=== PATIENT | male | born 1955 | race Caucasian/White ===

== ENCOUNTER 2017-11-29 10:20 | Inpatient (IN) | payer MEDICARE ==
[2017-11-29] MEDS ORDERED: SUBLIMAZE 100 MCG/2 ML IV ONE (10:40)
[2017-11-29] MEDS ORDERED: BABY ASPIRIN 81 MG CHEW PO ONE (10:40)
[2017-11-29] MEDS ORDERED: Zofran 4 MG/2 ML VIAL IV ONE (10:40)
[2017-11-29] MEDS ORDERED: Sodium Chloride 0.9% 1000 ML 1,000 ML IV SCH ×2 (10:45→13:30)
[2017-11-29] MEDS ORDERED: BABY ASPIRIN 81 MG CHEW ONE (10:46)
[2017-11-29] MEDS ORDERED: Zofran 4 MG/2 ML VIAL ONE (10:46)
[2017-11-29] MEDS ORDERED: SUBLIMAZE 100 MCG/2 ML ONE (10:46)
--- NOTE | 2017-11-29 10:55 | ERPHSYRPT ---
- History of Present Illness Time Seen by Provider: 11/29/17 10:36 Historian: patient Exam Limitations: clinical condition Patient Subjective Stated Complaint: Pt states "I have been having this pain for the past 3 days I have been having pain in my right ribs and upper abdomen. It really hurts when I breath and move." Triage Nursing Assessment: Pt alert and oriented X 3, skin pwd PT ambulates with an upright steady gait, able to speak in clear full sentences. When pt moves, he grunts in pain and grasps his right side." Physician History: PATIENT WITH A HISTORY OF ATRIAL FIBRILLATION, CHF, HYPERTENSION, TYPE 2 DIABETES, PACEMAKER DEFIBRILLATOR INSERTION, COMPLAINS OF SEVERE RIGHT POSTERIOR CHEST PAIN X 3 DAYS EXACERBATED UPON INSPIRATION, COUGHING, OR MOTION OF TORSO. HAS DYSPNEA AND A SLIGHT PRODUCTIVE COUGH FOR 3 DAYS. DENIES DIAPHORESIS, PALPITATIONS OR FEVER. Timing/Duration: day(s) Activities at Onset: none Quality: sharpness, stabbing Location: back Chest Pain Radiation: no radiation Severity of Pain-Max: severe Severity of Pain-Current: severe Modifying Factors: Improves With: coughing, movement, change in position, other (INSPIRATION) Aspirin Treatment Today: 81 mg x 4 Allergies/Adverse Reactions: dabigatran etexilate mesylate [From Pradaxa] Allergy (Severe, Verified 09/03/13 04:47) Difficulty Swallowing metoclopramide HCl [From Reglan] Allergy (Severe, Verified 09/03/13 04:47) Itching apixaban [From Eliquis] Adverse Reaction (Severe, Verified 11/29/17 10:32) cant walk morphine Adverse Reaction (Severe, Verified 09/03/13 04:47) HALLUCINATIONS Home Medications: Aspirin [Aspirin EC] 81 mg PO DAILY 09/03/13 [History] Atorvastatin Calcium [Lipitor] 40 mg PO HS 09/03/13 [History] Flaxseed [Flaxseed Oil] 1,200 mg PO BID 09/03/13 [History] Furosemide 80 mg [Lasix 80 mg] 40 mg PO BID 09/03/13 [History] Hum Insulin NPH/Reg Insulin Hm [Humulin 70-30 Pen] 60 unit SQ QAM 09/03/13 [ History] Hum Insulin NPH/Reg Insulin Hm [Humulin 70-30 Vial] 59 unit SQ DAILY 09/03/13 [ History] Hum Insulin NPH/Reg Insulin Hm [Humulin 70-30 Vial] 59 unit SQ HS 09/03/13 [ History] Lisinopril 10 mg [Zestril 10 MG] 10 mg PO HS 09/03/13 [History] Niacin 500 mg [Niaspan 500 mg] 500 mg PO DAILY 09/03/13 [History] Nitroglycerin 0.4 mg Tablet [Nitrostat 0.4 MG Tablet] 0.4 mg SL UD PRN [History] [place]-3 Fatty Acids/Fish Oil [Fish Oil 1,000 mg Capsule] 2 cap PO BID 09/03 [History] Potassium Chloride 10 Meq Tab* [Klor Con 10 MEQ] 10 meq PO BID 09/03/13 [ History] Sotalol HCl 80 mg [Betapace 80 MG] 80 mg PO BID 09/03/13 [History] Spironolactone 25 mg [Aldactone 25 MG] 12.5 mg PO DAILY 09/03/13 [History] Warfarin Sodium 5 mg [Coumadin 5 MG] 5 mg PO DAILY 09/03/13 [History] Hx Tetanus, Diphtheria Vaccination/Date Given: No Hx Influenza Vaccination/Date Given: Yes Hx Pneumococcal Vaccination/Date Given: Yes Immunizations Up to Date: Yes - Past Medical History Pertinent Past Medical History: Yes Neurological History: Migraines, Peripheral Neuropathy ENT History: Cataracts Cardiac History: Arrhythmia, Congestive Heart Failure, Coronary Artery Disease, High Cholesterol, Hypertension, Myocardial Infarction ([place]) Respiratory History: CHF, COPD, Emphysema, Pneumonia, Sleep Apnea Endocrine Medical History: Diabetes Type II, Other Musculoskeletal History: No Pertinent History GI Medical History: Diverticulitis History: No Pertinent History Psycho-Social History: No Pertinent History Other Medical History: SLEEP APNEA, RLS, FATIGUE, SINUSITIS, ISCHEMIC CARDIOMYOPATHY, A-FIB - Past Surgical History Past Surgical History: Yes Neuro Surgical History: No Pertinent History Cardiac: CABG, Cardiac Catheterization, Internal Defibrillator, Pacemaker Respiratory: No Pertinent History Gastrointestinal: Other Genitourinary: No Pertinent History Musculoskeletal: No Pertinent History Male Surgical History: No Pertinent History Other Surgical History: POLYPS REMOVED FROM COLON - Social History Smoking Status: Former smoker Exposure to second hand smoke: Yes Drug Use: none Patient Lives Alone: Yes - Nursing Vital Signs Nursing Vital Signs: Initial Vital Signs Temperature 97.5 F 11/29/17 10:24 Pulse Rate 70 11/29/17 10:24 Respiratory Rate 16 11/29/17 10:24 Blood Pressure 127/73 11/29/17 10:24 O2 Sat by Pulse Oximetry 97 11/29/17 10:24 Pain Scale Pain Intensity 0 - Physical Exam SpO2: 97 Oxygen Delivery: Room Air - Course EKG Interpreted by Me: RATE, Sinus Rhythm (WITH ATRIAL VENTRICULAR PACEMAKER) - Radiology Exams Chest X-ray Interpretation: Discussed w/ radiologist (MILD BIBASILAR INFILTRATES / ATELECTASIS WITHOUT CONSOLIDATION OR EFFUSION, PREVIOUS STERNOTOMY, LEFT SIDED AICD) Ordered Tests: Active Orders 24 hr Category Date Time Status Up With Assistance ROUTINE Activity 11/29/17 13:24 Ordered Accucheck ACHS Care 11/29/17 13:24 Ordered Code Status Order ROUTINE Care 11/29/17 13:24 Ordered EKG-ER Only STAT Care 11/29/17 10:40 Active IV Care Q6H Care 11/29/17 13:24 Ordered Oxygen-ED Only NASAL CANNULA 2 lpm Care 11/29/17 10:[address] in Observation ROUTINE Care 11/29/17 13:24 Ordered Abrahan Hose, Apply ROUTINE Care 11/29/17 13:24 Ordered Telemetry ROUTINE Care 11/29/17 13:24 Ordered Vital Signs Q4H Care 11/29/17 13:24 Ordered Weight,Daily 0600 Care 11/29/17 13:24 Ordered 2000 Calorie ADA Diet 11/29/17 Dinner Ordered CHEST 1 VIEW (PORTABLE) Stat Exams 11/29/17 10:41 Completed BLOOD CULTURE Stat Lab 11/29/17 12:20 Ordered CBC W DIFF Stat Lab 11/29/17 11:03 Completed CMP Stat Lab 11/29/17 11:03 Completed D-DIMER QUANTITATION Stat Lab 11/29/17 11:03 Completed PROTIME WITH INR Stat Lab 11/29/17 11:03 Completed TROPONIN Q3H Lab 11/29/17 11:03 Completed TROPONIN Q3H Lab 11/29/17 13:45 Ordered TROPONIN Q3H Lab 11/29/17 16:45 Ordered TROPONIN Q3H Lab 11/29/17 19:45 Ordered TROPONIN Q3H Lab 11/29/17 22:45 Ordered Oxygen NASAL CANNULA 2 lpm RT 11/29/17 13:24 Ordered Pulse Oximetry CONTINUOUS RT 11/29/17 13:26 Ordered Respiratory Nebulizer STAT RT 11/29/17 11:50 Active Respiratory Therapy Consult ROUTINE RT 11/29/17 13:24 Ordered Transfer Order Routine Transfer 11/29/17 Ordered Medication Summary Generic Name Dose Route Start Last Admin Trade Name Freq PRN Reason Stop Dose Admin Sodium Chloride 1,000 mls @ 100 mls/hr 11/29/17 10:45 11/29/17 10:48 Sodium Chloride 0.9% 1000 Ml IV 12/29/17 10:44 100 mls/hr .Q10H KIKI Administration Discontinued Medications Generic Name Dose Route Start Last Admin Trade Name Freq PRN Reason Stop Dose Admin Albuterol/Ipratropium 3 ml 11/29/17 11:49 11/29/17 12:00 Duoneb 0.5-3 Mg/3 Ml Neb IH 11/29/17 11:50 3 ml STAT ONE Administration Albuterol/Ipratropium Confirm 11/29/17 11:54 Duoneb 0.5-3 Mg/3 Ml Neb Administered 11/29/17 11:55 Dose 3 ml IH .STK-MED ONE Aspirin 324 mg 11/29/17 10:40 11/29/17 10:47 Baby Aspirin 81 Mg Chew PO 11/29/17 10:41 324 mg STAT ONE Administration Aspirin Confirm 11/29/17 10:46 Baby Aspirin 81 Mg Chew Administered 11/29/17 10:47 Dose 324 mg .ROUTE .STK-MED ONE Fentanyl Citrate 100 mcg 11/29/17 10:40 11/29/17 10:48 Sublimaze 100 Mcg/2 Ml IV 11/29/17 10:41 100 mcg STAT ONE Administration Fentanyl Citrate Confirm 11/29/17 10:46 Sublimaze 100 Mcg/2 Ml Administered 11/29/17 10:47 Dose 100 mcg .ROUTE .STK-MED ONE Azithromycin 500 mg in 250 mls @ 250 mls/hr 11/29/17 11:48 11/29/17 12:43 Zithromax 500 Mg/ 250 Ml Nacl Premix IV 11/29/17 12:47 250 mls/hr STAT STA Administration Ceftriaxone Sodium/Dextrose 2 g in 50 mls @ 100 mls/hr 11/29/17 11:49 12:08 Rocephin 2 Gm-D5w 50ml Bag IV 11/29/17 12:18 100 mls/hr STAT STA Administration Azithromycin Confirm 11/29/17 12:06 Zithromax 500 Mg/ 250 Ml Nacl Premix Administered 11/29/17 12:07 Dose 500 mg in 250 mls @ ud IV .STK-MED ONE Ceftriaxone Sodium/Dextrose Confirm 11/29/17 12:06 Rocephin 2 Gm-D5w 50ml Bag Administered 11/29/17 12:07 Dose 2 g in 50 mls @ ud IV .STK-MED ONE Azithromycin Confirm 11/29/17 12:42 Zithromax 500 Mg/ 250 Ml Nacl Premix Administered 11/29/17 12:43 Dose 500 mg in 250 mls @ ud IV .STK-MED ONE Ondansetron HCl 4 mg 11/29/17 10:40 11/29/17 10:48 Zofran 4 Mg/2 Ml Vial IV 11/29/17 10:41 4 mg STAT ONE Administration Ondansetron HCl Confirm 11/29/17 10:46 Zofran 4 Mg/2 Ml Vial Administered 11/29/17 10:47 Dose 4 mg .ROUTE .STK-MED ONE Lab/Rad Data: Laboratory Result Diagrams 11/29/17 11:03 11/29/17 11:03 Laboratory Results 11/29/17 11/29/17 11/29/17 Range/Units 11:03 11:03 11:03 WBC (4.0-10.5) K/mm3 RBC (4.1-5.6) M/mm3 Hgb (12.5-18.0) gm/dl Hct (42-50) % MCV (78-100) fl MCH (26-32) pg MCHC (32-36) g/dl RDW (11.5-14.0) % Plt Count (150-450) K/mm3 MPV (6-9.5) fl Gran % (36.0-66.0) % Eos # (Auto) (0-0.5) Absolute Lymphs (auto) (1.0-4.6) Absolute Monos (auto) (0.0-1.3) Lymphocytes % (24.0-44.0) % Monocytes % (0.0-12.0) % Eosinophils % (0.00-5.0) % Basophils % (0.0-0.4) % Absolute Granulocytes (1.4-6.9) Basophils # (0-0.4) PT 21.4 H (8.83-12.87) SECONDS INR 1.91 (0.8-3.0) D-Dimer 331.90 (215-500) ng/mL Sodium 138 (137-145) mmol/L Potassium 4.4 (3.5-5.1) mmol/L Chloride 101 (98-107) mmol/L Carbon Dioxide 27 (22-30) mmol/L Anion Gap 14.5 (5-15) MEQ/L BUN 26 H (9-20) mg/dL Creatinine 1.07 (0.66-1.25) mg/dL Estimated GFR > 60.0 ML/MIN Glucose 229 H (74-106) mg/dL Calcium 9.6 (8.4-10.2) mg/dL Total Bilirubin 0.60 (0.2-1.3) mg/dL AST 23 (17-59) U/L ALT 22 (0-50) U/L Alkaline Phosphatase 93 (38-126) U/L Troponin I < 0.012 (0.000-0.034) ng/mL Serum Total Protein 7.3 (6.3-8.2) g/dL Albumin 3.9 (3.5-5.0) g/dL 11/29/17 Range/Units 11:03 WBC 7.4 (4.0-10.5) K/mm3 RBC 4.75 (4.1-5.6) M/mm3 Hgb 12.9 (12.5-18.0) gm/dl Hct 40.2 L (42-50) % MCV 84.6 (78-100) fl MCH 27.2 (26-32) pg MCHC 32.1 (32-36) g/dl RDW 17.1 H (11.5-14.0) % Plt Count 164 (150-450) K/mm3 MPV 10.8 H (6-9.5) fl Gran % 68.0 H (36.0-66.0) % Eos # (Auto) 0.39 (0-0.5) Absolute Lymphs (auto) 1.30 (1.0-4.6) Absolute Monos (auto) 0.66 (0.0-1.3) Lymphocytes % 17.5 L (24.0-44.0) % Monocytes % 8.9 (0.0-12.0) % Eosinophils % 5.3 H (0.00-5.0) % Basophils % 0.3 (0.0-0.4) % Absolute Granulocytes 5.04 (1.4-6.9) Basophils # 0.02 (0-0.4) PT (8.83-12.87) SECONDS INR (0.8-3.0) D-Dimer (215-500) ng/mL Sodium (137-145) mmol/L Potassium (3.5-5.1) mmol/L Chloride (98-107) mmol/L Carbon Dioxide (22-30) mmol/L Anion Gap (5-15) MEQ/L BUN (9-20) mg/dL Creatinine (0.66-1.25) mg/dL Estimated GFR ML/MIN Glucose (74-106) mg/dL Calcium (8.4-10.2) mg/dL Total Bilirubin (0.2-1.3) mg/dL AST (17-59) U/L ALT (0-50) U/L Alkaline Phosphatase (38-126) U/L Troponin I (0.000-0.034) ng/mL Serum Total Protein (6.3-8.2) g/dL Albumin (3.5-5.0) g/dL - Progress Progress: re-examined Air Movement: good Progress Note: 11/29/17 13:19 DUONEB AEROSOL TX, AFTER 2 SETS OF BLOOD CULTURES ADMINISTERED ROCEPHIN 2GM AND ZITHROMAX 500MG IVPB Blood Culture(s) Obtained: Yes Antibiotics given: Yes Discussed with Dr.: Aguilar (DISCUSSED WITH DR AGUILAR AT 1315 FOR OBSERVATION) - Departure Time of Disposition: 13:30 Departure Disposition: Observation Clinical Impression: PNEUMONIA, RIGHT POSTERIOR CHEST WALL PAIN Condition: Stable Critical Care Time: No Referrals: NILA AGUILAR [Primary Care Provider] -
--- NOTE | 2017-11-29 11:06 | XRAY ---
Indication: Chest pain and dyspnea. Comparison: January 30, 2008. Portable chest again demonstrates mild bibasilar infiltrates/atelectasis without consolidation/large effusion. Heart is not enlarged again with CABG surgery and left-sided AICD. Bony thorax intact.
[2017-11-29 11:20] LABS: BASOPHIL % 0.3 % (0.0-0.4); Basophil (Absolute #) 0.02 (0-0.4); Eosinophil % 5.3 % (0.00-5.0); Eosinophil (Absolute #) 0.39 (0-0.5); Granulocyte Absolute (ANC) 5.04 (1.4-6.9); Hematocrit 40.2 % (42-50); Hemoglobin 12.9 gm/dl (12.5-18.0); Lymphocytes % 17.5 % (24.0-44.0); Mean Cell Volume 84.6 fl (78-100); Mean Corpuscular Hemoglobin 27.2 pg (26-32); Mean Corpuscular Hgb Concent. 32.1 g/dl (32-36); Mean Platelet Volume 10.8 fl (6-9.5); Monocyte (Absolute #) 0.66 (0.0-1.3); Monocytes % 8.9 % (0.0-12.0); Platelet Count 164 K/mm3 (150-450); Red Blood Count 4.75 M/mm3 (4.1-5.6); Red Cell Distribution Width 17.1 % (11.5-14.0); White Blood Count 7.4 K/mm3 (4.0-10.5)
[2017-11-29] MEDS ORDERED: Zithromax 500 MG/ 250 ML NaCl Premix 500 MG/250 ML IVPB IV STA (11:48)
[2017-11-29] MEDS ORDERED: ROCEPHIN 2 Gm-D5w 50ML BAG** 2 G/50 ML IVPB IV STA (11:49)
[2017-11-29] MEDS ORDERED: DUONEB 0.5-3 MG/3 ml Neb IH ONE ×2 (11:49→11:54)
[2017-11-29 11:57] LABS: INR 1.91 (0.8-3.0)
[2017-11-29 11:59] LABS: D-DIMER QUANTITATION 331.9 ng/mL (215-500)
[2017-11-29 12:05] LABS: ALBUMIN 3.9 g/dL (3.5-5.0); ALKALINE PHOSPHATASE 93 U/L (38-126); ANION GAP 14.5 MEQ/L (5-15); BLOOD UREA NITROGEN 26 mg/dL (9-20); CHLORIDE 101 mmol/L (98-107); Calcium 9.6 mg/dL (8.4-10.2); Carbon Dioxide 27 mmol/L (22-30); Creatinine 1 1.07 mg/dL (0.66-1.25); Glucose 229 mg/dL (74-106); Potassium 4.4 mmol/L (3.5-5.1); SGOT/AST 23 U/L (17-59); SGPT/ALT 22 U/L (0-50); SODIUM 138 mmol/L (137-145); Total Protein 7.3 g/dL (6.3-8.2)
[2017-11-29] MEDS ORDERED: Zithromax 500 MG/ 250 ML NaCl Premix 500 MG/250 ML IVPB IV ONE ×2 (12:06→12:42)
[2017-11-29] MEDS ORDERED: ROCEPHIN 2 Gm-D5w 50ML BAG** 2 G/50 ML IVPB IV ONE (12:06)
[2017-11-29] MEDS ORDERED: Nitrostat 0.4 MG Tablet SL PRN (13:36)
[2017-11-29] MEDS: DUONEB 0.5-3 MG/3 ml Neb IH SCH ×3 (15:48→23:24)
[2017-11-29] MEDS ORDERED: Novolin 70/30 SQ SCH (17:00)
[2017-11-29] MEDS ORDERED: Lasix 40 MG PO SCH (17:00)
[2017-11-29] MEDS ORDERED: Phenergan 25 MG INJ IV PRN (17:26)
[2017-11-29] MEDS ORDERED: TYLENOL 325 MG PO PRN (17:26)
[2017-11-29] MEDS ORDERED: SUBLIMAZE 100 MCG/2 ML IV PRN (17:27)
[2017-11-29] MEDS: Coumadin 3 MG PO SCH (18:27)
[2017-11-29] MEDS: Coumadin 5 MG PO SCH (18:28)
[2017-11-29] MEDS: Klor Con 10 MEQ PO SCH (21:35)
[2017-11-29] MEDS: Aldactone 25 MG PO SCH (21:36)
[2017-11-29] MEDS: Zestril 10 MG PO SCH (21:36)
[2017-11-29] MEDS: Betapace 80 MG PO SCH (21:36)
[2017-11-29] MEDS: Lasix 40 MG PO SCH (21:39)
[2017-11-29] MEDS: NovoLOG Insulin SQ PRN (21:40)
[2017-11-29] MEDS ORDERED: Lantus Insulin SQ ONE (22:00)
[2017-11-29] MEDS ORDERED: ZOCOR 20MG PO SCH (22:00)
[2017-11-29] MEDS ORDERED: Klor Con 10 MEQ PO SCH (22:00)
[2017-11-30 00:27] LABS: TSH, 3RD Generation 0.801 mIU/L (0.47-4.68)
[2017-11-30] MEDS: DUONEB 0.5-3 MG/3 ml Neb IH SCH ×5 (03:21→19:37)
[2017-11-30 06:12] LABS: BASOPHIL % 0.1 % (0.0-0.4); Basophil (Absolute #) 0.01 (0-0.4); Eosinophil (Absolute #) 0 (0-0.5); Granulocyte Absolute (ANC) 10.23 (1.4-6.9); Granulocytes % 78.6 % (36.0-66.0); Hematocrit 36.7 % (42-50); Hemoglobin 11.7 gm/dl (12.5-18.0); Lymphocyte (Absolute #) 1.56 (1.0-4.6); Mean Cell Volume 84.4 fl (78-100); Mean Corpuscular Hgb Concent. 31.9 g/dl (32-36); Monocyte (Absolute #) 1.21 (0.0-1.3); Monocytes % 9.3 % (0.0-12.0); Platelet Count 143 K/mm3 (150-450); Red Blood Count 4.35 M/mm3 (4.1-5.6)
[2017-11-30 06:26] LABS: Mean Corpuscular Hemoglobin 26.8 pg (26-32)
[2017-11-30 06:29] LABS: INR 2.24 (0.8-3.0)
[2017-11-30 06:31] LABS: ANION GAP 12.8 MEQ/L (5-15); BLOOD UREA NITROGEN 27 mg/dL (9-20); CHLORIDE 101 mmol/L (98-107); Calcium 9.2 mg/dL (8.4-10.2); Carbon Dioxide 25 mmol/L (22-30); Creatinine 1 1.11 mg/dL (0.66-1.25); Glucose 276 mg/dL (74-106); Potassium 4.5 mmol/L (3.5-5.1); SODIUM 135 mmol/L (137-145)
[2017-11-30] MEDS: Novolin 70/30 SQ SCH ×2 (07:44→16:52)
--- NOTE | 2017-11-30 07:52 | HP ---
HISTORY OF PRESENT ILLNESS: This is a 62 year-old patient of mine who reported that he started feeling bad a few days ago. His sister is at the bedside. She reports he was having quite a bit of right-sided pain in his chest and she thought it might be his gallbladder and wanted him to come to the hospital yesterday but he refused. He states he was in so much pain this morning that he was crying so he called the ambulance and was brought into the emergency department by ambulance. He reports his pain is much better now. He is not sure what they gave him in the emergency department. It looks like they gave him Fentanyl as well as starting antibiotics and Zofran. He reports that they gave him a breathing treatment on the way to the hospital and that seemed to help quite a bit. He reports a history of chronic obstructive pulmonary disease. He does not wear oxygen at home. He reports the pain would sometimes be sharp in nature and would come and go. He was taking ibuprofen at home without much relief. He denies any cough but states they told him now to try to cough stuff up, to take deep breaths which he is trying to do. He reports he has not urinated since this morning but does not feel like he needs to urinate. He reports he has not had a water pill today which he normally takes. REVIEW OF SYSTEMS: He denies any runny nose or fever. No cold-like symptoms. No abdominal pain. He has some urinary retention. He has not seen any blood in his urine. No rashes. No nausea or vomiting. No diarrhea. PAST MEDICAL HISTORY: Chronic obstructive pulmonary disease for which he sees Dr. Moseley for. Coronary artery disease which he sees Dr. De Leon for. 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 In the past he has been unable to tell me exactly why he is on that. He has a pacemaker. He reports his last heart cath was in 2008. Diabetes mellitus type 2 on insulin. Hyperlipidemia. Obesity. He has a history of ischemic cardiomyopathy. Restless leg syndrome. 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 Obstructive sleep apnea. He wears CPAP 6 cm at home. PAST SURGICAL HISTORY: Open heart surgery in 2000. Pacemaker placement. Colonoscopy [address] Duvall. Upper endoscopy with ballooning with Dr. Connolly in the past. MEDICATIONS: Aldactone 0.5 mg tablet daily, aspirin 81 mg daily, Atorvastatin 80 mg p.o. q.h.s., Klor-Con 10 mEq b.i.d., Lasix 40 mg t.i.d., lisinopril 10 mg daily, metformin extended release 2 tablets twice a day, metolazone 2.5 mg tablet twice a week, nitroglycerin 0.4 mg sublingual as needed, Novolin 70/30 62 units in the a.m., 56 units at noon and 62 units with his evening meal. Sotalol 80 mg p.o. b.i.d., warfarin a total of 8 mg daily. ALLERGIES: ELIQUIS, MORPHINE, PRADAXA, REGLAN. SOCIAL HISTORY: He used to smoke. He lives alone. FAMILY HISTORY: His father had diabetes and heart disease. PHYSICAL EXAMINATION: VITAL SIGNS: Temperature current 97.5F, temperature max 97.9F, heart rate 64 to 70, respiratory rate 16 to 17, blood pressure 110 to 127 over 56 to 72, weight 172.3 kg. Oxygen saturation 93 to 99% on room air to 3 liters nasal cannula. GENERAL: The patient is a lying in bed a pleasant talkative man in no acute distress. He is on oxygen by nasal cannula at 3 liters. CVS: He has a regular rate and rhythm. No murmurs, gallops or rubs are appreciated. CHEST: Clear to auscultation bilaterally, equal breath sounds. No crackles or wheezes are appreciated. No retractions. ABDOMEN: Obese, soft, nontender, nondistended with normal bowel sounds. EXTREMITIES: He has +3 pitting edema to his knees bilaterally. SKIN: Dry. LABORATORY DATA AND TESTS: CBC within normal limits. International normalized ratio 1.9. Glucose 229. Serial troponins have been negative. A D-dimer was negative. Chest x-ray portable was read as mild bibasilar infiltrates/atelectasis without consolidation/large effusion. Coronary artery bypass graft with left-sided AICD. ASSESSMENT AND PLAN: 1) ACUTE BRONCHITIS WITH HISTORY OF CHRONIC OBSTRUCTIVE PULMONARY DISEASE: Will continue with breathing treatments. He has been started on ceftriaxone. I am going to discontinue azithromycin due to interaction with warfarin and Sotalol and start doxycycline tomorrow. I will ask if apprenticeship training representative, Dr. Moseley, will see him. 2) HISTORY OF CONGESTIVE HEART FAILURE: Will continue with the Coumadin. 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 3) DIABETES MELLITUS TYPE 2: I plan to decrease his NPH to just twice a day while he is here to 40 units and this is a little less than half of what he usually gets as his appetite might not be as good since he is sick and he probably will eat a better diet here than at home with a 2,000 kilocalorie ADA diet. Also will check TSH while he is here.
--- NOTE | 2017-11-30 08:30 | PCM.NOTE ---
Date and Time: 11/30/17824 Subjective Assessment: Patient reports his right shoulder blade pain came back last night and the pain medication ordered did help with the pain. He reports sometimes he has pain in his right upper quadrant and reports having his gallbladder checked out many times before but thinks it has been years since it was last checked. He is not sure if it hurts worse with eating but he did eat his breakfast well. He continues to have a nonproductive cough. RT reported to me last night that the reason he was placed on oxygen is because it was ordered by the ER physician. Patient reports his breathing is better. Dr. Moseley was called last night and plans to see the patient 12/01/17. - Review of Systems Constitutional: No Symptoms Eyes: No Symptoms Ears, Nose, & Throat: No Symptoms Respiratory: Cough Cardiac: No Symptoms Abdominal/Gastrointestinal: No Symptoms Genitourinary Symptoms: Other (Patient reports he was able to urinate 5 times yesterday from about 6 pm to 2 am.) Musculoskeletal: Other (Pain around his right shoulder blade) Skin: No Rash Neurological: No Symptoms Psychological: No Symptoms Objective Exam General Appearance: no apparent distress, alert, obese Neurologic Exam: alert, cooperative, normal mood/affect Skin Exam: normal color, warm, dry, No rash Respiratory Exam: normal breath sounds, lungs clear, No crackles/rales, No rhonchi, No wheezing Cardiovascular Exam: regular rate/rhythm, normal heart sounds, No murmur, No friction rub, No gallop Gastrointestinal/Abdomen Exam: soft, normal bowel sounds, No tenderness, No distention, No mass, No guarding Extremity Exam: other (+2 edema to knees bilat; no point tenderness around right shoulder blade; no c/c) OBJECTIVE DATA Vital Signs: Vital Signs - 24 hr Temp Pulse Resp BP Pulse Ox 11/30/17 07:49 70 16 94 L 11/30/17 07:08 97.7 F 70 22 119/64 96 11/30/17 04:00 97.6 F 65 20 118/56 95 11/30/17 03:00 66 22 93 L 11/30/17 00:00 97.5 F 71 20 95/54 91 L 11/29/17 23:00 80 18 95 11/29/17 20:00 97.5 F 82 22 106/51 92 L 11/29/17 19:00 75 14 94 L 11/29/17 16:00 16 11/29/17 15:52 97.5 F 68 16 133/56 93 L 11/29/17 15:00 64 16 94 L 11/29/17 13:38 97 11/29/17 12:55 66 17 110/67 95 11/29/17 12:01 64 16 99 11/29/17 11:23 97.9 F 67 16 127/72 95 11/29/17 10:24 97.5 F 70 16 127/73 97 Oxygen-Last 24 hours O2 Percentage 3 Liters = 32% O2 Percentage 3 Liters = 32% O2 Percentage 3 Liters = 32% O2 Percentage 3 Liters = 32% O2 Percentage 3 Liters = 32% Pain Assessment - Last Documented Pain Intensity 7 Pain Scale Used 0-10 Pain Scale Intake and Output: Intake & Output 11/28/17 11/29/17 11/30/17 12/01/17 06:59 06:59 06:59 06:59 Intake Total 1200 Balance 1200 Weight 172.9 kg Lab Results: Accuchecks Date 11/29/17 Date 11/29/17 Time 20:22 Time 16:30 Accucheck Value: 345 Accucheck Value: 209 Lab Results-Last 24 Hours 11/29/17 11/29/17 11/29/17 Range/Units 16:45 16:50 22:10 WBC (4.0-10.5) K/mm3 RBC (4.1-5.6) M/mm3 Hgb (12.5-18.0) gm/dl Hct (42-50) % MCV (78-100) fl MCH (26-32) pg MCHC (32-36) g/dl RDW (11.5-14.0) % Plt Count (150-450) K/mm3 MPV (6-9.5) fl Gran % (36.0-66.0) % Eos # (Auto) (0-0.5) Absolute Lymphs (auto) (1.0-4.6) Absolute Monos (auto) (0.0-1.3) Lymphocytes % (24.0-44.0) % Monocytes % (0.0-12.0) % Eosinophils % (0.00-5.0) % Basophils % (0.0-0.4) % Absolute Granulocytes (1.4-6.9) Basophils # (0-0.4) PT (8.83-12.87) SECONDS INR (0.8-3.0) Sodium (137-145) mmol/L Potassium (3.5-5.1) mmol/L Chloride (98-107) mmol/L Carbon Dioxide (22-30) mmol/L Anion Gap (5-15) MEQ/L BUN (9-20) mg/dL Creatinine (0.66-1.25) mg/dL Estimated GFR ML/MIN Glucose (74-106) mg/dL Calcium (8.4-10.2) mg/dL Troponin I < 0.012 < 0.012 (0.000-0.034) ng/mL NT-Pro-B Natriuret Pep 269 (0-900) pg/mL TSH 3rd Generation 0.801 (0.47-4.68) mIU/L 11/30/17 11/30/17 11/30/17 Range/Units 05:56 05:56 05:56 WBC 13.0 H (4.0-10.5) K/mm3 RBC 4.35 (4.1-5.6) M/mm3 Hgb 11.7 L (12.5-18.0) gm/dl Hct 36.7 L (42-50) % MCV 84.4 (78-100) fl MCH 26.8 (26-32) pg MCHC 31.9 L (32-36) g/dl RDW 17.0 H (11.5-14.0) % Plt Count 143 L (150-450) K/mm3 MPV 11.0 H (6-9.5) fl Gran % 78.6 H (36.0-66.0) % Eos # (Auto) 0 (0-0.5) Absolute Lymphs (auto) 1.56 (1.0-4.6) Absolute Monos (auto) 1.21 (0.0-1.3) Lymphocytes % 12.0 L (24.0-44.0) % Monocytes % 9.3 (0.0-12.0) % Eosinophils % 0.0 (0.00-5.0) % Basophils % 0.1 (0.0-0.4) % Absolute Granulocytes 10.23 H (1.4-6.9) Basophils # 0.01 (0-0.4) PT 25.1 H (8.83-12.87) SECONDS INR 2.24 (0.8-3.0) Sodium 135 L (137-145) mmol/L Potassium 4.5 (3.5-5.1) mmol/L Chloride 101 (98-107) mmol/L Carbon Dioxide 25 (22-30) mmol/L Anion Gap 12.8 (5-15) MEQ/L BUN 27 H (9-20) mg/dL Creatinine 1.11 (0.66-1.25) mg/dL Estimated GFR > 60.0 ML/MIN Glucose 276 H (74-106) mg/dL Calcium 9.2 (8.4-10.2) mg/dL Troponin I (0.000-0.034) ng/mL NT-Pro-B Natriuret Pep (0-900) pg/mL TSH 3rd Generation (0.47-4.68) mIU/L Radiology Exams: Radiology Procedures Category Date Time Status CHEST 2 VIEWS (PA AND LAT) Routine Exams 11/30/17 Ordered Ultrasound Gallbladder [GALLBLADDER] [US] Routine Exams 11/30/17 Ordered Multi-Disciplinary Progress Notes: Multi-Disciplinary Progress Notes 11/29/17 14:55 Pharmacy Note by Romulo Richards Please be aware of possible drug interaction with Coumadin and Zithromax. May increase INR. Initialized on 11/29/17 14:55 - END OF NOTE 11/29/17 14:50 Pharmacy Note by Romulo Richards Please be aware of possible drug interaction with Zithromax and Betapace. May prolong QT interval. Initialized on 11/29/17 14:50 - END OF NOTE Assessment/Plan (1) Acute bronchitis Current Visit: Yes Status: Acute Assessment & Plan: Continue doxycycline and ceftriaxone. Continue oxygen as needed but try to wean off. Continue nebulizer treatments. Code(s): J20.9 - ACUTE BRONCHITIS, UNSPECIFIED (2) Shoulder blade pain Current Visit: Yes Status: Acute Assessment & Plan: will check gallbladder US to make sure this is not referred pain from gallbladder disease. Continue fentanyl as needed. No rash is appreciated. 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 Continue anticoagulation. INR is therapeutic today. BNP was normal. Ruled out for acute [facility]. D/c tele. Code(s): Z86.79 - PERSONAL HISTORY OF OTHER DISEASES OF THE CIRCULATORY SYSTEM (4) Diabetes type 2, controlled Current Visit: Yes Status: Acute Qualifiers: Diabetes mellitus terminal carman insulin use: with skilled nursing use Diabetes mellitus complication status: without complication Qualified Code(s): E11.9 - Type 2 diabetes mellitus without complications; Z79.4 - penitentiary (current) use of insulin; Z79.4 - penitentiary (current) use of insulin; Z79.4 - termite inspector ( current) use of insulin; Z79.4 - penitentiary (current) use of insulin Assessment & Plan: I have him on a lower dose of 70/30 than he is on at home at this time due to decreased appetite yesterday. Continue to monitor. I did give him 10 units of lantus last night as he did not get his 70/30 at supper time. Code(s): E11.9 - TYPE 2 DIABETES MELLITUS WITHOUT COMPLICATIONS
--- NOTE | 2017-11-30 09:02 | XRAY ---
Indication: Bronchitis. Comparison: One day earlier. PA/lateral chest unchanged again demonstrating mild bibasilar infiltrates/atelectasis. Heart and mediastinal structures within normal limits again with CABG surgery and left-sided AICD. No new cardiopulmonary abnormalities.
[2017-11-30] MEDS: ECOTRIN 81 MG PO SCH (09:54)
[2017-11-30] MEDS: Vibramycin 100 MG PO SCH ×2 (09:54→21:04)
[2017-11-30] MEDS: ROCEPHIN 2 Gm-D5w 50ML BAG** 2 G/50 ML IVPB IV SCH (09:55)
[2017-11-30] MEDS: Klor Con 10 MEQ PO SCH ×2 (09:55→21:04)
[2017-11-30] MEDS: Lasix 40 MG PO SCH ×3 (09:55→16:52)
[2017-11-30] MEDS: Aldactone 25 MG PO SCH (09:55)
[2017-11-30] MEDS: Betapace 80 MG PO SCH ×2 (09:55→21:02)
[2017-11-30] MEDS ORDERED: Zithromax 500 MG/ 250 ML NaCl Premix 500 MG/250 ML IVPB IV SCH (10:00)
[2017-11-30] MEDS: NovoLOG Insulin SQ PRN ×3 (11:37→21:04)
--- NOTE | 2017-11-30 14:56 | XRAY ---
Indication: Right upper quadrant pain. Two-dimensional gallbladder sonogram performed. Comparison: None Gallbladder normally distended without gallstones, wall thickening, or pericholecystic fluid. Common bile duct measures 4.8 mm. No intrahepatic biliary distention. Fatty echogenic liver without focal solid/cystic mass or ascites. Visualized pancreas and right kidney sonographically unremarkable. Right kidney measures 11.1 cm in length. Impression: Fatty liver. Negative gallbladder sonogram.
[2017-11-30] MEDS: Coumadin 5 MG PO SCH (17:03)
[2017-11-30] MEDS: Coumadin 3 MG PO SCH (17:03)
[2017-11-30] MEDS: Zestril 10 MG PO SCH (21:02)
[2017-11-30] MEDS: ZOCOR 20MG PO SCH (21:03)
[2017-12-01 06:14] LABS: ANION GAP 10.6 MEQ/L (5-15); BLOOD UREA NITROGEN 24 mg/dL (9-20); CHLORIDE 101 mmol/L (98-107); Calcium 9.3 mg/dL (8.4-10.2); Carbon Dioxide 31 mmol/L (22-30); Creatinine 1 1.27 mg/dL (0.66-1.25); Glucose 140 mg/dL (74-106); Potassium 4.2 mmol/L (3.5-5.1); SODIUM 139 mmol/L (137-145)
[2017-12-01 06:17] LABS: INR 2.45 (0.8-3.0)
[2017-12-01] MEDS: DUONEB 0.5-3 MG/3 ml Neb IH SCH ×4 (06:24→19:27)
[2017-12-01 06:25] LABS: BASOPHIL % 0.3 % (0.0-0.4); Basophil (Absolute #) 0.03 (0-0.4); Eosinophil % 4.3 % (0.00-5.0); Eosinophil (Absolute #) 0.42 (0-0.5); Granulocytes % 63.7 % (36.0-66.0); Hematocrit 39.3 % (42-50); Hemoglobin 12.4 gm/dl (12.5-18.0); Lymphocytes % 21.3 % (24.0-44.0); Mean Cell Volume 85.1 fl (78-100); Mean Corpuscular Hemoglobin 26.8 pg (26-32); Mean Corpuscular Hgb Concent. 31.6 g/dl (32-36); Monocyte (Absolute #) 1.03 (0.0-1.3); Monocytes % 10.4 % (0.0-12.0); Platelet Count 157 K/mm3 (150-450); Red Blood Count 4.62 M/mm3 (4.1-5.6); Red Cell Distribution Width 17.5 % (11.5-14.0); White Blood Count 9.9 K/mm3 (4.0-10.5)
[2017-12-01] MEDS: Novolin 70/30 SQ SCH ×2 (08:03→17:49)
--- NOTE | 2017-12-01 08:32 | PCM.NOTE ---
Date and Time: 12/01/17826 Subjective Assessment: Patient reports he did not sleep well. He has a cough productive of yellow sputum when he takes deep breaths. His eyes itch today. His appetite has been good. He reports more right sided chest pain this AM. - Review of Systems Constitutional: No Symptoms Eyes: Itchy Ears, Nose, & Throat: No Symptoms Respiratory: Cough, Short Of Breath Cardiac: No Symptoms Abdominal/Gastrointestinal: No Symptoms Genitourinary Symptoms: No Symptoms Musculoskeletal: No Symptoms (+ swelling of lower legs bilat, right sided chest pain) Objective Exam General Appearance: no apparent distress, obese Neurologic Exam: alert, cooperative, normal mood/affect Skin Exam: normal color, warm, dry, other (thickened skin on lower legs) Respiratory Exam: normal breath sounds, lungs clear, other (cough productive of yellow sputum), No respiratory distress, No accessory muscle use, No prolonged expirations, No crackles/rales, No wheezing Cardiovascular Exam: regular rate/rhythm, normal heart sounds, No murmur, No friction rub, No gallop Gastrointestinal/Abdomen Exam: soft, normal bowel sounds, No tenderness, No distention, No mass Extremity Exam: other (+2 edema to mid shins bilat, no c/c) OBJECTIVE DATA Vital Signs: Vital Signs - 24 hr Temp Pulse Resp BP Pulse Ox 12/01/17 08:00 20 12/01/17 07:37 98.6 F 64 20 105/61 93 L 12/01/17 06:35 93 L 12/01/17 06:27 69 16 86 L 12/01/17 04:00 97.9 F 67 17 116/57 94 L 11/30/17 23:48 98.0 F 64 19 118/59 90 L 11/30/17 19:42 97.6 F 65 20 116/56 92 L 11/30/17 15:46 97.8 F 68 20 114/58 97 11/30/17 13:57 67 18 98 11/30/17 12:36 97.5 F 64 20 106/55 97 11/30/17 10:51 64 16 97 Oxygen-Last 24 hours O2 Percentage 3 Liters = 32% O2 Percentage 3 Liters = 32% O2 Percentage 3 Liters = 32% Oxygen Flowrate (L/min)-RT 94 Pain Assessment - Last Documented Pain Intensity 2 Pain Scale Used 0-10 Pain Scale Intake and Output: Intake & Output 11/29/17 11/30/17 12/01/17 12/02/17 06:59 06:59 06:59 06:59 Intake Total 1200 1170 Output Total 500 Balance 1200 670 Weight 172.9 kg Lab Results: Accuchecks Date 12/01/17 Date 11/30/17 Time 07:23 Accucheck Value: 137 Accucheck Value: 263 Accucheck Value: 225 Accucheck Value: 323 Lab Results-Last 24 Hours 12/01/17 12/01/17 12/01/17 Range/Units 05:15 05:15 05:15 WBC 9.9 (4.0-10.5) K/mm3 RBC 4.62 (4.1-5.6) M/mm3 Hgb 12.4 L (12.5-18.0) gm/dl Hct 39.3 L (42-50) % MCV 85.1 (78-100) fl MCH 26.8 (26-32) pg MCHC 31.6 L (32-36) g/dl RDW 17.5 H (11.5-14.0) % Plt Count 157 (150-450) K/mm3 MPV 11.0 H (6-9.5) fl Gran % 63.7 (36.0-66.0) % Eos # (Auto) 0.42 (0-0.5) Absolute Lymphs (auto) 2.10 (1.0-4.6) Absolute Monos (auto) 1.03 (0.0-1.3) Lymphocytes % 21.3 L (24.0-44.0) % Monocytes % 10.4 (0.0-12.0) % Eosinophils % 4.3 (0.00-5.0) % Basophils % 0.3 (0.0-0.4) % Absolute Granulocytes 6.30 (1.4-6.9) Basophils # 0.03 (0-0.4) PT 27.5 H (8.83-12.87) SECONDS INR 2.45 (0.8-3.0) Sodium 139 (137-145) mmol/L Potassium 4.2 (3.5-5.1) mmol/L Chloride 101 (98-107) mmol/L Carbon Dioxide 31 H (22-30) mmol/L Anion Gap 10.6 (5-15) MEQ/L BUN 24 H (9-20) mg/dL Creatinine 1.27 H (0.66-1.25) mg/dL Estimated GFR > 60.0 ML/MIN Glucose 140 H (74-106) mg/dL Calcium 9.3 (8.4-10.2) mg/dL Radiology Exams: Radiology Procedures Category Date Time Status CHEST 2 VIEWS (PA AND LAT) Routine Exams 11/30/17 08:45 Completed Ultrasound Gallbladder [GALLBLADDER] [US] Routine Exams 11/30/17 14:40 Completed Assessment/Plan (1) Acute bronchitis Current Visit: Yes Status: Acute Assessment & Plan: Dr. Moseley to see patient today. Will check culture of sputum. Continue oxygen as needed and see if he qualifies for home oxygen. Continue doxycycline and ceftriaxone. Code(s): J20.9 - ACUTE BRONCHITIS, UNSPECIFIED (2) Shoulder blade pain Current Visit: Yes Status: Acute Assessment & Plan: Gallbladder US was normal. Code(s): M89.8X1 - OTHER SPECIFIED DISORDERS OF BONE, SHOULDER (3) History of ischemic cardiomyopathy Current Visit: Yes Status: Acute Assessment & Plan: Continue home medications. 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 I increased his 70/30 to 54 units bid. This is still much less than his home dose of 62 units at breakfast, 56 units at lunch and 62 units at dinner. Code(s): E11.9 - TYPE 2 DIABETES MELLITUS WITHOUT COMPLICATIONS (5) COPD (chronic obstructive pulmonary disease) Current Visit: Yes Status: Acute Assessment & Plan: See if he qualifies for home oxygen. Continue breathing treatments.
[2017-12-01] MEDS: ROCEPHIN 2 Gm-D5w 50ML BAG** 2 G/50 ML IVPB IV SCH (10:16)
[2017-12-01] MEDS: Betapace 80 MG PO SCH ×2 (10:17→21:59)
[2017-12-01] MEDS: Klor Con 10 MEQ PO SCH ×2 (10:18→21:59)
[2017-12-01] MEDS: Aldactone 25 MG PO SCH (10:18)
[2017-12-01] MEDS: Vibramycin 100 MG PO SCH ×2 (10:18→21:59)
[2017-12-01] MEDS: ECOTRIN 81 MG PO SCH (10:18)
[2017-12-01] MEDS: Lasix 40 MG PO SCH ×3 (10:18→17:48)
[2017-12-01] MEDS: Visine OPHTHALMIC 15 ML OP PRN (10:19)
[2017-12-01] MEDS: NovoLOG Insulin SQ PRN ×2 (12:39→17:49)
--- NOTE | 2017-12-01 15:21 | CONS ---
CONSULT DATE: 12/01/2017 HISTORY: Sergo Villatoro is a 62 year-old male with history of obstructive sleep apnea, known to me, who presented to the emergency room at [facility] on 11/29/2017 with complaints of right posterior chest wall pain. The patient was thought to be having a gallbladder attack. Subsequently he underwent chest x-ray and GI work up. The patient did not have any acute pulmonary problem. However, he was started on antibiotic with which he has shown significant clinical improvement. In addition, his blood cultures drawn have reported as growing gram-positive cocci today. At the time of my evaluation the patient is sitting comfortably in chair. He has been on supplemental oxygen. He usually does not use oxygen at home. He has been diagnosed with obstructive airways disease along with coronary artery disease as well. His effort tolerance has been largely reduced due to his body habitus. PAST MEDICAL HISTORY: The patient also suffers from hyperlipidemia, hypertension, cardiomyopathy, diabetes mellitus, restless leg syndrome and sleep apnea with CPAP at home. PAST SURGICAL HISTORY: Open heart surgery in 2000. Pacemaker placement. Colonoscopy in 2016. PERSONAL AND SOCIAL HISTORY: He quit smoking in 1989. MEDICATIONS: He is on Aldactone, aspirin, atorvastatin, potassium, Lasix, lisinopril, Metformin, metolazone, nitroglycerin, Novolin 70/30, Sotalol and warfarin. ALLERGIES: ELIQUIS, MORPHINE, PRADAXA, REGLAN. PHYSICAL EXAMINATION: This is a middle aged male who appears weak and tired but not in any distress. Vital signs noted. HEENT: Normocephalic. Oral exam shows small oropharynx. NECK: Supple. CVS: First and second heart sounds are normal, regular, rhythmic. RESPIRATORY: Shows diminished breath sounds. ABDOMEN: Obese. EXTREMITIES: Trace edema is noted. LABORATORY DATA AND TESTS: White blood cell count 9.9, hemoglobin 12.4, hematocrit 39, PLT 157,000. Sodium 139, potassium 4.2, chloride 101, bicarb 31, glucose 140, BUN 24, creatinine 1.3. International normalized ratio 2.45. Blood cultures as above. Sputum culture is pending. Troponin I has been negative. BNP 269. D-dimer negative at 332. ASSESSMENT: This is a 62 year old male admitted with: 1) Severe pleuritic pain with positive blood cultures suggestive of community acquired pneumonia with sepsis. 2) Hypoxemia. 3) Underlying chronic obstructive pulmonary disease. 4) Coronary artery disease on anticoagulation with therapeutic international normalized ratio. 5) Obstructive sleep apnea on CPAP. 6) Morbid obesity. 7) History of hypertension and diabetes mellitus. RECOMMENDATIONS: The patient has shown clinical improvement. Continue present antibiotics. I discussed with Dr. Delacruz. Will await identification and culture sensitivity of the organism before switching to p.o., will need to wean off supplemental oxygen, continue CPAP. The patient's international normalized ratio is therapeutic and would offer deep venous thrombosis prophylaxis as well. Will continue to follow. Thank you for allowing me to participate in the care of Sergo Irving.
[2017-12-01] MEDS: Coumadin 3 MG PO SCH (17:49)
[2017-12-01] MEDS: Coumadin 5 MG PO SCH (17:49)
[2017-12-01] MEDS: Zestril 10 MG PO SCH (21:59)
[2017-12-01] MEDS: ZOCOR 20MG PO SCH (22:00)
[2017-12-02 05:57] LABS: BASOPHIL % 0.3 % (0.0-0.4); Basophil (Absolute #) 0.03 (0-0.4); Eosinophil % 6.4 % (0.00-5.0); Eosinophil (Absolute #) 0.57 (0-0.5); Granulocyte Absolute (ANC) 5.22 (1.4-6.9); Granulocytes % 58.5 % (36.0-66.0); Hematocrit 41.2 % (42-50); Hemoglobin 13.1 gm/dl (12.5-18.0); Lymphocytes % 23.5 % (24.0-44.0); Mean Cell Volume 83.9 fl (78-100); Mean Corpuscular Hemoglobin 26.7 pg (26-32); Mean Corpuscular Hgb Concent. 31.8 g/dl (32-36); Mean Platelet Volume 10.7 fl (6-9.5); Monocyte (Absolute #) 1.01 (0.0-1.3); Monocytes % 11.3 % (0.0-12.0); Platelet Count 172 K/mm3 (150-450); Red Blood Count 4.91 M/mm3 (4.1-5.6); Red Cell Distribution Width 17.4 % (11.5-14.0); White Blood Count 8.9 K/mm3 (4.0-10.5)
[2017-12-02 06:00] LABS: INR 2.16 (0.8-3.0)
[2017-12-02 06:08] LABS: ANION GAP 13.5 MEQ/L (5-15); BLOOD UREA NITROGEN 27 mg/dL (9-20); CHLORIDE 99 mmol/L (98-107); Calcium 9.5 mg/dL (8.4-10.2); Carbon Dioxide 29 mmol/L (22-30); Creatinine 1 1.25 mg/dL (0.66-1.25); Glucose 99 mg/dL (74-106); Potassium 3.8 mmol/L (3.5-5.1); SODIUM 137 mmol/L (137-145)
[2017-12-02] MEDS: DUONEB 0.5-3 MG/3 ml Neb IH SCH ×2 (06:55→10:10)
[2017-12-02] MEDS: Novolin 70/30 SQ SCH (08:21)
--- NOTE | 2017-12-02 08:22 | PCM.NOTE ---
Date and Time: 12/02/17815 Subjective Assessment: Patient reports he continues to feel better. He coughed up a little bit last night. He reports a headache yesterday and a little bit of the right sided chest pain yesterday but tylenol helped both. His appetite has been good. He denies constipation. No abdominal pain. He reports RT told him that he qualified for oxygen but he seems not quite sure if he wants it. - Review of Systems Constitutional: No Symptoms Eyes: No Symptoms Ears, Nose, & Throat: No Symptoms Respiratory: Cough Cardiac: No Symptoms Abdominal/Gastrointestinal: No Symptoms Genitourinary Symptoms: No Symptoms Musculoskeletal: No Symptoms Skin: Other (mild swelling of his lower extremitites) Objective Exam General Appearance: no apparent distress, alert, obese Neurologic Exam: alert, cooperative, normal mood/affect Skin Exam: normal color, warm, other (dry skin on lower legs), No rash Respiratory Exam: normal breath sounds, lungs clear, No crackles/rales, No rhonchi, No wheezing Cardiovascular Exam: regular rate/rhythm, normal heart sounds, No murmur, No friction rub, No gallop Gastrointestinal/Abdomen Exam: soft, normal bowel sounds, No tenderness, No distention, No mass Extremity Exam: other (+1 edema to mid shins bilat) OBJECTIVE DATA Vital Signs: Vital Signs - 24 hr Temp Pulse Resp BP Pulse Ox 12/02/17 06:58 60 16 94 L 12/02/17 04:00 98.2 F 64 18 100/60 95 12/02/17 00:00 98.2 F 61 18 118/54 94 L 12/01/17 19:58 97.8 F 65 20 109/55 94 L 12/01/17 19:30 64 20 94 L 12/01/17 16:00 98.1 F 65 22 108/55 95 12/01/17 15:14 63 16 94 L 12/01/17 12:00 97.9 F 64 22 99/50 94 L 12/01/17 10:36 70 18 93 L Oxygen-Last 24 hours O2 Percentage 2 Liters = 28% O2 Percentage 2 Liters = 28% O2 Percentage 2 Liters = 28% O2 Percentage 2 Liters = 28% O2 Percentage 2 Liters = 28% Pain Assessment - Last Documented Pain Intensity 4 Pain Scale Used 0-10 Pain Scale Intake and Output: Intake & Output 11/30/17 12/01/17 12/02/17 12/03/17 06:59 06:59 06:59 06:59 Intake Total 940 Balance 940 Weight 167.6 kg Lab Results: Accuchecks Date 12/01/17 Date 12/01/17 Date 12/01/17 Time 11:30 Accucheck Value: 182 Accucheck Value: 226 Accucheck Value: 258 Lab Results-Last 24 Hours 12/02/17 12/02/17 12/02/17 Range/Units 05:40 05:40 05:40 WBC 8.9 (4.0-10.5) K/mm3 RBC 4.91 (4.1-5.6) M/mm3 Hgb 13.1 (12.5-18.0) gm/dl Hct 41.2 L (42-50) % MCV 83.9 (78-100) fl MCH 26.7 (26-32) pg MCHC 31.8 L (32-36) g/dl RDW 17.4 H (11.5-14.0) % Plt Count 172 (150-450) K/mm3 MPV 10.7 H (6-9.5) fl Gran % 58.5 (36.0-66.0) % Eos # (Auto) 0.57 H (0-0.5) Absolute Lymphs (auto) 2.10 (1.0-4.6) Absolute Monos (auto) 1.01 (0.0-1.3) Lymphocytes % 23.5 L (24.0-44.0) % Monocytes % 11.3 (0.0-12.0) % Eosinophils % 6.4 H (0.00-5.0) % Basophils % 0.3 (0.0-0.4) % Absolute Granulocytes 5.22 (1.4-6.9) Basophils # 0.03 (0-0.4) PT 24.2 H (8.83-12.87) SECONDS INR 2.16 (0.8-3.0) Sodium 137 (137-145) mmol/L Potassium 3.8 (3.5-5.1) mmol/L Chloride 99 (98-107) mmol/L Carbon Dioxide 29 (22-30) mmol/L Anion Gap 13.5 (5-15) MEQ/L BUN 27 H (9-20) mg/dL Creatinine 1.25 (0.66-1.25) mg/dL Estimated GFR > 60.0 ML/MIN Glucose 99 (74-106) mg/dL Calcium 9.5 (8.4-10.2) mg/dL Multi-Disciplinary Progress Notes: Multi-Disciplinary Progress Notes 12/01/17 21:53 Respiratory Note by Elder Mcdaniels PLACED A DOUBLE FLOW METER IN PT RM W/ 2LPM O2 CONT THRU NC AND 2LPM O2 TO CPAP. UNIT IS READY TO PUT ON WHEN PT WANTS TO REST. Initialized on 12/01/17 21:53 - END OF NOTE 12/01/17 08:45 (created 12/01/17 08:51) Respiratory Note by Courtney Russ PT'S O2 SAT ON ROOM AIR WHILE UP WALKING WAS 86%. PT'S O2 SAT ON 2LPM NASAL CANNULA WHILE WALKING WAS 93%. Initialized on 12/01/17 08:51 - END OF NOTE Assessment/Plan (1) Acute bronchitis Current Visit: Yes Status: Acute Assessment & Plan: Continue ceftriaxone and doxycycline. Blood culture that had positive gram stain identified as coag neg staph. Dr. Moseley plans to see patient again to day and I appreciate his input. Continue oxygen as needed and breathing treatments as needed. Code(s): J20.9 - ACUTE BRONCHITIS, UNSPECIFIED (2) Shoulder blade pain Current Visit: Yes Status: Resolved Assessment & Plan: Patient reports this has resolved. Gallbladder US during hospitalization was normal. Code(s): M89.8X1 - OTHER SPECIFIED DISORDERS OF BONE, SHOULDER (3) History of ischemic cardiomyopathy Current Visit: Yes Status: Acute Assessment & Plan: Stable, Continue home medications. Dr. De Leon's records requested but I don't see where we received these. His BNP was normal on admission. 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 He is on a significantly lower dose of insulin than his home dose. Will most likely advise him to take the dose he is on here in the hospital at home and follow up in the clinic. Code(s): E11.9 - TYPE 2 DIABETES MELLITUS WITHOUT COMPLICATIONS (5) COPD (chronic obstructive pulmonary disease) Current Visit: Yes Status: Acute Assessment & Plan: Continue treatment as above for acute bronchitis. Plan for home oxygen if patient is willing to use this.
[2017-12-02] MEDS: ROCEPHIN 2 Gm-D5w 50ML BAG** 2 G/50 ML IVPB IV SCH (10:21)
[2017-12-02] MEDS: Vibramycin 100 MG PO SCH (10:21)
[2017-12-02] MEDS: Betapace 80 MG PO SCH (10:22)
[2017-12-02] MEDS: Lasix 40 MG PO SCH ×2 (10:22→13:07)
[2017-12-02] MEDS: ECOTRIN 81 MG PO SCH (10:22)
[2017-12-02] MEDS: Aldactone 25 MG PO SCH (10:22)
[2017-12-02] MEDS: Klor Con 10 MEQ PO SCH (10:22)
[2017-12-02] MEDS: Visine OPHTHALMIC 15 ML OP PRN (10:23)
[2017-12-02 12:32] VITALS: BP 91/50; PULSE 64; O2SAT 97
== END 2017-12-02 15:10 | disposition home or self-care (01) | DRG 203 ==
LOC: ED 10:20 → MED SURG 14:45 → OBSVTOIN 12-01 04:49
PROVIDERS: ADMIT Internal Medicine; ATTEND Internal Medicine
DX: J20.9 Acute bronchitis, unspecified (principal); Z86.79 Personal history of other diseases of the circulatory system; J18.9 Pneumonia, unspecified organism; R07.89 Other chest pain; I50.9 Heart failure, unspecified; R09.02 Hypoxemia; I10 Essential (primary) hypertension; E78.5 Hyperlipidemia, unspecified; G47.33 Obstructive sleep apnea (adult) (pediatric); I25.10 Atherosclerotic heart disease of native coronary artery without angina pectoris; E11.9 Type 2 diabetes mellitus without complications; Z95.0 Presence of cardiac pacemaker; Z79.4 Long term (current) use of insulin; J44.9 Chronic obstructive pulmonary disease, unspecified; E66.01 Morbid (severe) obesity due to excess calories; E78.00 Pure hypercholesterolemia, unspecified; I48.91 Unspecified atrial fibrillation; G47.30 Sleep apnea, unspecified; G62.9 Polyneuropathy, unspecified; Z79.01 Long term (current) use of anticoagulants; Z79.899 Other long term (current) drug therapy; Z86.010 Personal history of colon polyps; I25.2 Old myocardial infarction
CPT/HCPCS: 36000; 36415; 71045; 71046; 76705; 80048; 80053; 82962; 83880; 84443; 84484; 85025; 85379; 85610; 87040; 87070; 93005; 93268; 94150; 94640; 94760; 96360; 96361; 96365; 96367; 96368; 96374; 96375; 99285; J0456; J0696; J1815; J2405; J3010; A9270-GY; G0378

== ENCOUNTER 2018-09-06 06:41 | Emergency (ER) | payer MEDICARE ==
--- NOTE | 2018-09-06 07:10 | ERPHSYRPT ---
- History of Present Illness Time Seen by Provider: 09/06/18 07:00 Historian: patient Patient Subjective Stated Complaint: Abdominal Pain Triage Nursing Assessment: Patient brought into ED per EMS and transferred to bed with assist of 2. Patient complains of abdominal pain that started on the left side and now is on the right side 02/22. Patient states he has been dealing with this pain for 20 years. Patient states he had a HIDA scan a few months ago that was ok. Patients' skin pink, warm and dry. Patient's lungs clear a/p melo. Patient abdomen soft and round with active BS. Physician History: 63 y/o diabetic,obese white male with multiple medical problems presents via ems with chronic abd pain complaints since 1979. first pain was on left side, now right upper quadrant. pt denies n/v/d. pt denies abd surgeries. pt has a sig cardiac hx including a defibrillator in place. denies cp and denies soa. pt underwent a hida scan a few months ago and it was normal. pt underwent a normal colonoscopy 2 years ago. pain is worsening Timing/Duration: intermittent (years) Activities at Onset: none Quality: stabbing Abdominal Pain Onset Location: RUQ Pain Radiation: no radiation Allergies/Adverse Reactions: apixaban [From Eliquis] Allergy (Severe, Verified 09/06/18 06:53) cant walk leg pain morphine Allergy (Severe, Verified 09/06/18 06:53) HALLUCINATIONS dabigatran etexilate mesylate [From Pradaxa] Allergy (Mild, Verified 09/06/18 06 :53) Nausea and Vomiting upset stomach metoclopramide HCl [From Reglan] Allergy (Mild, Verified 09/06/18 06:53) Itching hives Home Medications: Aspirin [Aspirin EC] 81 mg PO DAILY 09/03/13 [History] Lisinopril 10 mg [Zestril 10 MG] 10 mg PO DAILY 09/03/13 [History] Nitroglycerin 0.4 mg Tablet [Nitrostat 0.4 MG Tablet] 0.4 mg SL UD PRN [History] Potassium Chloride 10 Meq Tab* [Klor Con 10 MEQ] 10 meq PO BID 09/03/13 [ History] Sotalol HCl 80 mg [Betapace 80 MG] 80 mg PO BID 09/03/13 [History] Spironolactone 25 mg [Aldactone 25 MG] 12.5 mg PO DAILY 09/03/13 [History] Atorvastatin Calcium [Lipitor] 80 mg PO HS 11/29/17 [History] Furosemide 40 mg [Lasix 40 MG] 40 mg PO TID 11/29/17 [History] Metformin HCl 500 mg [Glucophage 500 MG] 1,000 mg PO BIDWM 11/29/17 [ History] Warfarin Sodium [Coumadin] 0.5 mg PO HS 11/29/17 [History] Warfarin Sodium [Coumadin] 7.5 mg PO HS 11/29/17 [History] Hx Tetanus, Diphtheria Vaccination/Date Given: No Hx Influenza Vaccination/Date Given: Yes Hx Pneumococcal Vaccination/Date Given: Yes Immunizations Up to Date: Yes - Review of Systems Constitutional: No Symptoms Eyes: No Symptoms Ears, Nose, & Throat: No Symptoms Respiratory: No Symptoms Cardiac: No Symptoms Abdominal/Gastrointestinal: Abdominal Pain, No Nausea, No Vomiting, No Diarrhea Genitourinary Symptoms: No Symptoms Musculoskeletal: No Symptoms Skin: No Symptoms Neurological: No Symptoms Psychological: No Symptoms Endocrine: No Symptoms Hematologic/Lymphatic: No Symptoms Immunological/Allergic: No Symptoms All Other Systems: Reviewed and Negative - Past Medical History Pertinent Past Medical History: Yes Neurological History: Migraines, Peripheral Neuropathy ENT History: Cataracts Cardiac History: Arrhythmia, Congestive Heart Failure, Coronary Artery Disease, High Cholesterol, Hypertension, Myocardial Infarction ([place]) Respiratory History: CHF, COPD, Emphysema, Pneumonia, Sleep Apnea Endocrine Medical History: Diabetes Type II, Other Musculoskeletal History: No Pertinent History GI Medical History: Diverticulitis, Polyps History: No Pertinent History Psycho-Social History: No Pertinent History Male Reproductive Disorders: No Pertinent History Other Medical History: SLEEP APNEA, RLS, FATIGUE, SINUSITIS, ISCHEMIC CARDIOMYOPATHY, A-FIB - Past Surgical History Past Surgical History: Yes Neuro Surgical History: No Pertinent History Cardiac: CABG, Cardiac Catheterization, Internal Defibrillator, Pacemaker Respiratory: No Pertinent History Gastrointestinal: Other Genitourinary: No Pertinent History Musculoskeletal: No Pertinent History Male Surgical History: No Pertinent History Other Surgical History: POLYPS REMOVED FROM COLON bilateral eye implants - Social History Smoking Status: Former smoker Exposure to second hand smoke: Yes Drug Use: none Patient Lives Alone: Yes - Nursing Vital Signs Nursing Vital Signs: Initial Vital Signs Temperature 97.8 F 09/06/18 06:42 Pulse Rate 65 09/06/18 06:42 Respiratory Rate 18 09/06/18 06:42 Blood Pressure 113/63 09/06/18 06:42 O2 Sat by Pulse Oximetry 94 L 09/06/18 06:42 Pain Scale Pain Intensity 7 - Physical Exam General Appearance: mild distress, alert, anxiety Eye Exam: PERRL/EOMI, eyes nml inspection Ears, Nose, Throat Exam: normal ENT inspection, moist mucous membranes Neck Exam: normal inspection, non-tender, supple, full range of motion Respiratory Exam: normal breath sounds, lungs clear, airway intact, No chest tenderness, No respiratory distress, No accessory muscle use, No rhonchi, No wheezing, No stridor Cardiovascular Exam: regular rate/rhythm, normal heart sounds, normal peripheral pulses Gastrointestinal/Abdomen Exam: soft, normal bowel sounds, tenderness (ruq), guarding, No rebound Rectal Exam: not done Back Exam: normal inspection, normal range of motion, No CVA tenderness, No vertebral tenderness Extremity Exam: normal inspection, normal range of motion, pelvis stable Neurologic Exam: alert, oriented x 3, cooperative, privacy attorney II-XII nml as tested Skin Exam: normal color, warm, dry Lymphatic Exam: No adenopathy SpO2 Interpretation: borderline oxygenation SpO2: 94 - Course Nursing assessment & vital signs reviewed: Yes Ordered Tests: Active Orders 24 hr Category Date Time Status IV Insertion STAT Care 09/06/18 07:16 Active ABDOMEN AND PELVIS W/0 CONTRAS [CT] Stat Exams 09/06/18 07:17 Completed AMYLASE Stat Lab 09/06/18 07:30 Completed CBC W DIFF Stat Lab 09/06/18 07:30 Completed CMP Stat Lab 09/06/18 07:30 Completed LIPASE Stat Lab 09/06/18 07:30 Completed Lactic Acid Stat Lab 09/06/18 08:00 Completed UA W/RFX UR CULTURE Stat Lab 09/06/18 08:13 Completed Medication Summary Generic Name Dose Route Start Last Admin Trade Name Freq PRN Reason Stop Dose Admin Sodium Chloride 1,000 mls @ 100 mls/hr 09/06/18 07:30 09/06/18 07:44 Sodium Chloride 0.9% 1000 Ml IV 10/06/18 07:29 100 mls/hr .Q10H KIKI Administration Discontinued Medications Generic Name Dose Route Start Last Admin Trade Name Shivani PRN Reason Stop Dose Admin Fentanyl Citrate 50 mcg 09/06/18 07:21 09/06/18 07:45 Sublimaze 100 Mcg/2 Ml IV 09/06/18 07:22 50 mcg STAT ONE Administration Fentanyl Citrate Confirm 09/06/18 07:40 Sublimaze 100 Mcg/2 Ml Administered 09/06/18 07:41 Dose 100 mcg .ROUTE .STK-MED ONE Ondansetron HCl 4 mg 09/06/18 07:16 09/06/18 07:45 Zofran 4 Mg/2 Ml Vial IV 09/06/18 07:17 4 mg STAT ONE Administration Ondansetron HCl Confirm 09/06/18 07:40 Zofran 4 Mg/2 Ml Vial Administered 09/06/18 07:41 Dose 4 mg .ROUTE .STK-MED ONE Lab/Rad Data: Laboratory Result Diagrams 09/06/18 07:30 09/06/18 07:30 Laboratory Results 09/06/18 09/06/18 09/06/18 Range/Units 08:13 08:00 07:30 WBC (4.0-10.5) K/mm3 RBC (4.1-5.6) M/mm3 Hgb (12.5-18.0) gm/dl Hct (42-50) % MCV (78-100) fl MCH (26-32) pg MCHC (32-36) g/dl RDW (11.5-14.0) % Plt Count (150-450) K/mm3 MPV (6-9.5) fl Gran % (36.0-66.0) % Eos # (Auto) (0-0.5) Absolute Lymphs (auto) (1.0-4.6) Absolute Monos (auto) (0.0-1.3) Lymphocytes % (24.0-44.0) % Monocytes % (0.0-12.0) % Eosinophils % (0.00-5.0) % Basophils % (0.0-0.4) % Absolute Granulocytes (1.4-6.9) Basophils # (0-0.4) Sodium 136 L (137-145) mmol/L Potassium 3.9 (3.5-5.1) mmol/L Chloride 96 L (98-107) mmol/L Carbon Dioxide 30 (22-30) mmol/L Anion Gap 13.8 (5-15) MEQ/L BUN 35 H (9-20) mg/dL Creatinine 1.40 H (0.66-1.25) mg/dL Estimated GFR 54.2 ML/MIN Glucose 134 H (74-106) mg/dL Lactic Acid 1.5 (0.4-2.0) Calcium 9.5 (8.4-10.2) mg/dL Total Bilirubin 0.80 (0.2-1.3) mg/dL AST 32 (17-59) U/L ALT 27 (0-50) U/L Alkaline Phosphatase 111 (38-126) U/L Serum Total Protein 7.9 (6.3-8.2) g/dL Albumin 4.4 (3.5-5.0) g/dL Amylase 39 (30-110) U/L Lipase 63 (23-300) U/L Urine Color STRAW (YELLOW) Urine Appearance CLEAR (CLEAR) Urine pH 7.0 (5-6) Ur Specific [place] 1.010 (1.005-1.025) Urine Protein NEGATIVE (Negative) Urine Ketones NEGATIVE (NEGATIVE) Urine Blood NEGATIVE (0-5) [place]/ul Urine Nitrite NEGATIVE (NEGATIVE) Urine Bilirubin NEGATIVE (NEGATIVE) Urine Urobilinogen NEGATIVE (0-1) mg/dL Ur Leukocyte Esterase NEGATIVE (NEGATIVE) Urine WBC (Auto) NONE (0-5) /HPF Urine RBC (Auto) NONE (0-2) /HPF U Epithel Cells (Auto) NONE (FEW) /HPF Urine Bacteria (Auto) NONE (NEGATIVE) /HPF Urine Culture Reflexed NO (NO) Urine Glucose NEGATIVE (NEGATIVE) mg/dL 09/06/18 Range/Units 07:30 WBC 7.3 (4.0-10.5) K/mm3 RBC 5.06 (4.1-5.6) M/mm3 Hgb 13.8 (12.5-18.0) gm/dl Hct 43.1 (42-50) % MCV 85.2 (78-100) fl MCH 27.3 (26-32) pg MCHC 32.0 (32-36) g/dl RDW 16.0 H (11.5-14.0) % Plt Count 161 (150-450) K/mm3 MPV 10.8 H (6-9.5) fl Gran % 57.8 (36.0-66.0) % Eos # (Auto) 0.52 H (0-0.5) Absolute Lymphs (auto) 1.70 (1.0-4.6) Absolute Monos (auto) 0.80 (0.0-1.3) Lymphocytes % 23.4 L (24.0-44.0) % Monocytes % 11.0 (0.0-12.0) % Eosinophils % 7.2 H (0.00-5.0) % Basophils % 0.6 (0.0-0.4) % Absolute Granulocytes 4.19 (1.4-6.9) Basophils # 0.04 (0-0.4) Sodium (137-145) mmol/L Potassium (3.5-5.1) mmol/L Chloride (98-107) mmol/L Carbon Dioxide (22-30) mmol/L Anion Gap (5-15) MEQ/L BUN (9-20) mg/dL Creatinine (0.66-1.25) mg/dL Estimated GFR ML/MIN Glucose (74-106) mg/dL Lactic Acid (0.4-2.0) Calcium (8.4-10.2) mg/dL Total Bilirubin (0.2-1.3) mg/dL AST (17-59) U/L ALT (0-50) U/L Alkaline Phosphatase (38-126) U/L Serum Total Protein (6.3-8.2) g/dL Albumin (3.5-5.0) g/dL Amylase (30-110) U/L Lipase (23-300) U/L Urine Color (YELLOW) Urine Appearance (CLEAR) Urine pH (5-6) Ur Specific [place] (1.005-1.025) Urine Protein (Negative) Urine Ketones (NEGATIVE) Urine Blood (0-5) [place]/ul Urine Nitrite (NEGATIVE) Urine Bilirubin (NEGATIVE) Urine Urobilinogen (0-1) mg/dL Ur Leukocyte Esterase (NEGATIVE) Urine WBC (Auto) (0-5) /HPF Urine RBC (Auto) (0-2) /HPF U Epithel Cells (Auto) (FEW) /HPF Urine Bacteria (Auto) (NEGATIVE) /HPF Urine Culture Reflexed (NO) Urine Glucose (NEGATIVE) mg/dL - Progress Progress: improved Progress Note: 09/06/18 08:46 ct scan-mild fecal stasis. no acute process. nl appendix Counseled pt/family regarding: lab results, diagnosis, need for follow-up, rad results - Departure Time of Disposition: 08:47 Departure Disposition: Home Clinical Impression: Constipation, Right sided abdominal pain Condition: Stable Critical Care Time: No Referrals: NILA AGUILAR [Primary Care Provider] - Additional Instructions: drink plenty of fluids. increase your activity. use fleets enemas and drink magnesium citrate as directed on over the counter products. follow up with a biofuels plant operations engineer for further management Prescriptions: Hydrocodone/APAP 5-325 Tab^^^ [[place] 5-325 Tablet^^^] 1 tab PO Q12H PRN PRN #6 tablet MDD 2 PRN Reason: Pain
[2018-09-06] MEDS ORDERED: Zofran 4 MG/2 ML VIAL ONE (07:40)
[2018-09-06] MEDS ORDERED: Sodium Chloride 0.9% 1000 ML 1,000 ML ONE (07:40)
[2018-09-06] MEDS ORDERED: SUBLIMAZE 100 MCG/2 ML ONE (07:40)
[2018-09-06 07:41] LABS: BASOPHIL % 0.6 % (0.0-0.4); Basophil (Absolute #) 0.04 (0-0.4); Eosinophil % 7.2 % (0.00-5.0); Eosinophil (Absolute #) 0.52 (0-0.5); Granulocyte Absolute (ANC) 4.19 (1.4-6.9); Granulocytes % 57.8 % (36.0-66.0); Hematocrit 43.1 % (42-50); Hemoglobin 13.8 gm/dl (12.5-18.0); Lymphocytes % 23.4 % (24.0-44.0); Mean Cell Volume 85.2 fl (78-100); Mean Corpuscular Hemoglobin 27.3 pg (26-32); Mean Platelet Volume 10.8 fl (6-9.5); Platelet Count 161 K/mm3 (150-450); Red Blood Count 5.06 M/mm3 (4.1-5.6); White Blood Count 7.3 K/mm3 (4.0-10.5)
[2018-09-06] MEDS: Sodium Chloride 0.9% 1000 ML 1,000 ML IV SCH (07:44)
[2018-09-06] MEDS: Zofran 4 MG/2 ML VIAL IV ONE (07:45)
[2018-09-06] MEDS: SUBLIMAZE 100 MCG/2 ML IV ONE (07:45)
[2018-09-06 07:51] LABS: ALBUMIN 4.4 g/dL (3.5-5.0); ANION GAP 13.8 MEQ/L (5-15); BILIRUBIN,TOTAL 0.8 mg/dL (0.2-1.3); Calcium 9.5 mg/dL (8.4-10.2); Creatinine 1 1.4 mg/dL (0.66-1.25); Potassium 3.9 mmol/L (3.5-5.1); Total Protein 7.9 g/dL (6.3-8.2)
[2018-09-06 08:09] LABS: Appearance CLEAR (CLEAR); Bilirubin NEGATIVE (NEGATIVE); Blood NEGATIVE Ery/ul (0-5); Glucose NEGATIVE (NEGATIVE); Ketones NEGATIVE (NEGATIVE); Leukocyte Esterase NEGATIVE (NEGATIVE); Nitrite NEGATIVE (NEGATIVE); Protein,Urine Dip NEGATIVE (Negative); Urobilinogen NEGATIVE mg/dL (0-1)
--- NOTE | 2018-09-06 08:40 | XRAY ---
Indication: Abdomen/flank pain. Multiple contiguous axial images obtained through the abdomen and pelvis without contrast as ordered. Comparison: September 03, 2013. Lung bases demonstrates patchy left base alveolar opacities without consolidation or effusion. Heart is not enlarged. Noncontrasted stomach and bowel loops appear nonobstructed. Normal appendix. Mild diffuse scattered colonic fecal debris throughout. Minimal distal descending colon diverticulosis without diverticulitis. No free fluid/air. There remains hepatic/splenic calcified granulomas. Remaining liver, gallbladder, pancreas, spleen, adrenal glands, kidneys, ureters, and bladder appear unremarkable for noncontrast exam. Again mild aortoiliac calcifications without AAA. Osseous structures intact with moderate degenerative changes throughout the spine. No ventral or inguinal hernias. Impression: 1. Mild fecal stasis without obstruction, descending colonic diverticulosis, and evidence for old granulomatous disease. 2. No new or acute intra-abdominal/pelvic abnormalities on this noncontrast exam. 3. Incidental left lung base patchy alveolar opacity. Correlate clinically. CT DI 34.71
[2018-09-06 09:12] VITALS: BP 100/53; PULSE 65; O2SAT 97
== END 2018-09-06 09:11 | disposition home or self-care (01) ==
LOC: ED 06:41
DX: K59.00 Constipation, unspecified (principal); R10.9 Unspecified abdominal pain; G62.9 Polyneuropathy, unspecified; I25.810 Atherosclerosis of coronary artery bypass graft(s) without angina pectoris; E78.00 Pure hypercholesterolemia, unspecified; I10 Essential (primary) hypertension; I25.2 Old myocardial infarction; I50.9 Heart failure, unspecified; G47.30 Sleep apnea, unspecified; J44.9 Chronic obstructive pulmonary disease, unspecified; E11.9 Type 2 diabetes mellitus without complications; K63.5 Polyp of colon; Z95.810 Presence of automatic (implantable) cardiac defibrillator; Z79.01 Long term (current) use of anticoagulants; Z79.899 Other long term (current) drug therapy
CPT/HCPCS: 36000; 36415; 74176; 80053; 81001; 82150; 83605; 83690; 85025; 96360; 96374; 96375; 99284; J2405; J3010

== ENCOUNTER 2019-12-01 13:27 | Inpatient (IN) | payer MEDICARE ==
[2019-12-01] MEDS ORDERED: Colace 100 MG PO PRN (14:23)
[2019-12-01] MEDS ORDERED: NovoLOG Insulin SQ PRN (14:30)
[2019-12-01] MEDS ORDERED: Sodium Chloride 0.9% 10 ML FLUSH Syringe IV PRN (14:30)
[2019-12-01] MEDS: ROCEPHIN 1 Gm-D5w 50 ml Bag** 1 G/50 ML IVPB IV SCH (15:09)
[2019-12-01] MEDS ORDERED: VENTOLIN COMMON CANISTER IH PRN (15:15)
[2019-12-01] MEDS ORDERED: PATIENT OWN MEDICATION IH PRN (15:26)
[2019-12-01] MEDS: TYLENOL 325 MG PO PRN ×2 (15:39→21:34)
[2019-12-01 15:41] LABS: Absolute Neutrophil Ct (ANC) 11.41 (1.4-6.9); BASOPHIL % 0.2 % (0.0-0.4); Basophil (Absolute #) 0.03 (0-0.4); Eosinophil (Absolute #) 0.13 (0-0.5); Hematocrit 41.2 % (42-50); Hemoglobin 12.9 gm/dl (12.5-18.0); Lymphocyte (Absolute #) 0.89 (1.0-4.6); Lymphocytes % 6.6 % (24.0-44.0); Mean Cell Volume 86.7 fl (78-100); Mean Corpuscular Hemoglobin 27.2 pg (26-32); Mean Corpuscular Hgb Concent. 31.3 g/dl (32-36); Mean Platelet Volume 11.2 fl (7.5-11.0); Monocyte (Absolute #) 1.01 (0.0-1.3); Monocytes % 7.5 % (0.0-12.0); Neutrophil % 84.7 % (36.0-66.0); Platelet Count 148 K/mm3 (150-450); Red Blood Count 4.75 M/mm3 (4.1-5.6); Red Cell Distribution Width 16.6 % (11.5-14.0); White Blood Count 13.5 K/mm3 (4.0-10.5)
[2019-12-01 15:44] LABS: INR 2.89 (0.8-3.0); PROTIME 33.4 SECONDS (8.83-12.87)
[2019-12-01 15:48] LABS: ALBUMIN 4.1 g/dL (3.5-5.0); ALKALINE PHOSPHATASE 77 U/L (38-126); ANION GAP 13.1 MEQ/L (5-15); BLOOD UREA NITROGEN 31 mg/dL (9-20); CHLORIDE 99 mmol/L (98-107); Calcium 9.8 mg/dL (8.4-10.2); Carbon Dioxide 30 mmol/L (22-30); Creatinine 1 1.12 mg/dL (0.66-1.25); Glucose 96 mg/dL (74-106); Potassium 4.5 mmol/L (3.5-5.1); SGOT/AST 29 U/L (17-59); SGPT/ALT 21 U/L (0-50); SODIUM 137 mmol/L (137-145); Total Protein 7.6 g/dL (6.3-8.2)
[2019-12-01] MEDS ORDERED: Nitrostat 0.4 MG Tablet SL PRN (16:00)
[2019-12-01] MEDS: PATIENT OWN MEDICATION IH SCH (16:19)
--- NOTE | 2019-12-01 17:14 | PCM.BN ---
Brief Admission Note - Admission Note Brief Admisson Note: Patient admitted @ 12/01/19 13:32 to MED SURG direct from Dr Delacruz office with cellulitis right LE and chills.His sugar was low this morning per Dr Delacruz so I lowered his insulin slightly. Medication List reviewed and reconciled.
[2019-12-01] MEDS: Aldactone 25 MG PO SCH (17:34)
[2019-12-01] MEDS: Glucophage 500 MG PO SCH (17:34)
[2019-12-01] MEDS: Lasix 40 MG PO SCH (17:34)
[2019-12-01] MEDS: VANCOMYCIN 1.5 GRAM/300 ML BAG 1.5 GM/300 ML PIGGYBACK IV SCH (17:45)
[2019-12-01] MEDS ORDERED: VENTOLIN COMMON CANISTER IH SCH (19:00)
[2019-12-01 20:28] LABS: Appearance CLEAR (CLEAR); Bilirubin NEGATIVE (NEGATIVE); Blood NEGATIVE Ery/ul (0-5); Glucose NEGATIVE (NEGATIVE); Ketones NEGATIVE (NEGATIVE); Leukocyte Esterase NEGATIVE (NEGATIVE); Nitrite NEGATIVE (NEGATIVE); Protein,Urine Dip NEGATIVE (Negative); Specific Gravity 1.018 (1.005-1.025); Urobilinogen 2 mg/dL (0-1)
[2019-12-01] MEDS: Coumadin 3 MG PO SCH (21:25)
[2019-12-01] MEDS: Betapace 80 MG PO SCH (21:26)
[2019-12-01] MEDS: Coumadin 5 MG PO SCH (21:26)
[2019-12-01] MEDS: ZOCOR 20MG PO SCH (21:26)
[2019-12-01] MEDS: Klor Con 10 MEQ PO SCH (21:26)
[2019-12-01] MEDS: Sodium Chloride 0.9% 10 ML FLUSH Syringe IV SCH (21:26)
[2019-12-01] MEDS ORDERED: Novolin 70/30 SQ SCH (22:00)
[2019-12-01] MEDS ORDERED: Coumadin 1 MG PO SCH (22:00)
[2019-12-01] MEDS ORDERED: NON-FORMULARY ITEM (Atorvastatin Calcium [Lipitor] 80 MG) PO SCH (22:00)
[2019-12-01] MEDS ORDERED: WARFARIN SODIUM 7.5 MG PO SCH (22:00)
[2019-12-01] MEDS: Tums EX 750 MG PO PRN (23:07)
[2019-12-02] MEDS: Tums EX 750 MG PO PRN (04:13)
[2019-12-02] MEDS: NORCO 5/325 MG PO PRN ×2 (05:19→12:01)
[2019-12-02] MEDS: VANCOMYCIN 1.5 GRAM/300 ML BAG 1.5 GM/300 ML PIGGYBACK IV SCH ×2 (06:07→17:12)
[2019-12-02] MEDS: Sodium Chloride 0.9% 10 ML FLUSH Syringe IV SCH ×3 (06:08→21:03)
[2019-12-02] MEDS: PATIENT OWN MEDICATION IH SCH ×3 (07:47→19:21)
[2019-12-02] MEDS ORDERED: Novolin 70/30 SQ SCH ×2 (08:00→22:00)
[2019-12-02] MEDS: Glucophage 500 MG PO SCH ×2 (08:22→17:11)
[2019-12-02] MEDS: ROCEPHIN 1 Gm-D5w 50 ml Bag** 1 G/50 ML IVPB IV SCH (10:17)
[2019-12-02] MEDS: Betapace 80 MG PO SCH ×2 (10:18→21:01)
[2019-12-02] MEDS: ECOTRIN 81 MG PO SCH (10:19)
[2019-12-02] MEDS: Klor Con 10 MEQ PO SCH ×2 (10:19→21:02)
[2019-12-02] MEDS: Aldactone 25 MG PO SCH (10:19)
[2019-12-02] MEDS: Zestril 10 MG PO SCH (10:19)
[2019-12-02] MEDS: Lasix 40 MG PO SCH ×3 (10:20→17:10)
--- NOTE | 2019-12-02 11:34 | PCM.NOTE ---
Date and Time: 12/02/19 1128 Subjective Assessment: Patient is sitting in recliner with legs elevated . Right leg is draining and painful if moves /stands, relieved with [place] 5mg through the night. Sugar 73 fasting this morning so further reducing Insulin 70/30 to 50 units BID with breakfast and supper. Patient states he has been fighting low sugars recently. Cultures are pending.Will continue IV Vancomycin and Ceftriaxone per Dr Delacruz admit orders. - Review of Systems Constitutional: Other (no further chills) Eyes: No Symptoms Ears, Nose, & Throat: No Symptoms Respiratory: No Symptoms Cardiac: No Symptoms Abdominal/Gastrointestinal: Abdominal Pain (chronic colon spasm pains Left sided per patient,none now.) Genitourinary Symptoms: No Symptoms Skin: Cellulitis (RLE) Psychological: No Symptoms Objective Exam Wound Assessment: Skin/Wound Assessment Wound/Incision Assessment Start: 12/01/19 13: 41 Text: Status: Active Freq: Q6H Protocol: Document 12/02/19 07:56 TP (Rec: 12/02/19 08:18 TP [id number]) Wound Photo Photo Taken Yes Date: 12/01/19 OBJECTIVE DATA Vital Signs: Vital Signs - 24 hr Temp Pulse Resp BP Pulse Ox 12/02/19 08:00 97.8 F 68 20 105/52 96 12/02/19 07:47 66 18 95 12/02/19 04:00 98.7 F 65 16 98/54 95 12/02/19 00:00 99.0 F 68 16 90/52 93 L 12/01/19 21:29 77 18 95 12/01/19 20:00 99.4 F 80 24 100/55 96 12/01/19 16:26 99.1 F 80 18 121/57 94 L 12/01/19 16:14 86 20 96 12/01/19 14:19 98.3 F 85 20 133/60 96 12/01/19 14:09 98.3 F 85 20 133/60 96 12/01/19 14:08 98.3 F 85 20 133/60 96 Pain Assessment - Last Documented Pain Intensity 0 Pain Scale Used 0-10 Pain Scale Intake and Output: Intake & Output 11/29/19 11/30/19 12/01/19 12/02/19 11:59 11:59 11:59 11:59 Intake Total 2069 Output Total 1200 Balance 870 Weight 160.2 kg Lab Results: Accuchecks Date 12/02/19 Date 12/01/19 Time 07:30 Time 16:30 Accucheck Value: 73 Accucheck Value: 154 Accucheck Value: 92 Lab Results-Last 24 Hours 12/01/19 12/01/19 12/01/19 Range/Units 14:45 15:00 15:00 WBC 13.5 H (4.0-10.5) K/mm3 RBC 4.75 (4.1-5.6) M/mm3 Hgb 12.9 (12.5-18.0) gm/dl Hct 41.2 L (42-50) % MCV 86.7 (78-100) fl MCH 27.2 (26-32) pg MCHC 31.3 L (32-36) g/dl RDW 16.6 H (11.5-14.0) % Plt Count 148 L (150-450) K/mm3 MPV 11.2 H (7.5-11.0) fl Gran % 84.7 H (36.0-66.0) % Eos # (Auto) 0.13 (0-0.5) Absolute Lymphs (auto) 0.89 L (1.0-4.6) Absolute Monos (auto) 1.01 (0.0-1.3) Lymphocytes % 6.6 L (24.0-44.0) % Monocytes % 7.5 (0.0-12.0) % Eosinophils % 1.0 (0.00-5.0) % Basophils % 0.2 (0.0-0.4) % Absolute Granulocytes 11.41 H (1.4-6.9) Basophils # 0.03 (0-0.4) PT (8.83-12.87) SECONDS INR (0.8-3.0) Sodium 137 (137-145) mmol/L Potassium 4.5 (3.5-5.1) mmol/L Chloride 99 (98-107) mmol/L Carbon Dioxide 30 (22-30) mmol/L Anion Gap 13.1 (5-15) MEQ/L BUN 31 H (9-20) mg/dL Creatinine 1.12 (0.66-1.25) mg/dL Estimated GFR > 60.0 ML/MIN Glucose 96 (74-106) mg/dL Hemoglobin A1c (4.5-6.0) % Lactic Acid 1.6 (0.4-2.0) Calcium 9.8 (8.4-10.2) mg/dL Total Bilirubin 0.90 (0.2-1.3) mg/dL AST 29 (17-59) U/L ALT 21 (0-50) U/L Alkaline Phosphatase 77 (38-126) U/L Serum Total Protein 7.6 (6.3-8.2) g/dL Albumin 4.1 (3.5-5.0) g/dL Urine Color (YELLOW) Urine Appearance (CLEAR) Urine pH (5-6) Ur Specific [place] (1.005-1.025) Urine Protein (Negative) Urine Ketones (NEGATIVE) Urine Blood (0-5) [place]/ul Urine Nitrite (NEGATIVE) Urine Bilirubin (NEGATIVE) Urine Urobilinogen (0-1) mg/dL Ur Leukocyte Esterase (NEGATIVE) Urine WBC (Auto) (0-5) /HPF Urine RBC (Auto) (0-2) /HPF U Epithel Cells (Auto) (FEW) /HPF Urine Bacteria (Auto) (NEGATIVE) /HPF Urine Culture Reflexed (NO) Urine Glucose (NEGATIVE) mg/dL 12/01/19 12/01/19 12/01/19 Range/Units 15:00 15:00 20:15 WBC (4.0-10.5) K/mm3 RBC (4.1-5.6) M/mm3 Hgb (12.5-18.0) gm/dl Hct (42-50) % MCV (78-100) fl MCH (26-32) pg MCHC (32-36) g/dl RDW (11.5-14.0) % Plt Count (150-450) K/mm3 MPV (7.5-11.0) fl Gran % (36.0-66.0) % Eos # (Auto) (0-0.5) Absolute Lymphs (auto) (1.0-4.6) Absolute Monos (auto) (0.0-1.3) Lymphocytes % (24.0-44.0) % Monocytes % (0.0-12.0) % Eosinophils % (0.00-5.0) % Basophils % (0.0-0.4) % Absolute Granulocytes (1.4-6.9) Basophils # (0-0.4) PT 33.4 H (8.83-12.87) SECONDS INR 2.89 (0.8-3.0) Sodium (137-145) mmol/L Potassium (3.5-5.1) mmol/L Chloride (98-107) mmol/L Carbon Dioxide (22-30) mmol/L Anion Gap (5-15) MEQ/L BUN (9-20) mg/dL Creatinine (0.66-1.25) mg/dL Estimated GFR ML/MIN Glucose (74-106) mg/dL Hemoglobin A1c 7.35 H (4.5-6.0) % Lactic Acid (0.4-2.0) Calcium (8.4-10.2) mg/dL Total Bilirubin (0.2-1.3) mg/dL AST (17-59) U/L ALT (0-50) U/L Alkaline Phosphatase (38-126) U/L Serum Total Protein (6.3-8.2) g/dL Albumin (3.5-5.0) g/dL Urine Color YELLOW (YELLOW) Urine Appearance CLEAR (CLEAR) Urine pH 7.0 (5-6) Ur Specific [place] 1.018 (1.005-1.025) Urine Protein NEGATIVE (Negative) Urine Ketones NEGATIVE (NEGATIVE) Urine Blood NEGATIVE (0-5) [place]/ul Urine Nitrite NEGATIVE (NEGATIVE) Urine Bilirubin NEGATIVE (NEGATIVE) Urine Urobilinogen 2 (0-1) mg/dL Ur Leukocyte Esterase NEGATIVE (NEGATIVE) Urine WBC (Auto) NONE (0-5) /HPF Urine RBC (Auto) NONE (0-2) /HPF U Epithel Cells (Auto) NONE (FEW) /HPF Urine Bacteria (Auto) NONE (NEGATIVE) /HPF Urine Culture Reflexed NO (NO) Urine Glucose NEGATIVE (NEGATIVE) mg/dL Multi-Disciplinary Progress Notes: Multi-Disciplinary Progress Notes 12/01/19 16:31 Physical Therapy Note by Mary Brown PT SCREEN PERFORMED. NO OPEN WOUNDS AT THIS TIME. SKILLED INTERVENTION NOT WARRANTED. NSG SHOULD CLEAN LLS W/ HIBICLENS DAILY AND APPLY BARRIER OINTMENT FOR HYDRATION. PT. WAS ADVISED TO PERFORM FREQUENT ANKLE PUMPS TO DECREASE FLUID POOLING AND LL EDEMA. WILL MONITOR DURING STAY. MARY BROWN, PT Initialized on 12/01/19 16:31 - END OF NOTE Assessment/Plan (1) Cellulitis of right lower extremity Current Visit: Yes Status: Acute Assessment & Plan: IV antibiotics,wet to dry dressings on right LE Code(s): L03.115 - CELLULITIS OF RIGHT LOWER LIMB (2) Hypoglycemia associated with type 2 diabetes mellitus Current Visit: Yes Status: Acute Assessment & Plan: insulin adjusted down,will monitor Code(s): E11.649 - TYPE 2 DIABETES MELLITUS WITH HYPOGLYCEMIA WITHOUT COMA (3) Acute pain of right lower extremity Current Visit: Yes Status: Acute Assessment & Plan: due to cellulitis ,Relieved with [place] 5 mg Code(s): M79.604 - PAIN IN RIGHT LEG
--- NOTE | 2019-12-02 11:57 | PCM.HP ---
History of Present Illness - Chief Complaint Chief Complaint: RIGHT LEG CELLULITIS,DM TYPE II History of Present Illness: is a [address] Delacruz direct admit office notes/exam/orders serve as H&P for this admit. Medications & Allergies Home Medications: Home Medication List Aspirin [Aspirin EC] 81 mg PO DAILY 09/03/13 [History Confirmed 12/01/19] Lisinopril 10 mg [Zestril 10 MG] 10 mg PO DAILY 09/03/13 [History Confirmed 12/01/19] Nitroglycerin 0.4 mg Tablet [Nitrostat 0.4 MG Tablet] 0.4 mg SL UD PRN [History Confirmed 12/01/19] Potassium Chloride 10 Meq Tab* [Klor Con 10 MEQ] 10 meq PO BID 09/03/13 [ History Confirmed 12/01/19] Sotalol HCl 80 mg [Betapace 80 MG] 80 mg PO BID 09/03/13 [History Confirmed 12/01/19] Spironolactone 25 mg [Aldactone 25 MG] 12.5 mg PO DAILY 09/03/13 [History Confirmed 12/01/19] Atorvastatin Calcium [Lipitor] 80 mg PO HS 11/29/17 [History Confirmed 12/01/19] Furosemide 40 mg [Lasix 40 MG] 40 mg PO TID 11/29/17 [History Confirmed ] Metformin HCl 500 mg [Glucophage 500 MG] 1,000 mg PO BIDWM 11/29/17 [ History Confirmed 12/01/19] Warfarin Sodium [Coumadin] 0.5 mg PO HS 11/29/17 [History Confirmed 12/01/19] Warfarin Sodium [Coumadin] 7.5 mg PO HS 11/29/17 [History Confirmed 12/01/19] Insulin NPH/Reg 70/30 [Novolin 70/30] 80 unit SQ HS 12/01/19 [History Confirmed 12/01/19] Insulin NPH/Reg 70/30 [Novolin 70/30] 90 unit SQ DAILY 12/01/19 [History Confirmed 12/01/19] Allergies/Adverse Reactions: Allergies Allergy/AdvReac Type Severity Reaction Status Date / Time apixaban [From Eliquis] Allergy Severe cant walk Verified 09/06/18 06:53 morphine Allergy Severe Verified 09/06/18 06:53 dabigatran etexilate mesylate Allergy Mild Nausea and Verified 09/06/18 06:53 [From Pradaxa] Vomiting metoclopramide HCl Allergy Mild Itching Verified 09/06/18 06:53 [From Reglan] - Past Medical History Past Medical History: Yes Neurological History: Migraines, Peripheral Neuropathy ENT History: Cataracts Cardiac History: Arrhythmia, Congestive Heart Failure, Coronary Artery Disease, High Cholesterol, Hypertension, Myocardial Infarction ([place]) Respiratory History: CHF, COPD, Emphysema, Pneumonia, Sleep Apnea Endocrine Medical History: Diabetes Type II, Other Musculoskelatal History: No Pertinent History GI Medical History: Diverticulitis, Polyps History: No Pertinent History Pyscho-Social History: No Pertinent History Male Reproductive Disorders: No Pertinent History Comment: SLEEP APNEA, RLS, FATIGUE, SINUSITIS, ISCHEMIC CARDIOMYOPATHY, A-FIB - Past Surgical History Past Surgical History: Yes Neuro Surgical History: No Pertinent History Cardiac History: CABG, Cardiac Catheterization, Internal Defibrillator, Pacemaker Respiratory Surgery: No Pertinent History GI Surgical History: Other Genitourinary Surgical Hx: No Pertinent History Musculskeletal Surgical Hx: No Pertinent History Male Surgical History: No Pertinent History Other Surgical History: POLYPS REMOVED FROM COLON bilateral eye implants - Social History Smoking Status: Former smoker How long have you smoked: 21 yrs Exposure to second hand smoke: No Alcohol: None Drug Use: none - Physical Exam Vital Signs: Vital Signs - 24 hr Temp Pulse Resp BP Pulse Ox 12/02/19 08:00 97.8 F 68 20 105/52 96 12/02/19 07:47 66 18 95 12/02/19 04:00 98.7 F 65 16 98/54 95 12/02/19 00:00 99.0 F 68 16 90/52 93 L 12/01/19 21:29 77 18 95 12/01/19 20:00 99.4 F 80 24 100/55 96 12/01/19 16:26 99.1 F 80 18 121/57 94 L 12/01/19 16:14 86 20 96 12/01/19 14:19 98.3 F 85 20 133/60 96 12/01/19 14:09 98.3 F 85 20 133/60 96 12/01/19 14:08 98.3 F 85 20 133/60 96 Wound Assessment: Skin/Wound Assessment Wound/Incision Assessment Start: 12/01/19 13: 41 Text: Status: Active Freq: Q6H Protocol: Document 12/02/19 07:56 TP (Rec: 12/02/19 08:18 TP [id number]) Wound Photo Photo Taken Yes Date: 12/01/19 Results - Labs Lab/Micro Results: Accuchecks Date 12/02/19 Date 12/01/19 Time 07:30 Time 16:30 Accucheck Value: 73 Accucheck Value: 154 Accucheck Value: 92 Lab Results-Last 24 Hours 12/01/19 12/01/19 12/01/19 Range/Units 14:45 15:00 15:00 WBC 13.5 H (4.0-10.5) K/mm3 RBC 4.75 (4.1-5.6) M/mm3 Hgb 12.9 (12.5-18.0) gm/dl Hct 41.2 L (42-50) % MCV 86.7 (78-100) fl MCH 27.2 (26-32) pg MCHC 31.3 L (32-36) g/dl RDW 16.6 H (11.5-14.0) % Plt Count 148 L (150-450) K/mm3 MPV 11.2 H (7.5-11.0) fl Gran % 84.7 H (36.0-66.0) % Eos # (Auto) 0.13 (0-0.5) Absolute Lymphs (auto) 0.89 L (1.0-4.6) Absolute Monos (auto) 1.01 (0.0-1.3) Lymphocytes % 6.6 L (24.0-44.0) % Monocytes % 7.5 (0.0-12.0) % Eosinophils % 1.0 (0.00-5.0) % Basophils % 0.2 (0.0-0.4) % Absolute Granulocytes 11.41 H (1.4-6.9) Basophils # 0.03 (0-0.4) PT (8.83-12.87) SECONDS INR (0.8-3.0) Sodium 137 (137-145) mmol/L Potassium 4.5 (3.5-5.1) mmol/L Chloride 99 (98-107) mmol/L Carbon Dioxide 30 (22-30) mmol/L Anion Gap 13.1 (5-15) MEQ/L BUN 31 H (9-20) mg/dL Creatinine 1.12 (0.66-1.25) mg/dL Estimated GFR > 60.0 ML/MIN Glucose 96 (74-106) mg/dL Hemoglobin A1c (4.5-6.0) % Lactic Acid 1.6 (0.4-2.0) Calcium 9.8 (8.4-10.2) mg/dL Total Bilirubin 0.90 (0.2-1.3) mg/dL AST 29 (17-59) U/L ALT 21 (0-50) U/L Alkaline Phosphatase 77 (38-126) U/L Serum Total Protein 7.6 (6.3-8.2) g/dL Albumin 4.1 (3.5-5.0) g/dL Urine Color (YELLOW) Urine Appearance (CLEAR) Urine pH (5-6) Ur Specific [place] (1.005-1.025) Urine Protein (Negative) Urine Ketones (NEGATIVE) Urine Blood (0-5) Arcadio/ul Urine Nitrite (NEGATIVE) Urine Bilirubin (NEGATIVE) Urine Urobilinogen (0-1) mg/dL Ur Leukocyte Esterase (NEGATIVE) Urine WBC (Auto) (0-5) /HPF Urine RBC (Auto) (0-2) /HPF U Epithel Cells (Auto) (FEW) /HPF Urine Bacteria (Auto) (NEGATIVE) /HPF Urine Culture Reflexed (NO) Urine Glucose (NEGATIVE) mg/dL 12/01/19 12/01/19 12/01/19 Range/Units 15:00 15:00 20:15 WBC (4.0-10.5) K/mm3 RBC (4.1-5.6) M/mm3 Hgb (12.5-18.0) gm/dl Hct (42-50) % MCV (78-100) fl MCH (26-32) pg MCHC (32-36) g/dl RDW (11.5-14.0) % Plt Count (150-450) K/mm3 MPV (7.5-11.0) fl Gran % (36.0-66.0) % Eos # (Auto) (0-0.5) Absolute Lymphs (auto) (1.0-4.6) Absolute Monos (auto) (0.0-1.3) Lymphocytes % (24.0-44.0) % Monocytes % (0.0-12.0) % Eosinophils % (0.00-5.0) % Basophils % (0.0-0.4) % Absolute Granulocytes (1.4-6.9) Basophils # (0-0.4) PT 33.4 H (8.83-12.87) SECONDS INR 2.89 (0.8-3.0) Sodium (137-145) mmol/L Potassium (3.5-5.1) mmol/L Chloride (98-107) mmol/L Carbon Dioxide (22-30) mmol/L Anion Gap (5-15) MEQ/L BUN (9-20) mg/dL Creatinine (0.66-1.25) mg/dL Estimated GFR ML/MIN Glucose (74-106) mg/dL Hemoglobin A1c 7.35 H (4.5-6.0) % Lactic Acid (0.4-2.0) Calcium (8.4-10.2) mg/dL Total Bilirubin (0.2-1.3) mg/dL AST (17-59) U/L ALT (0-50) U/L Alkaline Phosphatase (38-126) U/L Serum Total Protein (6.3-8.2) g/dL Albumin (3.5-5.0) g/dL Urine Color YELLOW (YELLOW) Urine Appearance CLEAR (CLEAR) Urine pH 7.0 (5-6) Ur Specific [place] 1.018 (1.005-1.025) Urine Protein NEGATIVE (Negative) Urine Ketones NEGATIVE (NEGATIVE) Urine Blood NEGATIVE (0-5) Arcadio/ul Urine Nitrite NEGATIVE (NEGATIVE) Urine Bilirubin NEGATIVE (NEGATIVE) Urine Urobilinogen 2 (0-1) mg/dL Ur Leukocyte Esterase NEGATIVE (NEGATIVE) Urine WBC (Auto) NONE (0-5) /HPF Urine RBC (Auto) NONE (0-2) /HPF U Epithel Cells (Auto) NONE (FEW) /HPF Urine Bacteria (Auto) NONE (NEGATIVE) /HPF Urine Culture Reflexed NO (NO) Urine Glucose NEGATIVE (NEGATIVE) mg/dL Microbiology 12/01/19 20:15 Urine Culture - Preliminary Urine, Void NO GROWTH TO DATE Accuchecks Date 12/02/19 Date 12/01/19 Time 07:30 Time 16:30 Accucheck Value: 73 Accucheck Value: 154 Accucheck Value: 92 - Other Procedures and Tests Respiratory Therapy 12/01/19 15:16 Respiratory Therapy Assessment DAILY 12/01/19 16:18 Respiratory MDI TID 12/01/19 21:38 BiPap/CPAP ROUTINE Assessment/Plan (1) Cellulitis of right lower extremity Current Visit: Yes Status: Acute Code(s): L03.115 - CELLULITIS OF RIGHT LOWER LIMB (2) Hypoglycemia associated with type 2 diabetes mellitus Current Visit: Yes Status: Acute Code(s): E11.649 - TYPE 2 DIABETES MELLITUS WITH HYPOGLYCEMIA WITHOUT COMA (3) Acute pain of right lower extremity Current Visit: Yes Status: Acute Code(s): M79.604 - PAIN IN RIGHT LEG
[2019-12-02] MEDS: Novolin 70/30 SQ SCH (12:02)
[2019-12-02 13:07] LABS: Hematocrit 37.3 % (42-50); Hemoglobin 11.8 gm/dl (12.5-18.0); Mean Cell Volume 86.1 fl (78-100); Mean Corpuscular Hemoglobin 27.3 pg (26-32); Mean Corpuscular Hgb Concent. 31.6 g/dl (32-36); Mean Platelet Volume 10.6 fl (7.5-11.0); Platelet Count 150 K/mm3 (150-450); Red Blood Count 4.33 M/mm3 (4.1-5.6); Red Cell Distribution Width 16.7 % (11.5-14.0); White Blood Count 12.2 K/mm3 (4.0-10.5)
[2019-12-02 13:36] LABS: ANION GAP 14.4 MEQ/L (5-15); Calcium 9.3 mg/dL (8.4-10.2); Creatinine 1 1.28 mg/dL (0.66-1.25); Potassium 4.3 mmol/L (3.5-5.1)
[2019-12-02 14:32] LABS: ANISOCYTOSIS 1+; Eosinophil 1 % (0.00-3.0); Hypersegmented Polys 1+; Lymphocytes 13 % (24-44); Monocyte 8 % (0.0-12.0); Neutrophils 78 % (36.-66.); Platelet Estimate NORMAL (NORMAL); Total Cells Counted 100
[2019-12-02] MEDS: Coumadin 3 MG PO SCH (21:01)
[2019-12-02] MEDS: Coumadin 5 MG PO SCH (21:02)
[2019-12-02] MEDS: ZOCOR 20MG PO SCH (21:03)
[2019-12-03] MEDS: NORCO 5/325 MG PO PRN (01:44)
[2019-12-03] MEDS ORDERED: TROUGH DRUG LEVELS IJ ONE (05:30)
[2019-12-03 05:58] LABS: Hematocrit 38.3 % (42-50); Hemoglobin 11.9 gm/dl (12.5-18.0); Mean Cell Volume 86.5 fl (78-100); Mean Corpuscular Hemoglobin 26.9 pg (26-32); Mean Corpuscular Hgb Concent. 31.1 g/dl (32-36); Mean Platelet Volume 10.6 fl (7.5-11.0); Platelet Count 169 K/mm3 (150-450); Red Blood Count 4.43 M/mm3 (4.1-5.6); Red Cell Distribution Width 16.7 % (11.5-14.0); White Blood Count 11.3 K/mm3 (4.0-10.5)
[2019-12-03 06:17] LABS: ANISOCYTOSIS 1+; ATYPICAL LYMPHS 2 %; Eosinophil 5 % (0.00-3.0); Hypersegmented Polys 1+; Lymphocytes 11 % (24-44); Monocyte 13 % (0.0-12.0); Neutrophils 69 % (36.-66.); Platelet Estimate NORMAL (NORMAL); Total Cells Counted 100
[2019-12-03 06:18] LABS: Polychromasia 1+
[2019-12-03] MEDS: Sodium Chloride 0.9% 10 ML FLUSH Syringe IV SCH ×3 (06:25→21:09)
[2019-12-03] MEDS: VANCOMYCIN 1.5 GRAM/300 ML BAG 1.5 GM/300 ML PIGGYBACK IV SCH (06:25)
[2019-12-03 06:34] LABS: ANION GAP 14.2 MEQ/L (5-15); Calcium 9.6 mg/dL (8.4-10.2); Creatinine 1 1.46 mg/dL (0.66-1.25); Potassium 3.8 mmol/L (3.5-5.1)
[2019-12-03] MEDS: PATIENT OWN MEDICATION IH SCH ×3 (06:37→20:44)
[2019-12-03] MEDS: Glucophage 500 MG PO SCH ×2 (08:27→16:45)
[2019-12-03] MEDS: Novolin 70/30 SQ SCH (08:53)
--- NOTE | 2019-12-03 09:11 | PCM.NOTE ---
Date and Time: 12/03/19 0857 Subjective Assessment: Patient states he rested well last night and his right leg pain is much improved. On admission pain was at a 10/10 if touching right leg and now is 1-3/ 10 .He had low B/P yesterday 80s/60s while on Betapace 100 bid and this was decreased to 50mg bid ,B/P this morning 103/56. Patient denies lightheadedness or dizziness when up to bathroom. Sugars are still low after reducing Insulin 70 /30 from 90units qam to 50 units and similar decrease in evening insulin. Holding Insulin this morning and reducing to 20 units of 70/30 bid. Patient is eating well. Right LE cultures still pending but WBC has come down on current antibiotics. Venous stasis bilateral LE surely contributiong to hypotension. Will encourage more ambulation and elevation of LE and SCD started and paitient is tolerating this.I let patient know his PCP,Dr Delacruz, will be seeing him tomorrow. Objective Exam Neurologic Exam: alert, oriented x 3, cooperative Wound Assessment: Skin/Wound Assessment Wound/Incision Assessment Start: 12/01/19 13: 41 Text: Status: Active Freq: Q6H Protocol: Document 12/03/19 02:00 ARABELLA (Rec: 12/03/19 02:07 ARABELLA [id number]) Wound Photo Photo Taken No Ears, Nose, Throat Exam: normal ENT inspection Respiratory Exam: normal breath sounds, lungs clear Cardiovascular Exam: regular rate/rhythm Extremity Exam: inflammation (RLE), swelling (bilateral LE), tenderness (RLE with serous drainage/weeping low ant lateral leg) OBJECTIVE DATA Vital Signs: Vital Signs - 24 hr Temp Pulse Resp BP Pulse Ox 12/03/19 08:00 97.7 F 63 20 103/56 96 12/03/19 06:37 64 18 96 12/03/19 04:00 98.6 F 68 16 92/57 96 12/03/19 00:00 99.2 F 68 16 95/58 95 12/02/19 20:27 77 18 93 L 12/02/19 20:00 98.3 F 74 16 101/56 97 12/02/19 16:00 98.6 F 65 20 75/40 94 L 12/02/19 13:29 66 20 95 12/02/19 12:00 98.2 F 63 24 84/43 97 Pain Assessment - Last Documented Pain Intensity 0 Pain Scale Used 0-10 Pain Scale Intake and Output: Intake & Output 11/30/19 12/01/19 12/02/19 12/03/19 11:59 11:59 11:59 11:59 Intake Total 2070 1182 Output Total 1200 625 Balance 870 557 Weight 160.2 kg Lab Results: Accuchecks Date 12/03/19 Date 12/02/19 Date 12/02/19 Time 06:00 Time 16:00 Time 11:00 Accucheck Value: 81 Accucheck Value: 165 Accucheck Value: 137 Accucheck Value: 200 Lab Results-Last 24 Hours 12/02/19 12/02/19 12/03/19 Range/Units 12:50 12:50 05:30 WBC 12.2 H (4.0-10.5) K/mm3 RBC 4.33 (4.1-5.6) M/mm3 Hgb 11.8 L (12.5-18.0) gm/dl Hct 37.3 L (42-50) % MCV 86.1 (78-100) fl MCH 27.3 (26-32) pg MCHC 31.6 L (32-36) g/dl RDW 16.7 H (11.5-14.0) % Plt Count 150 (150-450) K/mm3 MPV 10.6 (7.5-11.0) fl Segmented Neutrophils 78 H (36.-66.) % Lymphocytes (Manual) 13 L (24-44) % Monocytes (Manual) 8 (0.0-12.0) % Eosinophils (Manual) 1 (0.00-3.0) % Hypersegmented Polys 1+ Atypical Lymphocytes % Platelet Estimate NORMAL (NORMAL) RBC Morphology Polychromasia Anisocytosis 1+ Sodium 134 L (137-145) mmol/L Potassium 4.3 (3.5-5.1) mmol/L Chloride 98 (98-107) mmol/L Carbon Dioxide 25 (22-30) mmol/L Anion Gap 14.4 (5-15) MEQ/L BUN 29 H (9-20) mg/dL Creatinine 1.28 H (0.66-1.25) mg/dL Estimated GFR 59.9 ML/MIN Glucose 125 H (74-106) mg/dL Calcium 9.3 (8.4-10.2) mg/dL Vancomycin Trough 14.06 (10-20) ug/mL 12/03/19 12/03/19 Range/Units 05:30 05:30 WBC 11.3 H (4.0-10.5) K/mm3 RBC 4.43 (4.1-5.6) M/mm3 Hgb 11.9 L (12.5-18.0) gm/dl Hct 38.3 L (42-50) % MCV 86.5 (78-100) fl MCH 26.9 (26-32) pg MCHC 31.1 L (32-36) g/dl RDW 16.7 H (11.5-14.0) % Plt Count 169 (150-450) K/mm3 MPV 10.6 (7.5-11.0) fl Segmented Neutrophils 69 H (36.-66.) % Lymphocytes (Manual) 11 L (24-44) % Monocytes (Manual) 13 H (0.0-12.0) % Eosinophils (Manual) 5 H (0.00-3.0) % Hypersegmented Polys 1+ Atypical Lymphocytes 2 % Platelet Estimate NORMAL (NORMAL) RBC Morphology ABNORMAL Polychromasia 1+ Anisocytosis 1+ Sodium 137 (137-145) mmol/L Potassium 3.8 (3.5-5.1) mmol/L Chloride 100 (98-107) mmol/L Carbon Dioxide 27 (22-30) mmol/L Anion Gap 14.2 (5-15) MEQ/L BUN 37 H (9-20) mg/dL Creatinine 1.46 H (0.66-1.25) mg/dL Estimated GFR 51.5 ML/MIN Glucose 47 L* (74-106) mg/dL Calcium 9.6 (8.4-10.2) mg/dL Vancomycin Trough (10-20) ug/mL Multi-Disciplinary Progress Notes: Multi-Disciplinary Progress Notes 12/03/19 08:34 Pharmacy Note by Romulo Richards Vancomycin trough good at 14.06. However, creatinine has gone up each day. Will lower dose to 1gm and recheck trough on Wednesday. Initialized on 12/03/19 08:34 - END OF NOTE Assessment/Plan (1) Cellulitis of right lower extremity Status: Acute Assessment & Plan: improving Code(s): L03.115 - CELLULITIS OF RIGHT LOWER LIMB (2) Hypoglycemia associated with type 2 diabetes mellitus Status: Acute Assessment & Plan: insulin dosed down Code(s): E11.649 - TYPE 2 DIABETES MELLITUS WITH HYPOGLYCEMIA WITHOUT COMA (3) Acute pain of right lower extremity Status: Acute Assessment & Plan: improved Code(s): M79.604 - PAIN IN RIGHT LEG (4) Bradycardia Status: Acute Assessment & Plan: improved with lowering Betapace Code(s): R00.1 - BRADYCARDIA, UNSPECIFIED (5) Hypotension Status: Acute Qualifiers: Hypotension type: hypotension due to drug Qualified Code(s): I95.2 - Hypotension due to drugs Assessment & Plan: improved with lowering Betapace Code(s): I95.9 - HYPOTENSION, UNSPECIFIED
[2019-12-03] MEDS: Betapace 80 MG PO SCH ×2 (10:20→21:10)
[2019-12-03] MEDS: ECOTRIN 81 MG PO SCH (10:21)
[2019-12-03] MEDS: Aldactone 25 MG PO SCH (10:21)
[2019-12-03] MEDS: Zestril 10 MG PO SCH (10:22)
[2019-12-03] MEDS: Lasix 40 MG PO SCH ×3 (10:22→16:45)
[2019-12-03] MEDS: Klor Con 10 MEQ PO SCH ×2 (10:23→21:08)
[2019-12-03] MEDS: ROCEPHIN 1 Gm-D5w 50 ml Bag** 1 G/50 ML IVPB IV SCH (10:52)
[2019-12-03] MEDS: HUMALOG SQ PRN ×2 (16:46→21:10)
[2019-12-03] MEDS: VANCOMYCIN 1 GRAM/200 ML BAG 1 GM/200 ML PIGGYBACK IV SCH (17:41)
[2019-12-03] MEDS ORDERED: Novolin 70/30 SQ SCH ×2 (18:00→22:00)
[2019-12-03] MEDS: ZOCOR 20MG PO SCH (21:08)
[2019-12-03] MEDS: Coumadin 5 MG PO SCH (21:09)
[2019-12-03] MEDS: Coumadin 3 MG PO SCH (21:09)
[2019-12-04] MEDS: VANCOMYCIN 1 GRAM/200 ML BAG 1 GM/200 ML PIGGYBACK IV SCH (06:14)
[2019-12-04] MEDS: PATIENT OWN MEDICATION IH SCH (06:54)
[2019-12-04] MEDS ORDERED: Novolin 70/30 SQ SCH (08:00)
[2019-12-04] MEDS: Glucophage 500 MG PO SCH (08:32)
[2019-12-04] MEDS: Sodium Chloride 0.9% 10 ML FLUSH Syringe IV SCH (09:01)
[2019-12-04 09:09] LABS: BASOPHIL % 0.2 % (0.0-0.4); Basophil (Absolute #) 0.02 (0-0.4); Eosinophil % 6.3 % (0.00-5.0); Eosinophil (Absolute #) 0.51 (0-0.5); Hematocrit 38.6 % (42-50); Hemoglobin 12.1 gm/dl (12.5-18.0); Lymphocyte (Absolute #) 1.28 (1.0-4.6); Lymphocytes % 15.7 % (24.0-44.0); Mean Cell Volume 86.2 fl (78-100); Mean Corpuscular Hgb Concent. 31.3 g/dl (32-36); Mean Platelet Volume 10.4 fl (7.5-11.0); Monocyte (Absolute #) 0.92 (0.0-1.3); Monocytes % 11.3 % (0.0-12.0); Neutrophil % 66.5 % (36.0-66.0); Platelet Count 164 K/mm3 (150-450); Red Blood Count 4.48 M/mm3 (4.1-5.6); Red Cell Distribution Width 16.4 % (11.5-14.0); White Blood Count 8.1 K/mm3 (4.0-10.5)
[2019-12-04 09:23] LABS: INR 2.9 (0.8-3.0); PROTIME 33.5 SECONDS (8.83-12.87)
[2019-12-04 09:30] LABS: ANION GAP 14.3 MEQ/L (5-15); BLOOD UREA NITROGEN 30 mg/dL (9-20); CHLORIDE 100 mmol/L (98-107); Calcium 9.5 mg/dL (8.4-10.2); Carbon Dioxide 26 mmol/L (22-30); Creatinine 1 1.16 mg/dL (0.66-1.25); Glucose 181 mg/dL (74-106); Potassium 4.4 mmol/L (3.5-5.1); SODIUM 136 mmol/L (137-145)
[2019-12-04] MEDS: ROCEPHIN 1 Gm-D5w 50 ml Bag** 1 G/50 ML IVPB IV SCH (09:31)
[2019-12-04] MEDS: Klor Con 10 MEQ PO SCH (09:31)
[2019-12-04] MEDS: ECOTRIN 81 MG PO SCH (09:31)
[2019-12-04] MEDS: Lasix 40 MG PO SCH ×2 (09:32→13:24)
[2019-12-04] MEDS: Betapace 80 MG PO SCH (09:32)
[2019-12-04] MEDS: Zestril 10 MG PO SCH (09:32)
[2019-12-04] MEDS: Aldactone 25 MG PO SCH (09:33)
[2019-12-04 11:39] VITALS: BP 100/54; PULSE 69; O2SAT 92
--- NOTE | 2019-12-04 12:23 | PCM.DCORD ---
- Discharge Discharge Date: 12/04/19 Disposition: Home, Self-Care Condition: Fair Prescriptions: New Smz/Tmp Ds Tablet [Bactrim Ds Tablet] 1 tab PO Q12H #14 tablet Sotalol HCl 80 mg [Betapace 80 MG] 40 mg PO BID tablet Insulin NPH/Reg 70/30 [Novolin 70/30] 20 unit SQ AMINSULIN unit Insulin NPH/Reg 70/30 [Novolin 70/30] 20 unit SQ PMINSULIN unit Continue Potassium Chloride 10 Meq Tab* [Klor Con 10 MEQ] 10 meq PO BID Spironolactone 25 mg [Aldactone 25 MG] 12.5 mg PO DAILY Lisinopril 10 mg [Zestril 10 MG] 10 mg PO DAILY Aspirin [Aspirin EC] 81 mg PO DAILY Nitroglycerin 0.4 mg Tablet [Nitrostat 0.4 MG Tablet] 0.4 mg SL UD PRN PRN Reason: Chest Pain Atorvastatin Calcium [Lipitor] 80 mg PO HS Furosemide 40 mg [Lasix 40 MG] 40 mg PO TID Metformin HCl 500 mg [Glucophage 500 MG] 1,000 mg PO BIDWM Warfarin Sodium [Coumadin] 0.5 mg PO HS Warfarin Sodium [Coumadin] 7.5 mg PO HS Discontinued Sotalol HCl 80 mg [Betapace 80 MG] 80 mg PO BID Insulin NPH/Reg 70/30 [Novolin 70/30] 90 unit SQ DAILY Insulin NPH/Reg 70/30 [Novolin 70/30] 80 unit SQ HS Additional Instructions: Dress your wound as instructed by your [facility] discharge nurse. Your sotalol dose was decreased from 80 mg twice a day to 40 mg twice a day due to your blood pressure being lower during your hospitalization. You should continue the 8 mg of coumadin every night. I will check your INR when you come for your follow up appointment. Call if you have a fever, worsening symptoms or any concerns. Your insulin dose was decreased also. Follow up with: NILA AGUILAR [Primary Care Provider] - 1 Week
[2019-12-04] MEDS ORDERED: Adacel Vial IM ONE (13:09)
--- NOTE | 2019-12-04 14:34 | DS ---
DISCHARGE DIAGNOSES: 1) CELLULITIS OF RIGHT LOWER LIMB WITH OPEN WOUND. 2) DIABETES MELLITUS TYPE 2. 3) HYPOGLYCEMIA. 4) CORRECTION CURRENT USE OF ANTICOAGULANT. 5) ISCHEMIC CONGESTIVE CARDIOMYOPATHY. 6) MORBID OBESITY. 7) PAROXYSMAL ATRIAL FIBRILLATION. 8) CHRONIC OBSTRUCTIVE PULMONARY DISEASE. DISCHARGE PHYSICAL EXAMINATION: VITALS: Temperature current 98.1F, heart rate 66, respiratory rate 20, blood pressure 119/57, weight 160.2 kg. Oxygen saturation 95% on room air. GENERAL: The patient is a pleasant man sitting up in his chair in no acute distress. CVS: He has a regular rate and rhythm. No murmurs, gallops or rubs. CHEST: Clear to auscultation bilaterally. No crackles or wheezes. ABDOMEN: Soft, nontender, nondistended with normal bowel sounds. EXTREMITIES: He has some open weeping wounds of his right anterior cabrera with a mild surrounding erythema this has improved from when he was admitted to the hospital. He has +2 pitting edema bilaterally. HOSPITAL COURSE: 1) RIGHT LOWER LEG CELLULITIS: This started after he was moving some brush. I will give him a TDAP today before he is discharged. He has been on vancomycin and ceftriaxone and had a wound culture growing organisms susceptible to Bactrim, will change him to Bactrim DS 1 tablet p.o. b.i.d. for seven more days and follow up with him in the clinic in a week. He is to call if worsening symptoms or any concerns. I discussed home health with him which he declined at this time. His nurse reports he is ambulating well in his room and he thinks he will be able to change his bandage. The process planner stated she told him that if he cannot change his bandage that his brother would be able to help him. The process planner, Aliza, stated that they will send him home with Hibiclens and barrier cream but he may have to buy some Kerlix for his wound. 2) DIABETES MELLITUS TYPE 2 WITHOUT COMPLICATION: His hemoglobin A1C was checked and was a little above 7. He was usually on larger doses of 70/30 at home but had some episodes of hypoglycemia at home and here in the hospital. He is currently on 20 units twice a day and the patient knows this change has been made and will plan to adjust this as an outpatient as needed. Change in his insulin need is not clear at this time. 3) CORRECTION CURRENT USE OF ANTICOAGULANT: His international normalized ratio at the time of discharge is 2.9 and was 2.8 on admission, will plan to recheck when he is in the office again for follow up next week. He reports his garment liner usually follows this but their office is closed for these blood draws. 4) ISCHEMIC CONGESTIVE CARDIOMYOPATHY: He is continued on his home medication but his Sotalol was decreased from 80 mg b.i.d. to 40 mg b.i.d. due to hypotension. 5) MORBID OBESITY. 6) PAROXYSMAL ATRIAL FIBRILLATION: He is on Sotalol for rate control and Coumadin to help prevent clots. 7) CHRONIC OBSTRUCTIVE PULMONARY DISEASE: This was stable during his hospitalization. DISCHARGE MEDICATIONS: Please see the discharge order. DISPOSITION: The patient is being discharged to home in fair condition to follow up with me in the clinic.
== END 2019-12-04 14:05 | disposition home or self-care (01) | DRG 603 ==
LOC: MED SURG 13:32 → OBSVTOIN 13:32
PROVIDERS: ADMIT Family Medicine; ATTEND Family Medicine
DX: L03.115 Cellulitis of right lower limb (principal); E11.649 Type 2 diabetes mellitus with hypoglycemia without coma; M79.661 Pain in right lower leg; I11.0 Hypertensive heart disease with heart failure; I50.9 Heart failure, unspecified; I25.5 Ischemic cardiomyopathy; E66.01 Morbid (severe) obesity due to excess calories; I48.0 Paroxysmal atrial fibrillation; J44.9 Chronic obstructive pulmonary disease, unspecified; G47.30 Sleep apnea, unspecified; E78.00 Pure hypercholesterolemia, unspecified; I25.2 Old myocardial infarction; Z79.01 Long term (current) use of anticoagulants; Z79.899 Other long term (current) drug therapy; Z86.79 Personal history of other diseases of the circulatory system; Z79.4 Long term (current) use of insulin
CPT/HCPCS: 36415; 80048; 80053; 80202; 81001; 82962; 83036; 83605; 85025; 85610; 87040; 87070; 87077; 87086; 87186; 90715; 94640; 94760; J0696; J1815; J1817; A9270-GY; J3370

== ENCOUNTER 2020-09-16 08:13 | Day surgery (SDC) | payer MEDICARE ==
[2020-09-16] MEDS ORDERED: Lactated Ringers 1,000 ML IV SCH (08:30)
--- NOTE | 2020-09-16 08:33 | HP ---
DATE OF SURGERY: 09/16/2020 HISTORY OF PRESENT ILLNESS: The patient is a 65 year-old with dysphagia upper esophagus sometimes gags food up, prior history of EGD and dilatation years ago by Dr. Micky Connolly. It causes some bad nausea. Family history negative for esophageal cancer. He has some heart disease, diabetes in the family. PAST MEDICAL HISTORY: Heart disease, diabetes. He has got a pacemaker. COPD. Hypertension. PAST SURGICAL HISTORY: Pacemaker. Eye surgery. Bypass in the past. Endoscopy and dilatation in the past. MEDICATIONS: Coumadin, aspirin, sotalol, Lisinopril, Aldactone, atorvastatin, Lasix, Klor-Con, Coreg, Novolin, metolazone, Metformin, Albuterol. ALLERGIES: MORPHINE. ELIQUIS. REGLAN. PRADAXA. FAMILY HISTORY: Heart disease, diabetes. SOCIAL HISTORY: No smoking or alcohol abuse. REVIEW OF SYSTEMS: Fourteen systems reviewed. Negative or noncontributory as above and per preadmission questionnaire. PHYSICAL EXAMINATION: GENERAL: No acute distress. HEENT: Sclerae nonicteric. NECK: No JVD. CHEST: No audible wheezing currently. He could not do deep breath sounds bilaterally because of his COPD. CVS: Regular rate and rhythm. ABDOMEN: Soft. EXTREMITIES: No significant edema. NEURO: Alert, oriented, moving extremities symmetrically. PSYCH: Appropriate mood and affect. IMPRESSION: Dysphagia, nausea. He is in need of upper endoscopy possible dilatation, possible biopsy. Risks and benefits explained in detail including but not limited to bleeding or infection, risk of bowel injury or perforation possibly requiring open procedure, risk of missed or nondiagnosis or incomplete exam possibly requiring barium swallow, other studies or procedures, possibly requiring dilatation with it harder and a little bit more dangerous dilating down the road. He understands. He also understands the risk if this failed to improve his symptoms given his nausea he might need some gallbladder work up, other studies or procedures. He understands and agrees to the procedure, will proceed with EGD possible biopsy possible dilatation as an outpatient.
[2020-09-16] MEDS ORDERED: Ketamine HCl 50 MG/ML ONE (10:14)
[2020-09-16] MEDS ORDERED: DIPRIVAN 200 MG/20 ML IV ONE (10:14)
[2020-09-16] MEDS ORDERED: Versed 2 MG/2 ML Injection ONE (10:15)
[2020-09-16 11:21] VITALS: PULSE 79
[2020-09-16 11:50] VITALS: BP 114/54; O2SAT 85
--- NOTE | 2020-09-17 08:44 | OP ---
SURGERY DATE/TIME: 09/16/2020 1022 PREOPERATIVE DIAGNOSIS: Dysphagia. POSTOPERATIVE DIAGNOSES: 1) Mild erosive gastritis. 2) Plus/minus short segment of distal gastroesophagitis versus normal variation of gastroesophageal junction. 3) Proximal esophageal spasm and narrowing without evidence of any mass or lesion to biopsy. PROCEDURES: 1) EGD with cold biopsy of antrum for Helicobacter pylori. 2) Cold biopsy distal esophagus to evaluate for esophagitis. 3) Proximal esophageal dilatation of symptomatic proximal esophageal narrowing and spasm (size 20 balloon dilator). SURGEON: Dr. Saji Goldman. ANESTHESIA: MAC. ESTIMATED BLOOD LOSS: Minimal. INDICATIONS: As noted above. Risks and benefits explained in detail and not limited to and consent obtained. DESCRIPTION OF PROCEDURE AND FINDINGS: The patient is taken to the endoscopy room. MAC anesthesia introduced. After official time out and no disagreement with planned procedure, a bite block positioned. Video gastroscope passed down oropharynx. He did have proximal esophageal narrowing and spasm. There were no signs of any obvious mass or lesion to biopsy. The scope was able to just be passed through. Given his symptoms it was felt this warranted dilatation at the end of the procedure. The scope passed in the stomach through the patent pylorus to the junction of the second and third portion of the duodenum. Third, second and first portion of duodenum grossly unremarkable. No signs of any obvious ulcers or masses. Back in the stomach he did have some mild gastritis with some erosions. There were no signs of any moon ulceration. No signs of any polyps, masses or mucosal lesions. Cold biopsy taken to evaluate for Helicobacter pylori. Good hemostasis noted. The scope pulled back up to the distal esophagus. The gastroesophageal junction had a slight inflammation. Cold biopsy taken. Gastroesophageal junction about 44 cm. In the remainder of the esophagus, no signs of any obvious mucosal lesions up to the proximal esophageal narrowed area. There were no signs of any obvious mass or lesion to biopsy at this point. Given his symptoms and the narrowing, it was felt that this warranted dilatation. The scope is passed back down the stomach. The 20 balloon catheter carefully inserted and pulled back up to the proximal esophageal narrowing. The balloon catheter carefully inserted first stage for 45 seconds, second stage 45 seconds and final stage 2 minutes. The balloon catheter is then released and withdrawn. The area was more widely patent post-dilatation. There is no evidence of any full thickness issues or injury. The scope is passed back down in the stomach then slowly carefully withdrawn. The biopsy sites in distal esophagus and antrum had good hemostasis. Again, there were no signs of any full thickness issues secondary to dilatation or proximal esophageal dilated area. The patient tolerated the procedure well. There were no immediate complications. Findings discussed with a family member over the phone as this hospital still not letting family members in the hospital for some reason.
== END 2020-09-16 12:40 | disposition home or self-care (01) ==
LOC: SDC 08:13
PROVIDERS: ATTEND Surgery
DX: K22.2 Esophageal obstruction (principal); K22.4 Dyskinesia of esophagus; K29.70 Gastritis, unspecified, without bleeding; K20.90 Esophagitis, unspecified without bleeding
CPT/HCPCS: 82947; 88305; J2250; J2704

== ENCOUNTER 2021-09-19 10:42 | Emergency (ER) | payer MEDICARE ==
[2021-09-19] MEDS ORDERED: Sodium Chloride 0.9% 1000 ML 1,000 ML ONE (10:59)
[2021-09-19] MEDS: Sodium Chloride 0.9% 1000 ML 1,000 ML IV SCH (11:01)
[2021-09-19 11:07] LABS: Absolute Neutrophil Ct (ANC) 4.45 (1.4-6.9); Basophil (Absolute #) 0.03 (0-0.4); Eosinophil % 7.7 % (0.00-5.0); Eosinophil (Absolute #) 0.58 (0-0.5); Hematocrit 43.2 % (42-50); Hemoglobin 13.7 gm/dl (12.5-18.0); Lymphocyte (Absolute #) 1.67 (1.0-4.6); Lymphocytes % 22.1 % (24.0-44.0); Mean Cell Volume 88.2 fl (78-100); Mean Corpuscular Hgb Concent. 31.7 g/dl (32-36); Monocyte (Absolute #) 0.81 (0.0-1.3); Monocytes % 10.7 % (0.0-12.0); Neutrophil % 59.1 % (36.0-66.0); Platelet Count 149 K/mm3 (150-450); Red Cell Distribution Width 16.2 % (11.5-14.0); White Blood Count 7.5 K/mm3 (4.0-10.5)
--- NOTE | 2021-09-19 11:08 | ERPHSYRPT ---
- History of Present Illness Time Seen by Provider: 09/19/21 10:45 Historian: patient Exam Limitations: no limitations Physician History: Patient is a 66-year-old male with longstanding history of arrhythmias he has had 3 defibrillator pacemakers so far. This morning he was shoveling snow when he developed severe substernal chest pain went through the back. He had sh ortness of breath EMS was called they found him in a rapid rhythm tachycardia narrow complex he did not respond to Adenocard 6 and 12 mg doses. He was given a bolus of fluid and by the time he arrived his pain was improved and he was in a rate of about 80 both intrinsic beats fusion beats and PVCs. He is followed by Dr. Goldberg in [place]. Timing/Duration: today Activities at Onset: other (Shoveling snow) Location: substernal Chest Pain Radiation: back Severity of Pain-Max: severe Severity of Pain-Current: severe Modifying Factors: Improves With: exertion, oxygen, aspirin Associated Symptoms: shortness of breath Prior Chest Pain/Cardiac Workup: cardiac cath Nitro Today/Relief: no nitro taken today Aspirin Treatment Today: no aspirin today Allergies/Adverse Reactions: apixaban [From Eliquis] Allergy (Severe, Verified 09/19/21 10:44) cant walk leg pain morphine Allergy (Severe, Verified 09/19/21 10:44) hallucinations HALLUCINATIONS dabigatran etexilate mesylate [From Pradaxa] Allergy (Mild, Verified 09/19/21 10:44) Nausea and Vomiting upset stomach metoclopramide HCl [From Reglan] Allergy (Mild, Verified 09/19/21 10:44) Itching hives Home Medications: Aspirin [Aspirin EC] 81 mg PO DAILY 09/03/13 [History] Lisinopril 10 mg [Zestril 10 MG] 10 mg PO DAILY 09/03/13 [History] Nitroglycerin 0.4 mg Tablet [Nitrostat 0.4 MG Tablet] 0.4 mg SL UD PRN 09/03/13 [History] Potassium Chloride 10 Meq Tab* [Klor Con 10 MEQ] 10 meq PO BID 09/03/13 [History] Spironolactone 25 mg [Aldactone 25 MG] 12.5 mg PO DAILY 09/03/13 [History] Atorvastatin Calcium [Lipitor] 80 mg PO HS 11/29/17 [History] Furosemide 40 mg [Lasix 40 MG] 40 mg PO TID 11/29/17 [History] Metformin HCl 500 mg [Glucophage 500 MG] 1,000 mg PO BIDWM 11/29/17 [History] Warfarin Sodium [Coumadin] 1 mg PO HS 11/29/17 [History] Warfarin Sodium [Coumadin] 7.5 mg PO HS 11/29/17 [History] Albuterol Sulfate 2 puffs IH QIDPRN PRN 09/06/20 [History] Insulin NPH/Reg 70/30 [Novolin 70/30] 60 unit SQ PMINSULIN 09/06/20 [History] Insulin NPH/Reg 70/30 [Novolin 70/30] 65 unit SQ AMINSULIN 09/06/20 [History] Metolazone 2.5 mg [Zaroxolyn 2.5 MG] 2.5 mg PO UD 09/06/20 [History] Sotalol HCl 80 mg [Betapace 80 MG] 40 mg PO BID 09/06/20 [History] Hx Tetanus, Diphtheria Vaccination/Date Given: No Hx Influenza Vaccination/Date Given: Yes Hx Pneumococcal Vaccination/Date Given: Yes - Review of Systems Constitutional: No Fever, No Chills Eyes: No Symptoms Ears, Nose, & Throat: No Symptoms Respiratory: Dyspnea, Dyspnea on Exertion (LEONG), No Cough Cardiac: Chest Pain, Palpitations, No Edema, No Syncope Abdominal/Gastrointestinal: No Abdominal Pain, No Nausea, No Vomiting, No Diarrhea Genitourinary Symptoms: No Dysuria Musculoskeletal: No Back Pain, No Neck Pain Skin: No Rash Neurological: No Dizziness, No Focal Weakness, No Sensory Changes Psychological: No Symptoms Endocrine: No Symptoms All Other Systems: Reviewed and Negative - Past Medical History Pertinent Past Medical History: Yes Neurological History: Migraines, Peripheral Neuropathy ENT History: Cataracts Cardiac History: Arrhythmia, Congestive Heart Failure, Coronary Artery Disease, High Cholesterol, Hypertension, Myocardial Infarction ([place]) Respiratory History: CHF, COPD, Emphysema, Pneumonia, Sleep Apnea Endocrine Medical History: Diabetes Type II, Other Musculoskeletal History: No Pertinent History GI Medical History: Diverticulitis, Polyps History: No Pertinent History Psycho-Social History: No Pertinent History Male Reproductive Disorders: No Pertinent History Other Medical History: SLEEP APNEA, RLS, FATIGUE, SINUSITIS, ISCHEMIC CARDIOMYOPATHY, A-FIB - Past Surgical History Past Surgical History: Yes Neuro Surgical History: No Pertinent History Cardiac: CABG, Cardiac Catheterization, Internal Defibrillator, Pacemaker Respiratory: No Pertinent History Gastrointestinal: Other Genitourinary: No Pertinent History Musculoskeletal: No Pertinent History Male Surgical History: No Pertinent History Other Surgical History: POLYPS REMOVED FROM COLON bilateral eye implants, bypass x3, pacemaker x3 - Social History Smoking Status: Former smoker How long have you smoked: 21 yrs Exposure to second hand smoke: No Drug Use: none Patient Lives Alone: Yes - Nursing Vital Signs Nursing Vital Signs: Initial Vital Signs Blood Pressure 105/66 09/19/21 10:45 O2 Sat by Pulse Oximetry 99 09/19/21 10:45 Pain Scale Pain Intensity 0 - Physical Exam General Appearance: mild distress Eye Exam: PERRL/EOMI, eyes nml inspection Ears, Nose, Throat Exam: normal ENT inspection, moist mucous membranes Neck Exam: normal inspection, non-tender, supple, full range of motion Respiratory Exam: normal breath sounds, lungs clear, No respiratory distress Cardiovascular Exam: irregular Gastrointestinal/Abdomen Exam: soft, No tenderness, No mass Back Exam: normal inspection, No CVA tenderness, No vertebral tenderness Extremity Exam: normal inspection, normal range of motion Neurologic Exam: alert, oriented x 3, cooperative, normal mood/affect, sensation nml, No motor deficits Skin Exam: normal color, warm, dry SpO2 Interpretation: normal SpO2: 99 O2 Delivery: Room Air - Course Nursing assessment & vital signs reviewed: Yes EKG Interpreted by Me: Other (EKG rhythm was paced for the most part making further interpretation and possible) - Radiology Exams Chest X-ray Interpretation: Other (No acute changes noted) Ordered Tests: Active Orders 24 hr Category Date Time Status [employer]ian Blind Assembler STAT Care 09/19/21 10:57 Active EKG-ER Only STAT Care 09/19/21 10:47 Active IV Insertion STAT Care 09/19/21 10:47 Active IV Insertion-2nd Peripheral STAT Care 09/19/21 10:56 Active CHEST 1 VIEW (PORTABLE) Stat Exams 09/19/21 10:47 Completed AMYLASE Stat Lab 09/19/21 11:00 Completed CBC W DIFF Stat Lab 09/19/21 11:00 Completed CMP Stat Lab 09/19/21 11:00 Completed CULTURE,URINE Stat Lab 09/19/21 15:08 Received D-DIMER QUANTITATIVE Stat Lab 09/19/21 11:00 Completed LIPASE Stat Lab 09/19/21 11:00 Completed Lactic Acid Stat Lab 09/19/21 10:55 Completed MAGNESIUM Stat Lab 09/19/21 11:00 Completed NT PRO BNP Stat Lab 09/19/21 11:00 Completed PROTIME WITH INR Stat Lab 09/19/21 11:00 Completed TROPONIN Q3H Lab 09/19/21 11:00 Completed TROPONIN Q3H Lab 09/19/21 13:55 Completed TROPONIN Q3H Lab 09/19/21 17:00 Ordered TROPONIN Q3H Lab 09/19/21 20:00 Ordered TROPONIN Q3H Lab 09/19/21 23:00 Ordered UA W/RFX UR CULTURE Stat Lab 09/19/21 15:08 Completed Medication Summary Generic Name Dose Route Start Last Admin Trade Name Freq PRN Reason Stop Dose Admin Sodium Chloride 1,000 mls @ 100 mls/hr 09/19/21 11:00 09/19/21 11:01 Sodium Chloride 0.9% 1000 Ml IV 10/19/21 10:59 100 mls/hr .Q10H KIKI Administration Discontinued Medications Generic Name Dose Route Start Last Admin Trade Name Freq PRN Reason Stop Dose Admin Furosemide 40 mg 09/19/21 15:35 09/19/21 15:49 Furosemide 40 Mg/4 Ml Vial IV 09/19/21 15:36 40 mg STAT ONE Administration Furosemide Confirm 09/19/21 15:45 Furosemide 40 Mg/4 Ml Vial Administered 09/19/21 15:46 Dose 40 mg .ROUTE .STK-MED ONE Potassium Bicarbonate 25 meq 09/19/21 15:35 09/19/21 15:49 Potassium Bicarbonate 25 Meq Tab PO 09/19/21 15:36 25 meq STAT ONE Administration Potassium Bicarbonate Confirm 09/19/21 15:45 Potassium Bicarbonate 25 Meq Tab Administered 09/19/21 15:46 Dose 25 meq .ROUTE .STK-MED ONE Sotalol HCl 80 mg 09/19/21 22:00 Sotalol Hcl 80 Mg Tablet PO 10/19/21 21:59 BID KIKI Sotalol HCl 80 mg 09/19/21 12:40 09/19/21 12:43 Sotalol Hcl 80 Mg Tablet PO 09/19/21 12:41 80 mg ONCE STA Administration Lab/Rad Data: Laboratory Result Diagrams 09/19/21 11:00 09/19/21 11:00 Laboratory Results 09/19/21 09/19/21 09/19/21 Range/Units 15:08 13:55 11:00 WBC (4.0-10.5) K/mm3 RBC (4.1-5.6) M/mm3 Hgb (12.5-18.0) gm/dl Hct (42-50) % MCV (78-100) fl MCH (26-32) pg MCHC (32-36) g/dl RDW (11.5-14.0) % Plt Count (150-450) K/mm3 MPV (7.5-11.0) fl Gran % (36.0-66.0) % Eos # (Auto) (0-0.5) Absolute Lymphs (auto) (1.0-4.6) Absolute Monos (auto) (0.0-1.3) Lymphocytes % (24.0-44.0) % Monocytes % (0.0-12.0) % Eosinophils % (0.00-5.0) % Basophils % (0.0-0.4) % Absolute Granulocytes (1.4-6.9) Basophils # (0-0.4) PT (9.4-12.5) SECONDS INR (0.8-3.0) D-Dimer (215-500) ng/mL Sodium (137-145) mmol/L Potassium (3.5-5.1) mmol/L Chloride (98-107) mmol/L Carbon Dioxide (22-30) mmol/L Anion Gap (5-15) MEQ/L BUN (9-20) mg/dL Creatinine (0.66-1.25) mg/dL Estimated GFR ML/MIN Glucose (74-106) mg/dL Lactic Acid (0.4-2.0) Calcium (8.4-10.2) mg/dL Magnesium (1.6-2.3) mg/dL Total Bilirubin (0.2-1.3) mg/dL AST (17-59) U/L ALT (0-50) U/L Alkaline Phosphatase (38-126) U/L Troponin I 0.999 H* 0.019 (0.000-0.034) ng/mL NT-Pro-B Natriuret Pep (0-900) pg/mL Serum Total Protein (6.3-8.2) g/dL Albumin (3.5-5.0) g/dL Amylase (30-110) U/L Lipase (23-300) U/L Urine Color YELLOW (YELLOW) Urine Appearance CLEAR (CLEAR) Urine pH 7.0 (5-6) Ur Specific R[place]y 1.019 (1.005-1.025) Urine Protein 100 (Negative) Urine Ketones NEGATIVE (NEGATIVE) Urine Blood NEGATIVE (0-5) Arcadio/ul Urine Nitrite NEGATIVE (NEGATIVE) Urine Bilirubin NEGATIVE (NEGATIVE) Urine Urobilinogen NEGATIVE (0-1) mg/dL Ur Leukocyte Esterase SMALL (NEGATIVE) Urine WBC (Auto) 6-10 (0-5) /HPF Urine RBC (Auto) 3-5 (0-2) /HPF U Epithel Cells (Auto) RARE (FEW) /HPF Urine Bacteria (Auto) RARE (NEGATIVE) /HPF Urine Culture Reflexed YES (NO) Urine Glucose NEGATIVE (NEGATIVE) mg/dL 09/19/21 09/19/21 09/19/21 Range/Units 11:00 11:00 11:00 WBC 7.5 (4.0-10.5) K/mm3 RBC 4.90 (4.1-5.6) M/mm3 Hgb 13.7 (12.5-18.0) gm/dl Hct 43.2 (42-50) % MCV 88.2 (78-100) fl MCH 28.0 (26-32) pg MCHC 31.7 L (32-36) g/dl RDW 16.2 H (11.5-14.0) % Plt Count 149 L (150-450) K/mm3 MPV 11.0 (7.5-11.0) fl Gran % 59.1 (36.0-66.0) % Eos # (Auto) 0.58 H (0-0.5) Absolute Lymphs (auto) 1.67 (1.0-4.6) Absolute Monos (auto) 0.81 (0.0-1.3) Lymphocytes % 22.1 L (24.0-44.0) % Monocytes % 10.7 (0.0-12.0) % Eosinophils % 7.7 H (0.00-5.0) % Basophils % 0.4 (0.0-0.4) % Absolute Granulocytes 4.45 (1.4-6.9) Basophils # 0.03 (0-0.4) PT 36.6 H (9.4-12.5) SECONDS INR 3.10 H (0.8-3.0) D-Dimer 261 (215-500) ng/mL Sodium 137 (137-145) mmol/L Potassium 4.7 (3.5-5.1) mmol/L Chloride 105 (98-107) mmol/L Carbon Dioxide 29 (22-30) mmol/L Anion Gap 7.3 (5-15) MEQ/L BUN 27 H (9-20) mg/dL Creatinine 1.25 (0.66-1.25) mg/dL Estimated GFR > 60.0 ML/MIN Glucose 163 H (74-106) mg/dL Lactic Acid (0.4-2.0) Calcium 9.1 (8.4-10.2) mg/dL Magnesium 2.0 (1.6-2.3) mg/dL Total Bilirubin 0.70 (0.2-1.3) mg/dL AST 28 (17-59) U/L ALT 23 (0-50) U/L Alkaline Phosphatase 90 (38-126) U/L Troponin I (0.000-0.034) ng/mL NT-Pro-B Natriuret Pep 372 (0-900) pg/mL Serum Total Protein 6.8 (6.3-8.2) g/dL Albumin 3.8 (3.5-5.0) g/dL Amylase 33 (30-110) U/L Lipase 113 (23-300) U/L Urine Color (YELLOW) Urine Appearance (CLEAR) Urine pH (5-6) Ur Specific Ripley (1.005-1.025) Urine Protein (Negative) Urine Ketones (NEGATIVE) Urine Blood (0-5) Arcadio/ul Urine Nitrite (NEGATIVE) Urine Bilirubin (NEGATIVE) Urine Urobilinogen (0-1) mg/dL Ur Leukocyte Esterase (NEGATIVE) Urine WBC (Auto) (0-5) /HPF Urine RBC (Auto) (0-2) /HPF U Epithel Cells (Auto) (FEW) /HPF Urine Bacteria (Auto) (NEGATIVE) /HPF Urine Culture Reflexed (NO) Urine Glucose (NEGATIVE) mg/dL 09/19/21 Range/Units 10:55 WBC (4.0-10.5) K/mm3 RBC (4.1-5.6) M/mm3 Hgb (12.5-18.0) gm/dl Hct (42-50) % MCV (78-100) fl MCH (26-32) pg MCHC (32-36) g/dl RDW (11.5-14.0) % Plt Count (150-450) K/mm3 MPV (7.5-11.0) fl Gran % (36.0-66.0) % Eos # (Auto) (0-0.5) Absolute Lymphs (auto) (1.0-4.6) Absolute Monos (auto) (0.0-1.3) Lymphocytes % (24.0-44.0) % Monocytes % (0.0-12.0) % Eosinophils % (0.00-5.0) % Basophils % (0.0-0.4) % Absolute Granulocytes (1.4-6.9) Basophils # (0-0.4) PT (9.4-12.5) SECONDS INR (0.8-3.0) D-Dimer (215-500) ng/mL Sodium (137-145) mmol/L Potassium (3.5-5.1) mmol/L Chloride (98-107) mmol/L Carbon Dioxide (22-30) mmol/L Anion Gap (5-15) MEQ/L BUN (9-20) mg/dL Creatinine (0.66-1.25) mg/dL Estimated GFR ML/MIN Glucose (74-106) mg/dL Lactic Acid 1.4 (0.4-2.0) Calcium (8.4-10.2) mg/dL Magnesium (1.6-2.3) mg/dL Total Bilirubin (0.2-1.3) mg/dL AST (17-59) U/L ALT (0-50) U/L Alkaline Phosphatase (38-126) U/L Troponin I (0.000-0.034) ng/mL NT-Pro-B Natriuret Pep (0-900) pg/mL Serum Total Protein (6.3-8.2) g/dL Albumin (3.5-5.0) g/dL Amylase (30-110) U/L Lipase (23-300) U/L Urine Color (YELLOW) Urine Appearance (CLEAR) Urine pH (5-6) Ur Specific Ripley (1.005-1.025) Urine Protein (Negative) Urine Ketones (NEGATIVE) Urine Blood (0-5) Arcadio/ul Urine Nitrite (NEGATIVE) Urine Bilirubin (NEGATIVE) Urine Urobilinogen (0-1) mg/dL Ur Leukocyte Esterase (NEGATIVE) Urine WBC (Auto) (0-5) /HPF Urine RBC (Auto) (0-2) /HPF U Epithel Cells (Auto) (FEW) /HPF Urine Bacteria (Auto) (NEGATIVE) /HPF Urine Culture Reflexed (NO) Urine Glucose (NEGATIVE) mg/dL - Progress Progress: improved Air Movement: good Progress Note: 09/19/21 16:31 The patient was admitted with a narrow QRS narrow complex tachycardia. We initially work to get this patient transferred to [facility] to his cardiology group Dr. Nolasco application security specialist. And the patient was excepted at [facility] but no bed was available. Dr. Nolasco had the pacemaker atmospheric technician come down and interrogate the pacer and found that there had been over an hour of atrial fib with a rapid ventricular response. At that point he felt that an increase in Betapace would suffice to treat the atrial fib and he requested that we also give an extra dose of Lasix to treat some minimal CHF. The troponin rise he f elt was due to the CHF. He felt the patient could be discharged home with instructions to get an appointment next week with his manager care management. I am somewhat uncomfortable with that but having no cardiology service here and unable to transfer him because of the lack of beds makes it difficult. I have discussed this with the patient and he is comfortable going home. 09/19/21 16:33 Blood Culture(s) Obtained: No Antibiotics given: No - Departure Departure Disposition: Home Clinical Impression: Paroxysmal atrial fibrillation Condition: Stable Critical Care Time: Yes Critical Care Time(excluding separately billable procedures): Critical 30-74 mins (35 minutes) Referrals: PABLITO MUNGUIA MD [Primary Care Provider] - Follow up/PCP as directed Instructions: Atrial Fibrillation (DC) Additional Instructions: Patient was instructed to increase to 80 mg twice a day on the betapace
[2021-09-19 11:11] LABS: INR 3.1 (0.8-3.0); PROTIME 36.6 SECONDS (9.4-12.5)
--- NOTE | 2021-09-19 11:14 | XRAY ---
Indication: Chest pain. Comparison: September 30, 2020. Portable remains clear again with a few incidental calcified granulomas. Heart not enlarged again with CABG and left AICD. Bony thorax intact again with osteopenia and degenerative changes. Impression: Continued nonacute chest with chronic features.
[2021-09-19 11:33] LABS: ALBUMIN 3.8 g/dL (3.5-5.0); ALKALINE PHOSPHATASE 90 U/L (38-126); AMYLASE 33 U/L (30-110); ANION GAP 7.3 MEQ/L (5-15); BLOOD UREA NITROGEN 27 mg/dL (9-20); CHLORIDE 105 mmol/L (98-107); Calcium 9.1 mg/dL (8.4-10.2); Carbon Dioxide 29 mmol/L (22-30); Creatinine 1 1.25 mg/dL (0.66-1.25); EST GLOMERULAR FILTRATION RATE > 60.0 ML/MIN; Glucose 163 mg/dL (74-106); LIPASE 113 U/L (23-300); NT PRO BNP 372 pg/mL (0-900); Potassium 4.7 mmol/L (3.5-5.1); SGOT/AST 28 U/L (17-59); SGPT/ALT 23 U/L (0-50); SODIUM 137 mmol/L (137-145); Total Protein 6.8 g/dL (6.3-8.2)
[2021-09-19] MEDS: Betapace 80 MG PO STA (12:43)
[2021-09-19 15:42] LABS: Appearance CLEAR (CLEAR); Bacteria RARE /HPF (NEGATIVE); Bilirubin NEGATIVE (NEGATIVE); Blood NEGATIVE Ery/ul (0-5); Epithelial Cells RARE /HPF (FEW); Glucose NEGATIVE (NEGATIVE); Ketones NEGATIVE (NEGATIVE); Leukocyte Esterase SMALL (NEGATIVE); Nitrite NEGATIVE (NEGATIVE); Protein,Urine Dip 100 (Negative); Specific Gravity 1.019 (1.005-1.025); Urobilinogen NEGATIVE mg/dL (0-1)
[2021-09-19] MEDS ORDERED: K-LYTE 25 MEQ ONE (15:45)
[2021-09-19] MEDS ORDERED: Lasix 40 MG/4 ML ONE (15:45)
[2021-09-19] MEDS: K-LYTE 25 MEQ PO ONE (15:49)
[2021-09-19] MEDS: Lasix 40 MG/4 ML IV ONE (15:49)
[2021-09-19 17:07] VITALS: BP 105/58; PULSE 68; O2SAT 96
[2021-09-19] MEDS ORDERED: Betapace 80 MG PO SCH (22:00)
== END 2021-09-19 17:08 | disposition home or self-care (01) ==
LOC: ED 10:42
DX: I48.0 Paroxysmal atrial fibrillation (principal); Z79.01 Long term (current) use of anticoagulants; Z79.82 Long term (current) use of aspirin; E11.9 Type 2 diabetes mellitus without complications; Z79.4 Long term (current) use of insulin; I11.0 Hypertensive heart disease with heart failure; I50.9 Heart failure, unspecified; I25.10 Atherosclerotic heart disease of native coronary artery without angina pectoris; E78.5 Hyperlipidemia, unspecified; J43.9 Emphysema, unspecified; Z95.810 Presence of automatic (implantable) cardiac defibrillator; Z79.899 Other long term (current) drug therapy
CPT/HCPCS: 36000; 36415; 71045; 80053; 81001; 82150; 83605; 83690; 83735; 83880; 84484; 85025; 85379; 85610; 87086; 93005; 93041; 96374; 96375; 99285; 99291; J1940; A9270-GY

== ENCOUNTER 2022-05-18 08:17 | Day surgery (SDC) | payer MEDICARE ==
[~2022-05-18 08:17] MED LIST: Lactated Ringers 1,000 ML IV SCH
--- NOTE | 2022-05-18 08:31 | HP ---
DATE OF SURGERY: 05/18/2022 HISTORY OF PRESENT ILLNESS: The patient is a 67-year-old with last colonoscopy more than six years ago. History of polyps. No bloody stools. Some constipation. No new bowel changes. Left abdominal aches and pain. Family history negative for colon cancer. PAST MEDICAL HISTORY: Allergies, lung disease, diabetes, chronic obstructive pulmonary disease, hypertension. PAST SURGICAL HISTORY: Pacemaker and bypass in the past. Eye surgery in the past. Endoscopy. MEDICATIONS: Amiodarone, potassium chloride, warfarin, Albuterol, aspirin, atorvastatin, carvedilol, clopidogrel, furosemide, isosorbide mononitrate, lisinopril, metformin, nitroglycerin PRN, spironolactone in the past. ALLERGIES: REGLAN. MORPHINE. PRADAXA. ELIQUIS. FAMILY HISTORY: Heart disease, diabetes. SOCIAL HISTORY: No alcohol abuse. REVIEW OF SYSTEMS: Fourteen systems reviewed. No chest pain or palpitations. PHYSICAL EXAMINATION: GENERAL: A clinically ill gentleman in no acute distress. HEENT: Sclerae nonicteric. NECK: No JVD. CHEST: Equal excursion, nonlabored breathing. CVS: Irregular, irregular. ABDOMEN: Soft. No peritoneal signs. EXTREMITIES: No significant edema. NEURO: Alert, oriented, moving extremities symmetrically. RECTAL: Deferred timed to endoscopy exam. PSYCH: Appropriate mood and affect. IMPRESSION: History of polyps in need of follow up screening colonoscopy. I feel he is a candidate. Shows then risk sheet explained the procedure in detail including bleeding or infection, risk of bowel injury or perforation, risk of missed or nondiagnosis or incomplete exam possibly requiring barium enema, other studies or procedures, general risk of anesthesia or sedation, risk of bowel prep or sedation but not limited to, consent obtained. Will proceed with outpatient follow up colonoscopy under MAC anesthesia.
[2022-05-18] MEDS ORDERED: Lactated Ringers 1,000 ML IV ONE (08:33)
[2022-05-18] MEDS ORDERED: Xylocaine-Mpf 2% 5 Ml Vial ONE (10:29)
[2022-05-18] MEDS ORDERED: DIPRIVAN 200 MG/20 ML IV ONE (10:29)
[2022-05-18 12:31] VITALS: O2SAT 97
[2022-05-18 14:32] VITALS: BP 116/58; PULSE 70
--- NOTE | 2022-05-19 07:54 | OP ---
SURGERY DATE/TIME: 05/18/2022 1109 PREOPERATIVE DIAGNOSIS: History of polyp, needs follow up screening colonoscopy. POSTOPERATIVE DIAGNOSES: 1) ASA Class IV. 2) Fair but limited bowel prep. 3) Diverticulosis. 4) Small sigmoid colon and rectal polyps versus hyperplastic lesion, path pending. 5) Tortuous colon in an overweight gentleman. PROCEDURES: 1) Colonoscopy to ileocecal valve (unable to see 100% of the cecum despite multiple position changes, multiple staff members pushing on his abdomen unable to reduce loops well enough to see it so barium enema recommended). 2) Hot biopsy polypectomy sigmoid colon polyps versus hyperplastic lesion x2. 3) Hot biopsy polypectomy small early rectal polyp versus hyperplastic lesion. SURGEON: Dr. Saji Goldman. ANESTHESIA: MAC. ESTIMATED BLOOD LOSS: Minimal. INDICATIONS: As noted above. Risks and benefits explained in detail but not limited to and consent obtained. DESCRIPTION OF PROCEDURE AND FINDINGS: The patient is taken to the endoscopy room. MAC anesthesia induced. After official time out and no disagreement with planned procedure, digital rectal exam did not reveal any rectal masses. Video colonoscope inserted and passed up through the tortuous sigmoid, descending, transverse around to the ascending colon. Despite multiple position changes on his back and multiple staff members pushing on his overweight abdomen, we were unable to reduce the loop well enough to completely see 100% of the cecum, more than half could be seen but limitation of the valve itself. A picture was taken. Because of the patient and family was recommended to check for completeness a barium enema. If the patient is not wanting to schedule now I could discuss with him in the office when he comes back. Otherwise slow careful withdrawal over the next 8 minutes suction irrigating the liquidy semisolid stool as well as possible but slightly limited the exam for very small lesions. There were no signs of any large polyps, masses or obstructing lesions. In the sigmoid colon, he had two small polyps, early polyps versus hyperplastic lesions removed with hot biopsy forceps with brief bursts of cautery as well as one at very top of the rectum removed with hot biopsy polypectomy. Good hemostasis noted. There were no signs of any large polyps, masses or obstructing lesions. He did have some mild diverticulosis in the left colon. There were no immediate complications. Findings discussed with the family out in the waiting area.
== END 2022-05-18 13:10 | disposition home or self-care (01) ==
LOC: SDC 08:17
PROVIDERS: ATTEND Surgery
DX: Z09 Encounter for follow-up examination after completed treatment for conditions other than malignant neoplasm (principal); Z86.010 Personal history of colon polyps; K57.30 Diverticulosis of large intestine without perforation or abscess without bleeding; E11.9 Type 2 diabetes mellitus without complications; K63.5 Polyp of colon; K62.1 Rectal polyp
CPT/HCPCS: 82947; 93005; J2704

== ENCOUNTER 2023-03-12 11:36 | Inpatient (IN) | payer MEDICARE, SELFPAY ==
[2023-03-12] MEDS ORDERED: ENOXAPARIN SODIUM SQ SCH (18:00)
[2023-03-12 18:13] LABS: Absolute Neutrophil Ct (ANC) 4.25 x10^3/uL (1.4-6.9); BASOPHIL % 0.4 % (0.0-0.4); Basophil (Absolute #) 0.03 x10^3/uL (0-0.4); Eosinophil % 5.4 % (0.00-5.0); Eosinophil (Absolute #) 0.36 x10^3/uL (0-0.5); Hematocrit 34.2 % (42-50); Hemoglobin 9.5 g/dL (12.5-18.0); IMMATURE GRAN # 0.04 x10^3u/L (0.00-0.03); IMMATURE GRAN % 0.6 % (0.00-0.4); Lymphocyte (Absolute #) 1.14 x10^3/uL (1.0-4.6); Mean Corpuscular Hemoglobin 26.4 pg (26-32); Mean Corpuscular Hgb Concent. 27.8 g/dL (32-36); Mean Platelet Volume 9.8 fL (7.5-11.0); Monocyte (Absolute #) 0.88 x10^3/uL (0.0-1.3); Monocytes % 13.1 % (0.0-12.0); Neutrophil % 63.5 % (36.0-66.0); Platelet Count 185 x10^3/uL (150-450); Red Cell Distribution Width 16.5 % (11.5-14.0); White Blood Count 6.7 x10^3/uL (4.0-10.5)
[2023-03-12 18:40] LABS: ALBUMIN 3.8 g/dL (3.5-5.0); ANION GAP 14.6 MEQ/L (5-15); BILIRUBIN,TOTAL 0.6 mg/dL (0.2-1.3); Calcium 9.3 mg/dL (8.4-10.2); Creatinine 1 1.7 mg/dL (0.66-1.25); EST GLOMERULAR FILTRATION RATE 42.8 ML/MIN; Potassium 4.5 mmol/L (3.5-5.1)
[2023-03-12] MEDS: ROCEPHIN 1 Gm-D5w 50 ml Bag** 1 G/50 ML IVPB IV SCH (18:56)
[2023-03-12 19:48] LABS: Slide Review 1 YES
[2023-03-12] MEDS ORDERED: VANCOMYCIN 1 GRAM/200 ML BAG 1 GM/200 ML PIGGYBACK IV SCH (20:00)
[2023-03-12 20:30] LABS: INR 3.86 (0.8-3.0); PROTIME 38.1 SECONDS (9.4-12.5)
[2023-03-12] MEDS ORDERED: TYLENOL 325 MG PO PRN (20:34)
--- NOTE | 2023-03-12 20:43 | PCM.HP ---
History of Present Illness - Chief Complaint Chief Complaint: cellulitis History of Present Illness: is a 67 year old male with past medical history of CAD s/p CABG and stents, DMII, HTN, CKD 3, HLP, Obesity, COPD, BPH, GERD and Afib/CHF presented for direct admission for on-going lower extremities redness and pain with worsening swelling. He says it has been going on for months. He has a senior architect/design manager and a all around presser he follows outpt. He denies fever, chills, malaise, dysuria, hematuria, flank pain. No chest pain. Has COPD and needs inhalers every so often but not daily. He denies any change in his breathing pattern. - Review of Systems Constitutional: No Symptoms Eyes: No Symptoms Ears, Nose, & Throat: No Symptoms Respiratory: No Symptoms Cardiac: Edema Abdominal/Gastrointestinal: No Symptoms Genitourinary Symptoms: No Symptoms Musculoskeletal: No Symptoms Skin: Cellulitis Neurological: No Symptoms Psychological: No Symptoms Endocrine: No Symptoms Hematologic/Lymphatic: No Symptoms Immunological/Allergic: No Symptoms Medications & Allergies Home Medications: Home Medication List Aspirin [Aspirin EC] 81 mg PO DAILY 09/03/13 [History Confirmed 03/12/23] Nitroglycerin 0.4 mg Tablet [Nitrostat 0.4 MG Tablet] 0.4 mg SL UD PRN 09/03/13 [History Confirmed 03/12/23] Atorvastatin Calcium [Lipitor] 80 mg PO HS 11/29/17 [History Confirmed 03/12/23] Metformin HCl 500 mg [Glucophage 500 MG] 1,000 mg PO BIDWM 11/29/17 [History Confirmed 03/12/23] Albuterol Sulfate 2 puffs IH Q6HPRN PRN 09/06/20 [History Confirmed 03/12/23] Insulin NPH/Reg 70/30 [Novolin 70/30] 60 unit SQ PMINSULIN 09/06/20 [History Confirmed 03/12/23] Insulin NPH/Reg 70/30 [Novolin 70/30] 75 unit SQ AMINSULIN 09/06/20 [History Confirmed 03/12/23] Amiodarone HCl 200 mg [Cordarone 200 MG] 200 mg PO DAILY 03/13/22 [History Confirmed 03/12/23] Isosorbide Mononitrate 30 mg [Imdur 30 MG] 60 mg PO DAILY 03/13/22 [History Confirmed 03/12/23] Potassium Chloride 10 meq PO DAILY 05/07/22 [History Confirmed 03/12/23] Clopidogrel Bisulfate [Plavix] 75 mg PO DAILY #0 05/18/22 [Rx Confirmed 03/12/23] Metoprolol Succinate 50 mg [Toprol Xl 50 MG] 50 mg PO DAILY 07/23/22 [History Confirmed 03/12/23] Warfarin Sodium 2 mg PO UD 07/23/22 [History Confirmed 03/12/23] Ferrous Sulfate [Iron] 325 mg PO DAILY 12/03/22 [History Confirmed 03/12/23] Tamsulosin HCl 0.4 mg [Flomax 0.4 MG] 0.4 mg PO HS 02/03/23 [History Confirmed 03/12/23] Torsemide 20 mg [Demadex 20 mg] 20 mg PO DAILY 02/03/23 [History Confirmed 03/12/23] Carvedilol 3.125 mg [Coreg 3.125 MG] 3.125 mg PO BID 03/12/23 [History Confirmed 03/12/23] Empagliflozin [Jardiance] 10 mg PO DAILY 03/12/23 [History Confirmed 03/12/23] Famotidine [Pepcid] 40 mg PO DAILY 03/12/23 [History Confirmed 03/12/23] Lisinopril 10 mg [Zestril 10 MG] 10 mg PO DAILY 03/12/23 [History Confirmed 03/12/23] Sucralfate 1 gm [Carafate 1 GM] 1 g PO QID 03/12/23 [History Confirmed 03/12/23] Allergies/Adverse Reactions: Allergies Allergy/AdvReac Type Severity Reaction Status Date / Time apixaban [From Eliquis] Allergy Severe cant walk Verified 09/19/21 10:44 morphine Allergy Severe hallucinati Verified 09/19/21 10:44 ons dabigatran etexilate mesylate Allergy Mild Nausea and Verified 09/19/21 10:44 [From Pradaxa] Vomiting metoclopramide HCl Allergy Mild Itching Verified 09/19/21 10:44 [From Reglan] - Past Medical History Past Medical History: Yes Neurological History: Migraines, Peripheral Neuropathy ENT History: Cataracts Cardiac History: Arrhythmia, Congestive Heart Failure, Coronary Artery Disease, High Cholesterol, Hypertension, Myocardial Infarction (DC) Respiratory History: CHF, COPD, Emphysema, Pneumonia, Sleep Apnea Endocrine Medical History: Diabetes Type II, Other Musculoskelatal History: No Pertinent History GI Medical History: Diverticulitis, Polyps History: No Pertinent History Pyscho-Social History: No Pertinent History Male Reproductive Disorders: No Pertinent History Comment: SLEEP APNEA, RLS, FATIGUE, SINUSITIS, ISCHEMIC CARDIOMYOPATHY, A-FIB - Past Surgical History Past Surgical History: Yes Neuro Surgical History: No Pertinent History Cardiac History: CABG, Cardiac Catheterization, Cardiac Stent, Internal Defibrillator, Pacemaker Respiratory Surgery: No Pertinent History GI Surgical History: Other Genitourinary Surgical Hx: No Pertinent History Musculskeletal Surgical Hx: No Pertinent History Male Surgical History: No Pertinent History Other Surgical History: POLYPS REMOVED FROM COLON bilateral eye implants, bypass x3, pacemaker x3 - Social History Smoking Status: Former smoker How long have you smoked: 21 yrs Exposure to second hand smoke: No Alcohol: None Drug Use: none - Physical Exam Vital Signs: Vital Signs - 24 hr Temp Pulse Resp BP Pulse Ox 03/12/23 17:19 98.4 F 72 18 108/55 92 L General Appearance: no apparent distress, obese Neurologic Exam: alert, oriented x 3, cooperative Eye Exam: PERRL/EOMI, eyes nml inspection Ears, Nose, Throat Exam: normal ENT inspection Neck Exam: normal inspection, supple Respiratory Exam: normal breath sounds, lungs clear Cardiovascular Exam: regular rate/rhythm, normal heart sounds Gastrointestinal/Abdomen Exam: soft, normal bowel sounds Rectal Exam: deferred Back Exam: normal inspection Extremity Exam: inflammation, swelling Skin Exam: other (redness and weeping at both lower extremities) Results - Labs Lab/Micro Results: Lab Results-Last 24 Hours 03/12/23 03/12/23 03/12/23 Range/Units 18:00 18:00 18:00 WBC 6.7 (4.0-10.5) x10^3/uL RBC 3.60 L (4.1-5.6) x10^6/uL Hgb 9.5 L (12.5-18.0) g/dL Hct 34.2 L (42-50) % MCV 95.0 (78-100) fL MCH 26.4 (26-32) pg MCHC 27.8 L (32-36) g/dL RDW 16.5 H (11.5-14.0) % Plt Count 185 (150-450) x10^3/uL MPV 9.8 (7.5-11.0) fL Gran % 63.5 (36.0-66.0) % Immature Gran % (Auto) 0.6 H (0.00-0.4) % Nucleat RBC Rel Count 0.0 (0.00-0.1) % Eos # (Auto) 0.36 (0-0.5) x10^3/uL Immature Gran # (Auto) 0.04 H (0.00-0.03) x10^3u/L Absolute Lymphs (auto) 1.14 (1.0-4.6) x10^3/uL Absolute Monos (auto) 0.88 (0.0-1.3) x10^3/uL Absolute Nucleated RBC 0.00 (0.00-0.01) x10^3u/L Lymphocytes % 17.0 L (24.0-44.0) % Monocytes % 13.1 H (0.0-12.0) % Eosinophils % 5.4 H (0.00-5.0) % Basophils % 0.4 (0.0-0.4) % Absolute Granulocytes 4.25 (1.4-6.9) x10^3/uL Basophils # 0.03 (0-0.4) x10^3/uL PT (9.4-12.5) SECONDS INR (0.8-3.0) Sodium 135 L (137-145) mmol/L Potassium 4.5 (3.5-5.1) mmol/L Chloride 98 (98-107) mmol/L Carbon Dioxide 27 (22-30) mmol/L Anion Gap 14.6 (5-15) MEQ/L BUN 41 H (9-20) mg/dL Creatinine 1.70 H (0.66-1.25) mg/dL Estimated GFR 42.8 ML/MIN Glucose 93 (74-106) mg/dL Calcium 9.3 (8.4-10.2) mg/dL Total Bilirubin 0.60 (0.2-1.3) mg/dL AST 27 (17-59) U/L ALT 22 (0-50) U/L Alkaline Phosphatase 91 (38-126) U/L Troponin I 0.021 (0.000-0.034) ng/mL NT-Pro-B Natriuret Pep 261 (<300) pg/mL Serum Total Protein 7.0 (6.3-8.2) g/dL Albumin 3.8 (3.5-5.0) g/dL Slides for Path Review YES 03/12/23 Range/Units 18:00 WBC (4.0-10.5) x10^3/uL RBC (4.1-5.6) x10^6/uL Hgb (12.5-18.0) g/dL Hct (42-50) % MCV (78-100) fL MCH (26-32) pg MCHC (32-36) g/dL RDW (11.5-14.0) % Plt Count (150-450) x10^3/uL MPV (7.5-11.0) fL Gran % (36.0-66.0) % Immature Gran % (Auto) (0.00-0.4) % Nucleat RBC Rel Count (0.00-0.1) % Eos # (Auto) (0-0.5) x10^3/uL Immature Gran # (Auto) (0.00-0.03) x10^3u/L Absolute Lymphs (auto) (1.0-4.6) x10^3/uL Absolute Monos (auto) (0.0-1.3) x10^3/uL Absolute Nucleated RBC (0.00-0.01) x10^3u/L Lymphocytes % (24.0-44.0) % Monocytes % (0.0-12.0) % Eosinophils % (0.00-5.0) % Basophils % (0.0-0.4) % Absolute Granulocytes (1.4-6.9) x10^3/uL Basophils # (0-0.4) x10^3/uL PT 38.1 H (9.4-12.5) SECONDS INR 3.86 H (0.8-3.0) Sodium (137-145) mmol/L Potassium (3.5-5.1) mmol/L Chloride (98-107) mmol/L Carbon Dioxide (22-30) mmol/L Anion Gap (5-15) MEQ/L BUN (9-20) mg/dL Creatinine (0.66-1.25) mg/dL Estimated GFR ML/MIN Glucose (74-106) mg/dL Calcium (8.4-10.2) mg/dL Total Bilirubin (0.2-1.3) mg/dL AST (17-59) U/L ALT (0-50) U/L Alkaline Phosphatase (38-126) U/L Troponin I (0.000-0.034) ng/mL NT-Pro-B Natriuret Pep (<300) pg/mL Serum Total Protein (6.3-8.2) g/dL Albumin (3.5-5.0) g/dL Slides for Path Review - Radiology Impressions Radiology Exams & Impressions: Radiology Procedures Category Date Time Status ECHO W/2D AND DOPPLER [US] Routine Exams 03/15/23 09:00 Ordered Assessment/Plan (1) Bilateral lower leg cellulitis Current Visit: Yes Status: Acute Assessment & Plan: Has been chronic and on-going, but not better. Plan Vanc 1gm, and allow pharmacist to adjust dosing as he has underlying PAULO/CKD. I do not think Rocephin will cover adequately for cellulitis. Will need local wound care as well. BC obtained. No fever, no leukocytosis. Not septic on sepsis focused exam Code(s): L03.116 - CELLULITIS OF LEFT LOWER LIMB; L03.115 - CELLULITIS OF RIGHT LOWER LIMB (2) CHF (congestive heart failure) Current Visit: Yes Status: Acute Assessment & Plan: Has extensive heart history: CAD s/p CABG, CHF s/p AICD. Has edema. Will need to limit daily fluid intake < 1.5Ls, and started Lasix 40mg IV BID. He is on torsemide at home. His senior architect/design manager knows he is here, and plan for Echo on Wednesday. It has been ordered Daily weight, strict INs and OUTs Code(s): I50.9 - HEART FAILURE, UNSPECIFIED (3) PAULO (acute kidney injury) Current Visit: Yes Status: Acute Assessment & Plan: Cr baseline is 1-1.5. He came in at 1.7. BP low normal. On Lasix. Holding Lisinopril and Metformin for now. Monitor BP closely to avoid hypotension. Dose all meds accordingly. Monitoring Vanc to avoid nephrotoxicity Code(s): N17.9 - ACUTE KIDNEY FAILURE, UNSPECIFIED (4) CKD (chronic kidney disease) stage 3, GFR 30-59 ml/min Current Visit: Yes Status: Acute Assessment & Plan: Baseline Cr 1-1.5. CKD due to DM and HTN. He sees a all around presser OP for this Code(s): N18.30 - CHRONIC KIDNEY DISEASE, STAGE 3 UNSPECIFIED (5) Essential (primary) hypertension Current Visit: Yes Status: Acute Assessment & Plan: BP low normal. BP meds started - but with holding parameters. He is on Coreg and NOT metoprolol. Holding Lisinopril for the PAULO Code(s): I10 - ESSENTIAL (PRIMARY) HYPERTENSION (6) COPD (chronic obstructive pulmonary disease) Current Visit: No Status: Acute Assessment & Plan: On RA, stable. Resumed home albuterol inh prn (7) Diabetes type 2, controlled Current Visit: No Status: Acute Qualifiers: Assessment & Plan: ADA diet, accucheck qACHS. SSI. He is on Metformin and Jardiance. Holding Metformin, hospital likely do not carry Jardiance. Code(s): E11.9 - TYPE 2 DIABETES MELLITUS WITHOUT COMPLICATIONS (8) Paroxysmal atrial fibrillation Current Visit: No Status: Acute Assessment & Plan: HR is controlled. He is on Amiodarone. He is also on Warfarin for this. INR 3.8. A bit supra-therapeutic. We will monitor INR daily and adjust warfarin a ccordingly. Goal INR 2-3 Code(s): I48.0 - PAROXYSMAL ATRIAL FIBRILLATION Telemedicine Encounter - Telemedicine Encounter Telemedicine Encounter: The entirety of this encounter was performed via Telemedicine" The pt gave me verbal consent to have this telemedicine visit
[2023-03-12] MEDS ORDERED: Nitrostat 0.4 MG Tablet SL PRN (20:45)
[2023-03-12] MEDS: Coreg 3.125 MG PO SCH (21:10)
[2023-03-12] MEDS: Lasix 40 MG/4 ML IV SCH (21:18)
[2023-03-12] MEDS: Carafate 1 GM PO SCH (21:19)
[2023-03-12] MEDS: Klor Con PO SCH (21:19)
[2023-03-12] MEDS: ULTRAM 50 MG PO PRN (21:19)
[2023-03-12] MEDS: Flomax 0.4 MG PO SCH (21:19)
[2023-03-12] MEDS: ZOCOR 20MG PO SCH (21:19)
[2023-03-12] MEDS: VANCOCIN INJECTION*** 1 GM in Sodium Chloride 0.9% 250 ML 250 ML IV SCH (23:25)
[2023-03-13] MEDS ORDERED: Sodium Chloride 0.9% 500 ML 500 ML IV ONE (01:10)
[2023-03-13 07:33] LABS: ALBUMIN 3.5 g/dL (3.5-5.0); ANION GAP 12.1 MEQ/L (5-15); BILIRUBIN,TOTAL 0.6 mg/dL (0.2-1.3); Calcium 8.7 mg/dL (8.4-10.2); Creatinine 1 1.73 mg/dL (0.66-1.25); Potassium 4.3 mmol/L (3.5-5.1); Total Protein 6.9 g/dL (6.3-8.2)
[2023-03-13] MEDS: Carafate 1 GM PO SCH ×4 (08:08→21:20)
[2023-03-13] MEDS ORDERED: ALBUTEROL SULFATE 1.25 MG/3 ML IH PRN (09:38)
[2023-03-13] MEDS ORDERED: VENTOLIN COMMON CANISTER IH PRN (09:44)
[2023-03-13] MEDS ORDERED: NON-FORMULARY ITEM (Warfarin Sodium [Warfarin Sodium] 2 MG Tablet) PO SCH (09:45)
[2023-03-13] MEDS ORDERED: NON-FORMULARY ITEM (Famotidine [Pepcid] 40 MG Tablet) PO SCH (10:00)
[2023-03-13] MEDS: Lasix 40 MG/4 ML IV SCH ×2 (11:07→21:21)
[2023-03-13] MEDS: Pepcid 20 MG PO SCH (11:16)
[2023-03-13] MEDS: FEOSOL 325 MG PO SCH (11:17)
[2023-03-13] MEDS: DEMADEX 20 MG PO SCH (11:17)
[2023-03-13] MEDS: Klor Con PO SCH ×2 (11:18→21:20)
[2023-03-13] MEDS: Cordarone 200 MG PO SCH (11:18)
[2023-03-13] MEDS: ECOTRIN 81 MG PO SCH (11:18)
[2023-03-13] MEDS: Imdur 30 MG PO SCH (11:18)
[2023-03-13] MEDS: PLAVIX Tablet PO SCH (11:18)
[2023-03-13] MEDS: JARDIANCE PO SCH (11:19)
[2023-03-13] MEDS: VANCOCIN INJECTION*** 1 GM in Sodium Chloride 0.9% 250 ML 250 ML IV SCH (11:31)
[2023-03-13] MEDS: ROCEPHIN 1 Gm-D5w 50 ml Bag** 1 G/50 ML IVPB IV SCH (11:39)
[2023-03-13] MEDS: ULTRAM 50 MG PO PRN ×2 (12:03→21:21)
[2023-03-13] MEDS: VANCOMYCIN 1 GRAM/200 ML BAG 1 GM/200 ML PIGGYBACK IV SCH ×2 (12:03→21:21)
[2023-03-13] MEDS: Coreg 3.125 MG PO SCH ×2 (12:08→21:20)
[2023-03-13] MEDS ORDERED: Coumadin 3 MG PO SCH (18:00)
[2023-03-13] MEDS: Flomax 0.4 MG PO SCH (21:20)
[2023-03-13] MEDS: ZOCOR 20MG PO SCH (21:21)
[2023-03-13] MEDS ORDERED: ROCEPHIN 1 Gm-D5w 50 ml Bag** 1 G/50 ML IVPB IV SCH (22:00)
[2023-03-14] MEDS: Carafate 1 GM PO SCH ×4 (06:43→21:18)
[2023-03-14] MEDS: Cordarone 200 MG PO SCH (09:20)
[2023-03-14] MEDS: Klor Con PO SCH ×2 (09:20→21:19)
[2023-03-14] MEDS: FEOSOL 325 MG PO SCH (09:20)
[2023-03-14] MEDS: ECOTRIN 81 MG PO SCH (09:20)
[2023-03-14] MEDS: Pepcid 20 MG PO SCH (09:20)
[2023-03-14] MEDS: Imdur 30 MG PO SCH (09:21)
[2023-03-14] MEDS: PLAVIX Tablet PO SCH (09:21)
[2023-03-14] MEDS: Lasix 40 MG/4 ML IV SCH ×2 (09:21→20:24)
[2023-03-14] MEDS: DEMADEX 20 MG PO SCH (09:21)
[2023-03-14] MEDS: Coreg 3.125 MG PO SCH ×2 (09:38→21:19)
[2023-03-14] MEDS: ROCEPHIN 1 Gm-D5w 50 ml Bag** 1 G/50 ML IVPB IV SCH (09:57)
[2023-03-14] MEDS: VANCOMYCIN 1 GRAM/200 ML BAG 1 GM/200 ML PIGGYBACK IV SCH ×2 (09:58→21:18)
[2023-03-14] MEDS: JARDIANCE PO SCH (09:58)
[2023-03-14 11:05] LABS: INR 4.48 (0.8-3.0); PROTIME 43.7 SECONDS (9.4-12.5)
[2023-03-14] MEDS: HUMULIN R SQ PRN ×2 (16:30→22:01)
[2023-03-14] MEDS: ULTRAM 50 MG PO PRN ×2 (16:35→21:19)
[2023-03-14] MEDS: Flomax 0.4 MG PO SCH (21:19)
[2023-03-14] MEDS: ZOCOR 20MG PO SCH (21:19)
[2023-03-15] MEDS ORDERED: Miralax Powder 17GM PACKET ONE (04:27)
[2023-03-15] MEDS: Miralax Powder 17GM PACKET PO SCH (04:32)
[2023-03-15] MEDS ORDERED: MILK OF MAGNESIA 30 ML PO ONE (04:54)
[2023-03-15 05:15] LABS: Hematocrit 32.4 % (42-50); Hemoglobin 9.7 g/dL (12.5-18.0); Mean Cell Volume 86.9 fL (78-100); Mean Corpuscular Hgb Concent. 29.9 g/dL (32-36); Mean Platelet Volume 10.2 fL (7.5-11.0); Platelet Count 198 x10^3/uL (150-450); Red Blood Count 3.73 x10^6/uL (4.1-5.6); White Blood Count 7.1 x10^3/uL (4.0-10.5)
[2023-03-15 05:30] LABS: INR 4.04 (0.8-3.0); PROTIME 39.7 SECONDS (9.4-12.5)
[2023-03-15 05:31] LABS: ANION GAP 14.3 MEQ/L (5-15); Calcium 8.7 mg/dL (8.4-10.2); Creatinine 1 1.83 mg/dL (0.66-1.25); EST GLOMERULAR FILTRATION RATE 39.3 ML/MIN; Potassium 4.1 mmol/L (3.5-5.1)
--- NOTE | 2023-03-15 05:41 | PCM.NOTE ---
Date and Time: 03/13/23 Subjective Assessment: Responding to Iv furosemide - has urinated 4 times in last 2 hours, ?ay be 40 pounds overweight? was taken off lasix at last discharge when he may have been 345 pounds, feels better, edema lower - Review of Systems Eyes: No Symptoms Ears, Nose, & Throat: No Symptoms Respiratory: Short Of Breath Cardiac: Edema Abdominal/Gastrointestinal: Constipation Genitourinary Symptoms: No Symptoms Musculoskeletal: No Symptoms Skin: No Symptoms Neurological: No Symptoms Objective Exam Neurologic Exam: alert, oriented x 3, cooperative Skin Exam: normal color Wound Assessment: Skin/Wound Assessment Wound/Incision Assessment Start: 03/12/23 17:25 Text: Status: Active Freq: Q6H Protocol: Document 03/15/23 02:00 TC (Rec: 03/15/23 03:02 TC [id number]) Wound Photo Photo Taken No Comment: photos on prev shifts Neck Exam: JVD Respiratory Exam: crackles/rales Cardiovascular Exam: edema Gastrointestinal/Abdomen Exam: soft Extremity Exam: pedal edema OBJECTIVE DATA Vital Signs: Vital Signs - 24 hr Temp Pulse Resp BP Pulse Ox 03/15/23 04:00 96.8 F 74 22 90/54 95 03/14/23 23:37 97.1 F 72 20 101/58 98 03/14/23 21:43 73 18 93 L 03/14/23 20:00 97.1 F 74 24 95/52 95 03/14/23 16:00 96.9 F 72 16 98/52 99 03/14/23 12:00 96.9 F 71 17 93/52 98 03/14/23 08:58 97/58 03/14/23 08:00 96.6 F 71 17 75/40 98 03/14/23 07:58 92 L 03/14/23 07:56 72 17 92 L Pain Assessment - Last Documented Pain Intensity 5 Intake and Output: Intake & Output 03/12/23 03/13/23 03/14/23 03/15/23 11:59 11:59 11:59 11:59 Intake Total 600 2350 2850 Output Total 1880 600 980 Balance -1280 1750 1870 Weight 161.7 kg 159.9 kg 160 kg Lab Results: Lab Results-Last 24 Hours 03/14/23 03/14/23 03/14/23 Range/Units 07:02 10:40 11:03 WBC (4.0-10.5) x10^3/uL RBC (4.1-5.6) x10^6/uL Hgb (12.5-18.0) g/dL Hct (42-50) % MCV (78-100) fL MCH (26-32) pg MCHC (32-36) g/dL RDW (11.5-14.0) % Plt Count (150-450) x10^3/uL MPV (7.5-11.0) fL PT 43.7 H (9.4-12.5) SECONDS INR 4.48 H (0.8-3.0) POC Glucometer 138 H TNP (74 to 106) mg/dL 03/14/23 03/14/23 03/15/23 Range/Units 16:18 21:42 04:30 WBC 7.1 (4.0-10.5) x10^3/uL RBC 3.73 L (4.1-5.6) x10^6/uL Hgb 9.7 L (12.5-18.0) g/dL Hct 32.4 L (42-50) % MCV 86.9 (78-100) fL MCH 26.0 (26-32) pg MCHC 29.9 L (32-36) g/dL RDW 16.0 H (11.5-14.0) % Plt Count 198 (150-450) x10^3/uL MPV 10.2 (7.5-11.0) fL PT (9.4-12.5) SECONDS INR (0.8-3.0) POC Glucometer 218 H 221 H (74 to 106) mg/dL Radiology Exams: Radiology Procedures Category Date Time Status ECHO W/2D AND DOPPLER [US] Routine Exams 03/15/23 09:00 Ordered Assessment/Plan (1) CHF (congestive heart failure) Current Visit: Yes Status: Acute Assessment & Plan: Assessment/Plan (1) Bilateral lower leg cellulitis Current Visit: Yes Status: Acute Assessment & Plan: Has been chronic and on-going, but not better. Plan Vanc 1gm, and allow pharmacist to adjust dosing as he has underlying PAULO/CKD. I do not think Rocephin will cover adequately for cellulitis. Will need local wound care as well. BC obtained. No fever, no leukocytosis. Not septic on sepsis focused exam Code(s): L03.116 - CELLULITIS OF LEFT LOWER LIMB; L03.115 - CELLULITIS OF RIGHT LOWER LIMB (2) CHF (congestive heart failure) Current Visit: Yes Status: Acute Assessment & Plan: Has extensive heart history: CAD s/p CABG, CHF s/p AICD. Has edema. Will need to limit daily fluid intake < 1.5Ls, and started Lasix 40mg IV BID. He is on torsemide at home. His baseball inspector and repairer knows he is here, and plan for Echo on Wednesday. It has been ordered Daily weight, strict INs and OUTs Code(s): I50.9 - HEART FAILURE, UNSPECIFIED (3) PAULO (acute kidney injury) Current Visit: Yes Status: Acute Assessment & Plan: Cr baseline is 1-1.5. He came in at 1.7. BP low normal. On Lasix. Holding Lisinopril and Metformin for now. Monitor BP closely to avoid hypotension. Dose all meds accordingly. Monitoring Vanc to avoid nephrotoxicity Code(s): N17.9 - ACUTE KIDNEY FAILURE, UNSPECIFIED (4) CKD (chronic kidney disease) stage 3, GFR 30-59 ml/min Current Visit: Yes Status: Acute Assessment & Plan: Baseline Cr 1-1.5. CKD due to DM and HTN. He sees a studio artist OP for this Code(s): N18.30 - CHRONIC KIDNEY DISEASE, STAGE 3 UNSPECIFIED (5) Essential (primary) hypertension Current Visit: Yes Status: Acute Assessment & Plan: BP low normal. BP meds started - but with holding parameters. He is on Coreg and NOT metoprolol. Holding Lisinopril for the PAULO Code(s): I10 - ESSENTIAL (PRIMARY) HYPERTENSION (6) COPD (chronic obstructive pulmonary disease) Current Visit: No Status: Acute Assessment & Plan: On RA, stable. Resumed home albuterol inh prn (7) Diabetes type 2, controlled Current Visit: No Status: Acute Qualifiers: Assessment & Plan: ADA diet, accucheck qACHS. SSI. He is on Metformin and Jardiance. Holding Metformin, hospital likely do not carry Jardiance. Code(s): E11.9 - TYPE 2 DIABETES MELLITUS WITHOUT COMPLICATIONS (8) Paroxysmal atrial fibrillation Current Visit: No Status: Acute Assessment & Plan: HR is controlled. He is on Amiodarone. He is also on Warfarin for this. INR 3.8. A bit supra-therapeutic. We will monitor INR daily and adjust warfarin accordingly. Goal INR 2-3 Code(s): I48.0 - PAROXYSMAL ATRIAL FIBRILLATION Code(s): I50.9 - HEART FAILURE, UNSPECIFIED Telemedicine Encounter - Telemedicine Encounter Telemedicine Encounter: The entirety of this encounter was performed via Telemedicine"
--- NOTE | 2023-03-15 05:43 | PCM.NOTE ---
Date and Time: 03/14/23 Subjective Assessment: Urinating well; will try to get standing weight today, no fevers, constipated; will add miralax - Review of Systems Eyes: No Symptoms Ears, Nose, & Throat: No Symptoms Respiratory: Short Of Breath Cardiac: Edema Abdominal/Gastrointestinal: No Symptoms Genitourinary Symptoms: No Symptoms, Urinary Retention Skin: Cellulitis Objective Exam General Appearance: no apparent distress Neurologic Exam: alert, oriented x 3, cooperative Skin Exam: rash Wound Assessment: Skin/Wound Assessment Wound/Incision Assessment Start: 03/12/23 17:25 Text: Status: Active Freq: Q6H Protocol: Document 03/15/23 02:00 TC (Rec: 03/15/23 03:02 TC [id number]) Wound Photo Photo Taken No Comment: photos on prev shifts Neck Exam: JVD Respiratory Exam: diminished breath sounds Cardiovascular Exam: edema Gastrointestinal/Abdomen Exam: soft, No tenderness, No mass Extremity Exam: swelling OBJECTIVE DATA Vital Signs: Vital Signs - 24 hr Temp Pulse Resp BP Pulse Ox 03/15/23 04:00 96.8 F 74 22 90/54 95 03/14/23 23:37 97.1 F 72 20 101/58 98 03/14/23 21:43 73 18 93 L 03/14/23 20:00 97.1 F 74 24 95/52 95 03/14/23 16:00 96.9 F 72 16 98/52 99 03/14/23 12:00 96.9 F 71 17 93/52 98 03/14/23 08:58 97/58 03/14/23 08:00 96.6 F 71 17 75/40 98 03/14/23 07:58 92 L 03/14/23 07:56 72 17 92 L Pain Assessment - Last Documented Pain Intensity 5 Intake and Output: Intake & Output 03/12/23 03/13/23 03/14/23 03/15/23 11:59 11:59 11:59 11:59 Intake Total 600 2350 2850 Output Total 1880 600 980 Balance -1280 1750 1870 Weight 161.7 kg 159.9 kg 160 kg Lab Results: Lab Results-Last 24 Hours 03/14/23 03/14/23 03/14/23 Range/Units 07:02 10:40 11:03 WBC (4.0-10.5) x10^3/uL RBC (4.1-5.6) x10^6/uL Hgb (12.5-18.0) g/dL Hct (42-50) % MCV (78-100) fL MCH (26-32) pg MCHC (32-36) g/dL RDW (11.5-14.0) % Plt Count (150-450) x10^3/uL MPV (7.5-11.0) fL PT 43.7 H (9.4-12.5) SECONDS INR 4.48 H (0.8-3.0) POC Glucometer 138 H TNP (74 to 106) mg/dL 03/14/23 03/14/23 03/15/23 Range/Units 16:18 21:42 04:30 WBC 7.1 (4.0-10.5) x10^3/uL RBC 3.73 L (4.1-5.6) x10^6/uL Hgb 9.7 L (12.5-18.0) g/dL Hct 32.4 L (42-50) % MCV 86.9 (78-100) fL MCH 26.0 (26-32) pg MCHC 29.9 L (32-36) g/dL RDW 16.0 H (11.5-14.0) % Plt Count 198 (150-450) x10^3/uL MPV 10.2 (7.5-11.0) fL PT (9.4-12.5) SECONDS INR (0.8-3.0) POC Glucometer 218 H 221 H (74 to 106) mg/dL Radiology Exams: Radiology Procedures Category Date Time Status ECHO W/2D AND DOPPLER [US] Routine Exams 03/15/23 09:00 Ordered Assessment/Plan (1) CHF (congestive heart failure) Current Visit: Yes Status: Acute Assessment & Plan: Assessment/Plan (1) Bilateral lower leg cellulitis Current Visit: Yes Status: Acute Assessment & Plan: Has been chronic and on-going, but not better. Plan Vanc 1gm, and allow phar macist to adjust dosing as he has underlying PAULO/CKD. I do not think Rocephin will cover adequately for cellulitis. Will need local wound care as well. BC obtained. No fever, no leukocytosis. Not septic on sepsis focused exam Code(s): L03.116 - CELLULITIS OF LEFT LOWER LIMB; L03.115 - CELLULITIS OF RIGHT LOWER LIMB (2) CHF (congestive heart failure) Current Visit: Yes Status: Acute Assessment & Plan: Has extensive heart history: CAD s/p CABG, CHF s/p AICD. Has edema. Will need to limit daily fluid intake < 1.5Ls, and started Lasix 40mg IV BID. He is on torsemide at home. His media production operator knows he is here, and plan for Echo on Wednesday. It has been ordered Daily weight, strict INs and OUTs Code(s): I50.9 - HEART FAILURE, UNSPECIFIED (3) PAULO (acute kidney injury) Current Visit: Yes Status: Acute Assessment & Plan: Cr baseline is 1-1.5. He came in at 1.7. BP low normal. On Lasix. Holding Lisinopril and Metformin for now. Monitor BP closely to avoid hypotension. Dose all meds accordingly. Monitoring Vanc to avoid nephrotoxicity Code(s): N17.9 - ACUTE KIDNEY FAILURE, UNSPECIFIED (4) CKD (chronic kidney disease) stage 3, GFR 30-59 ml/min Current Visit: Yes Status: Acute Assessment & Plan: Baseline Cr 1-1.5. CKD due to DM and HTN. He sees a novelty candy maker OP for this Code(s): N18.30 - CHRONIC KIDNEY DISEASE, STAGE 3 UNSPECIFIED (5) Essential (primary) hypertension Current Visit: Yes Status: Acute Assessment & Plan: BP low normal. BP meds started - but with holding parameters. He is on Coreg and NOT metoprolol. Holding Lisinopril for the PAULO Code(s): I10 - ESSENTIAL (PRIMARY) HYPERTENSION (6) COPD (chronic obstructive pulmonary disease) Current Visit: No Status: Acute Assessment & Plan: On RA, stable. Resumed home albuterol inh prn (7) Diabetes type 2, controlled Current Visit: No Status: Acute Qualifiers: Assessment & Plan: ADA diet, accucheck qACHS. SSI. He is on Metformin and Jardiance. Holding Metformin, hospital likely do not carry Jardiance. Code(s): E11.9 - TYPE 2 DIABETES MELLITUS WITHOUT COMPLICATIONS (8) Paroxysmal atrial fibrillation Current Visit: No Status: Acute Assessment & Plan: HR is controlled. He is on Amiodarone. He is also on Warfarin for this. INR 3.8. A bit supra-therapeutic. We will monitor INR daily and adjust warfarin accordingly. Goal INR 2-3 Code(s): I48.0 - PAROXYSMAL ATRIAL FIBRILLATION (9) Constipation Add miralax 15 mg daily for 7 days Code(s): I50.9 - HEART FAILURE, UNSPECIFIED Telemedicine Encounter - Telemedicine Encounter Telemedicine Encounter: The entirety of this encounter was performed via Telemedicine"
[2023-03-15] MEDS: Carafate 1 GM PO SCH ×4 (06:44→22:42)
[2023-03-15] MEDS: ROCEPHIN 1 Gm-D5w 50 ml Bag** 1 G/50 ML IVPB IV SCH (10:23)
[2023-03-15] MEDS: Imdur 30 MG PO SCH (10:23)
[2023-03-15] MEDS: FEOSOL 325 MG PO SCH (10:23)
[2023-03-15] MEDS: Klor Con PO SCH ×2 (10:23→22:42)
[2023-03-15] MEDS: ECOTRIN 81 MG PO SCH (10:23)
[2023-03-15] MEDS: Pepcid 20 MG PO SCH (10:23)
[2023-03-15] MEDS: Cordarone 200 MG PO SCH (10:23)
[2023-03-15] MEDS: Lasix 40 MG/4 ML IV SCH ×2 (10:24→22:42)
[2023-03-15] MEDS: PLAVIX Tablet PO SCH (10:24)
[2023-03-15] MEDS: Coreg 3.125 MG PO SCH ×2 (11:20→22:42)
[2023-03-15] MEDS: VANCOMYCIN 1 GRAM/200 ML BAG 1 GM/200 ML PIGGYBACK IV SCH ×2 (11:21→23:10)
[2023-03-15] MEDS ORDERED: MELATONIN PO PRN (11:37)
--- NOTE | 2023-03-15 16:32 | XRAY ---
Indication: Bilateral edema. Two-dimensional sonogram and color Doppler imaging of the major venous vessels of the left and right leg performed. Comparison: None No thrombus seen in the examined deep venous vessels of the left and right leg including greater saphenous vein. Veins demonstrate normal compressibility. Venous waveforms are normal with and without augmentation. Impression: Left and right leg negative for DVT.
[2023-03-15] MEDS: HUMULIN R SQ PRN (16:36)
--- NOTE | 2023-03-15 19:05 | PCM.NOTE ---
Date and Time: 03/15/231846 Subjective Assessment: No acute events overnight. Feels like he making a lot of urine, and that his legs are starting to improve somewhat. Echocardiogram done this morning. He was feeling constipated overnight, felt he had not had a bowel movement in 3 days, but improved after MiraLAX and milk of magnesia. Objective Exam Wound Assessment: Skin/Wound Assessment Wound/Incision Assessment Start: 03/12/23 17:25 Text: Status: Active Freq: Q6H Protocol: Document 03/15/23 14:00 INDIA (Rec: 03/15/23 14:33 INDIA [id number]) Wound Photo Photo Taken No Comment: photos on prev shifts Comments: GENERAL: Sitting up in bed in no acute distress NEURO: Alert, oriented x3, normal affect CV: Regular rate and rhythm, no murmurs. Pitting edema to the legs bilaterally PULM: Clear to auscultation bilaterally, no work of breathing ABD: Soft, nontender, nondistended EXTREMITIES: Bilateral shins and ankles with erythema with multiple areas of skin breakdown with some seropurulent drainage, evidence of chronic dermatitis and heaped up skin OBJECTIVE DATA Vital Signs: Vital Signs - 24 hr Temp Pulse Resp BP Pulse Ox 03/15/23 16:00 96.7 F 78 16 114/87 94 L 03/15/23 11:34 96.6 F 70 16 139/73 94 L 03/15/23 07:25 96.4 F 72 16 116/72 91 L 03/15/23 07:11 72 18 91 L 03/15/23 04:00 96.8 F 74 22 90/54 95 03/14/23 23:37 97.1 F 72 20 101/58 98 03/14/23 21:43 73 18 93 L 03/14/23 20:00 97.1 F 74 24 95/52 95 Pain Assessment - Last Documented Pain Intensity 5 Intake and Output: Intake & Output 03/13/23 03/14/23 03/15/23 03/16/23 11:59 11:59 11:59 11:59 Intake Total 600 2350 3570 596 Output Total 1880 600 980 300 Balance -1280 1750 2590 296 Weight 161.7 kg 159.9 kg 160 kg Lab Results: Lab Results-Last 24 Hours 03/14/23 03/15/23 03/15/23 Range/Units 21:42 04:30 04:30 WBC 7.1 (4.0-10.5) x10^3/uL RBC 3.73 L (4.1-5.6) x10^6/uL Hgb 9.7 L (12.5-18.0) g/dL Hct 32.4 L (42-50) % MCV 86.9 (78-100) fL MCH 26.0 (26-32) pg MCHC 29.9 L (32-36) g/dL RDW 16.0 H (11.5-14.0) % Plt Count 198 (150-450) x10^3/uL MPV 10.2 (7.5-11.0) fL PT 39.7 H (9.4-12.5) SECONDS INR 4.04 H (0.8-3.0) Sodium (137-145) mmol/L Potassium (3.5-5.1) mmol/L Chloride (98-107) mmol/L Carbon Dioxide (22-30) mmol/L Anion Gap (5-15) MEQ/L BUN (9-20) mg/dL Creatinine (0.66-1.25) mg/dL Estimated GFR ML/MIN Glucose (74-106) mg/dL POC Glucometer 221 H (74 to 106) mg/dL Calcium (8.4-10.2) mg/dL 03/15/23 03/15/23 03/15/23 Range/Units 04:30 06:49 11:09 WBC (4.0-10.5) x10^3/uL RBC (4.1-5.6) x10^6/uL Hgb (12.5-18.0) g/dL Hct (42-50) % MCV (78-100) fL MCH (26-32) pg MCHC (32-36) g/dL RDW (11.5-14.0) % Plt Count (150-450) x10^3/uL MPV (7.5-11.0) fL PT (9.4-12.5) SECONDS INR (0.8-3.0) Sodium 136 L (137-145) mmol/L Potassium 4.1 (3.5-5.1) mmol/L Chloride 95 L (98-107) mmol/L Carbon Dioxide 31 H (22-30) mmol/L Anion Gap 14.3 (5-15) MEQ/L BUN 36 H (9-20) mg/dL Creatinine 1.83 H (0.66-1.25) mg/dL Estimated GFR 39.3 ML/MIN Glucose 162 H (74-106) mg/dL POC Glucometer 160 H 190 H (74 to 106) mg/dL Calcium 8.7 (8.4-10.2) mg/dL 03/15/23 Range/Units 15:34 WBC (4.0-10.5) x10^3/uL RBC (4.1-5.6) x10^6/uL Hgb (12.5-18.0) g/dL Hct (42-50) % MCV (78-100) fL MCH (26-32) pg MCHC (32-36) g/dL RDW (11.5-14.0) % Plt Count (150-450) x10^3/uL MPV (7.5-11.0) fL PT (9.4-12.5) SECONDS INR (0.8-3.0) Sodium (137-145) mmol/L Potassium (3.5-5.1) mmol/L Chloride (98-107) mmol/L Carbon Dioxide (22-30) mmol/L Anion Gap (5-15) MEQ/L BUN (9-20) mg/dL Creatinine (0.66-1.25) mg/dL Estimated GFR ML/MIN Glucose (74-106) mg/dL POC Glucometer 236 H (74 to 106) mg/dL Calcium (8.4-10.2) mg/dL Radiology Exams: Radiology Procedures Category Date Time Status ECHO W/2D AND DOPPLER [US] Routine Exams 03/15/23 09:00 Taken ULTRASOUND BILATERAL LOWER EXTREMITY [VENOUS BILATERAL Exams 03/15/23 14:21 Completed EXTREMITY] [US] Routine Bilateral Doppler ultrasound no evidence of DVT Multi-Disciplinary Progress Notes: Multi-Disciplinary Progress Notes 03/15/23 14:16 Physical Therapy Note by Kevin(Haylee#[id number]),Mary ASSESSED SKIN AND LL EDEMA. PT. TO SHOWER W/ ASSIST OF LEASE ADMINISTRATOR. PT. WOULD BENEFIT FORM UNNA BOOT BUT NEEDS DOPPLER TO R/O DVT PRIOR TO APPLICATION. SPOKE W/ PT'S RN, KAYDEN, AND SHE IS TO ASK FOR ORDER FOR DOPPLERS. Initialized on 03/15/23 14:16 - END OF NOTE Assessment/Plan (1) Bilateral lower leg cellulitis Current Visit: Yes Status: Acute Code(s): L03.116 - CELLULITIS OF LEFT LOWER LIMB; L03.115 - CELLULITIS OF RIGHT LOWER LIMB (2) CHF (congestive heart failure) Current Visit: Yes Status: Acute Assessment & Plan: 67-year-old man with history of CAD, CHF, DM 2, CKD stage III, A-fib, COPD, and BPH, admitted here with bilateral leg edema, erythema, drainage, and worsening of CHF. ## Acute on chronic CHF presumably from ischemic cardiomyopathy. Unknown if systolic or diastolic dysfunction, although presume systolic with ischemic etiology. Has been diuresing fairly effectively. Continue Lasix 40 mg IV BID DC duplicate torsemide 20 daily from his home medication list Follow-up echocardiogram results (images obtained today) Continue empagliflozin 10 mg daily Continue Coreg 3.125 BID, Imdur 60 If patient has systolic heart failure, consider adding JADE inhibitor or spironolactone or Entresto, if PAULO improves ## Bilateral lower extremity dermatitis versus cellulitis patient's skin appearance is more consistent with chronic stasis dermatitis. He does however have a lot of skin breakdown with seropurulent drainage, and could easily have a superimposed infection over his chronic dermatitis changes. He did not arrive with fever or leukocytosis, and I would be more inclined to presume this is due more to his chronic edema. However, the purulent discharge is concerning. Obtain culture from superficial wound drainage Follow-up blood cultures from 03/12, which are no growth to date Continue vancomycin for now Discontinue Rocephin Consulted PT for wound care, will arrange for Unna boots since we have ruled out DVT on bilateral Doppler ultrasound Continue PRN tramadol for pain control ## Acute kidney injury on chronic kidney disease stage III baseline creatinine appears to be around 1.5. His creatinine has been stable here around 1.8, but we are also diuresing him more aggressively. Follow BMP Holding duplicative torsemide as above ## Atrial fibrillation patient is on warfarin at home, normally 6 mg most days and 8 mg other days. However, his INR was supratherapeutic on arrival. Unfortunately, he was also given a dose of warfarin on the evening of 03/13. As such, his INR remains elevated at 4, although it is down slightly from 4.5 yesterday. No evidence of acute bleeding. Continue holding warfarin Continue amiodarone 2 mg daily, Coreg 3.125 mg BID ## CAD with history of prior CABG and stents. Continue Coreg 3.125 mg p.o. BID, Plavix 75 mg daily, Imdur 60 mg daily, and simvastatin 40 mg QHS Discontinue aspirin, as patient is already on Plavix and anticoagulation ## Type 2 diabetes at home, patient is on 70/30, 70 units in the morning and 60 units in the evening, as well as metformin and Jardiance. His blood sugars have been elevated here while on only low-dose sliding scale insulin. Increase sliding scale insulin to moderate dose protocol Start Lantus 10 units QHS Continue holding metformin in the setting of PAULO Continue Jardiance as above ## Hypokalemia secondary to diuresis above. Levels at goal today. Continue KCl 10 mEq p.o. BID CODE STATUS: Full code Prophylaxis: Warfarin Diet: Low-sodium Dispo: Likely home with home health once improving edema enough, and improving erythema over legs. Code(s): I50.9 - HEART FAILURE, UNSPECIFIED Telemedicine Encounter - Telemedicine Encounter Telemedicine Encounter: The entirety of this encounter was performed via Telemedicine"
[2023-03-15] MEDS ORDERED: TROUGH DRUG LEVELS IJ ONE (21:30)
[2023-03-15] MEDS: ZOCOR 20MG PO SCH (22:42)
[2023-03-15] MEDS: Flomax 0.4 MG PO SCH (22:42)
[2023-03-15] MEDS: Lantus Insulin SQ SCH (23:08)
[2023-03-16 05:13] LABS: Hematocrit 30.9 % (42-50); Hemoglobin 9.3 g/dL (12.5-18.0); Mean Cell Volume 86.8 fL (78-100); Mean Corpuscular Hemoglobin 26.1 pg (26-32); Mean Corpuscular Hgb Concent. 30.1 g/dL (32-36); Mean Platelet Volume 9.7 fL (7.5-11.0); Platelet Count 192 x10^3/uL (150-450); Red Blood Count 3.56 x10^6/uL (4.1-5.6); Red Cell Distribution Width 15.8 % (11.5-14.0); White Blood Count 7.3 x10^3/uL (4.0-10.5)
[2023-03-16 05:33] LABS: INR 2.56 (0.8-3.0)
[2023-03-16 05:36] LABS: ANION GAP 13.9 MEQ/L (5-15); Calcium 8.4 mg/dL (8.4-10.2); Creatinine 1 1.67 mg/dL (0.66-1.25); EST GLOMERULAR FILTRATION RATE 43.7 ML/MIN; Potassium 4.1 mmol/L (3.5-5.1)
[2023-03-16] MEDS: Carafate 1 GM PO SCH ×4 (07:48→23:41)
[2023-03-16] MEDS ORDERED: Sodium Chloride 0.9% 1000 ML 1,000 ML IV SCH (08:00)
[2023-03-16] MEDS: Miralax Powder 17GM PACKET PO SCH (08:42)
[2023-03-16] MEDS: Klor Con PO SCH ×2 (09:18→23:43)
[2023-03-16] MEDS: Cordarone 200 MG PO SCH (09:18)
[2023-03-16] MEDS: FEOSOL 325 MG PO SCH (09:18)
[2023-03-16] MEDS: Lasix 40 MG/4 ML IV SCH ×2 (09:18→23:42)
[2023-03-16] MEDS ORDERED: Dulcolax 10 MG SUPP PR PRN (09:18)
[2023-03-16] MEDS: ULTRAM 50 MG PO PRN (09:18)
[2023-03-16] MEDS: Pepcid 20 MG PO SCH (09:18)
[2023-03-16] MEDS: Imdur 30 MG PO SCH (09:18)
[2023-03-16] MEDS: PLAVIX Tablet PO SCH (09:18)
[2023-03-16] MEDS: VANCOMYCIN 1 GRAM/200 ML BAG 1 GM/200 ML PIGGYBACK IV SCH ×2 (10:38→23:42)
[2023-03-16] MEDS: Coreg 3.125 MG PO SCH ×2 (10:39→23:42)
[2023-03-16] MEDS: HUMULIN R SQ PRN ×2 (11:40→17:28)
[2023-03-16] MEDS ORDERED: CITROMA 296 ML PO ONE (16:22)
[2023-03-16] MEDS: Coumadin 3 MG PO SCH (17:28)
--- NOTE | 2023-03-16 22:56 | PCM.NOTE ---
Date and Time: 03/16/232248 Subjective Assessment: No acute events overnight. Still having some weeping from his wound. Having some constipation today. He was given suppository, with no result. Objective Exam Wound Assessment: Skin/Wound Assessment Wound/Incision Assessment Start: 03/12/23 17:25 Text: Status: Active Freq: Q6H Protocol: Document 03/16/23 20:00 RS (Rec: 03/16/23 21:38 RS [id number]) Wound Photo Photo Taken No Comments: GENERAL: Sitting up in chair in no acute distress NEURO: Alert, oriented x3, normal affect CV: Regular rate and rhythm, no murmurs. Pitting edema to the legs bilaterally PULM: Clear to auscultation bilaterally, no work of breathing ABD: Soft, nontender, nondistended EXTREMITIES: Bilateral shins and ankles with erythema with multiple areas of s kin breakdown with some seropurulent drainage, evidence of chronic dermatitis and heaped up skin OBJECTIVE DATA Vital Signs: Vital Signs - 24 hr Temp Pulse Resp BP Pulse Ox 03/16/23 19:53 97.1 F 70 20 110/56 96 03/16/23 19:28 71 18 95 03/16/23 16:00 97.1 F 70 16 136/67 93 L 03/16/23 12:00 97.1 F 69 16 117/59 90 L 03/16/23 07:34 96.9 F 70 16 126/58 92 L 03/16/23 07:20 72 18 94 L 03/16/23 04:00 97.1 F 72 18 135/66 90 L 03/15/23 23:30 97.2 F 71 18 120/58 91 L Pain Assessment - Last Documented Pain Intensity 0 Intake and Output: Intake & Output 03/14/23 03/15/23 03/16/23 03/17/23 11:59 11:59 11:59 11:59 Intake Total 2350 3570 1316 1800 Output Total 600 980 850 200 Balance 1750 2590 466 1600 Weight 159.9 kg 160 kg 156.8 kg 156.8 kg Lab Results: Lab Results-Last 24 Hours 03/16/23 03/16/23 03/16/23 Range/Units 05:05 05:05 05:05 WBC 7.3 (4.0-10.5) x10^3/uL RBC 3.56 L (4.1-5.6) x10^6/uL Hgb 9.3 L (12.5-18.0) g/dL Hct 30.9 L (42-50) % MCV 86.8 (78-100) fL MCH 26.1 (26-32) pg MCHC 30.1 L (32-36) g/dL RDW 15.8 H (11.5-14.0) % Plt Count 192 (150-450) x10^3/uL MPV 9.7 (7.5-11.0) fL PT 26.0 H (9.4-12.5) SECONDS INR 2.56 D (0.8-3.0) Sodium 135 L (137-145) mmol/L Potassium 4.1 (3.5-5.1) mmol/L Chloride 97 L (98-107) mmol/L Carbon Dioxide 29 (22-30) mmol/L Anion Gap 13.9 (5-15) MEQ/L BUN 33 H (9-20) mg/dL Creatinine 1.67 H (0.66-1.25) mg/dL Estimated GFR 43.7 ML/MIN Glucose 214 H (74-106) mg/dL POC Glucometer (74 to 106) mg/dL Calcium 8.4 (8.4-10.2) mg/dL Magnesium 3.0 H (1.6-2.3) mg/dL 03/16/23 03/16/23 03/16/23 Range/Units 07:04 11:17 16:34 WBC (4.0-10.5) x10^3/uL RBC (4.1-5.6) x10^6/uL Hgb (12.5-18.0) g/dL Hct (42-50) % MCV (78-100) fL MCH (26-32) pg MCHC (32-36) g/dL RDW (11.5-14.0) % Plt Count (150-450) x10^3/uL MPV (7.5-11.0) fL PT (9.4-12.5) SECONDS INR (0.8-3.0) Sodium (137-145) mmol/L Potassium (3.5-5.1) mmol/L Chloride (98-107) mmol/L Carbon Dioxide (22-30) mmol/L Anion Gap (5-15) MEQ/L BUN (9-20) mg/dL Creatinine (0.66-1.25) mg/dL Estimated GFR ML/MIN Glucose (74-106) mg/dL POC Glucometer 197 H 283 H 274 H (74 to 106) mg/dL Calcium (8.4-10.2) mg/dL Magnesium (1.6-2.3) mg/dL 03/16/23 Range/Units 21:44 WBC (4.0-10.5) x10^3/uL RBC (4.1-5.6) x10^6/uL Hgb (12.5-18.0) g/dL Hct (42-50) % MCV (78-100) fL MCH (26-32) pg MCHC (32-36) g/dL RDW (11.5-14.0) % Plt Count (150-450) x10^3/uL MPV (7.5-11.0) fL PT (9.4-12.5) SECONDS INR (0.8-3.0) Sodium (137-145) mmol/L Potassium (3.5-5.1) mmol/L Chloride (98-107) mmol/L Carbon Dioxide (22-30) mmol/L Anion Gap (5-15) MEQ/L BUN (9-20) mg/dL Creatinine (0.66-1.25) mg/dL Estimated GFR ML/MIN Glucose (74-106) mg/dL POC Glucometer 261 H (74 to 106) mg/dL Calcium (8.4-10.2) mg/dL Magnesium (1.6-2.3) mg/dL Radiology Exams: Radiology Procedures Category Date Time Status ECHO W/2D AND DOPPLER [US] Routine Exams 03/15/23 09:00 Taken ULTRASOUND BILATERAL LOWER EXTREMITY [VENOUS BILATERAL Exams 03/15/23 14:21 Completed EXTREMITY] [US] Routine Multi-Disciplinary Progress Notes: Multi-Disciplinary Progress Notes 03/16/23 14:17 Physical Therapy Note by Kevin(Haylee#[id number]),Mary DRESSING MG'T CLEANSE BILATERAL LLS W/ HIBICLENS/STERILE WATER COMBO. APPLY BARRIER OINTMENT TO INTACT SKIN. PLACE VASELINE GAUZE ON OPEN SKIN. WRAP BILATERAL LLS W/ GELOCAST, KERLIX, AND COBAN. IN DRESSING CLEAN AND INTACT CAN REMAIN UP TO 7 DAYS. PT. WILL NEED TO PERFORM SPONGE BATH WHEN DRESSINGS ARE ON BUT COULD SHOWER BETWEEN UNNA BOOT CHANGES. WILL NEED COMPRESSION SOCKS AFTER WOUNDS HEAL AND EDEMA DECREASES. Initialized on 03/16/23 14:17 - END OF NOTE 03/16/23 10:45 Case Management Note by Aliza Dangelo S/W PATIENT-NO CHANGE IN DC PLANS. HE CONTINUES TO PLAN TO DC HOME WITH [facility]. S/W DR. DOSS- HE STATED TO CONTINUE TERRY. WOUND CARE AT HOME PER PT RECOMMENDATIO NS. WILL GET RECOMMENDATIONS FROM MARY WINKLER AND SEND IN REFERRAL TO [facility]. Initialized on 03/16/23 10:45 - END OF NOTE Assessment/Plan (1) Bilateral lower leg cellulitis Current Visit: Yes Status: Acute Assessment & Plan: 67-year-old man with history of CAD, CHF, DM 2, CKD stage III, A-fib, COPD, and BPH, admitted here with bilateral leg edema, erythema, drainage, and worsening of CHF. ## Acute on chronic CHF presumably from ischemic cardiomyopathy. Unknown if systolic or diastolic dysfunction, although presume systolic with ischemic etiology. Has been diuresing fairly effectively. Continue Lasix 40 mg IV BID Follow-up echocardiogram results (images obtained yesterday) Continue empagliflozin 10 mg daily Continue Coreg 3.125 BID, Imdur 60 If patient has systolic heart failure, consider adding JADE inhibitor or spironolactone or Entresto, if PAULO improves ## Bilateral lower extremity dermatitis versus cellulitis patient's skin appearance is more consistent with chronic stasis dermatitis. He does however have a lot of skin breakdown with seropurulent drainage, and could easily have a superimposed infection over his chronic dermatitis changes. He did not arrive with fever or leukocytosis, and I would be more inclined to presume this is due more to his chronic edema. However, the purulent discharge is concerning. Wound culture obtained yesterday is already growing gram-negative rods. This would be unusual for a superficial wound culture, although it could be Pseudomonas. Follow-up wound culture results from 03/15 Follow-up blood cultures from 03/12, which are no growth to date Continue vancomycin for now Add Levaquin pending sensitivity testing from wound culture Continue wound care Start Unna boots today Continue PRN tramadol for pain control ## Acute kidney injury on chronic kidney disease stage III baseline creatinine appears to be around 1.5. His creatinine has been stable here around 1.8, but we are also diuresing him more aggressively. Creatinine down to 1.7 today. Follow BMP ## Atrial fibrillation patient is on warfarin at home, normally 6 mg most days and 8 mg other days. However, his INR was supratherapeutic on arrival. Warfarin held, and INR down to 2.6 today. Resume warfarin to 6 mg daily Continue amiodarone 200 mg daily, Coreg 3.125 mg BID ## CAD with history of prior CABG and stents. Continue Coreg 3.125 mg p.o. BID, Plavix 75 mg daily, Imdur 60 mg daily, and simvastatin 40 mg QHS ## Type 2 diabetes at home, patient is on 70/30, 70 units in the morning and 60 units in the evening, as well as metformin and Jardiance. His blood sugars have been elevated today. Continue increased moderate dose sliding scale insulin Start Lantus 10 units QHS (did not receive last night) Continue holding metformin in the setting of PAULO Continue Jardiance as above ## Hypokalemia secondary to diuresis above. Levels at goal today. Continue KCl 10 mEq p.o. BID ## Constipation not relieved by MiraLAX or Dulcolax. Try mag citrate x1 CODE STATUS: Full code Prophylaxis: Warfarin Diet: Low-sodium Dispo: Likely home with home health once improving edema enough, and improving erythema over legs. Code(s): L03.116 - CELLULITIS OF LEFT LOWER LIMB; L03.115 - CELLULITIS OF RIGHT LOWER LIMB (2) CHF (congestive heart failure) Current Visit: Yes Status: Acute Code(s): I50.9 - HEART FAILURE, UNSPECIFIED Telemedicine Encounter - Telemedicine Encounter Telemedicine Encounter: The entirety of this encounter was performed via Telemedicine"
[2023-03-16] MEDS: ZOCOR 20MG PO SCH (23:41)
[2023-03-16] MEDS: Flomax 0.4 MG PO SCH (23:42)
[2023-03-16] MEDS: MELATONIN PO SCH (23:42)
[2023-03-16] MEDS: Lantus Insulin SQ SCH (23:43)
[2023-03-17] MEDS: HUMULIN R SQ PRN ×3 (01:06→22:08)
[2023-03-17 05:18] LABS: Hematocrit 29.1 % (42-50); Hemoglobin 8.8 g/dL (12.5-18.0); Mean Cell Volume 85.8 fL (78-100); Mean Corpuscular Hgb Concent. 30.2 g/dL (32-36); Mean Platelet Volume 10.1 fL (7.5-11.0); Platelet Count 207 x10^3/uL (150-450); Red Blood Count 3.39 x10^6/uL (4.1-5.6); Red Cell Distribution Width 15.9 % (11.5-14.0); White Blood Count 6.7 x10^3/uL (4.0-10.5)
[2023-03-17 05:37] LABS: INR 1.85 (0.8-3.0); PROTIME 19.3 SECONDS (9.4-12.5)
[2023-03-17 05:38] LABS: Calcium 8.2 mg/dL (8.4-10.2); Creatinine 1 1.5 mg/dL (0.66-1.25); EST GLOMERULAR FILTRATION RATE 49.5 ML/MIN; Potassium 3.7 mmol/L (3.5-5.1)
[2023-03-17] MEDS: Carafate 1 GM PO SCH ×4 (07:42→21:20)
[2023-03-17] MEDS ORDERED: Zofran 4 MG/2 ML VIAL IV PRN (08:49)
--- NOTE | 2023-03-17 09:51 | XRAY ---
Indication: Dyspnea. Comparison: September 19, 2021 AP chest obtained in wheelchair remains inflated and clear. Heart not enlarged again with CABG, left AICD, and left hilar calcified granulomas. Bony thorax intact again with osteopenia and degenerative changes. Impression: Continued nonacute chest with chronic features.
--- NOTE | 2023-03-17 09:51 | XRAY ---
Indication: Abdomen pain and distention. Multiple contiguous axial images obtained through the abdomen and pelvis without contrast. Comparison: August 29, 2020 Lung bases again demonstrate scattered peripheral fibrosis/scarring. Left base again demonstrates minimal patchy alveolar opacities. No effusion. Heart not enlarged again with CABG and pacer leads. Noncontrasted stomach and bowel loops nonobstructed again with normal appendix. There remains mild diffuse scattered colonic fecal debris throughout and minimal sigmoid diverticulosis without diverticulitis. No free fluid/air. Again incidental hepatic/splenic calcified granulomas. Remaining liver, gallbladder, pancreas, spleen, adrenal glands, kidneys, ureters, and bladder are unremarkable for noncontrast exam. There remains mild scattered aortoiliac calcifications without AAA. Osseous structures intact again with osteopenia, mild/moderate degenerative changes throughout the visualized spine, and mild levoscoliosis. Impression: 1. Minimal left lung base patchy interstitial alveolar opacities. Rule out pneumonitis. 2. Again mild diffuse fecal stasis, minimal sigmoid diverticulosis, chronic bony findings, arteriosclerotic disease, and old granulomatous disease. 3. Remaining CT abdomen/pelvis without contrast exam continues to be negative.
[2023-03-17] MEDS: PLAVIX Tablet PO SCH (09:56)
[2023-03-17] MEDS: Imdur 30 MG PO SCH (09:56)
[2023-03-17] MEDS: Pepcid 20 MG PO SCH (09:56)
[2023-03-17] MEDS: FEOSOL 325 MG PO SCH (09:57)
[2023-03-17] MEDS: Miralax Powder 17GM PACKET PO SCH (09:57)
[2023-03-17] MEDS: Cordarone 200 MG PO SCH (09:57)
[2023-03-17] MEDS: Lasix 40 MG/4 ML IV SCH ×2 (09:57→21:21)
[2023-03-17] MEDS: Levaquin 250MG/50ML D5W 250 MG/50 ML BAG IV SCH (09:57)
[2023-03-17] MEDS: Klor Con PO SCH ×2 (09:57→21:21)
--- NOTE | 2023-03-17 10:53 | PCM.NOTE ---
Date and Time: 03/17/23 1048 Subjective Assessment: Patient given multiple laxatives and suppository yesterday. He was able to have 2 small bowel movements, and passing gas. However, he is having worsening abdominal pain overnight, as well as some nausea but no vomiting. During exam, he became acutely distressed, stating he could not breeze. Vitals were repeated, and all were within normal limits, including normal saturation. He was able to calm down after a few minutes, and appears was having a bit of a spasm. Objective Exam Wound Assessment: Skin/Wound Assessment Wound/Incision Assessment Start: 03/12/23 17:25 Text: Status: Active Freq: Q6H Protocol: Document 03/17/23 08:00 INDIA (Rec: 03/17/23 08:06 INDIA [id number]) Wound Photo Photo Taken No Comments: GENERAL: Sitting up in chair in mild distress NEURO: Alert, oriented x3, normal affect CV: Regular rate and rhythm, no murmurs. Pitting edema to the legs bilaterally PULM: Clear to auscultation bilaterally, SpO2 97% on room air ABD: Soft, nontender, nondistended EXTREMITIES: Bilateral legs wrapped in Unna boot, no surrounding erythema or discharge noted OBJECTIVE DATA Vital Signs: Vital Signs - 24 hr Temp Pulse Resp BP Pulse Ox 03/17/23 09:45 76 18 93 L 03/17/23 06:48 98.0 F 70 16 108/55 92 L 03/17/23 04:00 97.3 F 87 21 99/54 97 03/16/23 23:57 97.5 F 75 18 123/59 96 03/16/23 19:53 97.1 F 70 20 110/56 96 03/16/23 19:28 71 18 95 03/16/23 16:00 97.1 F 70 16 136/67 93 L 03/16/23 12:00 97.1 F 69 16 117/59 90 L Pain Assessment - Last Documented Pain Intensity 5 Intake and Output: Intake & Output 03/14/23 03/15/23 03/16/23 03/17/23 11:59 11:59 11:59 11:59 Intake Total 2350 3570 1316 3800 Output Total 600 583 446 4457 Balance 1750 2590 466 2600 Weight 159.9 kg 160 kg 156.8 kg 156.7 kg Lab Results: Lab Results-Last 24 Hours 03/16/23 03/16/23 03/16/23 Range/Units 11:17 16:34 21:44 WBC (4.0-10.5) x10^3/uL RBC (4.1-5.6) x10^6/uL Hgb (12.5-18.0) g/dL Hct (42-50) % MCV (78-100) fL MCH (26-32) pg MCHC (32-36) g/dL RDW (11.5-14.0) % Plt Count (150-450) x10^3/uL MPV (7.5-11.0) fL PT (9.4-12.5) SECONDS INR (0.8-3.0) Sodium (137-145) mmol/L Potassium (3.5-5.1) mmol/L Chloride (98-107) mmol/L Carbon Dioxide (22-30) mmol/L Anion Gap (5-15) MEQ/L BUN (9-20) mg/dL Creatinine (0.66-1.25) mg/dL Estimated GFR ML/MIN Glucose (74-106) mg/dL POC Glucometer 283 H 274 H 261 H (74 to 106) mg/dL Calcium (8.4-10.2) mg/dL 03/17/23 03/17/23 03/17/23 Range/Units 04:32 04:32 04:32 WBC 6.7 (4.0-10.5) x10^3/uL RBC 3.39 L (4.1-5.6) x10^6/uL Hgb 8.8 L (12.5-18.0) g/dL Hct 29.1 L (42-50) % MCV 85.8 (78-100) fL MCH 26.0 (26-32) pg MCHC 30.2 L (32-36) g/dL RDW 15.9 H (11.5-14.0) % Plt Count 207 (150-450) x10^3/uL MPV 10.1 (7.5-11.0) fL PT 19.3 H (9.4-12.5) SECONDS INR 1.85 (0.8-3.0) Sodium 134 L (137-145) mmol/L Potassium 3.7 (3.5-5.1) mmol/L Chloride 96 L (98-107) mmol/L Carbon Dioxide 32 H (22-30) mmol/L Anion Gap 10.0 (5-15) MEQ/L BUN 26 H (9-20) mg/dL Creatinine 1.50 H (0.66-1.25) mg/dL Estimated GFR 49.5 ML/MIN Glucose 175 H (74-106) mg/dL POC Glucometer (74 to 106) mg/dL Calcium 8.2 L (8.4-10.2) mg/dL 03/17/23 Range/Units 06:38 WBC (4.0-10.5) x10^3/uL RBC (4.1-5.6) x10^6/uL Hgb (12.5-18.0) g/dL Hct (42-50) % MCV (78-100) fL MCH (26-32) pg MCHC (32-36) g/dL RDW (11.5-14.0) % Plt Count (150-450) x10^3/uL MPV (7.5-11.0) fL PT (9.4-12.5) SECONDS INR (0.8-3.0) Sodium (137-145) mmol/L Potassium (3.5-5.1) mmol/L Chloride (98-107) mmol/L Carbon Dioxide (22-30) mmol/L Anion Gap (5-15) MEQ/L BUN (9-20) mg/dL Creatinine (0.66-1.25) mg/dL Estimated GFR ML/MIN Glucose (74-106) mg/dL POC Glucometer 170 H (74 to 106) mg/dL Calcium (8.4-10.2) mg/dL Bilateral leg wound culture 03/15 growth of Enterobacter cloacae, sensitive to Levaquin Radiology Exams: Radiology Procedures Category Date Time Status ABDOMEN AND PELVIS W/0 CONTRAS [CT] Routine Exams 03/17/23 08:47 Completed CHEST 1 VIEW (PORTABLE) Stat Exams 03/17/23 08:50 Completed ULTRASOUND BILATERAL LOWER EXTREMITY [VENOUS BILATERAL Exams 03/15/23 14:21 Completed EXTREMITY] [US] Routine Chest x-ray no infiltrate, effusion, or edema. Defibrillator in place. (Images personally reviewed. CT abdomen/pelvis mild diffuse scattered colonic fecal debris, minimal sigmoid diverticulosis without diverticulitis. No obstruction, no free fluid or air. Calcified granulomas in spleen and liver. Multi-Disciplinary Progress Notes: Multi-Disciplinary Progress Notes 03/17/23 10:45 Physical Therapy Note by Kevin(L#[id number])Mary SPOKE W/ PT. THIS A.M. C/O ABD PN D/T CONSTIPATION. REPORTS LEGS HAVE FELT BETTER SINCE UNNA BOOTS APPLIED. DRESSINGS INTACT TODAY. WILL MONITOR AND MAY NEED TO CHANGE UNNA BOOTS AGAIN PRIOR TO D/C IF INDICATED. Initialized on 03/17/23 10:45 - END OF NOTE 03/17/23 08:38 Case Management Note by Aliza Dangelo S/W PATIENT- HE DENIES ANY NEW NEEDS AT TIME OF DC. [facility] HAS BEEN ARRANGED FOR WOUND CARE. PATIENT INSTRUCTED TO LEAVE HIS DRESSINGS CLEAN AND DRY AND THAT C WILL CHANGE THEM FOR HIM. HE WAS INSTRUCTED TO NOTIFY HIS C IF DRESSINGS GET SOILED IN BETWEEN THEIR VISITS. HE VERIFIED UNDERSTANDING. HE REPORTS HIS BROTHER IS ABLE TO HELP HIM NEEDED Initialized on 03/17/23 08:38 - END OF NOTE 03/17/23 08:33 Case Management Note by Aliza Dangelo REFERRAL WITH WOUND CARE ORDERS FAXED TO [facility]. THEY WILL NEED NOTIFIED AT TIME OF DC AT [phone]. THEY WILL NEED FAXED THE DC INSTRUCTIONS, DC MED LIST AND DC SUMMARY TO [phone] Initialized on 03/17/23 08:33 - END OF NOTE 03/16/23 14:17 Physical Therapy Note by Kevin(L#[id number]),Mary DRESSING MG'T CLEANSE BILATERAL LLS W/ HIBICLENS/STERILE WATER COMBO. APPLY BARRIER OINTMENT TO INTACT SKIN. PLACE VASELINE GAUZE ON OPEN SKIN. WRAP BILATERAL LLS W/ BRETT CAST, KERLIX, AND COBAN. IN DRESSING CLEAN AND INTACT CAN REMAIN UP TO 7 DAYS. PT. WILL NEED TO PERFORM SPONGE BATH WHEN DRESSINGS ARE ON BUT COULD SHOWER BETWEEN UNNA BOOT CHANGES. WILL NEED COMPRESSION SOCKS AFTER WOUNDS HEAL AND EDEMA DECREASES. Initialized on 03/16/23 14:17 - END OF NOTE Assessment/Plan (1) Bilateral lower leg cellulitis Current Visit: Yes Status: Acute Assessment & Plan: 67-year-old man with history of CAD, CHF, DM 2, CKD stage III, A-fib, COPD, and BPH, admitted here with bilateral leg edema, erythema, drainage, and worsening of CHF. ## Acute on chronic CHF presumably from ischemic cardiomyopathy. Unknown if systolic or diastolic dysfunction, although presume systolic with ischemic etiology. Has been diuresing fairly effectively. Continue Lasix 40 mg IV BID Follow-up echocardiogram results (images obtained yesterday) Continue empagliflozin 10 mg daily Continue Coreg 3.125 BID, Imdur 60 If patient has systolic heart failure, consider adding JADE inhibitor or spironolactone or Entresto, if PAULO improves ## Bilateral lower extremity dermatitis versus cellulitis patient's skin appearance is more consistent with chronic stasis dermatitis. He does however have a lot of skin breakdown with seropurulent drainage, with wound cultures growing anorectic cloacae. Likely superimposed infection over his chronic dermatitis changes. Blood culture results are negative at final report. Discontinue vancomycin Continue Levaquin 250 mg daily Continue wound care with Unna boots Continue PRN tramadol for pain control We will plan to discharge to home with Unna boots, home health wound care, and 1 week course of p.o. Levaquin ### Constipation, abdominal pain with severe worsening abdominal pain today, associated with nausea. However, CT abdomen does not show any obstruction, simply fecal stasis of the colon. Patient did not respond to Dulcolax suppository or magnesium citrate yesterday. Try enema to improve forward bowel movements Continue daily MiraLAX Continue daily PRN Dulcolax suppository ## Acute kidney injury on chronic kidney disease stage III baseline creatinine appears to be around 1.5. Mildly increased to 1.8, but back down to baseline 1.5 today. Follow BMP ## Atrial fibrillation patient is on warfarin at home, normally 6 mg most days and 8 mg other days. However, his INR was supratherapeutic on arrival. Warfarin held, and INR down to 1.8 today. Just restarted warfarin last night. Continue warfarin 6 mg daily Continue amiodarone 200 mg daily, Coreg 3.125 mg BID ## CAD with history of prior CABG and stents. Continue Coreg 3.125 mg p.o. BID, Plavix 75 mg daily, Imdur 60 mg daily, and simvastatin 40 mg QHS ## Type 2 diabetes at home, patient is on 70/30, 70 units in the morning and 60 units in the evening, as well as metformin and Jardiance. Blood sugars were better controlled this morning after getting Lantus last night. Continue increased moderate dose sliding scale insulin Continue Lantus 10 units QHS Continue holding metformin in the setting of PAULO Continue Jardiance as above ## Hypokalemia secondary to diuresis above. Levels at goal today. Continue KCl 10 mEq p.o. BID CODE STATUS: Full code Prophylaxis: Warfarin Diet: Low-sodium Dispo: Home once abdominal pain from severe constipation has resolved Code(s): L03.116 - CELLULITIS OF LEFT LOWER LIMB; L03.115 - CELLULITIS OF RIGHT LOWER LIMB (2) CHF (congestive heart failure) Current Visit: Yes Status: Acute Code(s): I50.9 - HEART FAILURE, UNSPECIFIED Telemedicine Encounter - Telemedicine Encounter Telemedicine Encounter: The entirety of this encounter was performed via Telemedicine"
[2023-03-17] MEDS: Coreg 3.125 MG PO SCH ×2 (11:28→21:21)
[2023-03-17] MEDS: Coumadin 3 MG PO SCH (17:18)
[2023-03-17] MEDS: Flomax 0.4 MG PO SCH (21:20)
[2023-03-17] MEDS: MELATONIN PO SCH (21:20)
[2023-03-17] MEDS: Lantus Insulin SQ SCH (21:21)
[2023-03-17] MEDS: ZOCOR 20MG PO SCH (21:21)
[2023-03-18 04:45] LABS: Hematocrit 31.3 % (42-50); Hemoglobin 9.5 g/dL (12.5-18.0); Mean Cell Volume 86.2 fL (78-100); Mean Corpuscular Hemoglobin 26.2 pg (26-32); Mean Corpuscular Hgb Concent. 30.4 g/dL (32-36); Mean Platelet Volume 9.7 fL (7.5-11.0); Platelet Count 202 x10^3/uL (150-450); Red Blood Count 3.63 x10^6/uL (4.1-5.6); White Blood Count 7.1 x10^3/uL (4.0-10.5)
[2023-03-18 04:53] LABS: INR 2.38 (0.8-3.0); PROTIME 24.3 SECONDS (9.4-12.5)
[2023-03-18 04:55] LABS: ANION GAP 9.6 MEQ/L (5-15); Calcium 8.5 mg/dL (8.4-10.2); Creatinine 1 1.51 mg/dL (0.66-1.25); EST GLOMERULAR FILTRATION RATE 49.1 ML/MIN; MAGNESIUM 3.3 mg/dL (1.6-2.3); Potassium 3.8 mmol/L (3.5-5.1)
[2023-03-18] MEDS: HUMULIN R SQ PRN ×2 (07:31→11:18)
[2023-03-18] MEDS: Carafate 1 GM PO SCH ×2 (07:32→11:13)
[2023-03-18] MEDS: Imdur 30 MG PO SCH (09:29)
[2023-03-18] MEDS: Klor Con PO SCH (09:29)
[2023-03-18] MEDS: Cordarone 200 MG PO SCH (09:29)
[2023-03-18] MEDS: Miralax Powder 17GM PACKET PO SCH (09:29)
[2023-03-18] MEDS: Pepcid 20 MG PO SCH (09:29)
[2023-03-18] MEDS: Lasix 40 MG/4 ML IV SCH (09:29)
[2023-03-18] MEDS: PLAVIX Tablet PO SCH (09:30)
[2023-03-18] MEDS: FEOSOL 325 MG PO SCH (09:30)
[2023-03-18] MEDS: Coreg 3.125 MG PO SCH (09:30)
[2023-03-18] MEDS: ULTRAM 50 MG PO PRN (10:17)
[2023-03-18] MEDS: Levaquin 250MG/50ML D5W 250 MG/50 ML BAG IV SCH (10:18)
[2023-03-18 11:25] VITALS: BP 101/51; PULSE 70; RESP 16; TEMP 96.9; O2SAT 90
--- NOTE | 2023-03-18 11:55 | PCM.DS ---
Discharge Summary Date of Admission: 03/13/23 11:36 Date of Discharge: 03/18/23 1154 Admitting Physician: NATHALY LOFTON MD Consults: none Primary Care Provider: PABLITO MUNGUIA <MARIANNE YEPEZ - Last Filed: 03/18/23 12:21> Date of Admission: 03/13/23 11:36 Date of Discharge: 03/18/23 Admitting Physician: NATHALY LOFTON MD Primary Care Provider: PABLITO MUNGUIA <JORDEN MENDIOLA - Last Filed: 03/18/23 14:28> Allergies <MARIANNE YEPEZ - Last Filed: 03/18/23 12:21> <JORDEN MENDIOLA - Last Filed: 03/18/23 14:28> Allergies apixaban [From Eliquis] Allergy (Severe, Verified 09/19/21 10:44) cant walk leg pain morphine Allergy (Severe, Verified 09/19/21 10:44) hallucinations HALLUCINATIONS dabigatran etexilate mesylate [From Pradaxa] Allergy (Mild, Verified 09/19/21 10:44) Nausea and Vomiting upset stomach metoclopramide HCl [From Reglan] Allergy (Mild, Verified 09/19/21 10:44) Itching hives Hospital Summary - Vitals & Intake/Output Vital Signs: Vital Signs Temperature 96.9 F 03/18/23 11:23 Pulse Rate 70 03/18/23 11:23 Respiratory Rate 16 03/18/23 11:23 Blood Pressure 101/51 03/18/23 11:23 O2 Sat by Pulse Oximetry 90 L 03/18/23 11:23 Intake & Output: Intake & Output 03/15/23 03/16/23 03/17/23 03/18/23 11:59 11:59 11:59 11:59 Intake Total 3570 1316 3800 3600 Output Total 084 003 6032 Balance 2590 466 2600 3600 Weight 160 kg 156.8 kg 156.7 kg - Lab Result Diagrams: 03/18/23 04:34 03/18/23 04:34 Lab Results-Last 24 Hrs: Lab Results-Last 24 Hours 03/17/23 03/17/23 03/18/23 Range/Units 15:24 21:37 04:34 WBC (4.0-10.5) x10^3/uL RBC (4.1-5.6) x10^6/uL Hgb (12.5-18.0) g/dL Hct (42-50) % MCV (78-100) fL MCH (26-32) pg MCHC (32-36) g/dL RDW (11.5-14.0) % Plt Count (150-450) x10^3/uL MPV (7.5-11.0) fL PT 24.3 H (9.4-12.5) SECONDS INR 2.38 D (0.8-3.0) Sodium (137-145) mmol/L Potassium (3.5-5.1) mmol/L Chloride (98-107) mmol/L Carbon Dioxide (22-30) mmol/L Anion Gap (5-15) MEQ/L BUN (9-20) mg/dL Creatinine (0.66-1.25) mg/dL Estimated GFR ML/MIN Glucose (74-106) mg/dL POC Glucometer 336 H 319 H (74 to 106) mg/dL Calcium (8.4-10.2) mg/dL Magnesium (1.6-2.3) mg/dL 03/18/23 03/18/23 03/18/23 Range/Units 04:34 04:34 07:00 WBC 7.1 (4.0-10.5) x10^3/uL RBC 3.63 L (4.1-5.6) x10^6/uL Hgb 9.5 L (12.5-18.0) g/dL Hct 31.3 L (42-50) % MCV 86.2 (78-100) fL MCH 26.2 (26-32) pg MCHC 30.4 L (32-36) g/dL RDW 16.0 H (11.5-14.0) % Plt Count 202 (150-450) x10^3/uL MPV 9.7 (7.5-11.0) fL PT (9.4-12.5) SECONDS INR (0.8-3.0) Sodium 136 L (137-145) mmol/L Potassium 3.8 (3.5-5.1) mmol/L Chloride 98 (98-107) mmol/L Carbon Dioxide 31 H (22-30) mmol/L Anion Gap 9.6 (5-15) MEQ/L BUN 26 H (9-20) mg/dL Creatinine 1.51 H (0.66-1.25) mg/dL Estimated GFR 49.1 ML/MIN Glucose 164 H (74-106) mg/dL POC Glucometer 173 H (74 to 106) mg/dL Calcium 8.5 (8.4-10.2) mg/dL Magnesium 3.3 H (1.6-2.3) mg/dL 03/18/23 03/18/23 Range/Units 08:08 11:12 WBC (4.0-10.5) x10^3/uL RBC (4.1-5.6) x10^6/uL Hgb (12.5-18.0) g/dL Hct (42-50) % MCV (78-100) fL MCH (26-32) pg MCHC (32-36) g/dL RDW (11.5-14.0) % Plt Count (150-450) x10^3/uL MPV (7.5-11.0) fL PT (9.4-12.5) SECONDS INR (0.8-3.0) Sodium (137-145) mmol/L Potassium (3.5-5.1) mmol/L Chloride (98-107) mmol/L Carbon Dioxide (22-30) mmol/L Anion Gap (5-15) MEQ/L BUN (9-20) mg/dL Creatinine (0.66-1.25) mg/dL Estimated GFR ML/MIN Glucose (74-106) mg/dL POC Glucometer 290 H (74 to 106) mg/dL Calcium (8.4-10.2) mg/dL Magnesium 3.3 H (1.6-2.3) mg/dL Micro Results-Entire Visit: Microbiology 03/15/23 13:27 Wound Culture - Final Leg - Left Lower Enterobacter Clocae Complex 03/12/23 18:05 Blood Culture - Final Blood 03/12/23 18:00 Blood Culture - Final Blood Accuchecks Date 03/18/23 Date 03/18/23 Date 03/17/23 Time 15:59 - Radiology Exams Ordered Rad Exams-Entire Visit: Radiology Procedures Category Date Time Status ABDOMEN AND PELVIS W/0 CONTRAS [CT] Routine Exams 03/17/23 08:47 Completed CHEST 1 VIEW (PORTABLE) Stat Exams 03/17/23 08:50 Completed - Procedures and Test Procedures and Tests throughout Hospitalization: Therapy Orders & Screens 03/13/23 01:09 Oxygen Nasal Cannula 2 lpm Comment: Diagnosis: cellulitis 03/13/23 12:15 Respiratory Therapy Assessment DAILY Comment: Diagnosis: cellulitis 03/15/23 11:31 PT Eval & Treat ( Order) ONCE Reason for Eval:: leg wounds Diagnosis: cellulitis <MARIANNE YEPEZ - Last Filed: 03/18/23 12:21> - Vitals & Intake/Output Vital Signs: Vital Signs Temperature 96.9 F 03/18/23 11:23 Pulse Rate 70 03/18/23 11:23 Respiratory Rate 16 03/18/23 11:23 Blood Pressure 101/51 03/18/23 11:23 O2 Sat by Pulse Oximetry 90 L 03/18/23 11:23 Intake & Output: Intake & Output 03/16/23 03/17/23 03/18/23 03/19/23 11:59 11:59 11:59 11:59 Intake Total 1316 3800 3600 240 Output Total 850 1200 Balance 466 2600 3600 240 Weight 156.8 kg 156.7 kg - Lab Result Diagrams: 03/18/23 04:34 03/18/23 04:34 Lab Results-Last 24 Hrs: Lab Results-Last 24 Hours 03/17/23 03/17/23 03/18/23 Range/Units 15:24 21:37 04:34 WBC (4.0-10.5) x10^3/uL RBC (4.1-5.6) x10^6/uL Hgb (12.5-18.0) g/dL Hct (42-50) % MCV (78-100) fL MCH (26-32) pg MCHC (32-36) g/dL RDW (11.5-14.0) % Plt Count (150-450) x10^3/uL MPV (7.5-11.0) fL PT 24.3 H (9.4-12.5) SECONDS INR 2.38 D (0.8-3.0) Sodium (137-145) mmol/L Potassium (3.5-5.1) mmol/L Chloride (98-107) mmol/L Carbon Dioxide (22-30) mmol/L Anion Gap (5-15) MEQ/L BUN (9-20) mg/dL Creatinine (0.66-1.25) mg/dL Estimated GFR ML/MIN Glucose (74-106) mg/dL POC Glucometer 336 H 319 H (74 to 106) mg/dL Calcium (8.4-10.2) mg/dL Magnesium (1.6-2.3) mg/dL 03/18/23 03/18/23 03/18/23 Range/Units 04:34 04:34 07:00 WBC 7.1 (4.0-10.5) x10^3/uL RBC 3.63 L (4.1-5.6) x10^6/uL Hgb 9.5 L (12.5-18.0) g/dL Hct 31.3 L (42-50) % MCV 86.2 (78-100) fL MCH 26.2 (26-32) pg MCHC 30.4 L (32-36) g/dL RDW 16.0 H (11.5-14.0) % Plt Count 202 (150-450) x10^3/uL MPV 9.7 (7.5-11.0) fL PT (9.4-12.5) SECONDS INR (0.8-3.0) Sodium 136 L (137-145) mmol/L Potassium 3.8 (3.5-5.1) mmol/L Chloride 98 (98-107) mmol/L Carbon Dioxide 31 H (22-30) mmol/L Anion Gap 9.6 (5-15) MEQ/L BUN 26 H (9-20) mg/dL Creatinine 1.51 H (0.66-1.25) mg/dL Estimated GFR 49.1 ML/MIN Glucose 164 H (74-106) mg/dL POC Glucometer 173 H (74 to 106) mg/dL Calcium 8.5 (8.4-10.2) mg/dL Magnesium 3.3 H (1.6-2.3) mg/dL 03/18/23 03/18/23 Range/Units 08:08 11:12 WBC (4.0-10.5) x10^3/uL RBC (4.1-5.6) x10^6/uL Hgb (12.5-18.0) g/dL Hct (42-50) % MCV (78-100) fL MCH (26-32) pg MCHC (32-36) g/dL RDW (11.5-14.0) % Plt Count (150-450) x10^3/uL MPV (7.5-11.0) fL PT (9.4-12.5) SECONDS INR (0.8-3.0) Sodium (137-145) mmol/L Potassium (3.5-5.1) mmol/L Chloride (98-107) mmol/L Carbon Dioxide (22-30) mmol/L Anion Gap (5-15) MEQ/L BUN (9-20) mg/dL Creatinine (0.66-1.25) mg/dL Estimated GFR ML/MIN Glucose (74-106) mg/dL POC Glucometer 290 H (74 to 106) mg/dL Calcium (8.4-10.2) mg/dL Magnesium 3.3 H (1.6-2.3) mg/dL Micro Results-Entire Visit: Microbiology 03/15/23 13:27 Wound Culture - Final Leg - Left Lower Enterobacter Clocae Complex 03/12/23 18:05 Blood Culture - Final Blood 03/12/23 18:00 Blood Culture - Final Blood Accuchecks Date 03/18/23 Date 03/18/23 Date 03/17/23 Time 15:59 - Radiology Exams Ordered Rad Exams-Entire Visit: Radiology Procedures Category Date Time Status ABDOMEN AND PELVIS W/0 CONTRAS [CT] Routine Exams 03/17/23 08:47 Completed CHEST 1 VIEW (PORTABLE) Stat Exams 03/17/23 08:50 Completed - Procedures and Test Procedures and Tests throughout Hospitalization: Therapy Orders & Screens 03/13/23 01:09 Oxygen Nasal Cannula 2 lpm Comment: Diagnosis: cellulitis 03/13/23 12:15 Respiratory Therapy Assessment DAILY Comment: Diagnosis: cellulitis 03/15/23 11:31 PT Eval & Treat ( Order) ONCE Reason for Eval:: leg wounds Diagnosis: cellulitis <WEDIN,JORDEN - Last Filed: 03/18/23 14:28> Discharge Exam General Appearance: no apparent distress, alert Neurologic Exam: alert, oriented x 3, cooperative, normal mood/affect, nml cerebellar function, sensation nml, No motor deficits Eye Exam: PERRL, EOMI, eyes nml inspection Ears, Nose, Throat Exam: normal ENT inspection, pharynx normal, moist mucous membranes Neck Exam: normal inspection, non-tender, supple, full range of motion Respiratory Exam: normal breath sounds, lungs clear, No respiratory distress Cardiovascular Exam: regular rate/rhythm, normal heart sounds Gastrointestinal/Abdomen Exam: soft, No tenderness, No mass Male Genitalia Exam: deferred Rectal Exam: deferred Back Exam: normal inspection, normal range of motion, No CVA tenderness, No vertebral tenderness Extremity Exam: normal inspection, normal range of motion, inflammation (improved with Unna boots and antibiotics), pedal edema, swelling, tenderness Skin Exam: normal color, warm, dry Wound Assessment: Skin/Wound Assessment Wound/Incision Assessment Start: 03/12/23 17:25 Text: Status: Active Freq: Q6H Protocol: Document 03/18/23 07:43 MH (Rec: 03/18/23 07:55 MH [id number]) Wound/Incision Assessment Right Wound Assessment Shift Assessment Dressing Status Dry & Intact Drainage Amount None Drainage Odor None/Absent Comment UNNABOOTS applied bilaterally, C/D/I Wound Photo Photo Taken No <MARIANNE YEPEZ - Last Filed: 03/18/23 12:21> Final Diagnosis/Problem List - Final Discharge Diagnosis/Problem (1) PAULO (acute kidney injury) Status: Resolved Code(s): N17.9 - ACUTE KIDNEY FAILURE, UNSPECIFIED (2) Bilateral lower leg cellulitis Status: Acute Code(s): L03.116 - CELLULITIS OF LEFT LOWER LIMB; L03.115 - CELLULITIS OF RIGHT LOWER LIMB (3) CHF (congestive heart failure) Status: Chronic Code(s): I50.9 - HEART FAILURE, UNSPECIFIED (4) CKD (chronic kidney disease) stage 3, GFR 30-59 ml/min Status: Chronic Code(s): N18.30 - CHRONIC KIDNEY DISEASE, STAGE 3 UNSPECIFIED (5) Essential (primary) hypertension Status: Chronic Code(s): I10 - ESSENTIAL (PRIMARY) HYPERTENSION (6) Acute bronchitis Status: Resolved Code(s): J20.9 - ACUTE BRONCHITIS, UNSPECIFIED (7) Acute pain of right lower extremity Status: Acute Code(s): M79.604 - PAIN IN RIGHT LEG (8) Bradycardia Status: Resolved Code(s): R00.1 - BRADYCARDIA, UNSPECIFIED <MARIANNE YEPEZ - Last Filed: 03/18/23 12:21> - Final Discharge Diagnosis/Problem (1) Bilateral lower leg cellulitis Status: Acute Code(s): L03.116 - CELLULITIS OF LEFT LOWER LIMB; L03.115 - CELLULITIS OF RIGHT LOWER LIMB (2) CHF (congestive heart failure) Status: Chronic Code(s): I50.9 - HEART FAILURE, UNSPECIFIED <JORDEN MENDIOLA - Last Filed: 03/18/23 14:28> Telemedicine Encounter - Telemedicine Encounter Telemedicine Encounter: Assessment/Plan (1) Bilateral lower leg cellulitis Current Visit: Yes Status: Acute Assessment & Plan: 67-year-old man with history of CAD, CHF, DM 2, CKD stage III, A-fib, COPD, and BPH, admitted here with bilateral leg edema, erythema, drainage, and worsening of CHF. ## Acute on chronic CHF presumably from ischemic cardiomyopathy. Unknown if systolic or diastolic dysfunction, although presume systolic with ischemic etiology. Has been diuresing fairly effectively. Continue to f/u with cardiology as scheduled. - Appointment for f/u made by CM ## Bilateral lower extremity dermatitis versus cellulitis - wound cultures grew enterobactor. - BC X2 negative Continue Levaquin 250 mg daily for 7 days OP Continue wound care with Unna boots Pt declined OP narcotic pain medication d/t chronic constipation concerns home health wound care OP f/u ### Constipation, abdominal pain - resolved, 3 BM's last night no abd. pain today. Continue MOM and mineral at home. Pt feels this is is what works best for him. ## Acute kidney injury on chronic kidney disease stage III - at baseline - F/U with nephrology ## Atrial fibrillation Continue warfarin Continue amiodarone 200 mg daily, Coreg 3.125 mg BID ## CAD with history of prior CABG and stents. Continue Coreg 3.125 mg p.o. BID, Plavix 75 mg daily, Imdur 60 mg daily, and simvastatin 40 mg QHS ## Type 2 diabetes Continue home dosing of insulin - ACU to f/u with pt OP for better insulin control Continue metformin- PAULO resolved at baseline Continue Jardiance as above ## Hypokalemia resolved Dispo: Home with [facility] F/u with Dr. Munguia, cardiology, and nephrology <MARIANNE YEPEZ - Last Filed: 03/18/23 12:21> - Telemedicine Encounter Telemedicine Encounter: I have personally seen and examined patient and discussed care with Marianne Yepez NP and reviewed pertinent clinical data including history, physical, and diagnostic findings. I agree with the assessment, and treatment plan as described in her original note. Please see below for my summary of findings and any additional assessment and plan, as well as any meaningful corrections or explanations of their note. My portion of visit was conducted entirely via telemedicine, to which patient consented. 67-year-old male with history of CAD, CHF, DM 2, who was admitted with severe leg edema secondary to CHF exacerbation and venous insufficiency, complicated by cellulitis, acute on chronic kidney injury, and supratherapeutic INR. He was brought in by wound care and had Unna boots applied, as well as diuresis, with improvement in his leg edema. Leg wound cultures were growing Enterobacter cloacae, and patient will be discharged to complete a weeks worth of Levaquin. He will continue with home health wound care. Jorden Mendiola MD, PhD Internal Medicine Hospitalist [facility] <JORDEN MENDIOLA - Last Filed: 03/18/23 14:28> - Discharge Discharge Date: 03/18/23 <MARIANNE YEPEZ - Last Filed: 03/18/23 12:21> <JORDEN MENDIOLA - Last Filed: 03/18/23 14:28> - Discharge Disposition: HOME HEALTH SERVICE Condition: Stable Prescriptions: New Levofloxacin [Levofloxacin 250MG Tablet] 250 mg PO DAILY #7 tab Continue Aspirin [Aspirin EC] 81 mg PO DAILY Nitroglycerin 0.4 mg Tablet [Nitrostat 0.4 MG Tablet] 0.4 mg SL UD PRN PRN Reason: Chest Pain Atorvastatin Calcium [Lipitor] 80 mg PO HS Metformin HCl 500 mg [Glucophage 500 MG] 1,000 mg PO BIDWM Insulin NPH/Reg 70/30 [Novolin 70/30] 60 unit SQ PMINSULIN Insulin NPH/Reg 70/30 [Novolin 70/30] 75 unit SQ AMINSULIN Albuterol Sulfate 2 puffs IH Q6HPRN PRN PRN Reason: Shortness Of Breath Isosorbide Mononitrate 30 mg [Imdur 30 MG] 60 mg PO DAILY Amiodarone HCl 200 mg [Cordarone 200 MG] 200 mg PO DAILY Potassium Chloride 10 meq PO DAILY Clopidogrel Bisulfate [Plavix] 75 mg PO DAILY #0 Warfarin Sodium 2 mg PO UD Metoprolol Succinate 50 mg [Toprol Xl 50 MG] 50 mg PO DAILY Ferrous Sulfate [Iron] 325 mg PO DAILY Tamsulosin HCl 0.4 mg [Flomax 0.4 MG] 0.4 mg PO HS Torsemide 20 mg [Demadex 20 mg] 20 mg PO DAILY Sucralfate 1 gm [Carafate 1 GM] 1 g PO QID Carvedilol 3.125 mg [Coreg 3.125 MG] 3.125 mg PO BID Empagliflozin [Jardiance] 10 mg PO DAILY Lisinopril 10 mg [Zestril 10 MG] 10 mg PO DAILY Famotidine [Pepcid] 40 mg PO DAILY Instructions: Cellulitis (Skin Infection), Adult (DC) Additional Instructions: -LEAVE DRESSINGS CLEAN DRY AND INTACT- [facility] WILL CHANGE THEM -HOME HEALTHCARE HAS BEEN SET UP WITH [employer]. THEY WILL CONTACT YOU TO ARRANGE A VISIT. THEIR PHONE NUMBER IS [phone] IF YOU NEED ANYTHING BEFORE THEIR FIRST VISIT - A REFERRAL WAS ALSO SENT TO THE [facility] TO SEE IF THEY CAN HELP YOU BETTER MANAGE YOUR HEALTH AT HOME. THEY WILL BE REACHING OUT TO YOU. THEIR PHONE NUMBER IS [phone] Follow up with: HAY RAYMOND [CONSULTING PHYSICIAN] - 03/22/23 3:40 pm (at [place]) PABLITO MUNGUIA MD [Primary Care Provider] - 03/26/23 3:30 pm NEIDA GAO [CONSULTING PHYSICIAN] - 03/25/23 10:15 am Forms: Discharge Instructions
--- NOTE | 2023-03-22 13:46 | ECHO ---
DATE OF PROCEDURE: 03/15/2023 CLINICAL INFORMATION: Congestive heart failure. TECHNIQUE: Transthoracic 2D and M-mode study echocardiogram. The patient underwent 2D echo, M-mode study and color flow mapping which was technically difficult because of poor acoustic window. However, 2D images suggested mild to moderate left ventricle dilatation with mild concentric left ventricular hypertrophy with left ventricular wall thickness was 1.3 to 1.4 cm with moderate to severe left ventricular systolic dysfunction with calculated ejection fraction about 39%. Regional wall motion abnormality did exist however because of poor acoustic window it is difficult to localize the size of the wall motion without abnormalities. Both atrial sizes were enlarged and especially the left compared to the right. The right ventricle was normal in size. There is no evidence of any pericardial effusion. Aortic root size was within normal limits. The mitral valve appears to be mildly thickened but opening well without evidence of any restriction. The aortic valve was not well visualized however appears to be mildly thickened and opening well without evidence of any stenosis. The tricuspid valve was also pliable and opening well. The pulmonic valve was not well visualized. Color Doppler flow mapping showed mild to moderate mitral regurgitation, mild tricuspid regurgitation and trace aortic insufficiency with mild pulmonary hypertension with calculated systolic pressure of 44 mm of Mercury. IMPRESSION: 1) MILD TO MODERATE DILATED LEFT VENTRICLE WITH MODERATE TO SEVERE LEFT VENTRICULAR SYSTOLIC DYSFUNCTION. 2) WALL MOTION ABNORMALITIES ARE PRESENT. 3) MILD CONCENTRIC LEFT VENTRICULAR HYPERTROPHY. 4) BIATRIAL ENLARGEMENT. 5) MILD TO MODERATE MITRAL REGURGITATION. 6) MILD TRICUSPID REGURGITATION. 7) TRACE AORTIC INSUFFICIENCY. 8) MILD PULMONARY HYPERTENSION.
== END 2023-03-18 13:24 | disposition home health service (06) | DRG 603 ==
LOC: MED SURG 11:36 → OBSVTOIN 03-13 11:36
PROVIDERS: ADMIT Internal Medicine; ATTEND Internal Medicine
DX: L03.116 Cellulitis of left lower limb (principal); N17.9 Acute kidney failure, unspecified; L03.115 Cellulitis of right lower limb; E11.22 Type 2 diabetes mellitus with diabetic chronic kidney disease; I13.10 Hypertensive heart and chronic kidney disease without heart failure, with stage 1 through stage 4 chronic kidney disease, or unspecified chronic kidney disease; I50.9 Heart failure, unspecified; N18.30 Chronic kidney disease, stage 3 unspecified; J20.9 Acute bronchitis, unspecified; M79.604 Pain in right leg; R00.1 Bradycardia, unspecified; I25.10 Atherosclerotic heart disease of native coronary artery without angina pectoris; I48.91 Unspecified atrial fibrillation; K59.00 Constipation, unspecified; E87.6 Hypokalemia; Z79.899 Other long term (current) drug therapy; Z20.828 Contact with and (suspected) exposure to other viral communicable diseases
CPT/HCPCS: 29580; 36415; 71045; 74176; 80048; 80051; 80053; 80202; 82947; 83735; 83880; 84484; 85025; 85027; 85610; 87040; 87070; 87077; 87186; 93268; 93306; 93970; 94760; 97161; G0378; Q3014; J0696; J1815; J1940; J1956; J2405; A9270-GY; J3370

== ENCOUNTER 2023-04-17 02:46 | Emergency (ER) | payer MEDICARE, SELFPAY ==
[2023-04-17 02:52] VITALS: TEMP 97.3
[2023-04-17] MEDS ORDERED: Norflex 60 MG/2 ML IM ONE (03:23)
[2023-04-17] MEDS ORDERED: HYDROCODONE-ACETAMIN 10-325 MG PO STA (03:23)
--- NOTE | 2023-04-17 03:25 | ERPHSYRPT ---
- History of Present Illness Time Seen by Provider: 04/17/23 03:21 Source: patient, EMS Exam Limitations: no limitations Patient Subjective Stated Complaint: pt states that his back has been hurting for the last 2 days and denies injury or accident to back. denies numbness or tingling other than his normal peripheral neuropathy to bilat hands. pt is able to wiggle all extremities, cap refill and color are within normal limits. pt states pain is to lower back, constant, and radiates to bilat lower buttocks. pt is unable to describe pain other than "it just hurts". Triage Nursing Assessment: pt brought into room 6 via EMS cart and moved onto ED cart with assist of 5 staff. pt unable to assist with moving on cart at all. pt is alert and oriented times three, able to move all extremities, able to speak in complete sentences, and with resp even and unlabored. pt denies injury or accident that precluded back pain and denies any change to quality or intensity of pain since it began. denies cp, n/v, diarrhea, constipation, difficulty with urination or bowel elimination, change to food or fluid intact, sob, difficulty breathing, lightheadedness, dizziness, or other ill feelings at this time. Physician History: 68-year-old male with a history of hypertension, hyperlipidemia, diabetes mellitus, COPD on oxygen, chronic back pain presented in the ER with worsening low back pain for the last 2 days with radiation to both buttocks. No numbness tingling or weakness of lower extremities. Denies any fall or trauma. Denies lifting pushing or pulling heavy objects. No loss of bowel or bladder control reported. Has taken aavy-ugb-rprydec pain medication with no significant relief. Allergies/Adverse Reactions: apixaban [From Eliquis] Allergy (Severe, Verified 04/19/23 10:10) cant walk leg pain morphine Allergy (Severe, Verified 04/19/23 10:10) hallucinations HALLUCINATIONS dabigatran etexilate mesylate [From Pradaxa] Allergy (Mild, Verified 04/19/23 10:10) Nausea and Vomiting upset stomach metoclopramide HCl [From Reglan] Allergy (Mild, Verified 04/19/23 10:10) Itching hives Home Medications: Aspirin [Aspirin EC] 81 mg PO DAILY 09/03/13 [History] Nitroglycerin 0.4 mg Tablet [Nitrostat 0.4 MG Tablet] 0.4 mg SL UD PRN 09/03/13 [History] Atorvastatin Calcium [Lipitor] 80 mg PO HS 11/29/17 [History] Metformin HCl 500 mg [Glucophage 500 MG] 1,000 mg PO BIDWM 11/29/17 [History] Albuterol Sulfate 2 puffs IH Q6HPRN PRN 09/06/20 [History] Insulin NPH/Reg 70/30 [Novolin 70/30] 60 unit SQ PMINSULIN 09/06/20 [History] Insulin NPH/Reg 70/30 [Novolin 70/30] 75 unit SQ AMINSULIN 09/06/20 [History] Amiodarone HCl 200 mg [Cordarone 200 MG] 200 mg PO DAILY 03/13/22 [History] Isosorbide Mononitrate 30 mg [Imdur 30 MG] 60 mg PO DAILY 03/13/22 [History] Potassium Chloride 10 meq PO TID 05/07/22 [History] Ferrous Sulfate [Iron] 325 mg PO BID 12/03/22 [History] Tamsulosin HCl 0.4 mg [Flomax 0.4 MG] 0.4 mg PO HS 02/03/23 [History] Torsemide 20 mg [Demadex 20 mg] 20 mg PO DAILY 02/03/23 [History] Carvedilol 3.125 mg [Coreg 3.125 MG] 3.125 mg PO BID 03/12/23 [History] Empagliflozin [Jardiance] 10 mg PO DAILY 03/12/23 [History] Lisinopril 10 mg [Zestril 10 MG] 10 mg PO DAILY 03/12/23 [History] Metolazone 2.5 mg [Zaroxolyn 2.5 MG] 2.5 mg PO UD 04/17/23 [History] Hx Tetanus, Diphtheria Vaccination/Date Given: Yes Hx Influenza Vaccination/Date Given: Yes Hx Pneumococcal Vaccination/Date Given: No Immunizations Up to Date: Yes Travel Risk - International Travel Have you traveled outside of the country in past 3 weeks: No - Coronavirus Screening Are you exhibiting any of the following symptoms?: No Close contact with a COVID-19 positive Pt in past 14-21 Days: No - Vaccine Status Have you recieved a Covid-19 vaccination: Yes 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: 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 - Vaccination Dates Dates if Unknown: unknown - Review of Systems Constitutional: No Symptoms Eyes: No Symptoms Respiratory: Cough, Dyspnea Cardiac: No Symptoms Abdominal/Gastrointestinal: No Symptoms Musculoskeletal: Arthralgias, Back Pain Skin: No Symptoms Endocrine: No Symptoms Hematologic/Lymphatic: No Symptoms - Past Medical History Pertinent Past Medical History: Yes Neurological History: Migraines, Peripheral Neuropathy ENT History: Cataracts Cardiac History: Arrhythmia, Congestive Heart Failure, Coronary Artery Disease, High Cholesterol, Hypertension, Myocardial Infarction (NH) Respiratory History: CHF, COPD, Emphysema, Pneumonia, Sleep Apnea Endocrine Medical History: Diabetes Type II, Other Musculoskeletal History: No Pertinent History GI Medical History: Diverticulitis, Polyps History: No Pertinent History Psycho-Social History: No Pertinent History Male Reproductive Disorders: No Pertinent History Other Medical History: SLEEP APNEA, RLS, FATIGUE, SINUSITIS, ISCHEMIC CARDIOMYOPATHY, A-FIB - Past Surgical History Past Surgical History: Yes Neuro Surgical History: No Pertinent History Cardiac: CABG, Cardiac Catheterization, Cardiac Stent, Internal Defibrillator, Pacemaker Respiratory: No Pertinent History Gastrointestinal: Other Genitourinary: No Pertinent History Musculoskeletal: No Pertinent History Male Surgical History: No Pertinent History Other Surgical History: POLYPS REMOVED FROM COLON bilateral eye implants, bypass x3, pacemaker x3 - Social History Smoking Status: Former smoker How long have you smoked: 21 yrs Exposure to second hand smoke: No Drug Use: none Patient Lives Alone: Yes - Nursing Vital Signs Nursing Vital Signs: Initial Vital Signs Temperature 97.3 F 04/17/23 02:47 Pulse Rate 80 04/17/23 02:47 Respiratory Rate 24 04/17/23 02:47 Blood Pressure 101/74 04/17/23 02:47 O2 Sat by Pulse Oximetry 100 04/17/23 02:47 Pain Scale Pain Intensity 2 - Physical Exam General Appearance: no apparent distress, alert Eye Exam: PERRL/EOMI Neck Exam: normal inspection, full range of motion Respiratory Exam: wheezing Cardiovascular Exam: regular rate/rhythm, normal heart sounds Gastrointestinal Exam: soft, normal bowel sounds, No tenderness Back Exam: normal inspection, decreased range of motion, muscle spasm, point tenderness (Bilateral sacroiliac area tenderness. Lumbar paraspinal tenderness.) Extremity Exam: normal range of motion, pelvis stable Neurologic Exam: alert, oriented x 3, cooperative, sensation nml, No motor deficits SpO2 Interpretation: normal SpO2: 99 O2 Delivery: Room Air Ordered Tests: Medication Summary Discontinued Medications Generic Name Dose Route Start Last Admin Trade Name Shivani PRN Reason Stop Dose Admin Hydrocodone Bitart/Acetaminophen 1 tablet 04/17/23 03:23 04/17/23 03:28 Hydrocodone/Acetamin 10-325 Mg Tablet PO 04/17/23 03:24 1 tablet ONCE STA Administration Hydrocodone Bitart/Acetaminophen Confirm 04/17/23 03:26 Hydrocodone/Acetamin 10-325 Mg Tablet Administered 04/17/23 03:27 Dose 1 tablet .ROUTE .STK-MED ONE Orphenadrine Citrate 60 mg 04/17/23 03:23 04/17/23 03:27 Orphenadrine Citrate 60 Mg/2 Ml Vial IM 04/17/23 03:24 60 mg STAT ONE Administration Orphenadrine Citrate Confirm 04/17/23 03:26 Orphenadrine Citrate 60 Mg/2 Ml Vial Administered 04/17/23 03:27 Dose 60 mg .ROUTE .STK-MED ONE - Progress Progress: improved, re-examined Progress Note: 04/17/23 04:55 68-year-old male with a history of hypertension, hyperlipidemia, diabetes mellitus, COPD on oxygen, chronic back pain presented in the ER with worsening low back pain for the last 2 days with radiation to both buttocks. No numbness tingling or weakness of lower extremities. Denies any fall or trauma. Denies lifting pushing or pulling heavy objects. No loss of bowel or bladder control reported. Has taken lvbz-fti-fwikzjj pain medication with no significant relief. Patient does not have any cauda equina symptoms. Has some tenderness in the midline but more in the lumbar paraspinal and sacroiliac area bilaterally. Intact neuro and lower extremities. No loss of bowel or bladder control. Obtained CT lumbar spine which is negative for acute finding but has chronic degenerative changes. Given symptomatic treatment, on reevaluation feeling much better. I believe patient has low back strain, outpatient follow-up recommended. Discussed signs symptoms of worsening needing return to ER which she seems understanding. Counseled pt/family regarding: diagnosis, need for follow-up, rad results Medical Desision Making - Independent Historian Additional History obtained from: EMS - Diagnostic Testing Diagnostic test were ordered, analyzed, and reviewed by me: Yes Radiological Interpretation: Reviewed by me, Teleradiologist Report - Risk of complications The pt has a mod risk of morbidity or mortality based on: Need for prescription drug management - Departure Departure Disposition: Home Clinical Impression: Low back pain Condition: Stable Critical Care Time: No Referrals: PABLITO MUNGUIA MD [Primary Care Provider] - Follow up with PCP 2 days Instructions: Low Back Pain (DC) Additional Instructions: Take pain medicine as needed. Use cane/walker for ambulation to avoid a fall. Follow-up with primary care for reevaluation. Return to ER for excruciating pain, numbness tingling weakness of lower extremities, loss of bowel or bladder control/perineal numbness.
[2023-04-17] MEDS ORDERED: HYDROCODONE-ACETAMIN 10-325 MG ONE (03:26)
[2023-04-17] MEDS ORDERED: Norflex 60 MG/2 ML ONE (03:26)
--- NOTE | 2023-04-17 04:50 | XRAY ---
CLINICAL HISTORY:pain COMPARISON:None. TECHNIQUE:CT scan of lumbar spine was performed without contrast. Axial images were obtained with reconstructed coronal and sagittal images and submitted for interpretation. FINDINGS: Exaggeration of normal lumbar lordosis noted. Levoscoliosis of the lumbar spine is noted. Anterior marginal osteophytes are seen at multiple levels. Grade I retrolisthesis is seen at L3 over L4 and L5 over S1 vertebral body level. Reduction with end plate changes are seen at multiple disc levels. Vacuum phenomena is seen at L3-L4 and L4-L5 disc levels. Disc bulgings of the L2-S1 levels noted. Normal vertebral bodies height. Intact vertebral bodies and neural arches. No definite fractures could be detected. Facetal arthropathy seen at multiple levels. No retro paraspinal soft tissue masses. No developmental canal stenosis. IMPRESSION: 1. Levoscoliosis of the lumbar spine. 2. Severe degenerative changes lumbar spine as described above. Advice MRI lumbar spine for further evaluation. Electronically Signed by: Dakota Knutson MD. (04/17/2023 03:47:50 BILLING CHECKER)
[2023-04-17 05:01] VITALS: PULSE 78
[2023-04-17 05:02] VITALS: BP 119/66; RESP 18
[2023-04-22 21:34] VITALS: O2SAT 99
== END 2023-04-17 05:10 | disposition home or self-care (01) ==
LOC: ED 02:46
DX: M54.50 Low back pain, unspecified (principal); I11.0 Hypertensive heart disease with heart failure; I50.9 Heart failure, unspecified; E78.5 Hyperlipidemia, unspecified; E11.42 Type 2 diabetes mellitus with diabetic polyneuropathy; Z79.84 Long term (current) use of oral hypoglycemic drugs; Z79.4 Long term (current) use of insulin; Z79.01 Long term (current) use of anticoagulants; Z79.899 Other long term (current) drug therapy
CPT/HCPCS: 72131; 96372; 99283; J2360; A9270-GY

== ENCOUNTER 2023-04-19 10:07 | Inpatient (IN) | payer MEDICARE ==
[2023-04-19 10:35] LABS: Absolute Neutrophil Ct (ANC) 5.11 x10^3/uL (1.4-6.9); BASOPHIL % 0.4 % (0.0-0.4); Basophil (Absolute #) 0.03 x10^3/uL (0-0.4); Eosinophil % 3.2 % (0.00-5.0); Eosinophil (Absolute #) 0.25 x10^3/uL (0-0.5); Hemoglobin 11.6 g/dL (12.5-18.0); IMMATURE GRAN # 0.02 x10^3u/L (0.00-0.03); IMMATURE GRAN % 0.3 % (0.00-0.4); Lymphocyte (Absolute #) 1.34 x10^3/uL (1.0-4.6); Lymphocytes % 16.9 % (24.0-44.0); Mean Cell Volume 83.3 fL (78-100); Mean Corpuscular Hemoglobin 25.4 pg (26-32); Mean Corpuscular Hgb Concent. 30.5 g/dL (32-36); Monocyte (Absolute #) 1.17 x10^3/uL (0.0-1.3); Monocytes % 14.8 % (0.0-12.0); Neutrophil % 64.4 % (36.0-66.0); Platelet Count 224 x10^3/uL (150-450); Red Blood Count 4.56 x10^6/uL (4.1-5.6); White Blood Count 7.9 x10^3/uL (4.0-10.5)
[2023-04-19 10:51] LABS: ALBUMIN 4.2 g/dL (3.5-5.0); BILIRUBIN,TOTAL 0.8 mg/dL (0.2-1.3); Calcium 9.6 mg/dL (8.4-10.2); Creatinine 1 1.85 mg/dL (0.66-1.25); EST GLOMERULAR FILTRATION RATE 38.8 ML/MIN; Total Protein 7.6 g/dL (6.3-8.2)
[2023-04-19 11:05] LABS: ANION GAP 13.4 MEQ/L (5-15); Potassium 2.4 mmol/L (3.5-5.1)
--- NOTE | 2023-04-19 11:16 | ERPHSYRPT ---
- History of Present Illness Source: patient, EMS Exam Limitations: other (Poor historian) Patient Subjective Stated Complaint: Bloody stool Triage Nursing Assessment: Patient brought into ED per EMS and transferred to bed with assist of 4. Patient's skin pink, warm and dry. Patient A+O X3. Patient states he has had increased weakness for the past several days with bright red/ black stool. Patient complains of left sided abdominal pain 8/10. Patient states he fell last night trying to get to bathroom and fell landing on left hip. Patient complains of left hip pain 5/10. No internal/external rotation or shortening of left extremity noted. Physician History: 67 yo WM w PMH of DM/Afib on coumadin/TX/CABG/Stent/chronic cough/2L O2 dep presents per EMS after fall last night. Pt states that he fell on the way to the bathroom. He states that he he had some melena/hematochezia for several days. Pt has a chronic cough which has not progressed. He complains of L sided abdominal pain and L hip pain. Dyspnea a little worse w exertion over the last several days. N/V/hematemesis are denied. He has a skin tear R olecranon. Timing/Duration: yesterday Severity: moderate Modifying Factors: Improves With: nothing Associated Symptoms: shortness of breath Allergies/Adverse Reactions: apixaban [From Eliquis] Allergy (Severe, Verified 04/19/23 10:10) cant walk leg pain morphine Allergy (Severe, Verified 04/19/23 10:10) hallucinations HALLUCINATIONS dabigatran etexilate mesylate [From Pradaxa] Allergy (Mild, Verified 04/19/23 10:10) Nausea and Vomiting upset stomach metoclopramide HCl [From Reglan] Allergy (Mild, Verified 04/19/23 10:10) Itching hives Home Medications: Aspirin [Aspirin EC] 81 mg PO DAILY 09/03/13 [History] Nitroglycerin 0.4 mg Tablet [Nitrostat 0.4 MG Tablet] 0.4 mg SL UD PRN 09/03/13 [History] Atorvastatin Calcium [Lipitor] 80 mg PO HS 11/29/17 [History] Metformin HCl 500 mg [Glucophage 500 MG] 1,000 mg PO BIDWM 11/29/17 [History] Albuterol Sulfate 2 puffs IH Q6HPRN PRN 09/06/20 [History] Insulin NPH/Reg 70/30 [Novolin 70/30] 60 unit SQ PMINSULIN 09/06/20 [History] Insulin NPH/Reg 70/30 [Novolin 70/30] 75 unit SQ AMINSULIN 09/06/20 [History] Amiodarone HCl 200 mg [Cordarone 200 MG] 200 mg PO DAILY 03/13/22 [History] Isosorbide Mononitrate 30 mg [Imdur 30 MG] 60 mg PO DAILY 03/13/22 [History] Potassium Chloride 10 meq PO TID 05/07/22 [History] Metoprolol Succinate 50 mg [Toprol Xl 50 MG] 50 mg PO DAILY 07/23/22 [History] Warfarin Sodium 4 mg PO DAILY 07/23/22 [History] Ferrous Sulfate [Iron] 325 mg PO BID 12/03/22 [History] Tamsulosin HCl 0.4 mg [Flomax 0.4 MG] 0.4 mg PO HS 02/03/23 [History] Torsemide 20 mg [Demadex 20 mg] 20 mg PO DAILY 02/03/23 [History] Carvedilol 3.125 mg [Coreg 3.125 MG] 3.125 mg PO BID 03/12/23 [History] Empagliflozin [Jardiance] 10 mg PO DAILY 03/12/23 [History] Lisinopril 10 mg [Zestril 10 MG] 10 mg PO DAILY 03/12/23 [History] Metolazone 2.5 mg [Zaroxolyn 2.5 MG] 2.5 mg PO UD 04/17/23 [History] Hx Tetanus, Diphtheria Vaccination/Date Given: Yes Hx Influenza Vaccination/Date Given: Yes Hx Pneumococcal Vaccination/Date Given: No Immunizations Up to Date: Yes Travel Risk - International Travel Have you traveled outside of the country in past 3 weeks: No - Coronavirus Screening Are you exhibiting any of the following symptoms?: No Close contact with a COVID-19 positive Pt in past 14-21 Days: No - Vaccine Status Have you recieved a Covid-19 vaccination: Yes 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 - Vaccination Dates Dates if Unknown: unknown - Review of Systems Constitutional: Fatigue, Lethargy, Malaise Eyes: No Symptoms Ears, Nose, & Throat: No Symptoms Respiratory: No Symptoms, Cough, Dyspnea, Dyspnea on Exertion (LEONG) Cardiac: No Symptoms Abdominal/Gastrointestinal: No Symptoms, Hematochezia, Melena Genitourinary Symptoms: No Symptoms Musculoskeletal: No Symptoms Skin: No Symptoms Neurological: No Symptoms Psychological: No Symptoms Endocrine: No Symptoms Hematologic/Lymphatic: No Symptoms Immunological/Allergic: No Symptoms - Past Medical History Pertinent Past Medical History: Yes Neurological History: Migraines, Peripheral Neuropathy ENT History: Cataracts Cardiac History: Arrhythmia, Congestive Heart Failure, Coronary Artery Disease, High Cholesterol, Hypertension, Myocardial Infarction ([place]) Respiratory History: CHF, COPD, Emphysema, Pneumonia, Sleep Apnea Endocrine Medical History: Diabetes Type II, Other Musculoskeletal History: No Pertinent History GI Medical History: Diverticulitis, Polyps History: No Pertinent History Psycho-Social History: No Pertinent History Male Reproductive Disorders: No Pertinent History Other Medical History: SLEEP APNEA, RLS, FATIGUE, SINUSITIS, ISCHEMIC CARDIOMYOPATHY, A-FIB - Past Surgical History Past Surgical History: Yes Neuro Surgical History: No Pertinent History Cardiac: CABG, Cardiac Catheterization, Cardiac Stent, Internal Defibrillator, Pacemaker Respiratory: No Pertinent History Gastrointestinal: Other Genitourinary: No Pertinent History Musculoskeletal: No Pertinent History Male Surgical History: No Pertinent History Other Surgical History: POLYPS REMOVED FROM COLON bilateral eye implants, bypass x3, pacemaker x3 - Social History Smoking Status: Former smoker How long have you smoked: 21 yrs Exposure to second hand smoke: No Drug Use: none Patient Lives Alone: Yes - Nursing Vital Signs Nursing Vital Signs: Initial Vital Signs Temperature 97.6 F 04/19/23 10:22 Pulse Rate 80 04/19/23 10:22 Respiratory Rate 20 04/19/23 10:22 Blood Pressure 129/71 04/19/23 10:22 O2 Sat by Pulse Oximetry 98 04/19/23 10:22 Pain Scale Pain Intensity 0 WNL - Physical Exam General Appearance: no apparent distress (Chronically, ill appearing WM on 2L O2 NC in NAD) Eye Exam: PERRL/EOMI, eyes nml inspection Ears, Nose, Throat Exam: normal ENT inspection, TMs normal, pharynx normal, moist mucous membranes Neck Exam: normal inspection, non-tender, supple, full range of motion, No meningismus, No mass, No Brudzinski, No Kernig's Respiratory Exam: normal breath sounds, lungs clear, airway intact, No respiratory distress Cardiovascular Exam: irregular (Ir-Ir) Gastrointestinal/Abdomen Exam: soft, normal bowel sounds, tenderness (Mild L avbdominal TTP wo guarding or rebound) Back Exam: normal inspection, normal range of motion, No CVA tenderness, No vertebral tenderness Extremity Exam: other (B LE's bandaged due to chronic LE lesions) Neurologic Exam: alert, oriented x 3, cooperative, duplication specialist II-XII nml as tested, normal mood/affect, sensation nml Skin Exam: normal color, warm, dry, No rash Lymphatic Exam: No adenopathy SpO2 Interpretation: normal SpO2: 98 O2 Delivery: Room Air - Course Nursing assessment & vital signs reviewed: Yes EKG Interpreted by Me: RATE (Paced Afib/Rate 80/IVCD) - CT Exams Head CT Interpretation: Tele-radiologist Report (NAD) Chest CT Interpretation: Tele-radiologist Report (NAD) Abdomen/Pelvis CT Interpretation: Tele-radiologist Report (NAD) Ordered Tests: Active Orders 24 hr Category Date Time Status Admit as Inpatient ROUTINE Care 04/19/23 15:25 Active Call Admit Doctor for Orders ON ADMISSION Care 04/19/23 15:25 Active Code Status Order ROUTINE Care 04/19/23 15:25 Active ABDOMEN AND PELVIS W/0 CONTRAS [CT] Stat Exams 04/19/23 11:02 Completed CHEST WITHOUT CONTRAST [CT] Stat Exams 04/19/23 11:02 Completed HEAD WITHOUT CONTRAST [CT] Stat Exams 04/19/23 11:01 Completed CBC W DIFF Stat Lab 04/19/23 10:32 Completed CBC W DIFF Stat Lab 04/19/23 13:22 Completed CMP Stat Lab 04/19/23 10:32 Completed Lactic Acid Stat Lab 04/19/23 10:27 Completed NT PRO BNPII Stat Lab 04/19/23 10:32 Completed PROTIME WITH INR Stat Lab 04/19/23 10:32 Completed PTT Stat Lab 04/19/23 10:32 Completed TROPONIN Q4H Lab 04/19/23 10:32 Completed TROPONIN Q4H Lab 04/19/23 13:22 Completed TROPONIN Q4H Lab 04/19/23 18:15 Ordered UA W/RFX UR CULTURE Stat Lab 04/19/23 10:44 Completed Transfer Order Routine Transfer 04/19/23 Ordered Medication Summary Discontinued Medications Generic Name Dose Route Start Last Admin Trade Name Shivani PRN Reason Stop Dose Admin Phytonadione 10 mg 04/19/23 11:23 04/19/23 11:45 Phytonadione 10 Mg/Ml Amp SQ 04/19/23 11:24 10 mg STAT ONE Administration Phytonadione Confirm 04/19/23 11:43 Phytonadione 10 Mg/Ml Amp Administered 04/19/23 11:44 Dose 10 mg .ROUTE .STK-MED ONE Potassium Chloride 40 meq 04/19/23 11:24 04/19/23 11:45 Potassium Chloride Tab 10 Meq Tab PO 04/19/23 11:25 40 meq STAT ONE Administration Potassium Chloride Confirm 04/19/23 11:43 Potassium Chloride Tab 10 Meq Tab Administered 04/19/23 11:44 Dose 40 meq PO .STK-MED ONE Lab/Rad Data: Laboratory Result Diagrams 04/19/23 13:22 04/19/23 10:32 Laboratory Results 04/19/23 04/19/23 04/19/23 Range/Units 13:22 13:22 11:06 WBC 8.3 (4.0-10.5) x10^3/uL RBC 4.47 (4.1-5.6) x10^6/uL Hgb 11.4 L (12.5-18.0) g/dL Hct 38.4 L (42-50) % MCV 85.9 (78-100) fL MCH 25.5 L (26-32) pg MCHC 29.7 L (32-36) g/dL RDW 16.0 H (11.5-14.0) % Plt Count 214 (150-450) x10^3/uL MPV 10.4 (7.5-11.0) fL Gran % 67.7 H (36.0-66.0) % Immature Gran % (Auto) 0.4 (0.00-0.4) % Nucleat RBC Rel Count 0.0 (0.00-0.1) % Eos # (Auto) 0.25 (0-0.5) x10^3/uL Immature Gran # (Auto) 0.03 (0.00-0.03) x10^3u/L Absolute Lymphs (auto) 1.34 (1.0-4.6) x10^3/uL Absolute Monos (auto) 1.05 (0.0-1.3) x10^3/uL Absolute Nucleated RBC 0.00 (0.00-0.01) x10^3u/L Lymphocytes % 16.1 L (24.0-44.0) % Monocytes % 12.6 H (0.0-12.0) % Eosinophils % 3.0 (0.00-5.0) % Basophils % 0.2 (0.0-0.4) % Absolute Granulocytes 5.63 (1.4-6.9) x10^3/uL Basophils # 0.02 (0-0.4) x10^3/uL PT (9.4-12.5) SECONDS INR (0.8-3.0) APTT (25.1-36.5) SECONDS Sodium (137-145) mmol/L Potassium (3.5-5.1) mmol/L Chloride (98-107) mmol/L Carbon Dioxide (22-30) mmol/L Anion Gap (5-15) MEQ/L BUN (9-20) mg/dL Creatinine (0.66-1.25) mg/dL Estimated GFR ML/MIN Glucose (74-106) mg/dL Lactic Acid (0.4-2.0) Calcium (8.4-10.2) mg/dL Total Bilirubin (0.2-1.3) mg/dL AST (17-59) U/L ALT (0-50) U/L Alkaline Phosphatase (38-126) U/L Troponin I 0.047 H* (0.000-0.034) ng/mL NT-Pro-B Natriuret Pep (<300) pg/mL Serum Total Protein (6.3-8.2) g/dL Albumin (3.5-5.0) g/dL Urine Color (Yellow) Urine Appearance (Clear) Urine pH (4.6-8.0) Ur Specific [place] (1.005-1.030) Urine Protein (Negative) Urine Glucose (UA) (Negative) mg/dL Urine Ketones (Negative) Urine Blood (Negative) Urine Nitrite (Negative) Urine Bilirubin (Negative) Urine Urobilinogen (0.2) mg/dL Ur Leukocyte Esterase (Negative) U Hyaline Cast (Auto) (0-2) /LPF Urine Microscopic RBC (0-5) /HPF Urine Microscopic WBC (0-5) /HPF Ur Epithelial Cells (None Seen) /HPF Urine Bacteria (None Seen) /HPF Urine Culture Reflexed (NO) Influenza Type A Ag NEGATIVE (NEGATIVE) Influenza Type B Ag NEGATIVE (NEGATIVE) RSV (PCR) NEGATIVE (NEGATIVE) SARS-CoV-2 (PCR) NEGATIVE (NEGATIVE) 04/19/23 04/19/23 04/19/23 Range/Units 10:44 10:32 10:32 WBC (4.0-10.5) x10^3/uL RBC (4.1-5.6) x10^6/uL Hgb (12.5-18.0) g/dL Hct (42-50) % MCV (78-100) fL MCH (26-32) pg MCHC (32-36) g/dL RDW (11.5-14.0) % Plt Count (150-450) x10^3/uL MPV (7.5-11.0) fL Gran % (36.0-66.0) % Immature Gran % (Auto) (0.00-0.4) % Nucleat RBC Rel Count (0.00-0.1) % Eos # (Auto) (0-0.5) x10^3/uL Immature Gran # (Auto) (0.00-0.03) x10^3u/L Absolute Lymphs (auto) (1.0-4.6) x10^3/uL Absolute Monos (auto) (0.0-1.3) x10^3/uL Absolute Nucleated RBC (0.00-0.01) x10^3u/L Lymphocytes % (24.0-44.0) % Monocytes % (0.0-12.0) % Eosinophils % (0.00-5.0) % Basophils % (0.0-0.4) % Absolute Granulocytes (1.4-6.9) x10^3/uL Basophils # (0-0.4) x10^3/uL PT > 90.0 H (9.4-12.5) SECONDS INR > 10.00 H* (0.8-3.0) APTT 56.3 H (25.1-36.5) SECONDS Sodium (137-145) mmol/L Potassium (3.5-5.1) mmol/L Chloride (98-107) mmol/L Carbon Dioxide (22-30) mmol/L Anion Gap (5-15) MEQ/L BUN (9-20) mg/dL Creatinine (0.66-1.25) mg/dL Estimated GFR ML/MIN Glucose (74-106) mg/dL Lactic Acid (0.4-2.0) Calcium (8.4-10.2) mg/dL Total Bilirubin (0.2-1.3) mg/dL AST (17-59) U/L ALT (0-50) U/L Alkaline Phosphatase (38-126) U/L Troponin I (0.000-0.034) ng/mL NT-Pro-B Natriuret Pep 1880 (<300) pg/mL Serum Total Protein (6.3-8.2) g/dL Albumin (3.5-5.0) g/dL Urine Color Yellow (Yellow) Urine Appearance Clear (Clear) Urine pH 6.5 (4.6-8.0) Ur Specific [place] 1.020 (1.005-1.030) Urine Protein Trace A (Negative) Urine Glucose (UA) Negative (Negative) mg/dL Urine Ketones Negative (Negative) Urine Blood NHT (Negative) Urine Nitrite Negative (Negative) Urine Bilirubin Negative (Negative) Urine Urobilinogen 0.2 (0.2) mg/dL Ur Leukocyte Esterase Trace A (Negative) U Hyaline Cast (Auto) NONE SEEN (0-2) /LPF Urine Microscopic RBC 6-10 A (0-5) /HPF Urine Microscopic WBC 0-2 (0-5) /HPF Ur Epithelial Cells None Seen (None Seen) /HPF Urine Bacteria None Seen (None Seen) /HPF Urine Culture Reflexed NO (NO) Influenza Type A Ag (NEGATIVE) Influenza Type B Ag (NEGATIVE) RSV (PCR) (NEGATIVE) SARS-CoV-2 (PCR) (NEGATIVE) 04/19/23 04/19/23 04/19/23 Range/Units 10:32 10:32 10:32 WBC 7.9 (4.0-10.5) x10^3/uL RBC 4.56 (4.1-5.6) x10^6/uL Hgb 11.6 L (12.5-18.0) g/dL Hct 38.0 L (42-50) % MCV 83.3 (78-100) fL MCH 25.4 L (26-32) pg MCHC 30.5 L (32-36) g/dL RDW 16.0 H (11.5-14.0) % Plt Count 224 (150-450) x10^3/uL MPV 10.0 (7.5-11.0) fL Gran % 64.4 (36.0-66.0) % Immature Gran % (Auto) 0.3 (0.00-0.4) % Nucleat RBC Rel Count 0.0 (0.00-0.1) % Eos # (Auto) 0.25 (0-0.5) x10^3/uL Immature Gran # (Auto) 0.02 (0.00-0.03) x10^3u/L Absolute Lymphs (auto) 1.34 (1.0-4.6) x10^3/uL Absolute Monos (auto) 1.17 (0.0-1.3) x10^3/uL Absolute Nucleated RBC 0.00 (0.00-0.01) x10^3u/L Lymphocytes % 16.9 L (24.0-44.0) % Monocytes % 14.8 H (0.0-12.0) % Eosinophils % 3.2 (0.00-5.0) % Basophils % 0.4 (0.0-0.4) % Absolute Granulocytes 5.11 (1.4-6.9) x10^3/uL Basophils # 0.03 (0-0.4) x10^3/uL PT (9.4-12.5) SECONDS INR (0.8-3.0) APTT (25.1-36.5) SECONDS Sodium 133 L (137-145) mmol/L Potassium 2.4 L* (3.5-5.1) mmol/L Chloride 83 L (98-107) mmol/L Carbon Dioxide 35 H (22-30) mmol/L Anion Gap 13.4 (5-15) MEQ/L BUN 61 H (9-20) mg/dL Creatinine 1.85 H (0.66-1.25) mg/dL Estimated GFR 38.8 ML/MIN Glucose 183 H (74-106) mg/dL Lactic Acid (0.4-2.0) Calcium 9.6 (8.4-10.2) mg/dL Total Bilirubin 0.80 (0.2-1.3) mg/dL AST 58 (17-59) U/L ALT 40 (0-50) U/L Alkaline Phosphatase 109 (38-126) U/L Troponin I 0.051 H* (0.000-0.034) ng/mL NT-Pro-B Natriuret Pep (<300) pg/mL Serum Total Protein 7.6 (6.3-8.2) g/dL Albumin 4.2 (3.5-5.0) g/dL Urine Color (Yellow) Urine Appearance (Clear) Urine pH (4.6-8.0) Ur Specific [place] (1.005-1.030) Urine Protein (Negative) Urine Glucose (UA) (Negative) mg/dL Urine Ketones (Negative) Urine Blood (Negative) Urine Nitrite (Negative) Urine Bilirubin (Negative) Urine Urobilinogen (0.2) mg/dL Ur Leukocyte Esterase (Negative) U Hyaline Cast (Auto) (0-2) /LPF Urine Microscopic RBC (0-5) /HPF Urine Microscopic WBC (0-5) /HPF Ur Epithelial Cells (None Seen) /HPF Urine Bacteria (None Seen) /HPF Urine Culture Reflexed (NO) Influenza Type A Ag (NEGATIVE) Influenza Type B Ag (NEGATIVE) RSV (PCR) (NEGATIVE) SARS-CoV-2 (PCR) (NEGATIVE) 04/19/23 Range/Units 10:27 WBC (4.0-10.5) x10^3/uL RBC (4.1-5.6) x10^6/uL Hgb (12.5-18.0) g/dL Hct (42-50) % MCV (78-100) fL MCH (26-32) pg MCHC (32-36) g/dL RDW (11.5-14.0) % Plt Count (150-450) x10^3/uL MPV (7.5-11.0) fL Gran % (36.0-66.0) % Immature Gran % (Auto) (0.00-0.4) % Nucleat RBC Rel Count (0.00-0.1) % Eos # (Auto) (0-0.5) x10^3/uL Immature Gran # (Auto) (0.00-0.03) x10^3u/L Absolute Lymphs (auto) (1.0-4.6) x10^3/uL Absolute Monos (auto) (0.0-1.3) x10^3/uL Absolute Nucleated RBC (0.00-0.01) x10^3u/L Lymphocytes % (24.0-44.0) % Monocytes % (0.0-12.0) % Eosinophils % (0.00-5.0) % Basophils % (0.0-0.4) % Absolute Granulocytes (1.4-6.9) x10^3/uL Basophils # (0-0.4) x10^3/uL PT (9.4-12.5) SECONDS INR (0.8-3.0) APTT (25.1-36.5) SECONDS Sodium (137-145) mmol/L Potassium (3.5-5.1) mmol/L Chloride (98-107) mmol/L Carbon Dioxide (22-30) mmol/L Anion Gap (5-15) MEQ/L BUN (9-20) mg/dL Creatinine (0.66-1.25) mg/dL Estimated GFR ML/MIN Glucose (74-106) mg/dL Lactic Acid 1.7 (0.4-2.0) Calcium (8.4-10.2) mg/dL Total Bilirubin (0.2-1.3) mg/dL AST (17-59) U/L ALT (0-50) U/L Alkaline Phosphatase (38-126) U/L Troponin I (0.000-0.034) ng/mL NT-Pro-B Natriuret Pep (<300) pg/mL Serum Total Protein (6.3-8.2) g/dL Albumin (3.5-5.0) g/dL Urine Color (Yellow) Urine Appearance (Clear) Urine pH (4.6-8.0) Ur Specific [place] (1.005-1.030) Urine Protein (Negative) Urine Glucose (UA) (Negative) mg/dL Urine Ketones (Negative) Urine Blood (Negative) Urine Nitrite (Negative) Urine Bilirubin (Negative) Urine Urobilinogen (0.2) mg/dL Ur Leukocyte Esterase (Negative) U Hyaline Cast (Auto) (0-2) /LPF Urine Microscopic RBC (0-5) /HPF Urine Microscopic WBC (0-5) /HPF Ur Epithelial Cells (None Seen) /HPF Urine Bacteria (None Seen) /HPF Urine Culture Reflexed (NO) Influenza Type A Ag (NEGATIVE) Influenza Type B Ag (NEGATIVE) RSV (PCR) (NEGATIVE) SARS-CoV-2 (PCR) (NEGATIVE) - Progress Progress Note: 04/19/23 15:55 Nursing note and vital signs reviewed No food or housing insecurities noted All lab results reviewed and shared w pt All CT results reviewed and shared w pt 10mg sq VitK given Spoke w GI at [place] who did not think that pt needed to be transferred Pt accepted by Dr. Chaney 2units of FFP ordered Pt unable to produce a stool sample to evaluate for blood Hb stable and BP stable at time of admit 04/19/23 15:59 Pt is a full code Counseled pt/family regarding: lab results, diagnosis, rad results Medical Desision Making - Discussion of managment Care discussed with:: hospitalist Agreed on:: Treatment plan, decision to admit Will see patient: in hospital - Diagnostic Testing Radiological Interpretation: Teleradiologist Report - Risk of complications The pt has a high risk of morbidity or mortality based on: Drug therapy requiring intensive monitoring for toxicity - Departure Departure Disposition: In-patient Admission Clinical Impression: GI bleed, Elevated INR, Elevated troponin, Renal insufficiency Condition: Stable Critical Care Time: Yes Critical Care Time(excluding separately billable procedures): Critical 30-74 mins
[2023-04-19 11:18] LABS: PROTIME > 90.0 SECONDS (9.4-12.5); PTT 56.3 SECONDS (25.1-36.5)
[2023-04-19 11:23] LABS: INR > 10.00 (0.8-3.0)
[2023-04-19] MEDS ORDERED: Vitamin K 10 MG/ML SQ ONE (11:23)
[2023-04-19] MEDS ORDERED: Klor Con PO ONE ×2 (11:24→11:43)
[2023-04-19 11:31] LABS: Appearance Clear (Clear); Bacteria None Seen /HPF (None Seen); Bilirubin Negative (Negative); Blood NHT (Negative); Epithelial Cells None Seen /HPF (None Seen); Glucose, Urine Negative (Negative); Hyaline Casts NONE SEEN /LPF (0-2); Ketones Negative (Negative); Leukocyte Esterase Trace (Negative); Nitrite Negative (Negative); Ph 6.5 (4.6-8.0); Protein,Urine Dip Trace (Negative); Urobilinogen 0.2 mg/dL (0.2); WBC 0-2 /HPF (0-5)
[2023-04-19 11:33] LABS: ADD URINE CULTURE? NO (NO)
[2023-04-19] MEDS ORDERED: Vitamin K 10 MG/ML ONE (11:43)
[2023-04-19 12:05] LABS: INFLUENZA A NEGATIVE (NEGATIVE); INFLUENZA B NEGATIVE (NEGATIVE); RESPIRATORY SYNCTIAL VIRUS NEGATIVE (NEGATIVE); SARS-CoV-2 Xpert Express NEGATIVE (NEGATIVE)
--- NOTE | 2023-04-19 12:24 | XRAY ---
CLINICAL HISTORY:Fall/coumadin COMPARISON:None. TECHNIQUE:Axial non-contrast CT scan of the brain was performed from the skull base to the high parietal region FINDINGS: The ventricular system, cortical sulci and basal cisterns are prominent consistent with senile changes. The visualized brain parenchyma shows normal appearance. No focal parenchymal abnormalities are demonstrated. [place]-white matter differentiation is maintained. No midline shifts or deformity. No intracerebral or extra axial hematoma. Normal size and configuration of the cerebral ventricles. Normal CT appearance of the posterior fossa structures namely the cerebellar hemispheres, brainstem and cerebellar peduncles. The IACs are unremarkable. The cerebello-pontine angles are clear. The pituitary gland, the pineal gland, the optic chiasm is unremarkable. The osseous structures in the skull base are unremarkable. No definite calvarium fractures. Scanned paranasal sinuses are clear. No abnormal contrast enhancement seen. IMPRESSION: No acute intracranial abnormality. Senile brain atrophic changes. The rest of non-enhanced CT study for the brain is unremarkable. Electronically Signed by: Dakota Knutson MD. (04/19/2023 11:22:51 FINANCIAL RETIREMENT PLAN SPECIALIST)
--- NOTE | 2023-04-19 13:12 | XRAY ---
CLINICAL HISTORY:Fall/L hip-abdominal pain COMPARISON:None TECHNIQUE:CT of the abdomen and pelvis was performed with axial images as well as sagittal and coronal reconstruction images without intravenous contrast. FINDINGS: There is a small defect seen in the anterior abdominal wall in of midline of anterior abdominal wall at the level of umbilicus with herniation of omentum in the subcutaneous tissues, and is measuring about 1.8 cm left lower lobe lung parenchymal ground glass opacity however rest of visualized lung bases appear unremarkable. The heart size is within normal limits. The liver is enlarged in size 20 cm, with hypoattenuation and tiny calcifications noted, otherwise morphology and appears unremarkable with no intrahepatic or extrahepatic bile duct dilation. Unremarkable appearing gallbladder with no stones wall thickening or pericholecystic inflammatory changes or fluid. Unremarkable appearing pancreas. No pancreatic mass or ductal dilatation is seen. Numerous calcified nodules likely old granulomatous infection, otherwise Unremarkable appearing spleen. Fat-containing mass lesion in both adrenal glands measuring about 27 X 28 mm in right adrenal gland and 46 X 32 mm and left adrenal gland representing adrenal myelo lipoma. The kidneys appear unremarkable with no cysts masses or hydronephrosis The ureters are normal with no stones. Atherosclerotic calcifications of the abdominal aorta and iliac vessels. IVC is normal. The stomach appears unremarkable. Unremarkable appearing duodenum. There is 16 mm soft tissue nodular density showing rim calcification in the infraumbilical region just anterior to the transverse colon probably colonic diverticula. Noncomplicated colonic diverticulosis involving ascending colon descending colon without evidence of diverticulitis. No free air and no ascites. No free intraperitoneal air is seen. The bladder is unremarkable with no stones. The prostate is average size with multiple calcific foci detected. Advanced degenerative changes are seen in the visualized spine. with mild levoscoliosis. No other bony abnormality was detected. IMPRESSION: 1. No evidence of bony fracture noted, free fluid or subdiaphragmatic free air in the current study. 2. There is a small defect in the anterior abdominal wall in of midline of the anterior abdominal wall at the level of umbilicus with herniation of omentum in the subcutaneous tissues, and is measures about 1.8 cm 3. Left lower lobe lung parenchymal ground glass opacity however rest of visualized lung bases appear unremarkable. 4. Moderate hepatomegaly likely fatty infiltration. 5. Bilateral Adrenal myelolipoma. 6. Noncomplicated colonic diverticulosis involving ascending colon descending colon without evidence of diverticulitis. 7. The rest of the findings as detailed above. Electronically Signed by: Dakota Knutson MD. (04/19/2023 12:11:27 ANTHROPOLOGY DEPARTMENT CHAIR)
[2023-04-19 13:29] LABS: Absolute Neutrophil Ct (ANC) 5.63 x10^3/uL (1.4-6.9); BASOPHIL % 0.2 % (0.0-0.4); Basophil (Absolute #) 0.02 x10^3/uL (0-0.4); Eosinophil (Absolute #) 0.25 x10^3/uL (0-0.5); Hematocrit 38.4 % (42-50); Hemoglobin 11.4 g/dL (12.5-18.0); IMMATURE GRAN # 0.03 x10^3u/L (0.00-0.03); IMMATURE GRAN % 0.4 % (0.00-0.4); Lymphocyte (Absolute #) 1.34 x10^3/uL (1.0-4.6); Lymphocytes % 16.1 % (24.0-44.0); Mean Cell Volume 85.9 fL (78-100); Mean Corpuscular Hemoglobin 25.5 pg (26-32); Mean Corpuscular Hgb Concent. 29.7 g/dL (32-36); Mean Platelet Volume 10.4 fL (7.5-11.0); Monocyte (Absolute #) 1.05 x10^3/uL (0.0-1.3); Monocytes % 12.6 % (0.0-12.0); Neutrophil % 67.7 % (36.0-66.0); Platelet Count 214 x10^3/uL (150-450); Red Blood Count 4.47 x10^6/uL (4.1-5.6); White Blood Count 8.3 x10^3/uL (4.0-10.5)
--- NOTE | 2023-04-19 14:16 | XRAY ---
CLINICAL HISTORY:Fall/cough COMPARISON:None TECHNIQUE:Contiguous 3.[address] images of the chest were acquired without administration of intravenous contrast. Coronal and sagittal reconstructions were obtained. FINDINGS: No evidence of bony fracture, pleural or mediastinal free air. A few patchy areas of hazy opacity with preservation of the vascular markings giving the ground glass opacification noted in the left lower lobe lateral segment with pulmonary contusion to be considered. Right lower lobe small noncalcified nodule measuring 2mm. image 27 series 3 2 Tiny calcified nodules measuring about 0.2 x 0.3 cm in AP x TR dimensions, are seen in the left upper lobe lower lobe likely old granulomatous infection Multiple small calcified foci noted in the mediastinum the largest one is measuring about 0.7 x 0.6 cm seen in the left hilar region suggestive of calcified lymph nodes. The scanned pulmonary parenchyma shows no definite consolidation/collapse. No free or encysted pleural effusion. Heart size is normal and there is no pericardial effusion. There is no definite mass lesion in the chest wall. Multiple tiny calcified foci were noted in the liver and numerous in the spleen suggestive of tiny calcified granulomas. The rest of the scanned upper abdomen is unremarkable. Degenerative changes were seen in the visualized spine, no lytic/sclerotic lesion was seen in the visualized bones to suggest bony metastasis. IMPRESSION: 1. No evidence of bony fracture, pleural or mediastinal free air. 2. A few patchy areas of hazy opacity with preservation of the vascular markings giving the ground glass opacification noted in the left lower lobe lateral segment with pulmonary contusion to be considered. 3. Right lower lobe small non-calcified nodule measuring 2mm. image 27 series 3 4. Two Tiny calcified nodules measuring about 0.2 x 0.3 cm in AP x TR dimensions, are seen in the left upper lobe lower lobe likely old granulomatous infection 5. Multiple small calcified foci noted in the mediastinum the largest one is measuring about 0.7 x 0.6 cm seen in the left hilar region suggestive of calcified lymph nodes. Electronically Signed by: Dakota Knutson MD. 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
[2023-04-19] MEDS ORDERED: HUMALOG SQ PRN (16:25)
[2023-04-19] MEDS ORDERED: Zofran 4 MG/2 ML VIAL IV PRN (16:25)
[2023-04-19] MEDS ORDERED: TYLENOL 325 MG PO PRN (16:25)
[2023-04-19] MEDS ORDERED: Sodium Chloride 0.9% 1000 ML 1,000 ML IV SCH ×2 (16:30→23:00)
[2023-04-19] MEDS ORDERED: PHARMACY DOSING REQUEST MC ONE (16:30)
[2023-04-19] MEDS ORDERED: ALBUTEROL SULFATE 1.25 MG/3 ML IH PRN (16:39)
[2023-04-19] MEDS ORDERED: Nitrostat 0.4 MG Tablet SL PRN (16:39)
[2023-04-19] MEDS ORDERED: Zaroxolyn 2.5 MG PO SCH (16:45)
[2023-04-19 17:09] LABS: ABO TYPING O; Antibody Screen NEGATIVE (NEGATIVE); RH TYPING POSITIVE
[2023-04-19] MEDS ORDERED: Sodium Chloride 0.9% 1000 ML 1,000 ML ONE ×2 (17:15→20:59)
[2023-04-19] MEDS ORDERED: VENTOLIN COMMON CANISTER IH PRN (17:24)
[2023-04-19] MEDS ORDERED: Novolin 70/30 SQ SCH (18:00)
[2023-04-19] MEDS ORDERED: POTASSIUM CHLORIDE 20 mEq IN WATER 100ML 20 MEQ/100 ML BAG IV ONE (18:05)
[2023-04-19] MEDS: HUMALOG SQ PRN ×2 (18:34→22:10)
[2023-04-19 18:35] LABS: Potassium 2.5 mmol/L (3.5-5.1)
[2023-04-19 18:36] LABS: TROPONIN 0.046 ng/mL (0.000-0.034)
--- NOTE | 2023-04-19 18:39 | PCM.BN ---
Brief Admission Note - Admission Note Brief Admisson Note: Patient admitted @ 04/19/23 15:56 to [facility]. Medication List reviewed and reconciled. "IhavepersonallyseenandexamineCassie,KELLEN TORRES andhavediscussed pertinent aspects of their care with Mansi Bond, ROMELIA,and agree with the history, physical exam (any modifications based on my personal exam will be noted below), assessment, and plan as outlined in original note. Please see immediately below for my summary of findings and additional assessment and plan along with any meaningful corrections/explanations to the Subjective/Objective portions of the [facility] note will be noted." My portion of the encounter took place via telemedicine. Please refer to [facility] H&P for full documentation. Patient's hip pain is controlled. On exam, no wheezes or rhonchi INR >10 1) Supratherapeutic INR, possible melena: no active hematemesis currently. Hemodynamically stable. Reverse Coumadin with FFP (received vitamin K in ED). PPI. Monitor counts. 2) ARF on ckd: monitor renal function. 3) Fall, hip contusion: Analgesia. PT.
[2023-04-19] MEDS ORDERED: ZOCOR 20MG ONE (20:49)
[2023-04-19] MEDS: Flomax 0.4 MG PO SCH (21:21)
[2023-04-19] MEDS: Coreg 3.125 MG PO SCH (21:21)
[2023-04-19] MEDS: ZOCOR 20MG PO SCH (21:21)
[2023-04-19] MEDS: FEOSOL 325 MG PO SCH (21:21)
[2023-04-19] MEDS ORDERED: NON-FORMULARY ITEM (Atorvastatin Calcium [Lipitor] 80 MG Tablet) PO SCH (22:00)
[2023-04-19] MEDS: Klor Con PO SCH (22:22)
[2023-04-20 00:10] LABS: Hematocrit 33.7 % (42-50); Hemoglobin 10.2 g/dL (12.5-18.0)
[2023-04-20 00:15] LABS: INR 3.68 (0.8-3.0)
[2023-04-20] MEDS: Klor Con PO SCH ×10 (00:20→23:50)
[2023-04-20 00:28] LABS: PROTIME 36.4 SECONDS (9.4-12.5)
[2023-04-20] MEDS: POTASSIUM CHLORIDE 20 mEq IN WATER 100ML 100 ML IV SCH ×2 (01:44→04:10)
[2023-04-20 05:04] LABS: Calcium 8.9 mg/dL (8.4-10.2); Creatinine 1 1.49 mg/dL (0.66-1.25); EST GLOMERULAR FILTRATION RATE 49.7 ML/MIN; MAGNESIUM 2.7 mg/dL (1.6-2.3)
--- NOTE | 2023-04-20 05:52 | PCM.NOTE ---
Date and Time: 04/20/23 0547 Subjective Assessment: Mr. Villatoro is a 67-year-old man with history of CAD, CHF, DM 2, CKD stage III, A- fib(on coumadin), COPD, and BPH who presented to ER 04/19/23 via EMS with complaints of a fall at home. Patient states he got dizzy immediately prior and fell on his left side. He denies LOC or hitting his head during his fall. He also endorses nausea with dry heaves since 04/16/23. He states he struggles with constipation and noticed after a hard stool that he had some bright red blood and tar-like dark stools. Of note, patient is taking ferrous sulfate for iron deficiency. Patient was recently admitted 03/12/23 for BLE edema/ cellulitis. Upon exam BLE are wrapped in compression bandage, he has [facility] who changes wraps for him. - Review of Systems Constitutional: No Symptoms Eyes: No Symptoms Ears, Nose, & Throat: No Symptoms Respiratory: Short Of Breath Cardiac: Edema Abdominal/Gastrointestinal: No Symptoms Genitourinary Symptoms: No Symptoms Musculoskeletal: No Symptoms Neurological: No Symptoms Psychological: No Symptoms Endocrine: No Symptoms Hematologic/Lymphatic: No Symptoms Objective Exam General Appearance: no apparent distress Neurologic Exam: alert, oriented x 3, cooperative, normal mood/affect, nml cerebellar function, sensation nml, No motor deficits Skin Exam: normal color Eye Exam: PERRL Neck Exam: normal inspection Respiratory Exam: normal breath sounds, lungs clear Cardiovascular Exam: regular rate/rhythm, normal heart sounds Gastrointestinal/Abdomen Exam: soft, normal bowel sounds Extremity Exam: normal inspection, other (BLE wrapped, improved cellulitis) Male Genitalia Exam: deferred Rectal Exam: deferred OBJECTIVE DATA Vital Signs: Vital Signs - 24 hr Temp Pulse Resp BP BP Pulse Ox 04/20/23 04:00 97.3 F 80 20 113/65 97 04/19/23 23:53 97.7 F 80 23 113/55 04/19/23 20:00 80 16 96 04/19/23 17:26 80 22 97 04/19/23 16:45 97.7 F 80 19 129/63 98 04/19/23 16:00 97.7 F 80 17 129/63 98 04/19/23 15:59 98 04/19/23 15:15 80 16 103/56 99 04/19/23 15:00 80 15 107/65 97 04/19/23 14:45 85 0 L 113/75 96 04/19/23 14:30 81 14 112/65 97 04/19/23 14:15 80 13 128/77 97 04/19/23 14:00 81 10 L 119/78 97 04/19/23 13:45 91 H 17 96/60 98 04/19/23 13:31 80 18 79/48 95 04/19/23 13:15 84 19 149/90 91 L 04/19/23 13:00 80 18 140/86 98 04/19/23 12:45 82 18 129/69 98 04/19/23 12:30 80 16 111/73 96 04/19/23 12:15 80 21 125/67 97 04/19/23 12:00 80 14 113/64 98 04/19/23 11:20 80 18 119/66 99 04/19/23 11:00 82 23 119/66 98 04/19/23 10:22 97.6 F 80 20 129/71 98 Pain Assessment - Last Documented Pain Intensity 2 Intake and Output: Intake & Output 04/17/23 04/18/23 04/19/23 04/20/23 11:59 11:59 11:59 11:59 Intake Total 1549 Output Total 200 Balance 1349 Weight 145.15 kg 146.5 kg Lab Results: Lab Results-Last 24 Hours 04/19/23 04/19/23 04/19/23 Range/Units 10:27 10:32 10:32 WBC 7.9 (4.0-10.5) x10^3/uL RBC 4.56 (4.1-5.6) x10^6/uL Hgb 11.6 L (12.5-18.0) g/dL Hct 38.0 L (42-50) % MCV 83.3 (78-100) fL MCH 25.4 L (26-32) pg MCHC 30.5 L (32-36) g/dL RDW 16.0 H (11.5-14.0) % Plt Count 224 (150-450) x10^3/uL MPV 10.0 (7.5-11.0) fL Gran % 64.4 (36.0-66.0) % Immature Gran % (Auto) 0.3 (0.00-0.4) % Nucleat RBC Rel Count 0.0 (0.00-0.1) % Eos # (Auto) 0.25 (0-0.5) x10^3/uL Immature Gran # (Auto) 0.02 (0.00-0.03) x10^3u/L Absolute Lymphs (auto) 1.34 (1.0-4.6) x10^3/uL Absolute Monos (auto) 1.17 (0.0-1.3) x10^3/uL Absolute Nucleated RBC 0.00 (0.00-0.01) x10^3u/L Lymphocytes % 16.9 L (24.0-44.0) % Monocytes % 14.8 H (0.0-12.0) % Eosinophils % 3.2 (0.00-5.0) % Basophils % 0.4 (0.0-0.4) % Absolute Granulocytes 5.11 (1.4-6.9) x10^3/uL Basophils # 0.03 (0-0.4) x10^3/uL PT (9.4-12.5) SECONDS INR (0.8-3.0) APTT (25.1-36.5) SECONDS Sodium 133 L (137-145) mmol/L Potassium 2.4 L* (3.5-5.1) mmol/L Chloride 83 L (98-107) mmol/L Carbon Dioxide 35 H (22-30) mmol/L Anion Gap 13.4 (5-15) MEQ/L BUN 61 H (9-20) mg/dL Creatinine 1.85 H (0.66-1.25) mg/dL Estimated GFR 38.8 ML/MIN Glucose 183 H (74-106) mg/dL POC Glucometer (74 to 106) mg/dL Lactic Acid 1.7 (0.4-2.0) Calcium 9.6 (8.4-10.2) mg/dL Magnesium (1.6-2.3) mg/dL Total Bilirubin 0.80 (0.2-1.3) mg/dL AST 58 (17-59) U/L ALT 40 (0-50) U/L Alkaline Phosphatase 109 (38-126) U/L Troponin I (0.000-0.034) ng/mL NT-Pro-B Natriuret Pep (<300) pg/mL Serum Total Protein 7.6 (6.3-8.2) g/dL Albumin 4.2 (3.5-5.0) g/dL Urine Color (Yellow) Urine Appearance (Clear) Urine pH (4.6-8.0) Ur Specific [place] (1.005-1.030) Urine Protein (Negative) Urine Glucose (UA) (Negative) mg/dL Urine Ketones (Negative) Urine Blood (Negative) Urine Nitrite (Negative) Urine Bilirubin (Negative) Urine Urobilinogen (0.2) mg/dL Ur Leukocyte Esterase (Negative) U Hyaline Cast (Auto) (0-2) /LPF Urine Microscopic RBC (0-5) /HPF Urine Microscopic WBC (0-5) /HPF Ur Epithelial Cells (None Seen) /HPF Urine Bacteria (None Seen) /HPF Urine Culture Reflexed (NO) Influenza Type A Ag (NEGATIVE) Influenza Type B Ag (NEGATIVE) RSV (PCR) (NEGATIVE) SARS-CoV-2 (PCR) (NEGATIVE) ABO Group Rh Factor Antibody Screen (NEGATIVE) 04/19/23 04/19/23 04/19/23 Range/Units 10:32 10:32 10:32 WBC (4.0-10.5) x10^3/uL RBC (4.1-5.6) x10^6/uL Hgb (12.5-18.0) g/dL Hct (42-50) % MCV (78-100) fL MCH (26-32) pg MCHC (32-36) g/dL RDW (11.5-14.0) % Plt Count (150-450) x10^3/uL MPV (7.5-11.0) fL Gran % (36.0-66.0) % Immature Gran % (Auto) (0.00-0.4) % Nucleat RBC Rel Count (0.00-0.1) % Eos # (Auto) (0-0.5) x10^3/uL Immature Gran # (Auto) (0.00-0.03) x10^3u/L Absolute Lymphs (auto) (1.0-4.6) x10^3/uL Absolute Monos (auto) (0.0-1.3) x10^3/uL Absolute Nucleated RBC (0.00-0.01) x10^3u/L Lymphocytes % (24.0-44.0) % Monocytes % (0.0-12.0) % Eosinophils % (0.00-5.0) % Basophils % (0.0-0.4) % Absolute Granulocytes (1.4-6.9) x10^3/uL Basophils # (0-0.4) x10^3/uL PT > 90.0 H (9.4-12.5) SECONDS INR > 10.00 H* (0.8-3.0) APTT 56.3 H (25.1-36.5) SECONDS Sodium (137-145) mmol/L Potassium (3.5-5.1) mmol/L Chloride (98-107) mmol/L Carbon Dioxide (22-30) mmol/L Anion Gap (5-15) MEQ/L BUN (9-20) mg/dL Creatinine (0.66-1.25) mg/dL Estimated GFR ML/MIN Glucose (74-106) mg/dL POC Glucometer (74 to 106) mg/dL Lactic Acid (0.4-2.0) Calcium (8.4-10.2) mg/dL Magnesium (1.6-2.3) mg/dL Total Bilirubin (0.2-1.3) mg/dL AST (17-59) U/L ALT (0-50) U/L Alkaline Phosphatase (38-126) U/L Troponin I 0.051 H* (0.000-0.034) ng/mL NT-Pro-B Natriuret Pep 1880 (<300) pg/mL Serum Total Protein (6.3-8.2) g/dL Albumin (3.5-5.0) g/dL Urine Color (Yellow) Urine Appearance (Clear) Urine pH (4.6-8.0) Ur Specific [place] (1.005-1.030) Urine Protein (Negative) Urine Glucose (UA) (Negative) mg/dL Urine Ketones (Negative) Urine Blood (Negative) Urine Nitrite (Negative) Urine Bilirubin (Negative) Urine Urobilinogen (0.2) mg/dL Ur Leukocyte Esterase (Negative) U Hyaline Cast (Auto) (0-2) /LPF Urine Microscopic RBC (0-5) /HPF Urine Microscopic WBC (0-5) /HPF Ur Epithelial Cells (None Seen) /HPF Urine Bacteria (None Seen) /HPF Urine Culture Reflexed (NO) Influenza Type A Ag (NEGATIVE) Influenza Type B Ag (NEGATIVE) RSV (PCR) (NEGATIVE) SARS-CoV-2 (PCR) (NEGATIVE) ABO Group Rh Factor Antibody Screen (NEGATIVE) 04/19/23 04/19/23 04/19/23 Range/Units 10:44 11:06 13:22 WBC (4.0-10.5) x10^3/uL RBC (4.1-5.6) x10^6/uL Hgb (12.5-18.0) g/dL Hct (42-50) % MCV (78-100) fL MCH (26-32) pg MCHC (32-36) g/dL RDW (11.5-14.0) % Plt Count (150-450) x10^3/uL MPV (7.5-11.0) fL Gran % (36.0-66.0) % Immature Gran % (Auto) (0.00-0.4) % Nucleat RBC Rel Count (0.00-0.1) % Eos # (Auto) (0-0.5) x10^3/uL Immature Gran # (Auto) (0.00-0.03) x10^3u/L Absolute Lymphs (auto) (1.0-4.6) x10^3/uL Absolute Monos (auto) (0.0-1.3) x10^3/uL Absolute Nucleated RBC (0.00-0.01) x10^3u/L Lymphocytes % (24.0-44.0) % Monocytes % (0.0-12.0) % Eosinophils % (0.00-5.0) % Basophils % (0.0-0.4) % Absolute Granulocytes (1.4-6.9) x10^3/uL Basophils # (0-0.4) x10^3/uL PT (9.4-12.5) SECONDS INR (0.8-3.0) APTT (25.1-36.5) SECONDS Sodium (137-145) mmol/L Potassium (3.5-5.1) mmol/L Chloride (98-107) mmol/L Carbon Dioxide (22-30) mmol/L Anion Gap (5-15) MEQ/L BUN (9-20) mg/dL Creatinine (0.66-1.25) mg/dL Estimated GFR ML/MIN Glucose (74-106) mg/dL POC Glucometer (74 to 106) mg/dL Lactic Acid (0.4-2.0) Calcium (8.4-10.2) mg/dL Magnesium (1.6-2.3) mg/dL Total Bilirubin (0.2-1.3) mg/dL AST (17-59) U/L ALT (0-50) U/L Alkaline Phosphatase (38-126) U/L Troponin I 0.047 H* (0.000-0.034) ng/mL NT-Pro-B Natriuret Pep (<300) pg/mL Serum Total Protein (6.3-8.2) g/dL Albumin (3.5-5.0) g/dL Urine Color Yellow (Yellow) Urine Appearance Clear (Clear) Urine pH 6.5 (4.6-8.0) Ur Specific [place] 1.020 (1.005-1.030) Urine Protein Trace A (Negative) Urine Glucose (UA) Negative (Negative) mg/dL Urine Ketones Negative (Negative) Urine Blood NHT (Negative) Urine Nitrite Negative (Negative) Urine Bilirubin Negative (Negative) Urine Urobilinogen 0.2 (0.2) mg/dL Ur Leukocyte Esterase Trace A (Negative) U Hyaline Cast (Auto) NONE SEEN (0-2) /LPF Urine Microscopic RBC 6-10 A (0-5) /HPF Urine Microscopic WBC 0-2 (0-5) /HPF Ur Epithelial Cells None Seen (None Seen) /HPF Urine Bacteria None Seen (None Seen) /HPF Urine Culture Reflexed NO (NO) Influenza Type A Ag NEGATIVE (NEGATIVE) Influenza Type B Ag NEGATIVE (NEGATIVE) RSV (PCR) NEGATIVE (NEGATIVE) SARS-CoV-2 (PCR) NEGATIVE (NEGATIVE) ABO Group Rh Factor Antibody Screen (NEGATIVE) 04/19/23 04/19/23 04/19/23 Range/Units 13:22 15:28 16:07 WBC 8.3 (4.0-10.5) x10^3/uL RBC 4.47 (4.1-5.6) x10^6/uL Hgb 11.4 L (12.5-18.0) g/dL Hct 38.4 L (42-50) % MCV 85.9 (78-100) fL MCH 25.5 L (26-32) pg MCHC 29.7 L (32-36) g/dL RDW 16.0 H (11.5-14.0) % Plt Count 214 (150-450) x10^3/uL MPV 10.4 (7.5-11.0) fL Gran % 67.7 H (36.0-66.0) % Immature Gran % (Auto) 0.4 (0.00-0.4) % Nucleat RBC Rel Count 0.0 (0.00-0.1) % Eos # (Auto) 0.25 (0-0.5) x10^3/uL Immature Gran # (Auto) 0.03 (0.00-0.03) x10^3u/L Absolute Lymphs (auto) 1.34 (1.0-4.6) x10^3/uL Absolute Monos (auto) 1.05 (0.0-1.3) x10^3/uL Absolute Nucleated RBC 0.00 (0.00-0.01) x10^3u/L Lymphocytes % 16.1 L (24.0-44.0) % Monocytes % 12.6 H (0.0-12.0) % Eosinophils % 3.0 (0.00-5.0) % Basophils % 0.2 (0.0-0.4) % Absolute Granulocytes 5.63 (1.4-6.9) x10^3/uL Basophils # 0.02 (0-0.4) x10^3/uL PT (9.4-12.5) SECONDS INR (0.8-3.0) APTT (25.1-36.5) SECONDS Sodium (137-145) mmol/L Potassium (3.5-5.1) mmol/L Chloride (98-107) mmol/L Carbon Dioxide (22-30) mmol/L Anion Gap (5-15) MEQ/L BUN (9-20) mg/dL Creatinine (0.66-1.25) mg/dL Estimated GFR ML/MIN Glucose (74-106) mg/dL POC Glucometer 207 H (74 to 106) mg/dL Lactic Acid (0.4-2.0) Calcium (8.4-10.2) mg/dL Magnesium (1.6-2.3) mg/dL Total Bilirubin (0.2-1.3) mg/dL AST (17-59) U/L ALT (0-50) U/L Alkaline Phosphatase (38-126) U/L Troponin I (0.000-0.034) ng/mL NT-Pro-B Natriuret Pep (<300) pg/mL Serum Total Protein (6.3-8.2) g/dL Albumin (3.5-5.0) g/dL Urine Color (Yellow) Urine Appearance (Clear) Urine pH (4.6-8.0) Ur Specific [place] (1.005-1.030) Urine Protein (Negative) Urine Glucose (UA) (Negative) mg/dL Urine Ketones (Negative) Urine Blood (Negative) Urine Nitrite (Negative) Urine Bilirubin (Negative) Urine Urobilinogen (0.2) mg/dL Ur Leukocyte Esterase (Negative) U Hyaline Cast (Auto) (0-2) /LPF Urine Microscopic RBC (0-5) /HPF Urine Microscopic WBC (0-5) /HPF Ur Epithelial Cells (None Seen) /HPF Urine Bacteria (None Seen) /HPF Urine Culture Reflexed (NO) Influenza Type A Ag (NEGATIVE) Influenza Type B Ag (NEGATIVE) RSV (PCR) (NEGATIVE) SARS-CoV-2 (PCR) (NEGATIVE) ABO Group O Rh Factor POSITIVE Antibody Screen NEGATIVE (NEGATIVE) 04/19/23 04/19/23 04/19/23 Range/Units 18:00 18:37 21:36 WBC (4.0-10.5) x10^3/uL RBC (4.1-5.6) x10^6/uL Hgb (12.5-18.0) g/dL Hct (42-50) % MCV (78-100) fL MCH (26-32) pg MCHC (32-36) g/dL RDW (11.5-14.0) % Plt Count (150-450) x10^3/uL MPV (7.5-11.0) fL Gran % (36.0-66.0) % Immature Gran % (Auto) (0.00-0.4) % Nucleat RBC Rel Count (0.00-0.1) % Eos # (Auto) (0-0.5) x10^3/uL Immature Gran # (Auto) (0.00-0.03) x10^3u/L Absolute Lymphs (auto) (1.0-4.6) x10^3/uL Absolute Monos (auto) (0.0-1.3) x10^3/uL Absolute Nucleated RBC (0.00-0.01) x10^3u/L Lymphocytes % (24.0-44.0) % Monocytes % (0.0-12.0) % Eosinophils % (0.00-5.0) % Basophils % (0.0-0.4) % Absolute Granulocytes (1.4-6.9) x10^3/uL Basophils # (0-0.4) x10^3/uL PT (9.4-12.5) SECONDS INR (0.8-3.0) APTT (25.1-36.5) SECONDS Sodium (137-145) mmol/L Potassium 2.5 L* (3.5-5.1) mmol/L Chloride (98-107) mmol/L Carbon Dioxide (22-30) mmol/L Anion Gap (5-15) MEQ/L BUN (9-20) mg/dL Creatinine (0.66-1.25) mg/dL Estimated GFR ML/MIN Glucose (74-106) mg/dL POC Glucometer 320 H (74 to 106) mg/dL Lactic Acid (0.4-2.0) Calcium (8.4-10.2) mg/dL Magnesium 2.9 H (1.6-2.3) mg/dL Total Bilirubin (0.2-1.3) mg/dL AST (17-59) U/L ALT (0-50) U/L Alkaline Phosphatase (38-126) U/L Troponin I 0.046 H* (0.000-0.034) ng/mL NT-Pro-B Natriuret Pep (<300) pg/mL Serum Total Protein (6.3-8.2) g/dL Albumin (3.5-5.0) g/dL Urine Color (Yellow) Urine Appearance (Clear) Urine pH (4.6-8.0) Ur Specific [place] (1.005-1.030) Urine Protein (Negative) Urine Glucose (UA) (Negative) mg/dL Urine Ketones (Negative) Urine Blood (Negative) Urine Nitrite (Negative) Urine Bilirubin (Negative) Urine Urobilinogen (0.2) mg/dL Ur Leukocyte Esterase (Negative) U Hyaline Cast (Auto) (0-2) /LPF Urine Microscopic RBC (0-5) /HPF Urine Microscopic WBC (0-5) /HPF Ur Epithelial Cells (None Seen) /HPF Urine Bacteria (None Seen) /HPF Urine Culture Reflexed (NO) Influenza Type A Ag (NEGATIVE) Influenza Type B Ag (NEGATIVE) RSV (PCR) (NEGATIVE) SARS-CoV-2 (PCR) (NEGATIVE) ABO Group Rh Factor Antibody Screen (NEGATIVE) 04/20/23 04/20/23 04/20/23 Range/Units 00:00 00:00 00:00 WBC (4.0-10.5) x10^3/uL RBC (4.1-5.6) x10^6/uL Hgb 10.2 L (12.5-18.0) g/dL Hct 33.7 L (42-50) % MCV (78-100) fL MCH (26-32) pg MCHC (32-36) g/dL RDW (11.5-14.0) % Plt Count (150-450) x10^3/uL MPV (7.5-11.0) fL Gran % (36.0-66.0) % Immature Gran % (Auto) (0.00-0.4) % Nucleat RBC Rel Count (0.00-0.1) % Eos # (Auto) (0-0.5) x10^3/uL Immature Gran # (Auto) (0.00-0.03) x10^3u/L Absolute Lymphs (auto) (1.0-4.6) x10^3/uL Absolute Monos (auto) (0.0-1.3) x10^3/uL Absolute Nucleated RBC (0.00-0.01) x10^3u/L Lymphocytes % (24.0-44.0) % Monocytes % (0.0-12.0) % Eosinophils % (0.00-5.0) % Basophils % (0.0-0.4) % Absolute Granulocytes (1.4-6.9) x10^3/uL Basophils # (0-0.4) x10^3/uL PT 36.4 H (9.4-12.5) SECONDS INR 3.68 H D (0.8-3.0) APTT (25.1-36.5) SECONDS Sodium (137-145) mmol/L Potassium 2.6 L* (3.5-5.1) mmol/L Chloride (98-107) mmol/L Carbon Dioxide (22-30) mmol/L Anion Gap (5-15) MEQ/L BUN (9-20) mg/dL Creatinine (0.66-1.25) mg/dL Estimated GFR ML/MIN Glucose (74-106) mg/dL POC Glucometer (74 to 106) mg/dL Lactic Acid (0.4-2.0) Calcium (8.4-10.2) mg/dL Magnesium (1.6-2.3) mg/dL Total Bilirubin (0.2-1.3) mg/dL AST (17-59) U/L ALT (0-50) U/L Alkaline Phosphatase (38-126) U/L Troponin I (0.000-0.034) ng/mL NT-Pro-B Natriuret Pep (<300) pg/mL Serum Total Protein (6.3-8.2) g/dL Albumin (3.5-5.0) g/dL Urine Color (Yellow) Urine Appearance (Clear) Urine pH (4.6-8.0) Ur Specific [place] (1.005-1.030) Urine Protein (Negative) Urine Glucose (UA) (Negative) mg/dL Urine Ketones (Negative) Urine Blood (Negative) Urine Nitrite (Negative) Urine Bilirubin (Negative) Urine Urobilinogen (0.2) mg/dL Ur Leukocyte Esterase (Negative) U Hyaline Cast (Auto) (0-2) /LPF Urine Microscopic RBC (0-5) /HPF Urine Microscopic WBC (0-5) /HPF Ur Epithelial Cells (None Seen) /HPF Urine Bacteria (None Seen) /HPF Urine Culture Reflexed (NO) Influenza Type A Ag (NEGATIVE) Influenza Type B Ag (NEGATIVE) RSV (PCR) (NEGATIVE) SARS-CoV-2 (PCR) (NEGATIVE) ABO Group Rh Factor Antibody Screen (NEGATIVE) 04/20/23 Range/Units 04:43 WBC (4.0-10.5) x10^3/uL RBC (4.1-5.6) x10^6/uL Hgb (12.5-18.0) g/dL Hct (42-50) % MCV (78-100) fL MCH (26-32) pg MCHC (32-36) g/dL RDW (11.5-14.0) % Plt Count (150-450) x10^3/uL MPV (7.5-11.0) fL Gran % (36.0-66.0) % Immature Gran % (Auto) (0.00-0.4) % Nucleat RBC Rel Count (0.00-0.1) % Eos # (Auto) (0-0.5) x10^3/uL Immature Gran # (Auto) (0.00-0.03) x10^3u/L Absolute Lymphs (auto) (1.0-4.6) x10^3/uL Absolute Monos (auto) (0.0-1.3) x10^3/uL Absolute Nucleated RBC (0.00-0.01) x10^3u/L Lymphocytes % (24.0-44.0) % Monocytes % (0.0-12.0) % Eosinophils % (0.00-5.0) % Basophils % (0.0-0.4) % Absolute Granulocytes (1.4-6.9) x10^3/uL Basophils # (0-0.4) x10^3/uL PT (9.4-12.5) SECONDS INR (0.8-3.0) APTT (25.1-36.5) SECONDS Sodium 135 L (137-145) mmol/L Potassium 3.0 L* (3.5-5.1) mmol/L Chloride 90 L (98-107) mmol/L Carbon Dioxide 40 H (22-30) mmol/L Anion Gap 8.0 (5-15) MEQ/L BUN 48 H (9-20) mg/dL Creatinine 1.49 H (0.66-1.25) mg/dL Estimated GFR 49.7 ML/MIN Glucose 201 H (74-106) mg/dL POC Glucometer (74 to 106) mg/dL Lactic Acid (0.4-2.0) Calcium 8.9 (8.4-10.2) mg/dL Magnesium 2.7 H (1.6-2.3) mg/dL Total Bilirubin (0.2-1.3) mg/dL AST (17-59) U/L ALT (0-50) U/L Alkaline Phosphatase (38-126) U/L Troponin I (0.000-0.034) ng/mL NT-Pro-B Natriuret Pep (<300) pg/mL Serum Total Protein (6.3-8.2) g/dL Albumin (3.5-5.0) g/dL Urine Color (Yellow) Urine Appearance (Clear) Urine pH (4.6-8.0) Ur Specific [place] (1.005-1.030) Urine Protein (Negative) Urine Glucose (UA) (Negative) mg/dL Urine Ketones (Negative) Urine Blood (Negative) Urine Nitrite (Negative) Urine Bilirubin (Negative) Urine Urobilinogen (0.2) mg/dL Ur Leukocyte Esterase (Negative) U Hyaline Cast (Auto) (0-2) /LPF Urine Microscopic RBC (0-5) /HPF Urine Microscopic WBC (0-5) /HPF Ur Epithelial Cells (None Seen) /HPF Urine Bacteria (None Seen) /HPF Urine Culture Reflexed (NO) Influenza Type A Ag (NEGATIVE) Influenza Type B Ag (NEGATIVE) RSV (PCR) (NEGATIVE) SARS-CoV-2 (PCR) (NEGATIVE) ABO Group Rh Factor Antibody Screen (NEGATIVE) Radiology Exams: Radiology Procedures Category Date Time Status ABDOMEN AND PELVIS W/0 CONTRAS [CT] Stat Exams 04/19/23 11:02 Completed CHEST WITHOUT CONTRAST [CT] Stat Exams 04/19/23 11:02 Completed HEAD WITHOUT CONTRAST [CT] Stat Exams 04/19/23 11:01 Completed Assessment/Plan (1) Elevated INR Current Visit: Yes Status: Acute Assessment & Plan: -INR at 3.6, continue to hold Code(s): R79.1 - ABNORMAL COAGULATION PROFILE (2) Orthostatic hypotension Current Visit: Yes Status: Acute Assessment & Plan: -orthostatic vitals positive, will start midodrine at 5mg po tid, recheck in the morning Code(s): I95.1 - ORTHOSTATIC HYPOTENSION (3) Hypokalemia Current Visit: Yes Status: Acute Assessment & Plan: -potassium levels improving, continue potassium protocol, levels at 3.3 Code(s): E87.6 - HYPOKALEMIA (4) Frequent falls Current Visit: Yes Status: Acute Assessment & Plan: -PT/OT evaluation -Fall precautions/supratherapeutic INR Code(s): R29.6 - REPEATED FALLS (5) Elevated troponin Current Visit: Yes Status: Acute Assessment & Plan: -Downtrending -TELE -Consider cardio consult Code(s): R77.8 - OTHER SPECIFIED ABNORMALITIES OF PLASMA PROTEINS (6) GI bleed Current Visit: Yes Status: Acute Assessment & Plan: -Tele -CT with no acute findings -NS @50ml/hr -PPI protonix 40 bid IV -Avoid NSAIDS/ASA -Consider surgical consult for EGD/ colonoscopy -H&H Q6H, replace if hgb <7 04/20/23 -Hgb continue to be stable at 10.4, will continue to monitor as above Code(s): K92.2 - GASTROINTESTINAL HEMORRHAGE, UNSPECIFIED (7) Acute on chronic renal failure Current Visit: No Status: Acute Assessment & Plan: -Creat at 1.85, baseline around 1.4-1.5. -Gentle hydration -Avoid JADE/ARBS NSAIDS -Monitor renal/lytes daily 04/20: -creat improved, now at baseline Code(s): N17.9 - ACUTE KIDNEY FAILURE, UNSPECIFIED; N18.9 - CHRONIC KIDNEY DISEASE, UNSPECIFIED (8) Bilateral lower leg cellulitis Current Visit: No Status: Acute Assessment & Plan: -Recent hospitalization, BLE currently wrapped in compression dressings with changes by [facility] Code(s): L03.116 - CELLULITIS OF LEFT LOWER LIMB; L03.115 - CELLULITIS OF RIGHT LOWER LIMB (9) Constipation Current Visit: No Status: Acute Assessment & Plan: -Chronic add docusate bid/ miralax prn Code(s): K59.00 - CONSTIPATION, UNSPECIFIED (10) Diabetes type 2, controlled Current Visit: No Status: Acute Qualifiers: Assessment & Plan: -moderate dose sliding scale insulin Continue Lantus 10 units QHS Hold metformin in the setting of PAULO Continue Jardiance Code(s): E11.9 - TYPE 2 DIABETES MELLITUS WITHOUT COMPLICATIONS (11) CHF (congestive heart failure) Current Visit: No Status: Chronic Assessment & Plan: HFrEF Continue home torosemide/metolazone ECHO from 04/06/23 IMPRESSION: EF at 39% 1) MILD TO MODERATE DILATED LEFT VENTRICLE WITH MODERATE TO SEVERE LEFT V ENTRICULAR SYSTOLIC DYSFUNCTION. 2) WALL MOTION ABNORMALITIES ARE PRESENT. 3) MILD CONCENTRIC LEFT VENTRICULAR HYPERTROPHY. 4) BIATRIAL ENLARGEMENT. 5) MILD TO MODERATE MITRAL REGURGITATION. 6) MILD TRICUSPID REGURGITATION. 7) TRACE AORTIC INSUFFICIENCY. 8) MILD PULMONARY HYPERTENSION. Continue empagliflozin 10 mg daily Continue Coreg 3.125 BID, Imdur 60 Code(s): I50.9 - HEART FAILURE, UNSPECIFIED (12) COPD (chronic obstructive pulmonary disease) Current Visit: No Status: Chronic Assessment & Plan: -Does not appear to be in exacerbation, CT findings unremarkable -Supplemental oxygen with goal of spo2 @ 92% -neb/inh prn (13) Essential (primary) hypertension Current Visit: No Status: Chronic Assessment & Plan: -Stable, continue home meds Code(s): I10 - ESSENTIAL (PRIMARY) HYPERTENSION
[2023-04-20 05:54] LABS: Hematocrit 32.8 % (42-50)
[2023-04-20] MEDS ORDERED: VENTOLIN COMMON CANISTER IH PRN (06:51)
[2023-04-20] MEDS: HUMALOG SQ PRN ×4 (07:50→22:07)
[2023-04-20] MEDS: Lantus Insulin SQ SCH (07:50)
[2023-04-20] MEDS: DEMADEX 20 MG PO SCH (09:24)
[2023-04-20] MEDS: FEOSOL 325 MG PO SCH ×2 (09:24→22:06)
[2023-04-20] MEDS: Coreg 3.125 MG PO SCH ×2 (09:24→22:05)
[2023-04-20] MEDS: JARDIANCE PO SCH (09:25)
[2023-04-20] MEDS: Cordarone 200 MG PO SCH (09:25)
[2023-04-20] MEDS: Imdur 30 MG PO SCH (09:25)
[2023-04-20] MEDS ORDERED: Zestril 10 MG PO SCH (10:00)
[2023-04-20 12:23] LABS: Hematocrit 34.5 % (42-50); Hemoglobin 10.4 g/dL (12.5-18.0)
[2023-04-20] MEDS: PROAMATINE PO SCH ×2 (14:33→22:06)
[2023-04-20 18:46] LABS: Hematocrit 31.9 % (42-50); Hemoglobin 9.5 g/dL (12.5-18.0)
[2023-04-20] MEDS: ZOCOR 20MG PO SCH (22:05)
[2023-04-20] MEDS: Flomax 0.4 MG PO SCH (22:05)
[2023-04-21 00:55] LABS: Hematocrit 32.2 % (42-50); Hemoglobin 9.7 g/dL (12.5-18.0)
[2023-04-21] MEDS: Klor Con PO SCH ×5 (02:08→11:38)
[2023-04-21 04:54] LABS: Absolute Neutrophil Ct (ANC) 4.18 x10^3/uL (1.4-6.9); BASOPHIL % 0.4 % (0.0-0.4); Basophil (Absolute #) 0.03 x10^3/uL (0-0.4); Eosinophil % 5.5 % (0.00-5.0); Hematocrit 34.1 % (42-50); IMMATURE GRAN # 0.06 x10^3u/L (0.00-0.03); IMMATURE GRAN % 0.8 % (0.00-0.4); Lymphocyte (Absolute #) 1.52 x10^3/uL (1.0-4.6); Lymphocytes % 20.8 % (24.0-44.0); Mean Cell Volume 86.3 fL (78-100); Mean Corpuscular Hemoglobin 25.3 pg (26-32); Mean Corpuscular Hgb Concent. 29.3 g/dL (32-36); Mean Platelet Volume 10.6 fL (7.5-11.0); Monocyte (Absolute #) 1.11 x10^3/uL (0.0-1.3); Monocytes % 15.2 % (0.0-12.0); NUCLEATED RBC # 0.02 x10^3u/L (0.00-0.01); NUCLEATED RBC % 0.3 % (0.00-0.1); Neutrophil % 57.3 % (36.0-66.0); Platelet Count 189 x10^3/uL (150-450); Red Blood Count 3.95 x10^6/uL (4.1-5.6); Red Cell Distribution Width 16.3 % (11.5-14.0); White Blood Count 7.3 x10^3/uL (4.0-10.5)
[2023-04-21 05:11] LABS: ANION GAP 8.5 MEQ/L (5-15); Calcium 8.7 mg/dL (8.4-10.2); Creatinine 1 1.69 mg/dL (0.66-1.25); MAGNESIUM 2.8 mg/dL (1.6-2.3); Potassium 3.1 mmol/L (3.5-5.1)
--- NOTE | 2023-04-21 05:32 | PCM.NOTE ---
Date and Time: 04/21/23 0527 Subjective Assessment: Mr. Villatoro is a 67-year-old man with history of CAD, CHF, DM 2, CKD stage III, A- fib(on coumadin), COPD, and BPH who presented to ER 04/19/23 via EMS with complaints of a fall at home. Patient states he got dizzy immediately prior and fell on his left side. He denies LOC or hitting his head during his fall. He also endorses nausea with dry heaves since 04/16/23. He states he struggles with constipation and noticed after a hard stool that he had some bright red blood and tar-like dark stools. Of note, patient is taking ferrous sulfate for iron deficiency. Patient was recently admitted 03/12/23 for BLE edema/ cellulitis. Upon exam BLE are wrapped in compression bandage, PT changed 04/20/23, legs much improved since last admission. Overnight events noted, patient with intermittent Vtach. [employer] rep, E[employer], interrogated pt's pacemaker. Per rep, pacemaker's leads are all connected and there are no defects with the pacemaker. Pt had an episode of VT on 04/18 with a rate in the 160s but did not reach the rate of 181 to receive a shock from the defibrillator. Patient was positive for orthostatic hypotension and started on midodrine. Occult stools still pending collection. Patient endorses back pain which he states is chronic, patient uses extra strength Tylenol at home, will add as well as lidocaine patch. Also with constipation this morning, will start on docusate scheduled, miralax prn, this is a chronic issue. PT/INR now in therapeutic range. Potassium levels remain low, will continue to replace. - Review of Systems Constitutional: No Symptoms Eyes: No Symptoms Ears, Nose, & Throat: No Symptoms Respiratory: Short Of Breath Cardiac: No Symptoms, Edema (ble) Abdominal/Gastrointestinal: Constipation Genitourinary Symptoms: No Symptoms Musculoskeletal: Back Pain Skin: Other (BLE edema/recent cellulitis, healing) Neurological: No Symptoms Psychological: No Symptoms Objective Exam General Appearance: no apparent distress Neurologic Exam: alert, oriented x 3, cooperative Skin Exam: pale Eye Exam: PERRL Ears, Nose, Throat Exam: normal ENT inspection Neck Exam: normal inspection Respiratory Exam: normal breath sounds, lungs clear Cardiovascular Exam: regular rate/rhythm, normal heart sounds Gastrointestinal/Abdomen Exam: soft, normal bowel sounds Extremity Exam: swelling (BLE edema/recent cellulitis, healing) Back Exam: normal inspection OBJECTIVE DATA Vital Signs: Vital Signs - 24 hr Temp Pulse Resp BP Pulse Ox 04/21/23 04:01 97.8 F 80 16 101/61 97 04/21/23 00:04 99.3 F 87 18 115/59 96 04/21/23 00:03 99.3 F 87 18 115/59 96 04/20/23 20:54 97.9 F 98 H 18 108/54 95 04/20/23 19:12 113 H 18 96 04/20/23 15:35 97.7 F 83 16 119/58 95 04/20/23 11:55 96.8 F 87 16 116/59 96 04/20/23 09:31 90 108/59 98 04/20/23 09:30 80 122/59 96 04/20/23 07:32 97.9 F 81 16 115/62 99 04/20/23 06:56 80 20 97 Pain Assessment - Last Documented Pain Intensity 0 Intake and Output: Intake & Output 04/18/23 04/19/23 04/20/23 04/21/23 11:59 11:59 11:59 11:59 Intake Total 1849 1500 Output Total 200 Balance 1649 1500 Weight 145.15 kg 146.5 kg Lab Results: Lab Results-Last 24 Hours 04/20/23 04/20/23 04/20/23 Range/Units 06:08 07:42 08:40 WBC (4.0-10.5) x10^3/uL RBC (4.1-5.6) x10^6/uL Hgb 10.0 L (12.5-18.0) g/dL Hct 32.8 L (42-50) % MCV (78-100) fL MCH (26-32) pg MCHC (32-36) g/dL RDW (11.5-14.0) % Plt Count (150-450) x10^3/uL MPV (7.5-11.0) fL Gran % (36.0-66.0) % Immature Gran % (Auto) (0.00-0.4) % Nucleat RBC Rel Count (0.00-0.1) % Eos # (Auto) (0-0.5) x10^3/uL Immature Gran # (Auto) (0.00-0.03) x10^3u/L Absolute Lymphs (auto) (1.0-4.6) x10^3/uL Absolute Monos (auto) (0.0-1.3) x10^3/uL Absolute Nucleated RBC (0.00-0.01) x10^3u/L Lymphocytes % (24.0-44.0) % Monocytes % (0.0-12.0) % Eosinophils % (0.00-5.0) % Basophils % (0.0-0.4) % Absolute Granulocytes (1.4-6.9) x10^3/uL Basophils # (0-0.4) x10^3/uL Sodium (137-145) mmol/L Potassium 3.1 L (3.5-5.1) mmol/L Chloride (98-107) mmol/L Carbon Dioxide (22-30) mmol/L Anion Gap (5-15) MEQ/L BUN (9-20) mg/dL Creatinine (0.66-1.25) mg/dL Estimated GFR ML/MIN Glucose (74-106) mg/dL POC Glucometer 209 H (74 to 106) mg/dL Calcium (8.4-10.2) mg/dL Magnesium (1.6-2.3) mg/dL 04/20/23 04/20/23 04/20/23 Range/Units 10:34 11:46 12:15 WBC (4.0-10.5) x10^3/uL RBC (4.1-5.6) x10^6/uL Hgb 10.4 L (12.5-18.0) g/dL Hct 34.5 L (42-50) % MCV (78-100) fL MCH (26-32) pg MCHC (32-36) g/dL RDW (11.5-14.0) % Plt Count (150-450) x10^3/uL MPV (7.5-11.0) fL Gran % (36.0-66.0) % Immature Gran % (Auto) (0.00-0.4) % Nucleat RBC Rel Count (0.00-0.1) % Eos # (Auto) (0-0.5) x10^3/uL Immature Gran # (Auto) (0.00-0.03) x10^3u/L Absolute Lymphs (auto) (1.0-4.6) x10^3/uL Absolute Monos (auto) (0.0-1.3) x10^3/uL Absolute Nucleated RBC (0.00-0.01) x10^3u/L Lymphocytes % (24.0-44.0) % Monocytes % (0.0-12.0) % Eosinophils % (0.00-5.0) % Basophils % (0.0-0.4) % Absolute Granulocytes (1.4-6.9) x10^3/uL Basophils # (0-0.4) x10^3/uL Sodium (137-145) mmol/L Potassium 3.3 L (3.5-5.1) mmol/L Chloride (98-107) mmol/L Carbon Dioxide (22-30) mmol/L Anion Gap (5-15) MEQ/L BUN (9-20) mg/dL Creatinine (0.66-1.25) mg/dL Estimated GFR ML/MIN Glucose (74-106) mg/dL POC Glucometer 270 H (74 to 106) mg/dL Calcium (8.4-10.2) mg/dL Magnesium (1.6-2.3) mg/dL 04/20/23 04/20/23 04/20/23 Range/Units 14:50 16:14 18:40 WBC (4.0-10.5) x10^3/uL RBC (4.1-5.6) x10^6/uL Hgb 9.5 L (12.5-18.0) g/dL Hct 31.9 L (42-50) % MCV (78-100) fL MCH (26-32) pg MCHC (32-36) g/dL RDW (11.5-14.0) % Plt Count (150-450) x10^3/uL MPV (7.5-11.0) fL Gran % (36.0-66.0) % Immature Gran % (Auto) (0.00-0.4) % Nucleat RBC Rel Count (0.00-0.1) % Eos # (Auto) (0-0.5) x10^3/uL Immature Gran # (Auto) (0.00-0.03) x10^3u/L Absolute Lymphs (auto) (1.0-4.6) x10^3/uL Absolute Monos (auto) (0.0-1.3) x10^3/uL Absolute Nucleated RBC (0.00-0.01) x10^3u/L Lymphocytes % (24.0-44.0) % Monocytes % (0.0-12.0) % Eosinophils % (0.00-5.0) % Basophils % (0.0-0.4) % Absolute Granulocytes (1.4-6.9) x10^3/uL Basophils # (0-0.4) x10^3/uL Sodium (137-145) mmol/L Potassium 3.4 L (3.5-5.1) mmol/L Chloride (98-107) mmol/L Carbon Dioxide (22-30) mmol/L Anion Gap (5-15) MEQ/L BUN (9-20) mg/dL Creatinine (0.66-1.25) mg/dL Estimated GFR ML/MIN Glucose (74-106) mg/dL POC Glucometer 363 H (74 to 106) mg/dL Calcium (8.4-10.2) mg/dL Magnesium (1.6-2.3) mg/dL 04/20/23 04/20/23 04/20/23 Range/Units 18:40 18:40 20:39 WBC (4.0-10.5) x10^3/uL RBC (4.1-5.6) x10^6/uL Hgb (12.5-18.0) g/dL Hct (42-50) % MCV (78-100) fL MCH (26-32) pg MCHC (32-36) g/dL RDW (11.5-14.0) % Plt Count (150-450) x10^3/uL MPV (7.5-11.0) fL Gran % (36.0-66.0) % Immature Gran % (Auto) (0.00-0.4) % Nucleat RBC Rel Count (0.00-0.1) % Eos # (Auto) (0-0.5) x10^3/uL Immature Gran # (Auto) (0.00-0.03) x10^3u/L Absolute Lymphs (auto) (1.0-4.6) x10^3/uL Absolute Monos (auto) (0.0-1.3) x10^3/uL Absolute Nucleated RBC (0.00-0.01) x10^3u/L Lymphocytes % (24.0-44.0) % Monocytes % (0.0-12.0) % Eosinophils % (0.00-5.0) % Basophils % (0.0-0.4) % Absolute Granulocytes (1.4-6.9) x10^3/uL Basophils # (0-0.4) x10^3/uL Sodium (137-145) mmol/L Potassium 3.1 L (3.5-5.1) mmol/L Chloride (98-107) mmol/L Carbon Dioxide (22-30) mmol/L Anion Gap (5-15) MEQ/L BUN (9-20) mg/dL Creatinine (0.66-1.25) mg/dL Estimated GFR ML/MIN Glucose (74-106) mg/dL POC Glucometer 354 H (74 to 106) mg/dL Calcium (8.4-10.2) mg/dL Magnesium 2.5 H (1.6-2.3) mg/dL 04/21/23 04/21/23 04/21/23 Range/Units 00:53 00:53 04:37 WBC 7.3 (4.0-10.5) x10^3/uL RBC 3.95 L (4.1-5.6) x10^6/uL Hgb 9.7 L 10.0 L (12.5-18.0) g/dL Hct 32.2 L 34.1 L (42-50) % MCV 86.3 (78-100) fL MCH 25.3 L (26-32) pg MCHC 29.3 L (32-36) g/dL RDW 16.3 H (11.5-14.0) % Plt Count 189 (150-450) x10^3/uL MPV 10.6 (7.5-11.0) fL Gran % 57.3 (36.0-66.0) % Immature Gran % (Auto) 0.8 H (0.00-0.4) % Nucleat RBC Rel Count 0.3 H (0.00-0.1) % Eos # (Auto) 0.40 (0-0.5) x10^3/uL Immature Gran # (Auto) 0.06 H (0.00-0.03) x10^3u/L Absolute Lymphs (auto) 1.52 (1.0-4.6) x10^3/uL Absolute Monos (auto) 1.11 (0.0-1.3) x10^3/uL Absolute Nucleated RBC 0.02 H (0.00-0.01) x10^3u/L Lymphocytes % 20.8 L (24.0-44.0) % Monocytes % 15.2 H (0.0-12.0) % Eosinophils % 5.5 H (0.00-5.0) % Basophils % 0.4 (0.0-0.4) % Absolute Granulocytes 4.18 (1.4-6.9) x10^3/uL Basophils # 0.03 (0-0.4) x10^3/uL Sodium (137-145) mmol/L Potassium 3.2 L (3.5-5.1) mmol/L Chloride (98-107) mmol/L Carbon Dioxide (22-30) mmol/L Anion Gap (5-15) MEQ/L BUN (9-20) mg/dL Creatinine (0.66-1.25) mg/dL Estimated GFR ML/MIN Glucose (74-106) mg/dL POC Glucometer (74 to 106) mg/dL Calcium (8.4-10.2) mg/dL Magnesium (1.6-2.3) mg/dL 04/21/23 Range/Units 04:37 WBC (4.0-10.5) x10^3/uL RBC (4.1-5.6) x10^6/uL Hgb (12.5-18.0) g/dL Hct (42-50) % MCV (78-100) fL MCH (26-32) pg MCHC (32-36) g/dL RDW (11.5-14.0) % Plt Count (150-450) x10^3/uL MPV (7.5-11.0) fL Gran % (36.0-66.0) % Immature Gran % (Auto) (0.00-0.4) % Nucleat RBC Rel Count (0.00-0.1) % Eos # (Auto) (0-0.5) x10^3/uL Immature Gran # (Auto) (0.00-0.03) x10^3u/L Absolute Lymphs (auto) (1.0-4.6) x10^3/uL Absolute Monos (auto) (0.0-1.3) x10^3/uL Absolute Nucleated RBC (0.00-0.01) x10^3u/L Lymphocytes % (24.0-44.0) % Monocytes % (0.0-12.0) % Eosinophils % (0.00-5.0) % Basophils % (0.0-0.4) % Absolute Granulocytes (1.4-6.9) x10^3/uL Basophils # (0-0.4) x10^3/uL Sodium 137 (137-145) mmol/L Potassium 3.1 L (3.5-5.1) mmol/L Chloride 95 L (98-107) mmol/L Carbon Dioxide 37 H (22-30) mmol/L Anion Gap 8.5 (5-15) MEQ/L BUN 43 H (9-20) mg/dL Creatinine 1.69 H (0.66-1.25) mg/dL Estimated GFR 43.0 ML/MIN Glucose 189 H (74-106) mg/dL POC Glucometer (74 to 106) mg/dL Calcium 8.7 (8.4-10.2) mg/dL Magnesium 2.8 H (1.6-2.3) mg/dL Radiology Exams: Radiology Procedures Category Date Time Status ABDOMEN AND PELVIS W/0 CONTRAS [CT] Stat Exams 04/19/23 11:02 Completed CHEST WITHOUT CONTRAST [CT] Stat Exams 04/19/23 11:02 Completed HEAD WITHOUT CONTRAST [CT] Stat Exams 04/19/23 11:01 Completed Multi-Disciplinary Progress Notes: Multi-Disciplinary Progress Notes 04/20/23 10:38 Case Management Note by Aliza Dangelo NEW DRESSING CHANGE ORDERS PER PT RECOMMENDATIONS FAXED TO [facility] AT THIS TIME Initialized on 04/20/23 10:38 - END OF NOTE 04/20/23 10:24 Case Management Note by Aliza Dangelo [facility]. THEY WERE NOTIFIED PATIENT HERE INPT. THEY WILL NEED NOTIFIED AT TIME OF DC AT [phone]. THEY WILL NEED FAXED THE DC INSTRUCTIONS, DC MED LIST AND DC SUMMARY TO [phone] Initialized on 04/20/23 10:24 - END OF NOTE Assessment/Plan (1) Elevated INR Current Visit: Yes Status: Acute Assessment & Plan: -INR at 3.6, continue to hold 9: -Now within therapeutic range, pharmacy dosing coumadin Code(s): R79.1 - ABNORMAL COAGULATION PROFILE (2) Orthostatic hypotension Current Visit: Yes Status: Acute Assessment & Plan: -orthostatic vitals positive, will start midodrine at 5mg po tid Code(s): I95.1 - ORTHOSTATIC HYPOTENSION (3) Hypokalemia Current Visit: Yes Status: Acute Assessment & Plan: -potassium levels improving, continue potassium protocol, levels at 3.1, will continue potassium per protocol Code(s): E87.6 - HYPOKALEMIA (4) Frequent falls Current Visit: Yes Status: Acute Assessment & Plan: -PT/OT evaluation -Fall precautions/supratherapeutic INR -Orthostatic vitals positive, will start on midodrine, pacemaker interrogated, no issues with device Code(s): R29.6 - REPEATED FALLS (5) Elevated troponin Current Visit: Yes Status: Acute Assessment & Plan: -Downtrending -TELE -Consider cardio consult Code(s): R77.8 - OTHER SPECIFIED ABNORMALITIES OF PLASMA PROTEINS (6) GI bleed Current Visit: Yes Status: Acute Assessment & Plan: -Tele -CT with no acute findings -NS @50ml/hr -PPI protonix 40 bid IV -Avoid NSAIDS/ASA -Consider surgical consult for EGD/ colonoscopy -H&H Q6H, replace if hgb <7 04/20/23 -Hgb continue to be stable at 10.4, will continue to monitor as above 04/21: -Continue to monitor H&H, Hgb at 9.7 Code(s): K92.2 - GASTROINTESTINAL HEMORRHAGE, UNSPECIFIED (7) Acute on chronic renal failure Current Visit: No Status: Acute Assessment & Plan: -Creat at 1.85, baseline around 1.4-1.5. -Gentle hydration -Avoid JADE/ARBS NSAIDS -Monitor renal/lytes daily 04/20: -creat improved, now at baseline 04/21: -Continue to monitor renal/lytes daily, creat at 1.69 Code(s): N17.9 - ACUTE KIDNEY FAILURE, UNSPECIFIED; N18.9 - CHRONIC KIDNEY DISEASE, UNSPECIFIED (8) Bilateral lower leg cellulitis Current Visit: No Status: Acute Assessment & Plan: -Recent hospitalization, BLE currently wrapped in compression dressings with changes by [facility] 04/21: -BLE observed during dressing change on 04/20/23, much improved since last admission, continue wrap as ordered Code(s): L03.116 - CELLULITIS OF LEFT LOWER LIMB; L03.115 - CELLULITIS OF RIGHT LOWER LIMB (9) Constipation Current Visit: No Status: Acute Assessment & Plan: -Chronic add docusate bid/ miralax prn Code(s): K59.00 - CONSTIPATION, UNSPECIFIED (10) Diabetes type 2, controlled Current Visit: No Status: Acute Qualifiers: Assessment & Plan: -moderate dose sliding scale insulin Continue Lantus 10 units QHS Hold metformin in the setting of PAULO Continue Jardiance Code(s): E11.9 - TYPE 2 DIABETES MELLITUS WITHOUT COMPLICATIONS (11) CHF (congestive heart failure) Current Visit: No Status: Chronic Assessment & Plan: HFrEF Continue home torosemide/metolazone ECHO from 04/06/23 IMPRESSION: EF at 39% 1) MILD TO MODERATE DILATED LEFT VENTRICLE WITH MODERATE TO SEVERE LEFT VENTRICULAR SYSTOLIC DYSFUNCTION. 2) WALL MOTION ABNORMALITIES ARE PRESENT. 3) MILD CONCENTRIC LEFT VENTRICULAR HYPERTROPHY. 4) BIATRIAL ENLARGEMENT. 5) MILD TO MODERATE MITRAL REGURGITATION. 6) MILD TRICUSPID REGURGITATION. 7) TRACE AORTIC INSUFFICIENCY. 8) MILD PULMONARY HYPERTENSION. Continue empagliflozin 10 mg daily Continue Coreg 3.125 BID, Imdur 60 Code(s): I50.9 - HEART FAILURE, UNSPECIFIED (12) COPD (chronic obstructive pulmonary disease) Current Visit: No Status: Chronic Assessment & Plan: -Does not appear to be in exacerbation, CT findings unremarkable -Supplemental oxygen with goal of spo2 @ 92% -neb/inh prn (13) Essential (primary) hypertension Current Visit: No Status: Chronic Assessment & Plan: -Stable, continue home meds Code(s): I10 - ESSENTIAL (PRIMARY) HYPERTENSION
[2023-04-21 06:32] LABS: Hematocrit 33.2 % (42-50); Hemoglobin 9.7 g/dL (12.5-18.0)
[2023-04-21 06:55] VITALS: O2SAT 96
[2023-04-21 07:26] VITALS: RESP 20
[2023-04-21 08:02] LABS: INR 2.48 (0.8-3.0); PROTIME 25.3 SECONDS (9.4-12.5)
[2023-04-21] MEDS: Lantus Insulin SQ SCH (08:18)
[2023-04-21] MEDS: HUMALOG SQ PRN ×2 (08:19→11:38)
[2023-04-21] MEDS ORDERED: TYLENOL EXTRA STRENGTH 500 MG PO PRN (09:06)
[2023-04-21] MEDS: DEMADEX 20 MG PO SCH (09:19)
[2023-04-21] MEDS: FEOSOL 325 MG PO SCH (09:19)
[2023-04-21] MEDS: Coreg 3.125 MG PO SCH (09:19)
[2023-04-21] MEDS: PROAMATINE PO SCH (09:19)
[2023-04-21] MEDS: Imdur 30 MG PO SCH (09:19)
[2023-04-21] MEDS: Cordarone 200 MG PO SCH (09:19)
[2023-04-21] MEDS: JARDIANCE PO SCH (09:19)
[2023-04-21] MEDS ORDERED: Lidoderm Patch 5% TOP SCH (10:00)
[2023-04-21] MEDS ORDERED: Miralax Powder 17GM PACKET PO SCH (10:00)
[2023-04-21] MEDS ORDERED: Docusate Sodium 100 MG PO SCH (10:00)
[2023-04-21 11:28] VITALS: TEMP 97.7
--- NOTE | 2023-04-21 12:11 | PCM.DS ---
Discharge Summary Date of Admission: 04/19/23 15:56 Date of Discharge: 04/21/23 Admitting Physician: NATHALY LOFTON MD Primary Care Provider: PABLITO MUNGUIA Allergies Allergies apixaban [From Eliquis] Allergy (Severe, Verified 04/19/23 10:10) cant walk leg pain morphine Allergy (Severe, Verified 04/19/23 10:10) hallucinations HALLUCINATIONS dabigatran etexilate mesylate [From Pradaxa] Allergy (Mild, Verified 04/19/23 10:10) Nausea and Vomiting upset stomach metoclopramide HCl [From Reglan] Allergy (Mild, Verified 04/19/23 10:10) Itching [facility] Summary - Hospital Course Hospital Course: Mr. Villatoro is a 67-year-old man with history of CAD, CHF, DM 2, CKD stage III, A- fib(on coumadin), COPD, and BPH who presented to ER 04/19/23 via EMS with complaints of a fall at home. Patient states he got dizzy immediately prior and fell on his left side. He denies LOC or hitting his head during his fall. He also endorses nausea with dry heaves since 04/16/23. He states he struggles with constipation and noticed after a hard stool that he had some bright red blood and tar-like dark stools. Of note, patient is taking ferrous sulfate for iron deficiency. Patient was recently admitted 03/12/23 for BLE edema/ cellulitis. Upon exam BLE are wrapped in compression bandage, PT changed 04/20/23, legs much improved since last admission. Overnight events noted, patient with intermittent Vtach. [place] [employer], interrogated pt's pacemaker. Per rep, pacemaker's leads are all connected and there are no defects with the pacemaker. Pt had an episode of VT on 04/18 with a rate in the 160s but did not reach the rate of 181 to receive a shock from the defibrillator. Arrhythmia: Will need to follow up with Dr. Gao. PPM function intact. Had been on metoprolol and Coreg per home med list, but only giving Coreg for now until follow up. Anemia: Hemoglobin stable without further down trending. Will refer to GI. Patient was positive for orthostatic hypotension and started on midodrine. PT/INR now in therapeutic range. Potassium levels now within normal range. Patient to discharge home on potassium po 20mg bid x 5days, will need to follow up with Dr. Meier. He will restart his coumadin this evening 6mg. Patient follows with the coumadin clinic, pharmacy will call to schedule next appt with patient. Additionally will start the patient on Protonix 40mg BID, he will follow with GI for workup as OP. Advised close f/u with PCP. BMP, PT/INR, and CBC on Wednesday. -New Diagnoses: hypokalemia/GI bleed/supratherapeutic INR -New Medications: protonix, potassium, coumadin new dose 6mg -Medications Discontinued: metoprolol -Follow up: pcp/GI/Cardio/neph -Results pending: none -Outpatient testing to order: bmp, cbc, PT INR -Latest Assessment and Plan: (1) Elevated INR Current Visit: Yes Status: Acute Assessment & Plan: -INR at 3.6, continue to hold 04/21: -Now within therapeutic range, pharmacy dosing coumadin Code(s): R79.1 - ABNORMAL COAGULATION PROFILE (2) Orthostatic hypotension Current Visit: Yes Status: Acute Assessment & Plan: -orthostatic vitals positive, will start midodrine at 5mg po tid Code(s): I95.1 - ORTHOSTATIC HYPOTENSION (3) Hypokalemia Current Visit: Yes Status: Acute Assessment & Plan: -potassium levels improving, continue potassium protocol, levels at 3.1, will continue potassium per protocol Code(s): E87.6 - HYPOKALEMIA (4) Frequent falls Current Visit: Yes Status: Acute Assessment & Plan: -PT/OT evaluation -Fall precautions/supratherapeutic INR -Orthostatic vitals positive, will start on midodrine, pacemaker interrogated, no issues with device Code(s): R29.6 - REPEATED FALLS (5) Elevated troponin Current Visit: Yes Status: Acute Assessment & Plan: -Downtrending -TELE -Consider cardio consult Code(s): R77.8 - OTHER SPECIFIED ABNORMALITIES OF PLASMA PROTEINS (6) GI bleed Current Visit: Yes Status: Acute Assessment & Plan: -Tele -CT with no acute findings -NS @50ml/hr -PPI protonix 40 bid IV -Avoid NSAIDS/ASA -Consider surgical consult for EGD/ colonoscopy -H&H Q6H, replace if hgb <7 04/20/23 -Hgb continue to be stable at 10.4, will continue to monitor as above 04/21: -Continue to monitor H&H, Hgb at 9.7 Code(s): K92.2 - GASTROINTESTINAL HEMORRHAGE, UNSPECIFIED (7) Acute on chronic renal failure Current Visit: No Status: Acute Assessment & Plan: -Creat at 1.85, baseline around 1.4-1.5. -Gentle hydration -Avoid JADE/ARBS NSAIDS -Monitor renal/lytes daily 04/20: -creat improved, now at baseline 04/21: -Continue to monitor renal/lytes daily, creat at 1.69 Code(s): N17.9 - ACUTE KIDNEY FAILURE, UNSPECIFIED; N18.9 - CHRONIC KIDNEY DISEASE, UNSPECIFIED (8) Bilateral lower leg cellulitis Current Visit: No Status: Acute Assessment & Plan: -Recent hospitalization, BLE currently wrapped in compression dressings with changes by [facility] 04/21: -BLE observed during dressing change on 04/20/23, much improved since last admission, continue wrap as ordered Code(s): L03.116 - CELLULITIS OF LEFT LOWER LIMB; L03.115 - CELLULITIS OF RIGHT LOWER LIMB (9) Constipation Current Visit: No Status: Acute Assessment & Plan: -Chronic add docusate bid/ miralax prn Code(s): K59.00 - CONSTIPATION, UNSPECIFIED (10) Diabetes type 2, controlled Current Visit: No Status: Acute Qualifiers: Assessment & Plan: -moderate dose sliding scale insulin Continue Lantus 10 units QHS Hold metformin in the setting of PAULO Continue Jardiance Code(s): E11.9 - TYPE 2 DIABETES MELLITUS WITHOUT COMPLICATIONS (11) CHF (congestive heart failure) Current Visit: No Status: Chronic Assessment & Plan: HFrEF Continue home torosemide/metolazone ECHO from 04/06/23 IMPRESSION: EF at 39% 1) MILD TO MODERATE DILATED LEFT VENTRICLE WITH MODERATE TO SEVERE LEFT VENTRICULAR SYSTOLIC DYSFUNCTION. 2) WALL MOTION ABNORMALITIES ARE PRESENT. 3) MILD CONCENTRIC LEFT VENTRICULAR HYPERTROPHY. 4) BIATRIAL ENLARGEMENT. 5) MILD TO MODERATE MITRAL REGURGITATION. 6) MILD TRICUSPID REGURGITATION. 7) TRACE AORTIC INSUFFICIENCY. 8) MILD PULMONARY HYPERTENSION. Continue empagliflozin 10 mg daily Continue Coreg 3.125 BID, Imdur 60 Code(s): I50.9 - HEART FAILURE, UNSPECIFIED (12) COPD (chronic obstructive pulmonary disease) Current Visit: No Status: Chronic Assessment & Plan: -Does not appear to be in exacerbation, CT findings unremarkable -Supplemental oxygen with goal of spo2 @ 92% -neb/inh prn (13) Essential (primary) hypertension Current Visit: No Status: Chronic Assessment & Plan: -Stable, continue home meds Code(s): I10 - ESSENTIAL (PRIMARY) HYPERTENSION Additional CC's: Dr. DAVIN GAO I spent 45 minutes [id number] with the patient on the day of discharge pe rforming discharge exam, discussing hospital stay and discharge instructions with patient & caregivers, preparation of discharge records, prescriptions & referral forms and addressing any questions/concerns the patient had as documented above. - Vitals & Intake/Output Vital Signs: Vital Signs Temperature 97.7 F 04/21/23 11:28 Pulse Rate 80 04/21/23 11:28 Respiratory Rate 20 04/21/23 11:28 Blood Pressure 110/55 04/21/23 11:28 O2 Sat by Pulse Oximetry 96 04/21/23 11:28 Intake & Output: Intake & Output 04/19/23 04/20/23 04/21/23 04/22/23 11:59 11:59 11:59 11:59 Intake Total 1849 1740 Output Total 200 Balance 1649 1740 Weight 145.15 kg 146.5 kg - Lab Result Diagrams: 04/21/23 06:32 04/21/23 10:54 Lab Results-Last 24 Hrs: Lab Results-Last 24 Hours 04/20/23 04/20/23 04/20/23 Range/Units 12:15 14:50 16:14 WBC (4.0-10.5) x10^3/uL RBC (4.1-5.6) x10^6/uL Hgb 10.4 L (12.5-18.0) g/dL Hct 34.5 L (42-50) % MCV (78-100) fL MCH (26-32) pg MCHC (32-36) g/dL RDW (11.5-14.0) % Plt Count (150-450) x10^3/uL MPV (7.5-11.0) fL Gran % (36.0-66.0) % Immature Gran % (Auto) (0.00-0.4) % Nucleat RBC Rel Count (0.00-0.1) % Eos # (Auto) (0-0.5) x10^3/uL Immature Gran # (Auto) (0.00-0.03) x10^3u/L Absolute Lymphs (auto) (1.0-4.6) x10^3/uL Absolute Monos (auto) (0.0-1.3) x10^3/uL Absolute Nucleated RBC (0.00-0.01) x10^3u/L Lymphocytes % (24.0-44.0) % Monocytes % (0.0-12.0) % Eosinophils % (0.00-5.0) % Basophils % (0.0-0.4) % Absolute Granulocytes (1.4-6.9) x10^3/uL Basophils # (0-0.4) x10^3/uL PT (9.4-12.5) SECONDS INR (0.8-3.0) Sodium (137-145) mmol/L Potassium 3.4 L (3.5-5.1) mmol/L Chloride (98-107) mmol/L Carbon Dioxide (22-30) mmol/L Anion Gap (5-15) MEQ/L BUN (9-20) mg/dL Creatinine (0.66-1.25) mg/dL Estimated GFR ML/MIN Glucose (74-106) mg/dL POC Glucometer 363 H (74 to 106) mg/dL Calcium (8.4-10.2) mg/dL Magnesium (1.6-2.3) mg/dL 04/20/23 04/20/23 04/20/23 Range/Units 18:40 18:40 18:40 WBC (4.0-10.5) x10^3/uL RBC (4.1-5.6) x10^6/uL Hgb 9.5 L (12.5-18.0) g/dL Hct 31.9 L (42-50) % MCV (78-100) fL MCH (26-32) pg MCHC (32-36) g/dL RDW (11.5-14.0) % Plt Count (150-450) x10^3/uL MPV (7.5-11.0) fL Gran % (36.0-66.0) % Immature Gran % (Auto) (0.00-0.4) % Nucleat RBC Rel Count (0.00-0.1) % Eos # (Auto) (0-0.5) x10^3/uL Immature Gran # (Auto) (0.00-0.03) x10^3u/L Absolute Lymphs (auto) (1.0-4.6) x10^3/uL Absolute Monos (auto) (0.0-1.3) x10^3/uL Absolute Nucleated RBC (0.00-0.01) x10^3u/L Lymphocytes % (24.0-44.0) % Monocytes % (0.0-12.0) % Eosinophils % (0.00-5.0) % Basophils % (0.0-0.4) % Absolute Granulocytes (1.4-6.9) x10^3/uL Basophils # (0-0.4) x10^3/uL PT (9.4-12.5) SECONDS INR (0.8-3.0) Sodium (137-145) mmol/L Potassium 3.1 L (3.5-5.1) mmol/L Chloride (98-107) mmol/L Carbon Dioxide (22-30) mmol/L Anion Gap (5-15) MEQ/L BUN (9-20) mg/dL Creatinine (0.66-1.25) mg/dL Estimated GFR ML/MIN Glucose (74-106) mg/dL POC Glucometer (74 to 106) mg/dL Calcium (8.4-10.2) mg/dL Magnesium 2.5 H (1.6-2.3) mg/dL 04/20/23 04/21/23 04/21/23 Range/Units 20:39 00:53 00:53 WBC (4.0-10.5) x10^3/uL RBC (4.1-5.6) x10^6/uL Hgb 9.7 L (12.5-18.0) g/dL Hct 32.2 L (42-50) % MCV (78-100) fL MCH (26-32) pg MCHC (32-36) g/dL RDW (11.5-14.0) % Plt Count (150-450) x10^3/uL MPV (7.5-11.0) fL Gran % (36.0-66.0) % Immature Gran % (Auto) (0.00-0.4) % Nucleat RBC Rel Count (0.00-0.1) % Eos # (Auto) (0-0.5) x10^3/uL Immature Gran # (Auto) (0.00-0.03) x10^3u/L Absolute Lymphs (auto) (1.0-4.6) x10^3/uL Absolute Monos (auto) (0.0-1.3) x10^3/uL Absolute Nucleated RBC (0.00-0.01) x10^3u/L Lymphocytes % (24.0-44.0) % Monocytes % (0.0-12.0) % Eosinophils % (0.00-5.0) % Basophils % (0.0-0.4) % Absolute Granulocytes (1.4-6.9) x10^3/uL Basophils # (0-0.4) x10^3/uL PT (9.4-12.5) SECONDS INR (0.8-3.0) Sodium (137-145) mmol/L Potassium 3.2 L (3.5-5.1) mmol/L Chloride (98-107) mmol/L Carbon Dioxide (22-30) mmol/L Anion Gap (5-15) MEQ/L BUN (9-20) mg/dL Creatinine (0.66-1.25) mg/dL Estimated GFR ML/MIN Glucose (74-106) mg/dL POC Glucometer 354 H (74 to 106) mg/dL Calcium (8.4-10.2) mg/dL Magnesium (1.6-2.3) mg/dL 04/21/23 04/21/23 04/21/23 Range/Units 04:37 04:37 05:00 WBC 7.3 (4.0-10.5) x10^3/uL RBC 3.95 L (4.1-5.6) x10^6/uL Hgb 10.0 L (12.5-18.0) g/dL Hct 34.1 L (42-50) % MCV 86.3 (78-100) fL MCH 25.3 L (26-32) pg MCHC 29.3 L (32-36) g/dL RDW 16.3 H (11.5-14.0) % Plt Count 189 (150-450) x10^3/uL MPV 10.6 (7.5-11.0) fL Gran % 57.3 (36.0-66.0) % Immature Gran % (Auto) 0.8 H (0.00-0.4) % Nucleat RBC Rel Count 0.3 H (0.00-0.1) % Eos # (Auto) 0.40 (0-0.5) x10^3/uL Immature Gran # (Auto) 0.06 H (0.00-0.03) x10^3u/L Absolute Lymphs (auto) 1.52 (1.0-4.6) x10^3/uL Absolute Monos (auto) 1.11 (0.0-1.3) x10^3/uL Absolute Nucleated RBC 0.02 H (0.00-0.01) x10^3u/L Lymphocytes % 20.8 L (24.0-44.0) % Monocytes % 15.2 H (0.0-12.0) % Eosinophils % 5.5 H (0.00-5.0) % Basophils % 0.4 (0.0-0.4) % Absolute Granulocytes 4.18 (1.4-6.9) x10^3/uL Basophils # 0.03 (0-0.4) x10^3/uL PT 25.3 H (9.4-12.5) SECONDS INR 2.48 D (0.8-3.0) Sodium 137 (137-145) mmol/L Potassium 3.1 L (3.5-5.1) mmol/L Chloride 95 L (98-107) mmol/L Carbon Dioxide 37 H (22-30) mmol/L Anion Gap 8.5 (5-15) MEQ/L BUN 43 H (9-20) mg/dL Creatinine 1.69 H (0.66-1.25) mg/dL Estimated GFR 43.0 ML/MIN Glucose 189 H (74-106) mg/dL POC Glucometer (74 to 106) mg/dL Calcium 8.7 (8.4-10.2) mg/dL Magnesium 2.8 H (1.6-2.3) mg/dL 04/21/23 04/21/23 04/21/23 Range/Units 06:32 07:21 08:00 WBC (4.0-10.5) x10^3/uL RBC (4.1-5.6) x10^6/uL Hgb 9.7 L (12.5-18.0) g/dL Hct 33.2 L (42-50) % MCV (78-100) fL MCH (26-32) pg MCHC (32-36) g/dL RDW (11.5-14.0) % Plt Count (150-450) x10^3/uL MPV (7.5-11.0) fL Gran % (36.0-66.0) % Immature Gran % (Auto) (0.00-0.4) % Nucleat RBC Rel Count (0.00-0.1) % Eos # (Auto) (0-0.5) x10^3/uL Immature Gran # (Auto) (0.00-0.03) x10^3u/L Absolute Lymphs (auto) (1.0-4.6) x10^3/uL Absolute Monos (auto) (0.0-1.3) x10^3/uL Absolute Nucleated RBC (0.00-0.01) x10^3u/L Lymphocytes % (24.0-44.0) % Monocytes % (0.0-12.0) % Eosinophils % (0.00-5.0) % Basophils % (0.0-0.4) % Absolute Granulocytes (1.4-6.9) x10^3/uL Basophils # (0-0.4) x10^3/uL PT (9.4-12.5) SECONDS INR (0.8-3.0) Sodium (137-145) mmol/L Potassium 3.3 L (3.5-5.1) mmol/L Chloride (98-107) mmol/L Carbon Dioxide (22-30) mmol/L Anion Gap (5-15) MEQ/L BUN (9-20) mg/dL Creatinine (0.66-1.25) mg/dL Estimated GFR ML/MIN Glucose (74-106) mg/dL POC Glucometer 191 H (74 to 106) mg/dL Calcium (8.4-10.2) mg/dL Magnesium (1.6-2.3) mg/dL 04/21/23 04/21/23 Range/Units 10:54 11:20 WBC (4.0-10.5) x10^3/uL RBC (4.1-5.6) x10^6/uL Hgb (12.5-18.0) g/dL Hct (42-50) % MCV (78-100) fL MCH (26-32) pg MCHC (32-36) g/dL RDW (11.5-14.0) % Plt Count (150-450) x10^3/uL MPV (7.5-11.0) fL Gran % (36.0-66.0) % Immature Gran % (Auto) (0.00-0.4) % Nucleat RBC Rel Count (0.00-0.1) % Eos # (Auto) (0-0.5) x10^3/uL Immature Gran # (Auto) (0.00-0.03) x10^3u/L Absolute Lymphs (auto) (1.0-4.6) x10^3/uL Absolute Monos (auto) (0.0-1.3) x10^3/uL Absolute Nucleated RBC (0.00-0.01) x10^3u/L Lymphocytes % (24.0-44.0) % Monocytes % (0.0-12.0) % Eosinophils % (0.00-5.0) % Basophils % (0.0-0.4) % Absolute Granulocytes (1.4-6.9) x10^3/uL Basophils # (0-0.4) x10^3/uL PT (9.4-12.5) SECONDS INR (0.8-3.0) Sodium (137-145) mmol/L Potassium 3.5 (3.5-5.1) mmol/L Chloride (98-107) mmol/L Carbon Dioxide (22-30) mmol/L Anion Gap (5-15) MEQ/L BUN (9-20) mg/dL Creatinine (0.66-1.25) mg/dL Estimated GFR ML/MIN Glucose (74-106) mg/dL POC Glucometer 293 H (74 to 106) mg/dL Calcium (8.4-10.2) mg/dL Magnesium (1.6-2.3) mg/dL Micro Results-Entire Visit: Accuchecks Date 04/21/23 Date 04/21/23 Date 04/20/23 Date 04/20/23 Time 21:41 Time 16:23 - Procedures and Test Procedures and Tests throughout Hospitalization: Therapy Orders & Screens 04/19/23 17:11 PT Screen per Nursing Assess STAT Comment: Protocol Order Physician Instructions: Greater than 3 points order PT Admission Screenin Reason For Exam: Triggered on Admission Diagnosis: GI bleed/Elevated INR/Renal failure 04/19/23 17:12 Oxygen Nasal Cannula 2 lpm Comment: Diagnosis: GI bleed/Elevated INR/Renal failure 04/19/23 17:25 Respiratory Therapy Assessment DAILY Comment: Diagnosis: GI bleed/Elevated INR/Renal failure 04/20/23 09:51 PT Eval & Treat (MD Order) ONCE Reason for Eval:: RECURRENT FALLS Diagnosis: GI bleed/Elevated INR/Renal failure 04/20/23 17:49 EKG ROUTINE Comment: Diagnosis: GI bleed/Elevated INR/Renal failure Discharge Exam General Appearance: no apparent distress Neurologic Exam: alert, oriented x 3, cooperative Eye Exam: PERRL Ears, Nose, Throat Exam: normal ENT inspection Neck Exam: normal inspection Respiratory Exam: normal breath sounds, lungs clear Cardiovascular Exam: regular rate/rhythm, normal heart sounds Gastrointestinal/Abdomen Exam: soft, normal bowel sounds Male Genitalia Exam: deferred Rectal Exam: deferred Back Exam: normal inspection Extremity Exam: swelling (ble with wrapped legs/ improved cellulitis) Skin Exam: other (ble with wrapped legs/ improved cellulitis) Final Diagnosis/Problem List - Final Discharge Diagnosis/Problem (1) Elevated INR Current Visit: Yes Status: Acute Code(s): R79.1 - ABNORMAL COAGULATION PROFILE (2) Orthostatic hypotension Current Visit: Yes Status: Acute Code(s): I95.1 - ORTHOSTATIC HYPOTENSION (3) Hypokalemia Current Visit: Yes Status: Acute Code(s): E87.6 - HYPOKALEMIA (4) Frequent falls Current Visit: Yes Status: Acute Code(s): R29.6 - REPEATED FALLS (5) Elevated troponin Current Visit: Yes Status: Acute Code(s): R77.8 - OTHER SPECIFIED ABNORMALITIES OF PLASMA PROTEINS (6) GI bleed Current Visit: Yes Status: Acute Code(s): K92.2 - GASTROINTESTINAL HEMORRHAGE, UNSPECIFIED (7) Acute on chronic renal failure Current Visit: No Status: Acute Code(s): N17.9 - ACUTE KIDNEY FAILURE, UNSPECIFIED; N18.9 - CHRONIC KIDNEY DISEASE, UNSPECIFIED (8) Bilateral lower leg cellulitis Current Visit: No Status: Acute Code(s): L03.116 - CELLULITIS OF LEFT LOWER LIMB; L03.115 - CELLULITIS OF RIGHT LOWER LIMB (9) Constipation Current Visit: No Status: Acute Code(s): K59.00 - CONSTIPATION, UNSPECIFIED (10) Diabetes type 2, controlled Current Visit: No Status: Acute Code(s): E11.9 - TYPE 2 DIABETES MELLITUS WITHOUT COMPLICATIONS (11) CHF (congestive heart failure) Current Visit: No Status: Chronic Code(s): I50.9 - HEART FAILURE, UNSPECIFIED (12) COPD (chronic obstructive pulmonary disease) Current Visit: No Status: Chronic (13) Essential (primary) hypertension Current Visit: No Status: Chronic Code(s): I10 - ESSENTIAL (PRIMARY) HYPERTENSION - Discharge Prescriptions: New Warfarin Sodium 3 mg [Coumadin 3 MG] 6 mg PO COU 20 Days #20 tablet Potassium Chloride 20 meq PO BID 5 Days #10 tablet Midodrine HCl [Proamatine] 5 mg PO TID 30 Days #90 tablet PANTOPRAZOLE 40 mg Tablet [Protonix 40MG Tablet] 40 mg PO BID 30 Days #60 tab Continue Aspirin [Aspirin EC] 81 mg PO DAILY Nitroglycerin 0.4 mg Tablet [Nitrostat 0.4 MG Tablet] 0.4 mg SL UD PRN PRN Reason: Chest Pain Atorvastatin Calcium [Lipitor] 80 mg PO HS Metformin HCl 500 mg [Glucophage 500 MG] 1,000 mg PO BIDWM Insulin NPH/Reg 70/30 [Novolin 70/30] 60 unit SQ PMINSULIN Insulin NPH/Reg 70/30 [Novolin 70/30] 75 unit SQ AMINSULIN Albuterol Sulfate 2 puffs IH Q6HPRN PRN PRN Reason: Shortness Of Breath Isosorbide Mononitrate 30 mg [Imdur 30 MG] 60 mg PO DAILY Amiodarone HCl 200 mg [Cordarone 200 MG] 200 mg PO DAILY Potassium Chloride 10 meq PO TID Clopidogrel Bisulfate [Plavix] 75 mg PO DAILY #0 Ferrous Sulfate [Iron] 325 mg PO BID Tamsulosin HCl 0.4 mg [Flomax 0.4 MG] 0.4 mg PO HS Torsemide 20 mg [Demadex 20 mg] 20 mg PO DAILY Carvedilol 3.125 mg [Coreg 3.125 MG] 3.125 mg PO BID Empagliflozin [Jardiance] 10 mg PO DAILY Lisinopril 10 mg [Zestril 10 MG] 10 mg PO DAILY Metolazone 2.5 mg [Zaroxolyn 2.5 MG] 2.5 mg PO UD Discontinued Warfarin Sodium 4 mg PO DAILY Metoprolol Succinate 50 mg [Toprol Xl 50 MG] 50 mg PO DAILY Outpatient Orders: BMP Time Frame: 2 Days, Facility: [facility], Location: LABORATORY CBC Time Frame: 2 Days, Facility: [facility], Location: LABORATORY PROTIME WITH INR Time Frame: 2 Days, Facility: [facility], Location: LABORATORY Instructions: Midodrine Follow up with: PABLITO MUNGUIA MD [Primary Care Provider] - Follow up/PCP as directed HAY MEIER [CONSULTING PHYSICIAN] - NEIDA GAO [CONSULTING PHYSICIAN] - GLADIS QUIROZ JR [NON-STAFF PHY W/O PRIVILEGES] -
[2023-04-21 13:18] VITALS: BP 82/46; PULSE 84
[2023-04-21] MEDS ORDERED: Coumadin 3 MG PO SCH (18:00)
== END 2023-04-21 14:25 | disposition home health service (06) | DRG 948 ==
LOC: ED 10:07 → MED SURG 15:56
PROVIDERS: ADMIT Internal Medicine; ATTEND Internal Medicine
DX: R79.1 Abnormal coagulation profile (principal); I13.0 Hypertensive heart and chronic kidney disease with heart failure and stage 1 through stage 4 chronic kidney disease, or unspecified chronic kidney disease; K92.2 Gastrointestinal hemorrhage, unspecified; L03.116 Cellulitis of left lower limb; L03.115 Cellulitis of right lower limb; E11.22 Type 2 diabetes mellitus with diabetic chronic kidney disease; N18.30 Chronic kidney disease, stage 3 unspecified; I50.9 Heart failure, unspecified; I25.10 Atherosclerotic heart disease of native coronary artery without angina pectoris; I48.91 Unspecified atrial fibrillation; N40.0 Benign prostatic hyperplasia without lower urinary tract symptoms; J44.9 Chronic obstructive pulmonary disease, unspecified; W19.XXXA Unspecified fall, initial encounter; I95.1 Orthostatic hypotension; E87.6 Hypokalemia; R29.6 Repeated falls; R77.8 Other specified abnormalities of plasma proteins; K59.00 Constipation, unspecified; D64.9 Anemia, unspecified; Z20.828 Contact with and (suspected) exposure to other viral communicable diseases; Z79.899 Other long term (current) drug therapy; Z79.01 Long term (current) use of anticoagulants; Z95.1 Presence of aortocoronary bypass graft; Z99.81 Dependence on supplemental oxygen
CPT/HCPCS: 0241U; 36000; 36415; 36430; 70450; 71250; 74176; 80048; 80053; 81001; 82947; 83605; 83735; 83880; 84132; 84484; 85014; 85018; 85025; 85610; 85730; 86850; 86900; 86901; 86927; 93005; 94760; 96372; 97161; 97597; 99285; 99291; P9017; Q3014; A6457; J1817; J3430; J3480; A9270-GY

== ENCOUNTER 2023-04-23 10:11 | Emergency (ER) | payer MEDICARE ==
--- NOTE | 2023-04-23 10:22 | ERPHSYRPT ---
- History of Present Illness Time Seen by Provider: 04/23/23 10:22 Source: patient, EMS, old records Exam Limitations: no limitations Physician History: This is a 68-year-old white male patient of Dr. 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 Patient was brought into the emergency department today by the paramedics who provided additional, independent history. I also reviewed the patient's recent inpatient admission note into the hospital dated 04/19/2023. On 04/19/2023 patient had melena and hematochezia but he had a very elevated PT and INR. This was corrected and patient was then discharged to home. Patient has a history of COPD that is oxygen dependent and he wears 2 L of oxygen via nasal cannula chronically. He denies chest pain. He is not having any nausea or vomiting symptoms. He still complaining of some bilateral lower quadrant and hip pain. A CT scan of the abdomen pelvis was performed on 04/19/2023 and there were no acute findings other than an umbilical hernia that was present and had small amount of omentum within it. Patient has a history of diabetes, atrial fibrillation on Coumadin, coronary artery disease with a history of VT, cardiac stent placement and CABG, hyperlipidemia, hypertension, CHF, chronic cough, sleep apnea, ischemic cardiomyopathy and renal insufficiency. Timing/Duration: yesterday, worse Severity: moderate Modifying Factors: Improves With: nothing Associated Symptoms: shortness of breath, weakness (Chronic weakness), No chest pain Allergies/Adverse Reactions: apixaban [From Eliquis] Allergy (Severe, Verified 04/19/23 10:10) cant walk leg pain morphine Allergy (Severe, Verified 04/19/23 10:10) hallucinations HALLUCINATIONS dabigatran etexilate mesylate [From Pradaxa] Allergy (Mild, Verified 04/19/23 10:10) Nausea and Vomiting upset stomach metoclopramide HCl [From Reglan] Allergy (Mild, Verified 04/19/23 10:10) Itching hives Home Medications: Aspirin [Aspirin EC] 81 mg PO DAILY 09/03/13 [History] Nitroglycerin 0.4 mg Tablet [Nitrostat 0.4 MG Tablet] 0.4 mg SL UD PRN 09/03/13 [History] Atorvastatin Calcium [Lipitor] 80 mg PO HS 11/29/17 [History] Metformin HCl 500 mg [Glucophage 500 MG] 1,000 mg PO BIDWM 11/29/17 [History] Albuterol Sulfate 2 puffs IH Q6HPRN PRN 09/06/20 [History] Insulin NPH/Reg 70/30 [Novolin 70/30] 60 unit SQ PMINSULIN 09/06/20 [History] Insulin NPH/Reg 70/30 [Novolin 70/30] 75 unit SQ AMINSULIN 09/06/20 [History] Amiodarone HCl 200 mg [Cordarone 200 MG] 200 mg PO DAILY 03/13/22 [History] Isosorbide Mononitrate 30 mg [Imdur 30 MG] 60 mg PO DAILY 03/13/22 [Histor y] Ferrous Sulfate [Iron] 325 mg PO BID 12/03/22 [History] Tamsulosin HCl 0.4 mg [Flomax 0.4 MG] 0.4 mg PO HS 02/03/23 [History] Torsemide 20 mg [Demadex 20 mg] 20 mg PO DAILY 02/03/23 [History] Carvedilol 3.125 mg [Coreg 3.125 MG] 3.125 mg PO BID 03/12/23 [History] Empagliflozin [Jardiance] 10 mg PO DAILY 03/12/23 [History] Lisinopril 10 mg [Zestril 10 MG] 10 mg PO DAILY 03/12/23 [History] Metolazone 2.5 mg [Zaroxolyn 2.5 MG] 2.5 mg PO UD 04/17/23 [History] Hx Tetanus, Diphtheria Vaccination/Date Given: Yes Hx Influenza Vaccination/Date Given: Yes Hx Pneumococcal Vaccination/Date Given: No Travel Risk - International Travel Have you traveled outside of the country in past 3 weeks: No - Coronavirus Screening Are you exhibiting any of the following symptoms?: Yes Symptoms: Shortness of Breath Close contact with a COVID-19 positive Pt in past 14-21 Days: No - Vaccine Status Have you recieved a Covid-19 vaccination: Yes 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 - Vaccination Dates Dates if Unknown: unknown - Review of Systems Constitutional: Weakness Eyes: No Symptoms (Chronic) Ears, Nose, & Throat: No Symptoms Respiratory: Dyspnea on Exertion (LEONG) Cardiac: No Symptoms Abdominal/Gastrointestinal: No Symptoms Genitourinary Symptoms: No Symptoms Musculoskeletal: No Symptoms Skin: No Symptoms Neurological: No Symptoms Psychological: No Symptoms Endocrine: No Symptoms Hematologic/Lymphatic: No Symptoms Immunological/Allergic: No Symptoms All Other Systems: Reviewed and Negative - Past Medical History Pertinent Past Medical History: Yes Neurological History: Migraines, Peripheral Neuropathy ENT History: Cataracts Cardiac History: Arrhythmia, Congestive Heart Failure, Coronary Artery Disease, High Cholesterol, Hypertension, Myocardial Infarction (VT) Respiratory History: CHF, COPD, Emphysema, Pneumonia, Sleep Apnea Endocrine Medical History: Diabetes Type II, Other Musculoskeletal History: No Pertinent History GI Medical History: Diverticulitis, Polyps History: No Pertinent History Psycho-Social History: No Pertinent History Male Reproductive Disorders: No Pertinent History Other Medical History: SLEEP APNEA, RLS, FATIGUE, SINUSITIS, ISCHEMIC CARDIOMYOPATHY, A-FIB - Past Surgical History Past Surgical History: Yes Neuro Surgical History: No Pertinent History Cardiac: CABG, Cardiac Catheterization, Cardiac Stent, Internal Defibrillator, Pacemaker Respiratory: No Pertinent History Gastrointestinal: Other Genitourinary: No Pertinent History Musculoskeletal: No Pertinent History Male Surgical History: No Pertinent History Other Surgical History: POLYPS REMOVED FROM COLON bilateral eye implants, bypass x3, pacemaker x3 - Social History Smoking Status: Former smoker How long have you smoked: 21 yrs Exposure to second hand smoke: No Drug Use: none Patient Lives Alone: Yes - Nursing Vital Signs Nursing Vital Signs: Initial Vital Signs Pulse Rate 92 H 04/23/23 10:16 Respiratory Rate 25 H 04/23/23 10:16 Blood Pressure 155/74 04/23/23 10:16 O2 Sat by Pulse Oximetry 98 04/23/23 10:16 Pain Scale Pain Intensity 4 - Physical Exam General Appearance: no apparent distress, alert, anxiety, obese Eye Exam: PERRL/EOMI, eyes nml inspection Ears, Nose, Throat Exam: normal ENT inspection, moist mucous membranes Neck Exam: normal inspection, non-tender, supple, full range of motion Respiratory Exam: normal breath sounds, lungs clear, airway intact, No chest tenderness, No respiratory distress Cardiovascular Exam: regular rate/rhythm, normal heart sounds, normal peripheral pulses Gastrointestinal/Abdomen Exam: soft, normal bowel sounds, No tenderness Rectal Exam: not done Back Exam: normal inspection, normal range of motion, No CVA tenderness, No vertebral tenderness Extremity Exam: normal range of motion, pelvis stable, pedal edema (Bilateral feet ankles and lower below the knee legs) Neurologic Exam: alert, oriented x 3, cooperative, aviation manager II-XII nml as tested, normal mood/affect, sensation nml Skin Exam: normal color, warm, dry Lymphatic Exam: No adenopathy SpO2 Interpretation: normal O2 Delivery: Room Air - Course Nursing assessment & vital signs reviewed: Yes EKG Interpreted by Me: RATE (89), Right Bundle Branch Block, Other (No acute isc hemic changes on today's twelve-lead EKG. There is biventricular paced rhythm. Only change in today's twelve-lead EKG compared to the 2 prior old EKGs as there is evidence of right bundle branch block on today's twelve-lead EKG) Ordered Tests: Active Orders 24 hr Category Date Time Status Customer Experience Analyst STAT Care 04/23/23 10:39 Active EKG-ER Only STAT Care 04/23/23 10:38 Active IV Insertion STAT Care 04/23/23 10:38 Active Oxygen-ED Only Nasal Cannula 2 lpm Care 04/23/23 10:38 Active Pulse Oximetry (ED) STAT Care 04/23/23 10:38 Active CHEST 1 VIEW (PORTABLE) Stat Exams 04/23/23 10:39 Completed BLOOD CULTURE Stat Lab 04/23/23 13:02 Received CBC W DIFF Stat Lab 04/23/23 11:20 Completed CMP Stat Lab 04/23/23 11:20 Completed Lactic Acid Stat Lab 04/23/23 11:20 Completed NT PRO BNPII Stat Lab 04/23/23 11:20 Completed PT INR [PROTIME WITH INR] Stat Lab 04/23/23 16:53 Ordered TROPONIN Q4H Lab 04/23/23 11:20 Completed TROPONIN Q4H Lab 04/23/23 13:55 Completed TROPONIN Q4H Lab 04/23/23 18:45 Ordered Medication Summary Discontinued Medications Generic Name Dose Route Start Last Admin Trade Name Freq PRN Reason Stop Dose Admin Ceftriaxone Sodium/Dextrose 1 g in 50 mls @ 100 mls/hr 04/23/23 11:29 04/23/23 12:18 Rocephin 1 Gm-D5w 50 Ml Bag IV 04/23/23 11:58 Infused STAT STA Infusion Ceftriaxone Sodium/Dextrose Confirm 04/23/23 11:31 Rocephin 1 Gm-D5w 50 Ml Bag Administered 04/23/23 11:32 Dose 1 g in 50 mls @ ud IV .STK-MED ONE Potassium Chloride 20 meq 04/23/23 16:54 Potassium Chloride Tab 10 Meq Tab PO 04/23/23 16:55 STAT ONE Lab/Rad Data: Laboratory Result Diagrams 04/23/23 11:20 04/23/23 11:20 Laboratory Results 04/23/23 04/23/23 04/23/23 Range/Units 13:55 11:20 11:20 WBC (4.0-10.5) x10^3/uL RBC (4.1-5.6) x10^6/uL Hgb (12.5-18.0) g/dL Hct (42-50) % MCV (78-100) fL MCH (26-32) pg MCHC (32-36) g/dL RDW (11.5-14.0) % Plt Count (150-450) x10^3/uL MPV (7.5-11.0) fL Gran % (36.0-66.0) % Immature Gran % (Auto) (0.00-0.4) % Nucleat RBC Rel Count (0.00-0.1) % Eos # (Auto) (0-0.5) x10^3/uL Immature Gran # (Auto) (0.00-0.03) x10^3u/L Absolute Lymphs (auto) (1.0-4.6) x10^3/uL Absolute Monos (auto) (0.0-1.3) x10^3/uL Absolute Nucleated RBC (0.00-0.01) x10^3u/L Lymphocytes % (24.0-44.0) % Monocytes % (0.0-12.0) % Eosinophils % (0.00-5.0) % Basophils % (0.0-0.4) % Absolute Granulocytes (1.4-6.9) x10^3/uL Basophils # (0-0.4) x10^3/uL Sodium (137-145) mmol/L Potassium (3.5-5.1) mmol/L Chloride (98-107) mmol/L Carbon Dioxide (22-30) mmol/L Anion Gap (5-15) MEQ/L BUN (9-20) mg/dL Creatinine (0.66-1.25) mg/dL Estimated GFR ML/MIN Glucose (74-106) mg/dL Lactic Acid (0.4-2.0) Calcium (8.4-10.2) mg/dL Total Bilirubin (0.2-1.3) mg/dL AST (17-59) U/L ALT (0-50) U/L Alkaline Phosphatase (38-126) U/L Troponin I 0.047 H* 0.044 H* (0.000-0.034) ng/mL NT-Pro-B Natriuret Pep (<300) pg/mL Serum Total Protein (6.3-8.2) g/dL Albumin (3.5-5.0) g/dL Influenza Type A Ag NEGATIVE (NEGATIVE) Influenza Type B Ag NEGATIVE (NEGATIVE) RSV (PCR) NEGATIVE (NEGATIVE) SARS-CoV-2 (PCR) NEGATIVE (NEGATIVE) Slides for Path Review 04/23/23 04/23/23 04/23/23 Range/Units 11:20 11:20 11:20 WBC 20.5 H (4.0-10.5) x10^3/uL RBC 4.12 (4.1-5.6) x10^6/uL Hgb 10.7 L (12.5-18.0) g/dL Hct 34.7 L (42-50) % MCV 84.2 (78-100) fL MCH 26.0 (26-32) pg MCHC 30.8 L (32-36) g/dL RDW 17.8 H (11.5-14.0) % Plt Count 219 (150-450) x10^3/uL MPV 10.1 (7.5-11.0) fL Gran % 84.1 H (36.0-66.0) % Immature Gran % (Auto) 1.0 H (0.00-0.4) % Nucleat RBC Rel Count 0.0 (0.00-0.1) % Eos # (Auto) 0.06 (0-0.5) x10^3/uL Immature Gran # (Auto) 0.20 H (0.00-0.03) x10^3u/L Absolute Lymphs (auto) 1.03 (1.0-4.6) x10^3/uL Absolute Monos (auto) 1.92 H (0.0-1.3) x10^3/uL Absolute Nucleated RBC 0.00 (0.00-0.01) x10^3u/L Lymphocytes % 5.0 L (24.0-44.0) % Monocytes % 9.4 (0.0-12.0) % Eosinophils % 0.3 (0.00-5.0) % Basophils % 0.2 (0.0-0.4) % Absolute Granulocytes 17.23 H (1.4-6.9) x10^3/uL Basophils # 0.05 (0-0.4) x10^3/uL Sodium 133 L (137-145) mmol/L Potassium 3.1 L (3.5-5.1) mmol/L Chloride 89 L (98-107) mmol/L Carbon Dioxide 34 H (22-30) mmol/L Anion Gap 13.2 (5-15) MEQ/L BUN 31 H (9-20) mg/dL Creatinine 1.61 H (0.66-1.25) mg/dL Estimated GFR 45.5 ML/MIN Glucose 174 H (74-106) mg/dL Lactic Acid 2.0 (0.4-2.0) Calcium 9.9 (8.4-10.2) mg/dL Total Bilirubin 1.70 H (0.2-1.3) mg/dL AST 49 (17-59) U/L ALT 30 (0-50) U/L Alkaline Phosphatase 106 (38-126) U/L Troponin I (0.000-0.034) ng/mL NT-Pro-B Natriuret Pep 637 (<300) pg/mL Serum Total Protein 7.9 (6.3-8.2) g/dL Albumin 4.3 (3.5-5.0) g/dL Influenza Type A Ag (NEGATIVE) Influenza Type B Ag (NEGATIVE) RSV (PCR) (NEGATIVE) SARS-CoV-2 (PCR) (NEGATIVE) Slides for Path Review YES - Progress Progress: improved, re-examined Progress Note: 04/23/23 11:24 Chest x-ray was interpreted by the radiologist and I reviewed the impression. There are new, mild by basilar hazy infiltrates versus atelectasis. This patient's medical issue is 1 of moderate to high complexity. Level complexity in the work-up performed is based on review of the patient's past medical history, review of the patient's medication list, review the patient's drug allergy list, history of present illness and physical findings on examination. The work-up includes chest x-ray, twelve-lead EKG, CBC, CMP, troponin level, BNP level, blood cultures, flu swabs. 04/23/23 12:47 I reviewed the results of this patient's work-up. Patient has a leukocytosis of 20,000 with a left shift. On 04/19/2023, the patient's white count was approximately 7.8. Patient has a troponin level today of 0.044. This patient's scheduling assistant is Dr. De Leon. Patient is experiencing some mild chest pressure at this time. He did not have chest pain when he came in. His oxygenation satur ation level on 2 L is running anywhere between 91 and 94%. His viral swab screens are negative. Patient does not wish to be transferred to [facility] but to [facility]. We will place a call into that facility. 04/23/23 15:43 Patient and his family now are agreeable to transfer the patient to [facility] to be closer to home rather than further in [facility] or [place]. 04/23/23 16:14 Patient became more tachycardic approximately 1420. We repeated the twelve-lead EKG. Patient's chest pressure and shortness of breath did not change per his report during this episode. His heart rate was 118 bpm. The rhythm was ventricular paced complexes. Persistent right bundle branch block but no evidence of ventricular tachycardia, atrial fibrillation or ventricular fibrillation and no evidence of acute ischemic changes. 04/23/23 16:59 Per RN emergency department nursing staff, [facility] contacted us and they will not have any beds today and likely not tomorrow. Dr. Rosa was on-call for this patient's scheduling assistant. Dr. Rosa stated that if management in this smaller institution is felt to be not appropriate, we can contact [facility] to transfer. I then contacted Dr. Miguel at [facility]. He is the emergency department physician on at this time. I reviewed the patient history, physical findings, work-up performed and the results and he accepts the patient in transfer. Counseled pt/family regarding: lab results, diagnosis, rad results Medical Desision Making - Independent Historian Additional History obtained from: Family - Social Determinants of Health Limited access to: transportation - Diagnostic Testing Diagnostic test were ordered, analyzed, and reviewed by me: Yes Radiological Interpretation: Reviewed by me, Teleradiologist Report - Risk of complications The pt has a high risk of morbidity or mortality based on: Decision regarding hospitilization or escalation of hosp level of care - Departure Departure Disposition: Transfer Clinical Impression: Shortness of breath, Chest pressure, Elevated troponin, Opacities of both lungs present on chest x-ray, Non-STEMI (non-ST elevated myocardial infarction) Condition: Fair Critical Care Time: No Referrals: PABLITO MUNGUIA MD [Primary Care Provider] - Follow up/PCP as directed
[2023-04-23 10:23] VITALS: TEMP 98
--- NOTE | 2023-04-23 10:58 | XRAY ---
Indication: Short of breath. Comparison: March 17, 2023 Portable chest demonstrates new mild bibasilar hazy infiltrates versus atelectasis. No consolidation/large effusion. Heart not enlarged again with CABG, left AICD, and tiny hilar calcified granulomas. Bony thorax intact again with osteopenia and degenerative changes.
[2023-04-23 11:29] LABS: Absolute Neutrophil Ct (ANC) 17.23 x10^3/uL (1.4-6.9); BASOPHIL % 0.2 % (0.0-0.4); Basophil (Absolute #) 0.05 x10^3/uL (0-0.4); Eosinophil % 0.3 % (0.00-5.0); Eosinophil (Absolute #) 0.06 x10^3/uL (0-0.5); Hematocrit 34.7 % (42-50); Hemoglobin 10.7 g/dL (12.5-18.0); Lymphocyte (Absolute #) 1.03 x10^3/uL (1.0-4.6); Mean Cell Volume 84.2 fL (78-100); Mean Corpuscular Hgb Concent. 30.8 g/dL (32-36); Mean Platelet Volume 10.1 fL (7.5-11.0); Monocyte (Absolute #) 1.92 x10^3/uL (0.0-1.3); Monocytes % 9.4 % (0.0-12.0); Neutrophil % 84.1 % (36.0-66.0); Platelet Count 219 x10^3/uL (150-450); Red Blood Count 4.12 x10^6/uL (4.1-5.6); Red Cell Distribution Width 17.8 % (11.5-14.0); White Blood Count 20.5 x10^3/uL (4.0-10.5)
[2023-04-23] MEDS ORDERED: ROCEPHIN 1 Gm-D5w 50 ml Bag** 1 G/50 ML IVPB IV STA (11:29)
[2023-04-23] MEDS ORDERED: ROCEPHIN 1 Gm-D5w 50 ml Bag** 1 G/50 ML IVPB IV ONE (11:31)
[2023-04-23 11:54] LABS: ALBUMIN 4.3 g/dL (3.5-5.0); ANION GAP 13.2 MEQ/L (5-15); BILIRUBIN,TOTAL 1.7 mg/dL (0.2-1.3); Calcium 9.9 mg/dL (8.4-10.2); Creatinine 1 1.61 mg/dL (0.66-1.25); EST GLOMERULAR FILTRATION RATE 45.5 ML/MIN; Potassium 3.1 mmol/L (3.5-5.1); Total Protein 7.9 g/dL (6.3-8.2)
[2023-04-23 12:06] LABS: INFLUENZA A NEGATIVE (NEGATIVE); INFLUENZA B NEGATIVE (NEGATIVE); RESPIRATORY SYNCTIAL VIRUS NEGATIVE (NEGATIVE); SARS-CoV-2 Xpert Express NEGATIVE (NEGATIVE)
[2023-04-23 13:49] LABS: Slide Review 1 YES
[2023-04-23 15:45] VITALS: O2SAT 98
[2023-04-23] MEDS ORDERED: Klor Con PO ONE ×2 (16:54→16:59)
[2023-04-23 17:07] LABS: INR 1.34 (0.8-3.0); PROTIME 14.3 SECONDS (9.4-12.5)
[2023-04-23 17:49] VITALS: BP 128/65; PULSE 94; RESP 23
== END 2023-04-23 17:52 | disposition short-term general hospital (02) ==
LOC: ED 10:11
DX: I21.4 Non-ST elevation (NSTEMI) myocardial infarction (principal); R06.02 Shortness of breath; R07.9 Chest pain, unspecified; R77.8 Other specified abnormalities of plasma proteins; R91.8 Other nonspecific abnormal finding of lung field; J18.9 Pneumonia, unspecified organism; I11.0 Hypertensive heart disease with heart failure; I50.9 Heart failure, unspecified; E78.5 Hyperlipidemia, unspecified; E11.42 Type 2 diabetes mellitus with diabetic polyneuropathy; Z79.84 Long term (current) use of oral hypoglycemic drugs; Z79.4 Long term (current) use of insulin; Z79.01 Long term (current) use of anticoagulants; Z79.899 Other long term (current) drug therapy
CPT/HCPCS: 0241U; 36000; 36415; 71045; 80053; 83605; 83880; 84484; 85025; 85610; 87040; 93005; 93041; 94760; 96365; 99285; J0696; A9270-GY

== ENCOUNTER 2023-09-03 12:17 | Emergency (ER) | payer MEDICARE, MEDICAID ==
--- NOTE | 2023-09-03 12:31 | ERPHSYRPT ---
- History of Present Illness Time Seen by Provider: 09/03/23 12:30 Source: patient, EMS Exam Limitations: no limitations Physician History: This is a 68-year-old white male patient of Dr. Rowe who was at the [facility] clinic and fell onto his right hip and right knee. Patient is on Coumadin. He did not hit his head. He has no headache. He has no neck pain. At the scene, patient was found to be hypoglycemic. Patient arrives to the emergency department and vital signs are stable. 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 Patient denies shortness of breath. Patient denies chest pain. Patient's blood sugar on arrival to the emergency department was measured at 75. Occurred: just prior to arrival Reason for Fall: unknown Injuries/Pain Location: lower extremity Loss of Consciousness: no loss of consciousness Quality: aching Severity of Pain-Max: mild Severity of Pain-Current: mild Modifying Factors: Improves With: movement Associated Symptoms (Fall): No headache, No lightheadedness, No shortness of b reath Allergies/Adverse Reactions: apixaban [From Eliquis] Allergy (Severe, Verified 09/03/23 12:34) cant walk leg pain morphine Allergy (Severe, Verified 09/03/23 12:34) hallucinations HALLUCINATIONS dabigatran etexilate mesylate [From Pradaxa] Allergy (Mild, Verified 09/03/23 12:34) Nausea and Vomiting upset stomach metoclopramide HCl [From Reglan] Allergy (Mild, Verified 09/03/23 12:34) Itching hives Home Medications: Aspirin [Aspirin EC] 81 mg PO DAILY 09/03/13 [History] Nitroglycerin 0.4 mg Tablet [Nitrostat 0.4 MG Tablet] 0.4 mg SL UD PRN 09/03/13 [History] Atorvastatin Calcium [Lipitor] 80 mg PO HS 11/29/17 [History] Metformin HCl 500 mg [Glucophage 500 MG] 1,000 mg PO BIDWM 11/29/17 [History] Albuterol Sulfate 2 puffs IH Q6HPRN PRN 09/06/20 [History] Insulin NPH/Reg 70/30 [Novolin 70/30] 60 unit SQ PMINSULIN 09/06/20 [History] Insulin NPH/Reg 70/30 [Novolin 70/30] 75 unit SQ AMINSULIN 09/06/20 [History] Amiodarone HCl 200 mg [Cordarone 200 MG] 200 mg PO DAILY 03/13/22 [History] Isosorbide Mononitrate 30 mg [Imdur 30 MG] 60 mg PO DAILY 03/13/22 [History] Ferrous Sulfate [Iron] 325 mg PO BID 12/03/22 [History] Tamsulosin HCl 0.4 mg [Flomax 0.4 MG] 0.4 mg PO HS 02/03/23 [History] Torsemide 20 mg [Demadex 20 mg] 20 mg PO DAILY 02/03/23 [History] Carvedilol 3.125 mg [Coreg 3.125 MG] 3.125 mg PO BID 03/12/23 [History] Empagliflozin [Jardiance] 10 mg PO DAILY 03/12/23 [History] Lisinopril 10 mg [Zestril 10 MG] 10 mg PO DAILY 03/12/23 [History] Metolazone 2.5 mg [Zaroxolyn 2.5 MG] 2.5 mg PO UD 04/17/23 [History] Hx Tetanus, Diphtheria Vaccination/Date Given: Yes Hx Influenza Vaccination/Date Given: Yes Hx Pneumococcal Vaccination/Date Given: No Travel Risk - International Travel Have you traveled outside of the country in past 3 weeks: No - Coronavirus Screening Are you exhibiting any of the following symptoms?: No Close contact with a COVID-19 positive Pt in past 14-21 Days: No - Vaccine Status Have you recieved a Covid-19 vaccination: Yes 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 - Vaccination Dates Dates if Unknown: unknown - Review of Systems Constitutional: No Symptoms Eyes: No Symptoms Ears, Nose, & Throat: No Symptoms Respiratory: No Symptoms Cardiac: No Symptoms Abdominal/Gastrointestinal: No Symptoms Genitourinary Symptoms: No Symptoms Musculoskeletal: Fall, Injury (Right hip and right anterior knee) Skin: No Symptoms Neurological: No Symptoms Psychological: No Symptoms Endocrine: No Symptoms Hematologic/Lymphatic: No Symptoms Immunological/Allergic: No Symptoms All Other Systems: Reviewed and Negative - Past Medical History Pertinent Past Medical History: Yes Neurological History: Migraines, Peripheral Neuropathy ENT History: Cataracts Cardiac History: Arrhythmia, Congestive Heart Failure, Coronary Artery Disease, High Cholesterol, Hypertension, Myocardial Infarction ([place]) Respiratory History: CHF, COPD, Emphysema, Pneumonia, Sleep Apnea Endocrine Medical History: Diabetes Type II, Other Musculoskeletal History: No Pertinent History GI Medical History: Diverticulitis, Polyps History: No Pertinent History Psycho-Social History: No Pertinent History Male Reproductive Disorders: No Pertinent History Other Medical History: SLEEP APNEA, RLS, FATIGUE, SINUSITIS, ISCHEMIC CARDIOMYOPATHY, A-FIB - Past Surgical History Past Surgical History: Yes Neuro Surgical History: No Pertinent History Cardiac: CABG, Cardiac Catheterization, Cardiac Stent, Internal Defibrillator, Pacemaker Respiratory: No Pertinent History Gastrointestinal: Other Genitourinary: No Pertinent History Musculoskeletal: No Pertinent History Male Surgical History: No Pertinent History Other Surgical History: POLYPS REMOVED FROM COLON bilateral eye implants, bypass x3, pacemaker x3 - Social History Smoking Status: Former smoker How long have you smoked: 21 yrs Exposure to second hand smoke: No Drug Use: none Patient Lives Alone: Yes - Nursing Vital Signs Nursing Vital Signs: Initial Vital Signs Pulse Rate 72 09/03/23 12:22 Respiratory Rate 20 09/03/23 12:22 Blood Pressure 127/46 09/03/23 12:22 O2 Sat by Pulse Oximetry 100 09/03/23 12:22 Pain Scale Pain Intensity 7 - Romeo Coma Score Best Eye Response ([place]): (4) open spontaneously Best Verbal Response ([place]): (5) oriented - Physical Exam General Appearance: no apparent distress, alert, anxiety, obese Head Injury: no evidence of injury Eye Exam: PERRL/EOMI, eyes nml inspection ENT Exam: airway nml, nml ext.inspection Neck Exam: supple, trachea midline, full range of motion, normal alignment, normal inspection Respiratory/Chest Exam: normal breath sounds, No chest tenderness, No respiratory distress, No ecchymosis, No crepitus Cardiovascular Exam: normal heart sounds, regular rate/rhythm Gastrointestinal Exam: soft, normal bowel sounds, No tenderness Rectal Exam: not done Back Exam: normal inspection, normal range of motion, No CVA tenderness, No vertebral tenderness Extremity Exam: normal range of motion, pelvis stable, hip tenderness (Mild right hip tenderness without gross external rotation), tenderness (Anterior right knee) Neurologic Exam: alert, oriented x 3, cooperative, 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, normal mood/affect, nml cerebellar function, nml station & gait, sensation nml Skin Exam: normal color, warm SpO2 Interpretation: normal O2 Delivery: Room Air - Course Nursing assessment & vital signs reviewed: Yes Ordered Tests: Active Orders 24 hr Category Date Time Status Angelo Bandage [facility] STAT Care 09/03/23 15:08 Active IV Insertion STAT Care 09/03/23 14:44 Active POCT Glucose Check STAT Care 09/03/23 14:41 Active HIP UNI (2V) INCL PEL IF DONE Stat Exams 09/03/23 13:05 Completed KNEE (3 VIEWS) Stat Exams 09/03/23 13:06 Completed POCT GLUCOSE Stat Lab 09/03/23 14:42 Completed POCT GLUCOSE Stat Lab 09/03/23 15:56 Completed Medication Summary Discontinued Medications Generic Name Dose Route Start Last Admin Trade Name Josiahq PRN Reason Stop Dose Admin Dextrose 50 ml 09/03/23 14:44 09/03/23 14:47 Dextrose 50%-Water 50 Ml Abboject IV 09/03/23 14:45 50 ml STAT ONE Administration Dextrose Confirm 09/03/23 14:44 Dextrose 50%-Water 50 Ml Abboject Administered 09/03/23 14:45 Dose 50 ml IV .STRxAdvance-Btarget ONE Lab/Rad Data: Laboratory Results 09/03/23 09/03/23 Range/Units 15:56 14:42 POC Glucometer 157 H 44 L* (50 to 500) mg/dL - Progress Progress: improved, pain not gone completely, re-examined Progress Note: 09/03/23 15:05 Patient's medical issue is 1 of low complexity. The level complex in the workup performed is based on review of the patient's past medical history, review the patient's medication list, review the patient drug allergy list, history present illness and physical findings on examination. The workup in this patient includes recheck of Accu-Chek, providing the patient with dextrose 50 intravenously, provide the patient with a meal, x-ray of right hip and pelvis as well as right knee. 09/03/23 16:42 The x-ray of the patient's right hip and pelvis was interpreted by the radiologist and I reviewed the impression. There is no evidence of any acute fr acture or dislocation. X-ray of the patient's right knee was interpreted by the radiologist and I reviewed the impression. There is a nondisplaced fracture inferior patella bone spur present. I reexamined the patient. Patient is neurologically intact. His blood sugar is now 157. Patient was advised of the x-ray findings as detailed above. Patient was also told to stop his diabetic medication for tonight. He is still monitor his blood sugar closely beginning tomorrow morning and restart his medication and monitoring as before. 09/03/23 16:44 Patient states that he will take a Percocet 5/325 today but he would prefer only to use plain acetaminophen for pain control at home Counseled pt/family regarding: lab results, diagnosis, need for follow-up, rad results Medical Desision Making - Independent Historian Additional History obtained from: Heel Seater/EMT - Diagnostic Testing Diagnostic test were ordered, analyzed, and reviewed by me: Yes Radiological Interpretation: Reviewed by me, Teleradiologist Report - Risk of complications Low Risk: Low risk of morbidity from additional dx testing or treatment - Departure Departure Disposition: Home Clinical Impression: Hypoglycemia, Contusion of right hip, Patella fracture Condition: Stable Critical Care Time: No Referrals: CLINIC,[facility] [LOCATION] - Follow up/PCP as directed Additional Instructions: Wear Angelo wrap for comfort sake. Ice pack to tender areas 3 times a day for the next 48 hours. Use Tylenol for pain control. Monitor your blood sugar closely. Hold your diabetic medication for today. Restart your diabetic medication tomorrow based on your Accu-Chek blood sugar readings. Call your primary care provider on 09/06/2023 to make arranges for further evaluation management.
[2023-09-03 12:45] VITALS: RESP 20; TEMP 99
--- NOTE | 2023-09-03 13:44 | XRAY ---
Indication: Pain following fall. Comparison: None AP pelvis and 2 view right hip demonstrates osteopenia, mild lower lumbar degenerative changes, incompletely visualized lumbar levorotoscoliosis, and extensive scattered vascular calcifications. No other bony, articular, or soft tissue abnormalities.
--- NOTE | 2023-09-03 13:46 | XRAY ---
Indication: Pain following fall. Comparison: None 3 view right knee demonstrates nondisplaced fracture inferior patella bone spur. Elsewhere osteopenia, minimal/mild tricompartmental degenerative changes greatest medial compartment, moderate diffuse scattered vascular calcifications, and multiple posterior medial vascular clips.
[2023-09-03] MEDS ORDERED: D50W 50 ml Abboject IV ONE ×2 (14:44)
[2023-09-03 15:58] VITALS: O2SAT 100
[2023-09-03] MEDS ORDERED: PERCOCET TABLET 5/325MG PO STA (16:47)
[2023-09-03] MEDS ORDERED: PERCOCET TABLET 5/325MG ONE (16:50)
[2023-09-03 16:53] VITALS: BP 129/73; PULSE 77
== END 2023-09-03 17:10 | disposition home or self-care (01) ==
LOC: ED 12:17
DX: S82.091A Other fracture of right patella, initial encounter for closed fracture (principal); S70.01XA Contusion of right hip, initial encounter; W19.XXXA Unspecified fall, initial encounter; Y92.538 Other ambulatory health services establishments as the place of occurrence of the external cause; E11.649 Type 2 diabetes mellitus with hypoglycemia without coma; E11.22 Type 2 diabetes mellitus with diabetic chronic kidney disease; I13.0 Hypertensive heart and chronic kidney disease with heart failure and stage 1 through stage 4 chronic kidney disease, or unspecified chronic kidney disease; I50.9 Heart failure, unspecified; N18.9 Chronic kidney disease, unspecified; Z79.01 Long term (current) use of anticoagulants; Z79.84 Long term (current) use of oral hypoglycemic drugs; Z79.899 Other long term (current) drug therapy
CPT/HCPCS: 36000; 73502; 73562; 82947; 96374; 99284; A9270-GY

== ENCOUNTER 2023-09-06 12:10 | Emergency (ER) | payer MEDICARE, MEDICAID ==
--- NOTE | 2023-09-06 12:22 | ERPHSYRPT ---
- History of Present Illness Time Seen by Provider: 09/06/23 12:22 Source: patient, EMS Exam Limitations: no limitations Physician History: This is a morbidly obese 68-year-old white male patient of Dr. Munguia who presents to the emergency department with increasing shortness of breath over the last 2 days. Patient is diabetic and was actually experiencing hypoglycemia 3 days ago when he was brought into the emergency department secondary to a fall outside the Coumadin clinic injuring his right hip and right knee. The findings during that visit include a avulsion/chip fracture of the patient's right patella. In the last couple days, patient reports not ambulating much. Patient denies chest pain. He has no known exposure to individuals with flulike symptoms. Patient has multiple medical issues including diabetes, oxygen dependent COPD on 2 L oxygen via nasal cannula, atrial fibrillation on Coumadin, coronary artery disease (CABG and stents) hypertension, CHF, chronic renal disease, ischemic cardiomyopathy, hyperlipidemia and peripheral neuropathy. Mirza partida was brought into the emergency department by the paramedics. Timing/Duration: day(s) (Last couple days), worse Severity of Dyspnea-Max: mild Severity of Dyspnea-Current: mild Possible Cause: occasional episodes Modifying Factors: Improves With: activity Associated Symptoms: No chest pain/discomfort Allergies/Adverse Reactions: apixaban [From Eliquis] Allergy (Severe, Verified 09/06/23 12:42) cant walk leg pain morphine Allergy (Severe, Verified 09/06/23 12:42) hallucinations HALLUCINATIONS dabigatran etexilate mesylate [From Pradaxa] Allergy (Mild, Verified 09/06/23 12:42) Nausea and Vomiting upset stomach metoclopramide HCl [From Reglan] Allergy (Mild, Verified 09/06/23 12:42) Itching hives Home Medications: Aspirin [Aspirin EC] 81 mg PO DAILY 09/03/13 [History] Nitroglycerin 0.4 mg Tablet [Nitrostat 0.4 MG Tablet] 0.4 mg SL UD PRN 09/03/13 [History] Atorvastatin Calcium [Lipitor] 80 mg PO HS 11/29/17 [History] Metformin HCl 500 mg [Glucophage 500 MG] 1,000 mg PO BIDWM 11/29/17 [History] Albuterol Sulfate 2 puffs IH Q6HPRN PRN 09/06/20 [History] Insulin NPH/Reg 70/30 [Novolin 70/30] 60 unit SQ PMINSULIN 09/06/20 [History] Insulin NPH/Reg 70/30 [Novolin 70/30] 75 unit SQ AMINSULIN 09/06/20 [History] Amiodarone HCl 200 mg [Cordarone 200 MG] 200 mg PO DAILY 03/13/22 [History] Isosorbide Mononitrate 30 mg [Imdur 30 MG] 60 mg PO DAILY 03/13/22 [History] Ferrous Sulfate [Iron] 325 mg PO BID 12/03/22 [History] Tamsulosin HCl 0.4 mg [Flomax 0.4 MG] 0.4 mg PO HS 02/03/23 [History] Torsemide 20 mg [Demadex 20 mg] 20 mg PO DAILY 02/03/23 [History] Carvedilol 3.125 mg [Coreg 3.125 MG] 3.125 mg PO BID 03/12/23 [History] Empagliflozin [Jardiance] 10 mg PO DAILY 03/12/23 [History] Lisinopril 10 mg [Zestril 10 MG] 10 mg PO DAILY 03/12/23 [History] Metolazone 2.5 mg [Zaroxolyn 2.5 MG] 2.5 mg PO UD 04/17/23 [History] Hx Tetanus, Diphtheria Vaccination/Date Given: Yes Hx Influenza Vaccination/Date Given: Yes Hx Pneumococcal Vaccination/Date Given: No Travel Risk - International Travel Have you traveled outside of the country in past 3 weeks: No - Coronavirus Screening Are you exhibiting any of the following symptoms?: No Close contact with a COVID-19 positive Pt in past 14-21 Days: No - Vaccine Status Have you recieved a Covid-19 vaccination: Yes 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 - Vaccination Dates Dates if Unknown: unknown - Review of Systems Constitutional: No Symptoms Eyes: No Symptoms Ears, Nose, & Throat: No Symptoms Respiratory: Dyspnea, Dyspnea on Exertion ([place]) Cardiac: No Symptoms Abdominal/Gastrointestinal: No Symptoms Genitourinary Symptoms: No Symptoms Musculoskeletal: No Symptoms Skin: No Symptoms Neurological: No Symptoms Psychological: No Symptoms Endocrine: No Symptoms Hematologic/Lymphatic: No Symptoms Immunological/Allergic: No Symptoms All Other Systems: Reviewed and Negative - Past Medical History Pertinent Past Medical History: Yes Neurological History: Migraines, Peripheral Neuropathy ENT History: Cataracts Cardiac History: Arrhythmia, Congestive Heart Failure, Coronary Artery Disease, High Cholesterol, Hypertension, Myocardial Infarction ([place]) Respiratory History: CHF, COPD, Emphysema, Pneumonia, Sleep Apnea Endocrine Medical History: Diabetes Type II, Other Musculoskeletal History: No Pertinent History GI Medical History: Diverticulitis, Polyps History: No Pertinent History Psycho-Social History: No Pertinent History Male Reproductive Disorders: No Pertinent History Other Medical History: SLEEP APNEA, RLS, FATIGUE, SINUSITIS, ISCHEMIC CARDIOMY OPATHY, A-FIB - Past Surgical History Past Surgical History: Yes Neuro Surgical History: No Pertinent History Cardiac: CABG, Cardiac Catheterization, Cardiac Stent, Internal Defibrillator, Pacemaker Respiratory: No Pertinent History Gastrointestinal: Other Genitourinary: No Pertinent History Musculoskeletal: No Pertinent History Male Surgical History: No Pertinent History Other Surgical History: POLYPS REMOVED FROM COLON bilateral eye implants, bypass x3, pacemaker x3 - Social History Smoking Status: Former smoker How long have you smoked: 21 yrs Exposure to second hand smoke: No Drug Use: none Patient Lives Alone: Yes - Nursing Vital Signs Nursing Vital Signs: Initial Vital Signs Pulse Rate 113 H 09/06/23 12:29 Respiratory Rate 19 09/06/23 12:29 Blood Pressure 103/62 09/06/23 12:29 O2 Sat by Pulse Oximetry 97 09/06/23 12:29 Pain Scale Pain Intensity 0 - Physical Exam General Appearance: no apparent distress, alert, obese Eye Exam: PERRL/EOMI, eyes nml inspection Ears, Nose, Throat Exam: hearing grossly normal, normal ENT inspection, normal pharynx Neck Exam: normal inspection, non-tender, supple, full range of motion Respiratory Exam: normal breath sounds, lungs clear, airway intact, No chest tenderness, No respiratory distress Cardiovascular/Chest Exam: normal heart sounds, regular rate/rhythm Abdominal/Gastrointestinal Exam: soft, normal bowel sounds, No tenderness Rectal Exam: not done Extremity Exam: normal range of motion, no calf tenderness, no pedal edema, pelvis stable (Patient has chronic venous stasis disease without ulceration. 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 Ventricular paced rhythm. Biventricular paced rhythm.) Ordered Tests: Active Orders 24 hr Category Date Time Status Drafter Chief Design STAT Care 09/06/23 12:23 Active EKG-ER Only STAT Care 09/06/23 12:22 Active IV Insertion STAT Care 09/06/23 12:22 Active Pulse Oximetry (ED) STAT Care 09/06/23 12:22 Active CHEST 1 VIEW (PORTABLE) Stat Exams 09/06/23 12:22 Completed BLOOD CULTURE Stat Lab 09/06/23 13:33 Received CBC W DIFF Stat Lab 09/06/23 12:50 Completed CMP Stat Lab 09/06/23 12:50 Completed MAGNESIUM Stat Lab 09/06/23 12:50 Completed NT PRO BNPII Stat Lab 09/06/23 12:50 Completed NT PRO BNPII Stat Lab 09/06/23 12:50 Completed TROPONIN Q4H Lab 09/06/23 12:50 Completed TROPONIN Q4H Lab 09/06/23 16:30 Ordered TROPONIN Q4H Lab 09/06/23 20:30 Ordered Medication Summary Discontinued Medications Generic Name Dose Route Start Last Admin Trade Name Freq PRN Reason Stop Dose Admin Oseltamivir Phosphate 75 mg 09/06/23 14:59 09/06/23 15:26 Oseltamivir 75 Mg Cap PO 09/06/23 15:00 75 mg STAT ONE Administration Oseltamivir Phosphate Confirm 09/06/23 15:19 Oseltamivir 75 Mg Cap Administered 09/06/23 15:20 Dose 75 mg PO .STK-MED ONE Lab/Rad Data: Laboratory Result Diagrams 09/06/23 12:50 09/06/23 12:50 Laboratory Results 09/06/23 09/06/23 09/06/23 Range/Units 12:55 12:50 12:50 WBC (4.0-10.5) x10^3/uL RBC (4.1-5.6) x10^6/uL Hgb (12.5-18.0) g/dL Hct (42-50) % MCV (78-100) fL MCH (26-32) pg MCHC (32-36) g/dL RDW (11.5-14.0) % Plt Count (150-450) x10^3/uL MPV (7.5-11.0) fL Gran % (36.0-66.0) % Immature Gran % (Auto) (0.00-0.4) % Nucleat RBC Rel Count (0.00-0.1) % Eos # (Auto) (0-0.5) x10^3/uL Immature Gran # (Auto) (0.00-0.03) x10^3u/L Absolute Lymphs (auto) (1.0-4.6) x10^3/uL Absolute Monos (auto) (0.0-1.3) x10^3/uL Absolute Nucleated RBC (0.00-0.01) x10^3u/L Lymphocytes % (24.0-44.0) % Monocytes % (0.0-12.0) % Eosinophils % (0.00-5.0) % Basophils % (0.0-0.4) % Absolute Granulocytes (1.4-6.9) x10^3/uL Basophils # (0-0.4) x10^3/uL Sodium 136 L (137-145) mmol/L Potassium 4.2 (3.5-5.1) mmol/L Chloride 99 (98-107) mmol/L Carbon Dioxide 29 (22-30) mmol/L Anion Gap 12.0 (5-15) MEQ/L BUN 26 H (9-20) mg/dL Creatinine 1.32 H (0.66-1.25) mg/dL Estimated GFR 58.4 ML/MIN Glucose 201 H (74-106) mg/dL Calcium 9.4 (8.4-10.2) mg/dL Magnesium 2.3 (1.6-2.3) mg/dL Total Bilirubin 1.10 (0.2-1.3) mg/dL AST 36 (17-59) U/L ALT 22 (0-50) U/L Alkaline Phosphatase 97 (38-126) U/L Troponin I 0.554 H* (0.000-0.034) ng/mL NT-Pro-B Natriuret Pep 1550 1630 (<300) pg/mL Serum Total Protein 7.9 (6.3-8.2) g/dL Albumin 4.3 (3.5-5.0) g/dL Influenza Type A Ag POSITIVE (NEGATIVE) Influenza Type B Ag NEGATIVE (NEGATIVE) RSV (PCR) NEGATIVE (NEGATIVE) SARS-CoV-2 (PCR) NEGATIVE (NEGATIVE) Slides for Path Review 09/06/23 Range/Units 12:50 WBC 6.2 (4.0-10.5) x10^3/uL RBC 4.56 (4.1-5.6) x10^6/uL Hgb 10.5 L (12.5-18.0) g/dL Hct 36.3 L (42-50) % MCV 79.6 (78-100) fL MCH 23.0 L (26-32) pg MCHC 28.9 L (32-36) g/dL RDW 19.2 H (11.5-14.0) % Plt Count 176 (150-450) x10^3/uL MPV 10.9 (7.5-11.0) fL Gran % 67.4 H (36.0-66.0) % Immature Gran % (Auto) 0.5 H (0.00-0.4) % Nucleat RBC Rel Count 0.0 (0.00-0.1) % Eos # (Auto) 0.12 (0-0.5) x10^3/uL Immature Gran # (Auto) 0.03 (0.00-0.03) x10^3u/L Absolute Lymphs (auto) 0.95 L (1.0-4.6) x10^3/uL Absolute Monos (auto) 0.91 (0.0-1.3) x10^3/uL Absolute Nucleated RBC 0.00 (0.00-0.01) x10^3u/L Lymphocytes % 15.3 L (24.0-44.0) % Monocytes % 14.6 H (0.0-12.0) % Eosinophils % 1.9 (0.00-5.0) % Basophils % 0.3 (0.0-0.4) % Absolute Granulocytes 4.19 (1.4-6.9) x10^3/uL Basophils # 0.02 (0-0.4) x10^3/uL Sodium (137-145) mmol/L Potassium (3.5-5.1) mmol/L Chloride (98-107) mmol/L Carbon Dioxide (22-30) mmol/L Anion Gap (5-15) MEQ/L BUN (9-20) mg/dL Creatinine (0.66-1.25) mg/dL Estimated GFR ML/MIN Glucose (74-106) mg/dL Calcium (8.4-10.2) mg/dL Magnesium (1.6-2.3) mg/dL Total Bilirubin (0.2-1.3) mg/dL AST (17-59) U/L ALT (0-50) U/L Alkaline Phosphatase (38-126) U/L Troponin I (0.000-0.034) ng/mL NT-Pro-B Natriuret Pep (<300) pg/mL Serum Total Protein (6.3-8.2) g/dL Albumin (3.5-5.0) g/dL Influenza Type A Ag (NEGATIVE) Influenza Type B Ag (NEGATIVE) RSV (PCR) (NEGATIVE) SARS-CoV-2 (PCR) (NEGATIVE) Slides for Path Review YES - Progress Progress: improved, re-examined Air Movement: fair Progress Note: 09/06/23 14:56 This patient's medical issue is 1 of moderate to high complexity. The level complex in the workup performed is based on review of the patient's past medical history, review the patient's medication list, review of patient drug allergy list, history of present illness and physical findings on examination. The workup in this patient includes placement of intravenous line, twelve-lead EKG, troponin level, BNP level, chest x-ray, viral swabs, monotest. I interpreted the laboratory data results. Patient has elevated troponin level. In addition he tested positive for influenza A. 09/06/23 14:58 The chest x-ray was interpreted by the radiologist and I reviewed the impression. The impression reads nonacute chest with chronic features. 09/06/23 15:39 I reviewed the patient history, chief complaint, physical findings and results of her laboratory and radiographic, EKG studies with the transfer center at [facility]. This patient fits the auto accept criteria. Dr. Romeo is the accepting physician at [facility] emergency department. Blood Culture(s) Obtained: Yes Antibiotics given: No Counseled pt/family regarding: lab results, diagnosis, need for follow-up, rad results Medical Desision Making - Diagnostic Testing Diagnostic test were ordered, analyzed, and reviewed by me: Yes - Risk of complications The pt has a high risk of morbidity or mortality based on: Decision regarding hospitilization or escalation of hosp level of care - Departure Departure Disposition: Transfer Clinical Impression: Shortness of breath, Influenza A H1N1 infection, Elevated troponin I level Condition: Fair Critical Care Time: Yes Critical Care Time(excluding separately billable procedures): Critical 30-74 mins (40 minutes) Referrals: PABLITO MUNGUIA MD [Primary Care Provider] - Follow up/PCP as directed
[2023-09-06 13:22] LABS: Absolute Neutrophil Ct (ANC) 4.19 x10^3/uL (1.4-6.9); BASOPHIL % 0.3 % (0.0-0.4); Basophil (Absolute #) 0.02 x10^3/uL (0-0.4); Eosinophil % 1.9 % (0.00-5.0); Eosinophil (Absolute #) 0.12 x10^3/uL (0-0.5); Hematocrit 36.3 % (42-50); Hemoglobin 10.5 g/dL (12.5-18.0); IMMATURE GRAN # 0.03 x10^3u/L (0.00-0.03); IMMATURE GRAN % 0.5 % (0.00-0.4); Lymphocyte (Absolute #) 0.95 x10^3/uL (1.0-4.6); Lymphocytes % 15.3 % (24.0-44.0); Mean Cell Volume 79.6 fL (78-100); Mean Corpuscular Hgb Concent. 28.9 g/dL (32-36); Mean Platelet Volume 10.9 fL (7.5-11.0); Monocyte (Absolute #) 0.91 x10^3/uL (0.0-1.3); Monocytes % 14.6 % (0.0-12.0); Neutrophil % 67.4 % (36.0-66.0); Platelet Count 176 x10^3/uL (150-450); Red Blood Count 4.56 x10^6/uL (4.1-5.6); Red Cell Distribution Width 19.2 % (11.5-14.0); White Blood Count 6.2 x10^3/uL (4.0-10.5)
--- NOTE | 2023-09-06 13:35 | XRAY ---
Indication: Short of breath. Comparison: April 23, 2023 Portable chest inflated with a few incidental tiny calcified granulomas. No focal infiltrate, consolidation, or large effusion. Heart not enlarged for AP portable technique again with CABG and left AICD. Bony thorax intact again with osteopenia. Impression: Nonacute chest with chronic features.
[2023-09-06 13:46] LABS: ALBUMIN 4.3 g/dL (3.5-5.0); BILIRUBIN,TOTAL 1.1 mg/dL (0.2-1.3); Calcium 9.4 mg/dL (8.4-10.2); Creatinine 1 1.32 mg/dL (0.66-1.25); EST GLOMERULAR FILTRATION RATE 58.4 ML/MIN; MAGNESIUM 2.3 mg/dL (1.6-2.3); Potassium 4.2 mmol/L (3.5-5.1); Total Protein 7.9 g/dL (6.3-8.2)
[2023-09-06 13:53] LABS: TROPONIN 0.554 ng/mL (0.000-0.034)
[2023-09-06 14:03] LABS: INFLUENZA B NEGATIVE (NEGATIVE); RESPIRATORY SYNCTIAL VIRUS NEGATIVE (NEGATIVE); SARS-CoV-2 Xpert Express NEGATIVE (NEGATIVE)
[2023-09-06 14:13] LABS: INFLUENZA A POSITIVE (NEGATIVE)
[2023-09-06 14:31] LABS: Slide Review 1 YES
[2023-09-06] MEDS ORDERED: Tamiflu 75MG Capsule PO ONE ×2 (14:59→15:19)
[2023-09-06 15:28] VITALS: PULSE 93
[2023-09-06 16:43] VITALS: BP 117/69; RESP 27; O2SAT 97
== END 2023-09-06 16:50 | disposition short-term general hospital (02) ==
LOC: ED 12:10
DX: J10.1 Influenza due to other identified influenza virus with other respiratory manifestations (principal); R06.02 Shortness of breath; R77.8 Other specified abnormalities of plasma proteins; E11.22 Type 2 diabetes mellitus with diabetic chronic kidney disease; I13.0 Hypertensive heart and chronic kidney disease with heart failure and stage 1 through stage 4 chronic kidney disease, or unspecified chronic kidney disease; N18.9 Chronic kidney disease, unspecified; I50.9 Heart failure, unspecified; E11.42 Type 2 diabetes mellitus with diabetic polyneuropathy; E78.5 Hyperlipidemia, unspecified; Z79.01 Long term (current) use of anticoagulants; Z79.84 Long term (current) use of oral hypoglycemic drugs; Z79.4 Long term (current) use of insulin; Z99.81 Dependence on supplemental oxygen; Z79.899 Other long term (current) drug therapy; Z20.828 Contact with and (suspected) exposure to other viral communicable diseases
CPT/HCPCS: 0241U; 36000; 36415; 71045; 80053; 83735; 83880; 84484; 85025; 87040; 93005; 93041; 94760; 99284; 99291; A9270-GY

== ENCOUNTER 2023-11-19 14:16 | Emergency (ER) | payer MEDICARE ==
[2023-11-19 14:24] VITALS: RESP 20; TEMP 97.8; O2SAT 98
[2023-11-19] MEDS ORDERED: TRANEXAMIC ACID 1000 MG/10 ML ONE (14:51)
[2023-11-19] MEDS: TRANEXAMIC ACID 1000 MG/10 ML TP ONE (14:52)
[2023-11-19 15:18] VITALS: BP 136/74; PULSE 88
[2023-11-19 15:27] LABS: INR 1.79 (0.8-3.0); PROTIME 18.8 SECONDS (9.4-12.5)
--- NOTE | 2023-11-19 16:10 | ERPHSYRPT ---
- History of Present Illness Time Seen by Provider: 11/19/23 14:20 Source: patient Exam Limitations: no limitations Patient Subjective Stated Complaint: Pt states "I had a tooth pulled a week ago wednesday and it was fine after two days but this morning I woke up and I had allot of blood in my mouth." Triage Nursing Assessment: Pt presented alert and oriented X 3, skin pwd. Pt ambualtes with a cane, pt speech is clear. PT has a tea bag in mouth up onto his tooth. Physician History: Patient here with bleeding tooth root. Patient had a tooth pulled 1 week ago. He is on warfarin. The dentist and his primary care doctor, Dr. Munguia did not feel that he needed to hold his warfarin. This morning he started having some oozing blood around his tooth. No falls or trauma. No fever no chills. Bleeding has mostly been well-controlled with teabags and cotton balls. However there is still some continued oozing. Therefore he arrives to the emergency department today. No problems breathing, no choking sensation. Allergies/Adverse Reactions: apixaban [From Eliquis] Allergy (Severe, Verified 09/06/23 12:42) cant walk leg pain morphine Allergy (Severe, Verified 09/06/23 12:42) hallucinations HALLUCINATIONS dabigatran etexilate mesylate [From Pradaxa] Allergy (Mild, Verified 09/06/23 12:42) Nausea and Vomiting upset stomach metoclopramide HCl [From Reglan] Allergy (Mild, Verified 09/06/23 12:42) Itching hives Home Medications: Aspirin [Aspirin EC] 81 mg PO DAILY 09/03/13 [History] Nitroglycerin 0.4 mg Tablet [Nitrostat 0.4 MG Tablet] 0.4 mg SL UD PRN 09/03/13 [History] Atorvastatin Calcium [Lipitor] 80 mg PO HS 11/29/17 [History] Metformin HCl 500 mg [Glucophage 500 MG] 1,000 mg PO BIDWM 11/29/17 [History] Albuterol Sulfate 2 puffs IH Q6HPRN PRN 09/06/20 [History] Insulin NPH/Reg 70/30 [Novolin 70/30] 60 unit SQ PMINSULIN 09/06/20 [History] Insulin NPH/Reg 70/30 [Novolin 70/30] 75 unit SQ AMINSULIN 09/06/20 [His tory] Amiodarone HCl 200 mg [Cordarone 200 MG] 200 mg PO DAILY 03/13/22 [History] Isosorbide Mononitrate 30 mg [Imdur 30 MG] 60 mg PO DAILY 03/13/22 [History] Ferrous Sulfate [Iron] 325 mg PO BID 12/03/22 [History] Tamsulosin HCl 0.4 mg [Flomax 0.4 MG] 0.4 mg PO HS 02/03/23 [History] Torsemide 20 mg [Demadex 20 mg] 20 mg PO DAILY 02/03/23 [History] Carvedilol 3.125 mg [Coreg 3.125 MG] 3.125 mg PO BID 03/12/23 [History] Empagliflozin [Jardiance] 10 mg PO DAILY 03/12/23 [History] Lisinopril 10 mg [Zestril 10 MG] 10 mg PO DAILY 03/12/23 [History] Metolazone 2.5 mg [Zaroxolyn 2.5 MG] 2.5 mg PO UD 04/17/23 [History] Spironolactone 25 mg [Aldactone 25 MG] 25 mg PO DAILY 10/18/23 [History] Hx Tetanus, Diphtheria Vaccination/Date Given: Yes Hx Influenza Vaccination/Date Given: Yes Hx Pneumococcal Vaccination/Date Given: No Immunizations Up to Date: Yes Travel Risk - International Travel Have you traveled outside of the country in past 3 weeks: No - Emerging Infectious Disease Are you exhibiting symptoms associated with any current EIDs: No - Past Medical History Pertinent Past Medical History: Yes Neurological History: Migraines, Peripheral Neuropathy ENT History: Cataracts Cardiac History: Arrhythmia, Congestive Heart Failure, Coronary Artery Disease, High Cholesterol, Hypertension, Myocardial Infarction ([place]) Respiratory History: CHF, COPD, Emphysema, Pneumonia, Sleep Apnea Endocrine Medical History: Diabetes Type II, Other Musculoskeletal History: No Pertinent History GI Medical History: Diverticulitis, Polyps History: No Pertinent History Psycho-Social History: No Pertinent History Male Reproductive Disorders: No Pertinent History Other Medical History: SLEEP APNEA, RLS, FATIGUE, SINUSITIS, ISCHEMIC CARDIOMYOPATHY, A-FIB - Past Surgical History Past Surgical History: Yes Neuro Surgical History: No Pertinent History Cardiac: CABG, Cardiac Catheterization, Cardiac Stent, Internal Defibrillator, Pacemaker Respiratory: No Pertinent History Gastrointestinal: Other Genitourinary: No Pertinent History Musculoskeletal: No Pertinent History Male Surgical History: No Pertinent History Other Surgical History: POLYPS REMOVED FROM COLON bilateral eye implants, bypass x3, pacemaker x3 - Social History Smoking Status: Former smoker How long have you smoked: 21 yrs Exposure to second hand smoke: No Drug Use: none Patient Lives Alone: Yes - Nursing Vital Signs Nursing Vital Signs: Initial Vital Signs Temperature 97.8 F 11/19/23 14:21 Pulse Rate 80 11/19/23 14:21 Respiratory Rate 20 11/19/23 14:21 Blood Pressure 148/70 11/19/23 14:21 O2 Sat by Pulse Oximetry 98 11/19/23 14:21 Pain Scale Pain Intensity 0 - Physical Exam SpO2 Interpretation: normal SpO2: 98 Comments: 11/19/23 16:18 Review of Systems Constitutional: Negative for fever. HENT: Negative for congestion. Respiratory: Negative for shortness of breath. Cardiovascular: Negative for chest pain. Gastrointestinal: Negative for abdominal pain. Genitourinary: Negative for dysuria. Musculoskeletal: Negative for back pain. Skin: Negative for rash. Neurological: Negative for headaches. Psychiatric/Behavioral: Negative for behavioral problems. All other systems reviewed and are negative. Physical Exam Vitals signs and nursing note reviewed. Constitutional: Appearance: Patient is well-developed. HENT: Head: Normocephalic and atraumatic. No trismus, able to fully extend neck, normal range of motion of neck without pain. Uvula is midline, no swelling of the mouth, noraml oropharynx. No exudate, no signs of meningitis, no floor of mouth swelling, no hot potato voice on exam. Tooth #2 has been extracted. There is oozing from the gumline. Some surrounding blood clots. Minimal blood in posterior oropharynx. Eyes: Conjunctiva/sclera: Conjunctivae normal. Neck: Musculoskeletal: Normal range of motion. Trachea: No tracheal deviation. Cardiovascular: Rate and Rhythm: Normal rate. Pulmonary: Effort: Pulmonary effort is normal. No respiratory distress. Abdominal: Palpations: Abdomen is soft. Musculoskeletal: General: No deformity. Skin: General: Skin is warm and dry. Neurological/ Psychiatric: Mental Status: Mental status, behavior, interaction with environment is appropriate for patient's age and condition - Course Nursing assessment & vital signs reviewed: Yes Ordered Tests: Active Orders 24 hr Category Date Time Status PROTIME WITH INR Stat Lab 11/19/23 15:08 Completed Medication Summary Discontinued Medications Generic Name Dose Route Start Last Admin Trade Name Shivani PRN Reason Stop Dose Admin Tranexamic Acid 1,000 mg 11/19/23 14:45 11/19/23 14:52 Tranexamic Acid 1000 Mg/10 Ml Vial/Amp TP 11/19/23 14:46 1,000 mg ONCE ONE Administration Tranexamic Acid Confirm 11/19/23 14:51 Tranexamic Acid 1000 Mg/10 Ml Vial/Amp Administered 11/19/23 14:52 Dose 1,000 mg .ROUTE .STK-MED ONE Lab/Rad Data: Laboratory Results 11/19/23 Range/Units 15:08 PT 18.8 H (9.4-12.5) SECONDS INR 1.79 (0.8-3.0) - Progress Progress: improved Progress Note: 11/19/23 16:20 We did discuss the case with in-hospital pharmacist, Jordan. He is the patient's Coumadin textile conversion manager as well. He manages the patient in Coumadin clinic. He recommended checking a PT/INR. We will also do cottonball soaked in TXA. We did review this with pharmacist Jordan and he saw the patient. Cotton balls were drenched in TXA, packed well around the base of the oozing tooth root. Patient was observed for over an hour. No further bleeding, or other issues. Plan for close follow-up with his dentist first thing tomorrow morning. Return here sooner for new or changing symptoms. Counseled pt/family regarding: lab results, diagnosis, need for follow-up - Departure Departure Disposition: Home Clinical Impression: S/P tooth extraction, Bleeding in mouth Condition: Stable Critical Care Time: No Referrals: PABLITO MUNGUIA MD [Primary Care Provider] - Follow up/PCP as directed
== END 2023-11-19 16:23 ==
LOC: ED 14:16
DX: K91.840 Postprocedural hemorrhage of a digestive system organ or structure following a digestive system procedure (principal); I11.0 Hypertensive heart disease with heart failure; I50.9 Heart failure, unspecified; E78.5 Hyperlipidemia, unspecified; E11.42 Type 2 diabetes mellitus with diabetic polyneuropathy; Z79.84 Long term (current) use of oral hypoglycemic drugs; Z79.4 Long term (current) use of insulin; Z79.01 Long term (current) use of anticoagulants; Z79.899 Other long term (current) drug therapy
CPT/HCPCS: 36415; 85610; 99282

== ENCOUNTER 2024-02-07 04:03 | Emergency (ER) | payer MEDICARE ==
--- NOTE | 2024-02-07 04:19 | ERPHSYRPT ---
- History of Present Illness Source: patient Exam Limitations: no limitations Timing/Duration: today Location: left eye Severity: moderate Apparent Injury: no Associated Symptoms: redness, blurred vision Visual Assistive Devices: Glasses Chemical Exposure: No Trauma: No Welding Arc/Tanning Bed Exposure: No Hx Tetanus, Diphtheria Vaccination/Date Given: Yes Hx Influenza Vaccination/Date Given: Yes Hx Pneumococcal Vaccination/Date Given: No <IRIS CARRERA - Last Filed: 02/07/24 06:57> <DANYEL YU - Last Filed: 02/07/24 14:58> - History of Present Illness Time Seen by Provider: 02/07/24 04:19 Physician History: This is a morbidly obese 68-year-old white male patient who came in by private vehicle secondary to left visual changes and eye pain as well as left headache. Patient has a history of cataracts in the past, A-fib, CHF, coronary disease (CABG and cardiac stents), ischemic cardiomyopathy, diabetes, COPD, h ypertension, and hyperlipidemia. Patient went to bed approximate 11:30 PM on 02/06/2024. He woke up at 3 AM to use the restroom and noticed haziness or cloudiness in his vision out of his left eye. Soon after he noticed left eye pain and left-sided headache. He has never had this type of symptomatology before. He is a former smoker cigarettes. He is on warfarin. He did not suffer any acute injury to the left eye. He denies chest pain. He denies shortness of breath. His systolic blood pressure on arrival to the emergency department is 119. (IRIS CARRERA) Allergies/Adverse Reactions: apixaban [From Eliquis] Allergy (Severe, Verified 02/07/24 04:30) cant walk leg pain morphine Allergy (Severe, Verified 02/07/24 04:30) hallucinations HALLUCINATIONS dabigatran etexilate mesylate [From Pradaxa] Allergy (Mild, Verified 02/07/24 04:30) Nausea and Vomiting upset stomach metoclopramide HCl [From Reglan] Allergy (Mild, Verified 02/07/24 04:30) Itching hives Home Medications: Aspirin [Aspirin EC] 81 mg PO DAILY 09/03/13 [History] Nitroglycerin 0.4 mg Tablet [Nitrostat 0.4 MG Tablet] 0.4 mg SL UD PRN 09/03/13 [History] Atorvastatin Calcium [Lipitor] 80 mg PO HS 11/29/17 [History] Metformin HCl 500 mg [Glucophage 500 MG] 1,000 mg PO BIDWM 11/29/17 [History] Albuterol Sulfate 2 puffs IH Q6HPRN PRN 09/06/20 [History] Insulin NPH/Reg 70/30 [Novolin 70/30] 60 unit SQ PMINSULIN 09/06/20 [History] Insulin NPH/Reg 70/30 [Novolin 70/30] 75 unit SQ AMINSULIN 09/06/20 [History] Amiodarone HCl 200 mg [Cordarone 200 MG] 200 mg PO DAILY 03/13/22 [History] Isosorbide Mononitrate 30 mg [Imdur 30 MG] 60 mg PO DAILY 03/13/22 [History] Ferrous Sulfate [Iron] 325 mg PO BID 12/03/22 [History] Tamsulosin HCl 0.4 mg [Flomax 0.4 MG] 0.4 mg PO HS 02/03/23 [History] Torsemide 20 mg [Demadex 20 mg] 20 mg PO DAILY 02/03/23 [History] Carvedilol 3.125 mg [Coreg 3.125 MG] 3.125 mg PO BID 03/12/23 [History] Empagliflozin [Jardiance] 10 mg PO DAILY 03/12/23 [History] Lisinopril 10 mg [Zestril 10 MG] 10 mg PO DAILY 03/12/23 [History] Metolazone 2.5 mg [Zaroxolyn 2.5 MG] 2.5 mg PO UD 04/17/23 [History] Spironolactone 25 mg [Aldactone 25 MG] 25 mg PO DAILY 10/18/23 [History] Metolazone 2.5 mg [Zaroxolyn 2.5 MG] 2.5 mg PO MOWEFR 12/17/23 [History] Travel Risk - International Travel Have you traveled outside of the country in past 3 weeks: No - Emerging Infectious Disease Are you exhibiting symptoms associated with any current EIDs: No <IRIS CARRERA - Last Filed: 02/07/24 06:57> - Review of Systems Constitutional: No Symptoms Eyes: Eye Pain (Left side), Eye Redness (Left side), Vision Changes (Left side) Ears, Nose, & Throat: No Symptoms Respiratory: No Symptoms Cardiac: No Symptoms Abdominal/Gastrointestinal: No Symptoms Genitourinary Symptoms: No Symptoms Musculoskeletal: No Symptoms, Injury Neurological: Headache (Left side) Psychological: No Symptoms Endocrine: No Symptoms Hematologic/Lymphatic: No Symptoms Immunological/Allergic: No Symptoms All Other Systems: Reviewed and Negative <IRIS CARRERA - Last Filed: 02/07/24 06:57> - Past Medical History Pertinent Past Medical History: Yes Neurological History: Migraines, Peripheral Neuropathy ENT History: Cataracts Cardiac History: Arrhythmia, Congestive Heart Failure, Coronary Artery Disease, High Cholesterol, Hypertension, Myocardial Infarction ([place]) Respiratory History: CHF, COPD, Emphysema, Pneumonia, Sleep Apnea Endocrine Medical History: Diabetes Type II, Other Musculoskeletal History: No Pertinent History GI Medical History: Diverticulitis, Polyps History: No Pertinent History Psycho-Social History: No Pertinent History Male Reproductive Disorders: No Pertinent History Other Medical History: SLEEP APNEA, RLS, FATIGUE, SINUSITIS, ISCHEMIC CARDIOMYOPATHY, A-FIB - Past Surgical History Past Surgical History: Yes Neuro Surgical History: No Pertinent History Cardiac: CABG, Cardiac Catheterization, Cardiac Stent, Internal Defibrillator, Pacemaker Respiratory: No Pertinent History Gastrointestinal: Other Genitourinary: No Pertinent History Musculoskeletal: No Pertinent History Male Surgical History: No Pertinent History Other Surgical History: POLYPS REMOVED FROM COLON bilateral eye implants, bypass x3, pacemaker x3 - Social History Smoking Status: Former smoker How long have you smoked: 21 yrs Exposure to second hand smoke: No Drug Use: none Patient Lives Alone: Yes - Social Determinants of Health Will the patient participate in the screening: Declined to provide <IRIS CARRERA - Last Filed: 02/07/24 06:57> - Physical Exam General Appearance: no apparent distress, mild distress, alert, obese Eye Exam: right eye: normal inspection, left eye: conjunctival hemorrhage (Questionable), vision changes, bilateral eye: PERRL, EOMI Ears, Nose, Throat Exam: normal ENT inspection, moist mucous membranes Neck Exam: normal inspection, non-tender, supple, full range of motion Respiratory Exam: airway intact, No chest tenderness, No respiratory distress Cardiovascular Exam: regular rate/rhythm, normal heart sounds, normal peripheral pulses Gastrointestinal Exam: No tenderness Extremity Exam: normal inspection, normal range of motion, pelvis stable Neurologic: alert, oriented x 3, cooperative, crude oil treater II-XII nml as tested, nml cerebellar function, nml station & gait, sensation nml Skin Exam: normal color, warm, dry Lymphatic: No adenopathy SpO2 Interpretation: normal O2 Delivery: Room Air <IRIS CARRERA - Last Filed: 02/07/24 06:57> - Nursing Vital Signs Nursing Vital Signs: Initial Vital Signs Temperature 97.6 F 02/07/24 04:12 Pulse Rate 72 02/07/24 04:12 Respiratory Rate 18 02/07/24 04:12 Blood Pressure 118/79 02/07/24 04:12 O2 Sat by Pulse Oximetry 95 02/07/24 04:12 Pain Scale Pain Intensity 4 - Course Nursing assessment & vital signs reviewed: Yes EKG Interpreted by Me: RATE (47), Other (The rhythm is ventricular paced rhythm and biventricular paced rhythm. There is no evidence of acute ischemia on today's twelve-lead EKG. There is no change in today's twelve-lead EKG when compared to the twelve-lead EKG dated 09/06/2023. Patient's QTc today is 478) <IRIS CARRERA - Last Filed: 02/07/24 06:57> Ordered Tests: Active Orders 24 hr Category Date Time Status EKG-ER Only STAT Care 02/07/24 04:31 Completed IV Insertion STAT Care 02/07/24 04:[address] ANGIOGRAPHY NECK [CT] Stat Exams 02/07/24 06:56 Completed CTA HEAD W AND/OR WO CONTRAST [CT] Stat Exams 02/07/24 06:56 Completed FACIAL BONES WO CONTRAST [CT] Stat Exams 02/07/24 04:33 Completed HEAD WITHOUT CONTRAST [CT] Stat Exams 02/07/24 04:33 Completed CBC W DIFF Stat Lab 02/07/24 04:49 Completed CMP Stat Lab 02/07/24 04:49 Completed ESR [Erythrocyte Sedimentation Rate] Stat Lab 02/07/24 11:25 Completed POCT GLUCOSE Stat Lab 02/07/24 05:58 Completed PROTIME WITH INR Stat Lab 02/07/24 04:49 Completed Lab/Rad Data: Laboratory Result Diagrams 02/07/24 04:49 02/07/24 04:49 Laboratory Results 02/07/24 02/07/24 02/07/24 Range/Units 11:25 05:58 04:49 WBC (4.23-9.07) x10^3/uL RBC (4.63-6.08) x10^6/uL Hgb (13.7-17.5) g/dL Hct (40.1-51.0) % MCV (79.0-92.2) fL MCH (25.7-32.2) pg MCHC (32.3-36.5) g/dL RDW (11.6-14.4) % Plt Count (163-337) x10^3/uL MPV (9.4-12.4) fL Gran % (34.0-67.9) % Immature Gran % (Auto) (0.001-0.429) % Nucleat RBC Rel Count (0.00-0.2) % Eos # (Auto) (0.04-0.54) x10^3/uL Immature Gran # (Auto) (0.001-0.031) x10^3u/L Absolute Lymphs (auto) (1.32-3.57) x10^3/uL Absolute Monos (auto) (0.30-0.82) x10^3/uL Absolute Nucleated RBC (0.00-0.012) x10^3u/L Lymphocytes % (21.8-53.1) % Monocytes % (5.3-12.2) % Eosinophils % (0.8-7.0) % Basophils % (0.2-1.2) % Absolute Granulocytes (1.78-5.38) x10^3/uL Basophils # (0.01-0.08) x10^3/uL ESR 34 H (0-15) mm/hr PT 20.9 H (9.4-12.5) SECONDS INR 2.01 (0.8-3.0) Sodium (135-145) mmol/L Potassium (3.5-5.1) mmol/L Chloride (98-107) mmol/L Carbon Dioxide (22-30) mmol/L Anion Gap (5-15) MEQ/L BUN (9-20) mg/dL Creatinine (0.66-1.25) mg/dL Estimated GFR ML/MIN Glucose (74-106) mg/dL POC Glucometer 148 H (74 to 106) mg/dL Calcium (8.4-10.2) mg/dL Total Bilirubin (0.2-1.3) mg/dL AST (17-59) U/L ALT (0-50) U/L Alkaline Phosphatase (38-126) U/L Serum Total Protein (6.3-8.2) g/dL Albumin (3.5-5.0) g/dL 02/07/24 02/07/24 Range/Units 04:49 04:49 WBC 7.8 (4.23-9.07) x10^3/uL RBC 4.49 L (4.63-6.08) x10^6/uL Hgb 11.1 L (13.7-17.5) g/dL Hct 36.0 L (40.1-51.0) % MCV 80.2 (79.0-92.2) fL MCH 24.7 L (25.7-32.2) pg MCHC 30.8 L (32.3-36.5) g/dL RDW 18.6 H (11.6-14.4) % Plt Count 185 (163-337) x10^3/uL MPV 10.1 (9.4-12.4) fL Gran % 61.7 (34.0-67.9) % Immature Gran % (Auto) 0.4 (0.001-0.429) % Nucleat RBC Rel Count 0.0 (0.00-0.2) % Eos # (Auto) 0.58 H (0.04-0.54) x10^3/uL Immature Gran # (Auto) 0.03 (0.001-0.031) x10^3u/L Absolute Lymphs (auto) 1.42 (1.32-3.57) x10^3/uL Absolute Monos (auto) 0.90 H (0.30-0.82) x10^3/uL Absolute Nucleated RBC 0.00 (0.00-0.012) x10^3u/L Lymphocytes % 18.3 L (21.8-53.1) % Monocytes % 11.6 (5.3-12.2) % Eosinophils % 7.5 H (0.8-7.0) % Basophils % 0.5 (0.2-1.2) % Absolute Granulocytes 4.80 (1.78-5.38) x10^3/uL Basophils # 0.04 (0.01-0.08) x10^3/uL ESR (0-15) mm/hr PT (9.4-12.5) SECONDS INR (0.8-3.0) Sodium 139 (135-145) mmol/L Potassium 3.5 (3.5-5.1) mmol/L Chloride 102 (98-107) mmol/L Carbon Dioxide 29 (22-30) mmol/L Anion Gap 11.2 (5-15) MEQ/L BUN 20 (9-20) mg/dL Creatinine 1.20 (0.66-1.25) mg/dL Estimated GFR 65.5 ML/MIN Glucose 101 (74-106) mg/dL POC Glucometer (74 to 106) mg/dL Calcium 9.5 (8.4-10.2) mg/dL Total Bilirubin 0.50 (0.2-1.3) mg/dL AST 31 (17-59) U/L ALT 20 (0-50) U/L Alkaline Phosphatase 94 (38-126) U/L Serum Total Protein 6.9 (6.3-8.2) g/dL Albumin 3.7 (3.5-5.0) g/dL - Progress Progress: improved, pain not gone completely, re-examined Counseled pt/family regarding: lab results, diagnosis, rad results <IRIS CARRERA - Last Filed: 02/07/24 06:57> <DANYEL YU - Last Filed: 02/07/24 14:58> - Progress Progress Note: 02/07/24 04:41 My medical decision making and the assignment of moderate complexity to this patient's medical issue today is based on review of the patient's past medical history, review of the patient's medication list, review of patient drug allergy list, history present illness and physical findings on examination. The workup in this patient includes placement of intravenous line, CBC, CMP, PT/INR, CT scan of the head and face. Differential diagnosis includes but is not limited to conjunctivitis, vascular event causing change in his vision, neurologic event causing change in his vision. 02/07/24 04:53 The patient's current web applications programmer is Dr. Nieves. However, Dr. Hankins performed his cataract surgery 02/07/24 06:08 I have interpreted the patient's laboratory data results. The patient's workup results that have returned show no acute or emergent medical issue. 02/07/24 06:12 CT scan of the head without contrast was interpreted by the radiologist and shows no acute intracranial abnormality. There are senile brain changes. There is no significant interval change when compared to similar study dated 04/19/2023. 02/07/24 06:24 Patient reexamined. Patient states that he still has pain in the left posterior occipital region and the left eye. Patient states he does not want any narcotic or any other pain medicine at this time. The cloudy haziness has not resolved in the left eye. 02/07/24 06:[address] scan of the facial bones was interpreted by the radiologist and I reviewed the impression. The impression states no evidence of fracture or destructive bony lesions in the facial bones. There is normal orbital structures. Minimal bilateral maxillary sinus mucosal thickening. Slightly deviated nasal septum to the right side. 02/07/24 06:58 Transfer of pt care to Dr. Yu at shift change. He will follow-up on pendin g studies and make final disposition. (IRIS CARRERA) 02/07/24 09:09 Assumed care at shift change of the patient that woke up at 3 AM with left ocular pain and acute onset of blindness. Patient has no focal weakness. He has history of atrial fibrillation and is on Coumadin presently. CT of the head was negative. CTA of head and neck was ordered by previous physician and both were negative for acute disease. I tested intraocular pressure with the help of my practical nursing instructor and the right intraocular pressure was 17 on average, but the left intraocular pressure was 27 on average.Pt accepted by Dr. Dalton Landaverde,Process Line Operator at [facility], and wants patient to come to his office [place]. [address], [facility] [place] [address] 02/07/24 11:16 02/07/24 14:56Patient transferred by private vehicle per family member to Dr. Landaverde's office In [place]. Patient is stable condition upon transfer. Patient has acute left eye blindness with differential diagnosis being an occipital CVA versus acute glaucoma versus enteritis versus amaurosis fugax. pat piero had no focal weakness and was able to ambulate without difficulty with a cane upon transfer. (DANYEL YU) Medical Desision Making - Diagnostic Testing Diagnostic test were ordered, analyzed, and reviewed by me: Yes Radiological Interpretation: Reviewed by me, Teleradiologist Report <IRIS CARRERA - Last Filed: 02/07/24 06:57> - Independent Historian Additional History obtained from: Family - Discussion of managment Care discussed with:: specialist <DANYEL YU - Last Filed: 02/07/24 14:58> - Departure Departure Disposition: Home Critical Care Time: No <IRIS CARRERA - Last Filed: 02/07/24 06:57> - Departure Departure Disposition: Transfer <DANYEL YU - Last Filed: 02/07/24 14:58> - Departure Clinical Impression: Alteration in vision, Amaurosis fugax of left eye, Glaucoma (increased eye pressure) Condition: Stable Referrals: PABLITO MUNGUIA MD [Primary Care Provider] - Follow up/PCP as directed Additional Instructions: Dr. Dalton Landaverde, Opthamologist [place] Nothing to Eat or drink in route [address] [address]
[2024-02-07 04:32] VITALS: RESP 18; TEMP 97.6
[2024-02-07 04:52] LABS: BASOPHIL % 0.5 % (0.2-1.2); Basophil (Absolute #) 0.04 x10^3/uL (0.01-0.08); Eosinophil % 7.5 % (0.8-7.0); Eosinophil (Absolute #) 0.58 x10^3/uL (0.04-0.54); Hemoglobin 11.1 g/dL (13.7-17.5); IMMATURE GRAN # 0.03 x10^3u/L (0.001-0.031); IMMATURE GRAN % 0.4 % (0.001-0.429); Lymphocyte (Absolute #) 1.42 x10^3/uL (1.32-3.57); Lymphocytes % 18.3 % (21.8-53.1); Mean Cell Volume 80.2 fL (79.0-92.2); Mean Corpuscular Hemoglobin 24.7 pg (25.7-32.2); Mean Corpuscular Hgb Concent. 30.8 g/dL (32.3-36.5); Mean Platelet Volume 10.1 fL (9.4-12.4); Monocytes % 11.6 % (5.3-12.2); Neutrophil % 61.7 % (34.0-67.9); Platelet Count 185 x10^3/uL (163-337); Red Blood Count 4.49 x10^6/uL (4.63-6.08); Red Cell Distribution Width 18.6 % (11.6-14.4); White Blood Count 7.8 x10^3/uL (4.23-9.07)
[2024-02-07 05:06] LABS: ALBUMIN 3.7 g/dL (3.5-5.0); ANION GAP 11.2 MEQ/L (5-15); BILIRUBIN,TOTAL 0.5 mg/dL (0.2-1.3); Calcium 9.5 mg/dL (8.4-10.2); Creatinine 1 1.2 mg/dL (0.66-1.25); EST GLOMERULAR FILTRATION RATE 65.5 ML/MIN; INR 2.01 (0.8-3.0); PROTIME 20.9 SECONDS (9.4-12.5); Potassium 3.5 mmol/L (3.5-5.1); Total Protein 6.9 g/dL (6.3-8.2)
--- NOTE | 2024-02-07 05:55 | XRAY ---
CLINICAL HISTORY: L eye pain;L eye vision change COMPARISON: 04/19/2023 TECHNIQUE: Axial noncontrast CT scan of the brain was performed from the skull base to the high parietal region, sagittal and coronal reconstructed images was obtained.DLP : 1919.32 mGy-cm. FINDINGS: The ventricular system, cortical sulci and basal cisterns are prominent consistent with senile changes. The visualized brain parenchyma shows normal appearance. Ruvalcaba-white matter differentiation is maintained. No midline shifts or deformity. No intracerebral or extra axial hematoma. Normal size and configuration of the cerebral ventricles. Normal CT appearance of the posterior fossa structures namely the cerebellar hemispheres, brainstem and cerebellar peduncles. The IACs are unremarkable. The cerebello-pontine angles are clear. The pituitary gland, the pineal gland, the optic chiasm is unremarkable. The osseous structures in the skull base are unremarkable. No definite calvarium fractures. IMPRESSION: 1. No acute intracranial abnormality. 2. Senile brain changes. 3. No significant interval changes. Electronically Signed by: Dakota Knutson MD. (02/07/2024 05:51:06 EDT)
--- NOTE | 2024-02-07 06:29 | XRAY ---
CLINICAL HISTORY: L eye pain;L eye vision change COMPARISON: None. TECHNIQUE: Non-contrast CT scan of the facial bones, with sagittal and coronal multiplanar reconstruction. Total DLP : 1919.32 mGy-cm. FINDINGS: No evidence of fractures. Both globes are normal. No definite intra-or extra orbital masses. The retro-orbital fat is normal in density. The optic nerve is normal. The extraocular muscles are normal in size and symmetry. No gross destructive lytic or sclerotic bony lesions. Minimal bilateral maxillary sinuses mucosal thickening. Clear rest of the scanned paranasal sinuses. No evidence of ocular extension of sinus disease. Patent both osteomeatal units. Slightly deviated nasal septum to the right side. Small right middle florence bullosa. Normal nasopharynx. IMPRESSION: 1. No evidence of fractures or destructive lesions in the facial bones. 2. Normal orbital structures within the limitation of a non-contrast CT study. A dedicated contrast-enhanced MRI may be advised if clinically needed. 3. Minimal bilateral maxillary sinuses mucosal thickening. 4. Slightly deviated nasal septum to the right side. Electronically Signed by: Dakota Knutson MD. (02/07/2024 06:24:00 EDT)
[2024-02-07 08:10] VITALS: PULSE 69
--- NOTE | 2024-02-07 08:47 | XRAY ---
Indication: Left eye vision change. Conventional CTA neck performed using 80 cc Isovue 370 contrast. 2-D sagittal and coronal reformatted images obtained. Additional 3-D reformatted images obtained using a separate workstation. Comparison: None Visualized aortic arch normal in course and caliber. Query minimal calcifications origin left subclavian artery. Widely patent origin right brachiocephalic and left common carotid artery. Examination right carotid circulation demonstrates normal CTA appearance to the common carotid, carotid bulb, and external carotid arteries. Very minimal eccentric plaquing proximal internal carotid artery without critical stenosis or obstruction. Examination left carotid circulation demonstrates normal CTA appearance to the common carotid, carotid bulb, and external carotid arteries. Minimal petechial calcifications proximal internal carotid artery without critical stenosis or obstruction. Vertebral arteries are bilaterally symmetric without critical stenosis, obstruction, or AV malformation. Visualized soft tissues are negative for pathologic cervical/supraclavicular lymphadenopathy. Thyroid gland enhances homogeneously. Parotid and submandibular glands are bilaterally symmetric. Incidental left chest wall pacemaker. Lung apices are clear. A few small mediastinal and left hilar calcified nodes. Visualized osseous structures demineralized. Minimal/mild multilevel cervicothoracic degenerative changes. CTA head reported separately. Impression: 1. Very minimal arteriosclerotic calcifications proximal left and right internal carotid arteries without critical stenosis/obstruction. Remaining CTA neck is normal. 2. Chronic findings including osteopenia, multilevel degenerative spondylosis, and old granulomatous disease.
--- NOTE | 2024-02-07 08:49 | XRAY ---
Indication: Left eye vision change. Conventional CTA head performed using 80 cc Isovue 370 contrast. 2-D sagittal and coronal reformatted images obtained. Additional 3-D reformatted images obtained using a separate workstation. Comparison: None Distal internal carotid arteries are bilaterally symmetric with faint minimal calcifications both parasellar segments without critical stenosis, obstruction, or AV malformation. Normal carotid terminus with normal branching A1 and M1 segments bilaterally. More distal anterior cerebral and middle cerebral arteries are normal in CTA appearance. Posterior circulation demonstrates normal CTA appearance to the distal left/right vertebral, basilar, left/right posterior cerebral, and left/right superior cerebellar arteries. Venous sinuses/drainage unremarkable. No abnormal enhancing intra-or extra-axial brain mass. Impression: Faint minimal arteriosclerotic calcifications both parasellar internal carotid arteries without critical stenosis/obstruction. Remaining CTA head with contrast exam is normal.
[2024-02-07 09:16] VITALS: BP 127/66; O2SAT 96
== END 2024-02-07 11:49 ==
LOC: ED 04:03
DX: G45.3 Amaurosis fugax (principal); H40.9 Unspecified glaucoma; H53.9 Unspecified visual disturbance; H57.12 Ocular pain, left eye; R51.9 Headache, unspecified; E11.42 Type 2 diabetes mellitus with diabetic polyneuropathy; I11.0 Hypertensive heart disease with heart failure; I50.9 Heart failure, unspecified; E78.5 Hyperlipidemia, unspecified; Z79.84 Long term (current) use of oral hypoglycemic drugs; Z79.4 Long term (current) use of insulin; Z79.899 Other long term (current) drug therapy; H40.052 Ocular hypertension, left eye
CPT/HCPCS: 36000; 36415; 70450; 70486; 70496; 70498; 80053; 82947; 85025; 85610; 85652; 93005; 99284

== ENCOUNTER 2024-02-26 02:34 | Emergency (ER) | payer MEDICARE ==
[2024-02-26 02:52] VITALS: TEMP 97.2
--- NOTE | 2024-02-26 02:54 | ERPHSYRPT ---
- History of Present Illness Time Seen by Provider: 02/26/24 02:45 Source: patient Exam Limitations: no limitations Physician History: This is an obese 68-year-old white male patient who has chronic low back pain and was working out in the yard yesterday and noticed pain yesterday evening. The pain is worse this morning. Patient did not fall. Patient is on Coumadin. He has a history of atrial fibrillation, CHF, coronary artery disease (CABG and stents) ischemic cardiomyopathy, diabetes, COPD, hypertension hyperlipidemia. Patient was driven to the emergency department by his brother who is waiting for him and the parking lot. Patient denies chest pain. Patient denies shortness of breath. Patient can take any narcotics but not morphine. Timing/Duration: yesterday, worse (This morning) Quality: sharp Back Pain Location: lumbar spine Severity of Pain-Max: moderate Severity of Pain-Current: moderate Modifying Factors: Improves With: movement Associated Symptoms: lower back pain, No urinary incontinence, No loss of bowel control, No problems urinating, No numbness in legs/feet, No sensory/motor loss Previous symptoms: same symptoms as today, no recent treatment Allergies/Adverse Reactions: apixaban [From Eliquis] Allergy (Severe, Verified 02/26/24 02:39) cant walk leg pain morphine Allergy (Severe, Verified 02/26/24 02:39) hallucinations HALLUCINATIONS dabigatran etexilate mesylate [From Pradaxa] Allergy (Mild, Verified 02/26/24 02:39) Nausea and Vomiting upset stomach metoclopramide HCl [From Reglan] Allergy (Mild, Verified 02/26/24 02:39) Itching hives Home Medications: Aspirin [Aspirin EC] 81 mg PO DAILY 09/03/13 [History] Nitroglycerin 0.4 mg Tablet [Nitrostat 0.4 MG Tablet] 0.4 mg SL UD PRN 09/03/13 [History] Atorvastatin Calcium [Lipitor] 80 mg PO HS 11/29/17 [History] Metformin HCl 500 mg [Glucophage 500 MG] 1,000 mg PO BIDWM 11/29/17 [History] Albuterol Sulfate 2 puffs IH Q6HPRN PRN 09/06/20 [History] Insulin NPH/Reg 70/30 [Novolin 70/30] 60 unit SQ PMINSULIN 09/06/20 [History] Insulin NPH/Reg 70/30 [Novolin 7030] 75 unit SQ AMINSULIN 09/06/20 [History] Amiodarone HCl 200 mg [Cordarone 200 MG] 200 mg PO DAILY 03/13/22 [History] Isosorbide Mononitrate 30 mg [Imdur 30 MG] 60 mg PO DAILY 03/13/22 [History] Ferrous Sulfate [Iron] 325 mg PO BID 12/03/22 [History] Tamsulosin HCl 0.4 mg [Flomax 0.4 MG] 0.4 mg PO HS 02/03/23 [History] Torsemide 20 mg [Demadex 20 mg] 20 mg PO DAILY 02/03/23 [History] Carvedilol 3.125 mg [Coreg 3.125 MG] 3.125 mg PO BID 03/12/23 [History] Empagliflozin [Jardiance] 10 mg PO DAILY 03/12/23 [History] Lisinopril 10 mg [Zestril 10 MG] 10 mg PO DAILY 03/12/23 [History] Metolazone 2.5 mg [Zaroxolyn 2.5 MG] 2.5 mg PO UD 04/17/23 [History] Spironolactone 25 mg [Aldactone 25 MG] 25 mg PO DAILY 10/18/23 [History] Metolazone 2.5 mg [Zaroxolyn 2.5 MG] 2.5 mg PO MOWEFR 12/17/23 [History] Hx Tetanus, Diphtheria Vaccination/Date Given: Yes Hx Influenza Vaccination/Date Given: Yes Hx Pneumococcal Vaccination/Date Given: No Travel Risk - International Travel Have you traveled outside of the country in past 3 weeks: No - Emerging Infectious Disease Are you exhibiting symptoms associated with any current EIDs: No - Review of Systems Constitutional: No Symptoms Eyes: No Symptoms Ears, Nose, & Throat: No Symptoms Respiratory: No Symptoms Cardiac: No Symptoms Abdominal/Gastrointestinal: No Symptoms Genitourinary Symptoms: No Symptoms Musculoskeletal: Back Pain Skin: No No Symptoms Neurological: No Symptoms Psychological: No Symptoms Endocrine: No Symptoms Hematologic/Lymphatic: No Symptoms Immunological/Allergic: No Symptoms All Other Systems: Reviewed and Negative - Past Medical History Pertinent Past Medical History: Yes Neurological History: Migraines, Peripheral Neuropathy ENT History: Cataracts Cardiac History: Arrhythmia, Congestive Heart Failure, Coronary Artery Disease, High Cholesterol, Hypertension, Myocardial Infarction ([place]) Respiratory History: CHF, COPD, Emphysema, Pneumonia, Sleep Apnea Endocrine Medical History: Diabetes Type II, Other Musculoskeletal History: No Pertinent History GI Medical History: Diverticulitis, Polyps History: No Pertinent History Psycho-Social History: No Pertinent History Male Reproductive Disorders: No Pertinent History Other Medical History: SLEEP APNEA, RLS, FATIGUE, SINUSITIS, ISCHEMIC CARDIOMYOPATHY, A-FIB - Past Surgical History Past Surgical History: Yes Neuro Surgical History: No Pertinent History Cardiac: CABG, Cardiac Catheterization, Cardiac Stent, Internal Defibrillator, Pacemaker Respiratory: No Pertinent History Gastrointestinal: Other Genitourinary: No Pertinent History Musculoskeletal: No Pertinent History Male Surgical History: No Pertinent History Other Surgical History: POLYPS REMOVED FROM COLON bilateral eye implants, bypass x3, pacemaker x3 - Social History Smoking Status: Former smoker How long have you smoked: 21 yrs Exposure to second hand smoke: No Drug Use: none Patient Lives Alone: Yes - Social Determinants of Health Will the patient participate in the screening: Declined to provide - Nursing Vital Signs Nursing Vital Signs: Initial Vital Signs Temperature 97.2 F 02/26/24 02:41 Pulse Rate 82 02/26/24 02:41 Respiratory Rate 24 02/26/24 02:41 Blood Pressure 114/65 02/26/24 02:41 O2 Sat by Pulse Oximetry 96 02/26/24 02:41 Pain Scale Pain Intensity [Lower Back] 10 Pain Intensity 5 - Physical Exam General Appearance: no apparent distress, alert, anxiety Eye Exam: PERRL/EOMI, eyes nml inspection Ears, Nose, Throat Exam: normal ENT inspection, moist mucous membranes Neck Exam: normal inspection, non-tender, supple, full range of motion Respiratory Exam: normal breath sounds, lungs clear, airway intact, No chest tenderness, No respiratory distress Cardiovascular Exam: regular rate/rhythm, normal heart sounds, normal peripheral pulses Gastrointestinal Exam: soft, normal bowel sounds, No tenderness Rectal Exam: not done Back Exam: normal inspection, decreased range of motion, muscle spasm, No vertebral tenderness Extremity Exam: normal inspection, normal range of motion, pelvis stable Neurologic Exam: alert, oriented x 3, cooperative, release of information clerk II-XII nml as tested, normal mood/affect Skin Exam: normal color, warm, dry Lymphatic Exam: No adenopathy SpO2 Interpretation: normal O2 Delivery: Room Air - Course Nursing assessment & vital signs reviewed: Yes Ordered Tests: Active Orders 24 hr Category Date Time Status ABDOMEN AND PELVIS W/0 CONTRAS [CT] Stat Exams 02/26/24 02:48 Completed RECONSTRUCTION [CT] Stat Exams 02/26/24 02:48 Completed Medication Summary Discontinued Medications Generic Name Dose Route Start Last Admin Trade Name Shivani PRN Reason Stop Dose Admin Oxycodone/Acetaminophen 1 tab 02/26/24 03:06 02/26/24 03:09 Oxycodone Hcl/Apap 5 Mg/325 Mg Tablet PO 02/26/24 03:07 1 tab STAT STA Administration Oxycodone/Acetaminophen Confirm 02/26/24 03:08 Oxycodone Hcl/Apap 5 Mg/325 Mg Tablet Administered 02/26/24 03:09 Dose 1 tab .ROUTE .STK-MED ONE Oxycodone/Acetaminophen 2 tab 02/26/24 05:09 Oxycodone Hcl/Apap 5 Mg/325 Mg Tablet PO 02/26/24 05:10 SENT HOME W/ PATIENT STA - Progress Progress: improved, pain not gone completely, re-examined Progress Note: 02/26/24 02:53 My medical decision making and the assignment of low to moderate complexity of this patient medical issue today is based on review of the patient's past medical history, review of the patient's medication list,Reviewed the patient drug allergy list, history present illness and physical findings on examination. The workup includes CT scan of the abdomen pelvis without contrast to evaluate for abdominal aortic aneurysm and a lumbar reconstruction to evaluate for acute spinal fractures. 02/26/24 05:[address] scan of the abdomen pelvis without contrast was interpreted by the radiologist and I reviewed the impression. Impression states colonic diverticulosis without diverticulitis. Bilateral adrenal myelo lipoma, no acute abnormalities. CT scan lumbar spine reconstruction was interpreted by the radiologist and I reviewed the impression. Pression states no abdominal aortic aneurysm. There is advanced degenerative changes of the lumbar spine with multi level posterior disc bulges. There is no definite fractures present. Multilevel facet arthropathy causing spinal canal and foraminal stenosis. Counseled pt/family regarding: diagnosis, need for follow-up, rad results Medical Desision Making - Diagnostic Testing Diagnostic test were ordered, analyzed, and reviewed by me: Yes Radiological Interpretation: Reviewed by me, Teleradiologist Report - Risk of complications The pt has a mod risk of morbidity or mortality based on: Need for prescription drug management - Departure Departure Disposition: Home Clinical Impression: Bulging lumbar disc, Degenerative disc disease, lumbar, Foraminal stenosis due to intervertebral disc disease, Facet arthropathy, lumbar Condition: Stable Critical Care Time: No Referrals: PABLITO MUNGUIA MD [Primary Care Provider] - Follow up/PCP as directed Additional Instructions: Take your medication as prescribed. Monitor your blood sugar closely while taking the steroids/prednisone. Call your prescribing provider on 02/28/2024 to make arranges for follow-up appointment to be seen within the next 3 to 5 days. Prescriptions: Oxycodone HCl/Acetaminophen [Percocet 5-325 mg Tablet] 1 each PO Q8H PRN PRN #6 tablet MDD 3 PRN Reason: Moderate To Severe Pain Prednisone 10 mg [Deltasone 10 mg] 10 mg PO TID #12 tablet
[2024-02-26] MEDS ORDERED: PERCOCET TABLET 5/325MG ONE ×2 (03:08→05:13)
[2024-02-26] MEDS: PERCOCET TABLET 5/325MG PO STA ×2 (03:09→05:14)
--- NOTE | 2024-02-26 04:32 | XRAY ---
CLINICAL HISTORY: Back pain COMPARISON: 04/17/2023. TECHNIQUE: A CT scan of the lumbar spine was performed without contrast. Axial images were obtained with reconstructed coronal and sagittal images and submitted for interpretation. One of the following dose reduction techniques was utilized for this exam: Automated exposure control, adjustment of the mA and/or kV according to patient size, use of iterative reconstruction? FINDINGS: The abdominal aorta is normal in size, measuring 2.1 cm in diameter. Levoscoliosis of the lumbar spine is noted. Anterior marginal osteophytes are seen at multiple levels. Reduction with end plate changes is seen at multiple disc levels. Vacuum phenomena are seen at L3-L4 and L4-L5 disc levels. Disc bulgings of the L2-3 down to L5-S1 levels were noted and associated with posterior annular calcification at L3-4 down to L5-S1 levels. Normal vertebral bodies height. Intact vertebral bodies and neural arches. No definite fractures could be detected. Facetal arthropathy seen at multiple levels. No retro paraspinal soft tissue masses. IMPRESSION: 1. Levoscoliosis of the lumbar spine. 2. Advanced degenerative changes of the lumbar spine with multiple levels of posterior disc bulges, and multilevel facet degenerative arthropathy causing spinal canal and neural foraminal stenosis. 3. No AAA. 4. No significant interval changes. Electronically Signed by: Dakota Knutson MD. (02/26/2024 04:27:05 EDT)
--- NOTE | 2024-02-26 04:36 | XRAY ---
CLINICAL HISTORY: Back pain COMPARISON: 04/19/2023 TECHNIQUE: CT of the abdomen and pelvis was performed with axial images as well as sagittal and coronal reconstruction images without intravenous contrast. One of the following dose reduction techniques were utilized for this exam: Automated exposure control, adjustment of the mA and/or kV according to patient size, use of iterative reconstruction? FINDINGS: Mildly enlarged liver with hypoattenuation and tiny calcifications noted, otherwise appears unremarkable with no intrahepatic or extrahepatic bile duct dilatation. Unremarkable appearing gallbladder with no stones wall thickening or pericholecystic inflammatory changes or fluid. Unremarkable appearing pancreas. No pancreatic mass or ductal dilatation is seen. Numerous calcified nodules likely old granulomatous infection, otherwise Unremarkable appearing spleen. Fat-containing mass lesions in both adrenal glands measuring about 27 x 28 mm in the right adrenal gland and 46 X 32 mm and the left adrenal gland representing adrenal myelolipoma. The kidneys appear unremarkable with no cysts masses or hydronephrosis The ureters are normal with no stones. Atherosclerotic calcifications of the abdominal aorta and iliac vessels. IVC is unremarkable. The stomach appears unremarkable. Unremarkable appearing duodenum. The appendix is unremarkable. A small anterior abdominal wall paraumbilical fat-containing hernia is still seen. There is a 16 mm soft tissue nodular density showing rim calcification in the infraumbilical region probably a peritoneal loose body. Non-complicated colonic diverticulosis involving ascending and descending colon without evidence of diverticulitis. No free air and no ascites. No free intraperitoneal air is seen. The bladder is unremarkable with no stones. The prostate is average size with multiple calcific foci detected. Advanced degenerative changes are seen in the visualized spine with mild levoscoliosis. No other bony abnormality was detected.The scanned lower lung cuts show left lower and middle lung lobes parenchymal ground glass opacities. IMPRESSION: 1. No acute abnormalities were detected. 2. Bilateral Adrenal myelolipoma. 3. Non-complicated colonic diverticulosis without evidence of diverticulitis. 4. No significant interval changes. Electronically Signed by: Dakota Knutson MD. (02/26/2024 04:31:16 EDT)
[2024-02-26] MEDS ORDERED: Norflex 100 MG Tablet PO ONE (05:13)
[2024-02-26] MEDS: Norflex 100 MG Tablet PO ONE (05:15)
[2024-02-26 05:36] VITALS: RESP 19
[2024-02-26 06:14] VITALS: BP 106/73; PULSE 85; O2SAT 95
== END 2024-02-26 06:15 | disposition home or self-care (01) ==
LOC: ED 02:34
DX: M51.36 Other intervertebral disc degeneration, lumbar region (principal); M48.061 Spinal stenosis, lumbar region without neurogenic claudication; M47.816 Spondylosis without myelopathy or radiculopathy, lumbar region; M54.50 Low back pain, unspecified; E11.42 Type 2 diabetes mellitus with diabetic polyneuropathy; I11.0 Hypertensive heart disease with heart failure; I50.9 Heart failure, unspecified; E78.5 Hyperlipidemia, unspecified; Z79.01 Long term (current) use of anticoagulants; Z79.84 Long term (current) use of oral hypoglycemic drugs; Z79.4 Long term (current) use of insulin; Z79.891 Long term (current) use of opiate analgesic; Z79.52 Long term (current) use of systemic steroids; Z79.899 Other long term (current) drug therapy
CPT/HCPCS: 74176; 76376; 99283; A9270-GY

== ENCOUNTER 2025-07-04 14:34 | Observation (INO) | payer MEDICARE ==
--- NOTE | 2025-07-04 14:52 | ERPHSYRPT ---
- History of Present Illness Time Seen by Provider: 07/04/25 14:35 Source: patient, EMS, old records Exam Limitations: no limitations Patient Subjective Stated Complaint: patient states he has increased fatigue over past several months, patient states that he went to dr. russ's office and was sent to emergency room because dr. moseley told patient he had slurred speech, patient states I get told that all the time, I just talk soft Triage Nursing Assessment: . Physician History: This is a morbidly obese 70-year-old white male patient who was sent to the emergency department from the patient's web administrator office, Dr. Sam Moseley. He was concerned that the patient may be having slurred speech. The patient does not feel he has had slurred speech. Patient states he gets that all the time from doctors and family and friends. He speaks softly and slowly. He does state over the last several months he has increasing fatigue. But he does not have chest pain or shortness of breath. The patient has multiple medical problems including hyperlipidemia, migraine headaches, peripheral neuropathy, atrial fibrillation on anticoagulation therapy, CHF, coronary artery disease (ischemic cardiomyopathy, cardiac valve replacement, cardiac stents and pacemaker/defibrillator), hypertension, COPD, diabetes, sleep apnea and RLS. Timing/Duration: today Severity: mild Associated Symptoms: weakness (Chronic weakness and fatigue), No nausea, No vomiting, No abdominal pain, No shortness of breath, No chest pain Allergies/Adverse Reactions: apixaban [From Eliquis] Allergy (Severe, Verified 02/26/24 02:39) cant walk leg pain morphine Allergy (Severe, Verified 02/26/24 02:39) hallucinations HALLUCINATIONS dabigatran etexilate mesylate [From Pradaxa] Allergy (Mild, Verified 02/26/24 02:39) Nausea and Vomiting upset stomach metoclopramide HCl [From Reglan] Allergy (Mild, Verified 02/26/24 02:39) Itching hives Home Medications: Aspirin [Aspirin EC] 81 mg PO DAILY 09/03/13 [History] Nitroglycerin 0.4 mg Tablet [Nitrostat 0.4 MG Tablet] 0.4 mg SL UD PRN 09/03/13 [History] Atorvastatin Calcium [Lipitor] 80 mg PO HS 11/29/17 [History] Metformin HCl 500 mg [Glucophage 500 MG] 1,000 mg PO BIDWM 11/29/17 [History] Insulin NPH/Reg 70/30 [Novolin 7030] 50 unit SQ PMINSULIN 09/06/20 [History] Insulin NPH/Reg 70/30 [Novolin 70/30] 85 unit SQ AMINSULIN 09/06/20 [History] Tamsulosin HCl 0.4 mg [Flomax 0.4 MG] 0.4 mg PO HS 02/03/23 [History] Carvedilol 3.125 mg [Coreg 3.125 MG] 6.25 mg PO BID 03/12/23 [History] Spironolactone 25 mg [Aldactone 25 MG] 50 mg PO DAILY 10/18/23 [History] Furosemide 40 mg [Lasix 40 MG] 40 mg PO TID 07/04/25 [History] Potassium Chloride 10 meq PO BID 07/04/25 [History] Sacubitril/Valsartan [Entresto 24 mg-26 mg Tablet] 1 tab PO BID 07/04/25 [History] Hx Tetanus, Diphtheria Vaccination/Date Given: Yes Hx Influenza Vaccination/Date Given: Yes Hx Pneumococcal Vaccination/Date Given: Yes Travel Risk - International Travel Have you traveled outside of the country in past 3 weeks: No - Emerging Infectious Disease Are you exhibiting symptoms associated with any current EIDs: No - Review of Systems Constitutional: Fatigue (Chronic), Weakness (Chronic) Eyes: No Symptoms Ears, Nose, & Throat: No Symptoms Respiratory: No Symptoms Cardiac: No Symptoms Abdominal/Gastrointestinal: No Symptoms Genitourinary Symptoms: No Symptoms Musculoskeletal: No Symptoms Skin: No Symptoms Neurological: No Symptoms Psychological: No Symptoms Endocrine: No Symptoms Hematologic/Lymphatic: No Symptoms Immunological/Allergic: No Symptoms All Other Systems: Reviewed and Negative - Past Medical History Pertinent Past Medical History: Yes Neurological History: Migraines, Peripheral Neuropathy ENT History: Cataracts Cardiac History: Arrhythmia, Congestive Heart Failure, Coronary Artery Disease, High Cholesterol, Hypertension, Myocardial Infarction (SD) Respiratory History: CHF, COPD, Emphysema, Pneumonia, Sleep Apnea Endocrine Medical History: Diabetes Type II, Other Musculoskeletal History: No Pertinent History GI Medical History: Diverticulitis, Polyps History: No Pertinent History Psycho-Social History: No Pertinent History Male Reproductive Disorders: No Pertinent History Other Medical History: SLEEP APNEA, RLS, FATIGUE, SINUSITIS, ISCHEMIC CARDIOMYOPATHY, A-FIB - Past Surgical History Past Surgical History: Yes Neuro Surgical History: No Pertinent History Cardiac: CABG, Cardiac Catheterization, Cardiac Stent, Internal Defibrillator, Pacemaker Respiratory: No Pertinent History Gastrointestinal: Other Genitourinary: No Pertinent History Musculoskeletal: No Pertinent History Male Surgical History: No Pertinent History Other Surgical History: POLYPS REMOVED FROM COLON bilateral eye implants, bypass x3, pacemaker x3 - Social History Smoking Status: Former smoker How long have you smoked: 21 yrs Exposure to second hand smoke: No Drug Use: none - Social Determinants of Health Will the patient participate in the screening: Declined to provide - Nursing Vital Signs Nursing Vital Signs: Initial Vital Signs Temperature 97.6 F 07/04/25 14:35 Pulse Rate 81 07/04/25 14:35 Respiratory Rate 19 07/04/25 14:35 Blood Pressure 121/70 07/04/25 14:35 O2 Sat by Pulse Oximetry 98 07/04/25 14:35 Pain Scale Pain Intensity 2 - Physical Exam General Appearance: no apparent distress, alert, obese Eye Exam: PERRL/EOMI, eyes nml inspection Ears, Nose, Throat Exam: normal ENT inspection, moist mucous membranes Neck Exam: normal inspection, non-tender, supple, full range of motion Respiratory Exam: normal breath sounds, lungs clear, No chest tenderness, No respiratory distress Cardiovascular Exam: regular rate/rhythm, normal heart sounds, normal peripheral pulses Gastrointestinal/Abdomen Exam: soft, normal bowel sounds, No tenderness Rectal Exam: not done Back Exam: normal inspection, normal range of motion, No CVA tenderness, No vertebral tenderness Extremity Exam: normal range of motion, pelvis stable, other (Significant bilateral lower extremities chronic venous stasis disease/discoloration without obvious ulcerations at this time. There is also evidence of lymphedema chronically of his bilateral lower extremities) Skin Exam: normal color, warm, dry Lymphatic Exam: No adenopathy SpO2 Interpretation: normal SpO2: 98 O2 Delivery: Room Air - Course Nursing assessment & vital signs reviewed: Yes EKG Interpreted by Me: RATE (80 ventricular paced rhythm), Other (No acute ischemia. QTc is 532. No significant change on today's twelve-lead EKG when compared to similar twelve-lead EKG dated 02/07/2024) Ordered Tests: Active Orders 24 hr Category Date Time Status Cash Application Clerk STAT Care 07/04/25 14:52 Active EKG-ER Only STAT Care 07/04/25 14:52 Completed IV Insertion STAT Care 07/04/25 14:52 Active NPO (ED) STAT Care 07/04/25 14:52 Active POCT Glucose Check STAT Care 07/04/25 14:52 Active Pulse Oximetry (ED) STAT Care 07/04/25 14:52 Active HEAD WITHOUT CONTRAST [CT] Stat Exams 07/04/25 14:46 Completed CBC W DIFF Stat Lab 07/04/25 15:00 Completed CMP Stat Lab 07/04/25 15:00 Completed CULTURE,URINE Stat Lab 07/04/25 14:52 Received MAGNESIUM Stat Lab 07/04/25 16:00 Completed POCT GLUCOSE Stat Lab 07/04/25 18:47 Completed PT INR [PROTIME WITH INR] Stat Lab 07/04/25 15:00 Completed TROPONIN Q4H Lab 07/04/25 16:00 Completed TROPONIN Q4H Lab 07/04/25 20:30 Ordered TROPONIN Q4H Lab 07/05/25 00:30 Ordered UA W/RFX UR CULTURE Stat Lab 07/04/25 14:52 Completed Transfer Order Routine Transfer 07/04/25 Ordered Medication Summary Generic Name Dose Route Start Last Admin Trade Name Freq PRN Reason Stop Dose Admin Sodium Chloride 1,000 mls @ 100 mls/hr 07/04/25 15:00 07/04/25 15:10 Sodium Chloride 0.9% 1000 Ml IV 08/03/25 14:59 100 mls/hr .Q10H KIKI Administration Lab/Rad Data: Laboratory Result Diagrams 07/04/25 15:00 07/04/25 15:00 Laboratory Results 07/04/25 07/04/25 07/04/25 Range/Units 18:47 16:00 15:00 WBC (4.23-9.07) x10^3/uL RBC (4.63-6.08) x10^6/uL Hgb (13.7-17.5) g/dL Hct (40.1-51.0) % MCV (79.0-92.2) fL MCH (25.7-32.2) pg MCHC (32.3-36.5) g/dL RDW (11.6-14.4) % Plt Count (163-337) x10^3/uL MPV (9.4-12.4) fL Gran % (34.0-67.9) % Immature Gran % (Auto) (0.001-0.429) % Nucleat RBC Rel Count (0.00-0.2) % Eos # (Auto) (0.04-0.54) x10^3/uL Immature Gran # (Auto) (0.001-0.031) x10^3u/L Absolute Lymphs (auto) (1.32-3.57) x10^3/uL Absolute Monos (auto) (0.30-0.82) x10^3/uL Absolute Nucleated RBC (0.00-0.012) x10^3u/L Lymphocytes % (21.8-53.1) % Monocytes % (5.3-12.2) % Eosinophils % (0.8-7.0) % Basophils % (0.2-1.2) % Absolute Granulocytes (1.78-5.38) x10^3/uL Basophils # (0.01-0.08) x10^3/uL PT 14.7 H (9.4-12.5) SECONDS INR 1.33 (0.8-3.0) Sodium (135-145) mmol/L Potassium (3.5-5.1) mmol/L Chloride (98-107) mmol/L Carbon Dioxide (22-30) mmol/L Anion Gap (5-15) MEQ/L BUN (9-20) mg/dL Creatinine (0.66-1.25) mg/dL Estimated GFR ML/MIN Glucose (74-106) mg/dL POC Glucometer 141 H (74 to 106) mg/dL Calcium (8.4-10.2) mg/dL Magnesium 2.0 (1.6-2.3) mg/dL Total Bilirubin (0.2-1.3) mg/dL AST (17-59) U/L ALT (0-50) U/L Alkaline Phosphatase (38-126) U/L Ammonia (9-30) umol/L Troponin I < 0.012 (0.000-0.033) ng/mL Serum Total Protein (6.3-8.2) g/dL Albumin (3.5-5.0) g/dL Urine Color (Yellow) Urine Appearance (Clear) Urine pH (4.6-8.0) Ur Specific [place] (1.005-1.030) Urine Protein (Negative) Urine Glucose (UA) (Negative) mg/dL Urine Ketones (Negative) Urine Blood (Negative) Urine Nitrite (Negative) Urine Bilirubin (Negative) Urine Urobilinogen (0.2) mg/dL Ur Leukocyte Esterase (Negative) U Hyaline Cast (Auto) (0-2) /LPF Urine Microscopic RBC (0-5) /HPF Urine Microscopic WBC (0-5) /HPF Ur Epithelial Cells (None Seen) /HPF Urine Bacteria (None Seen) /HPF Urine Culture Reflexed (NO) 07/04/25 07/04/25 07/04/25 Range/Units 15:00 15:00 15:00 WBC 8.1 (4.23-9.07) x10^3/uL RBC 5.41 (4.63-6.08) x10^6/uL Hgb 13.9 (13.7-17.5) g/dL Hct 44.5 (40.1-51.0) % MCV 82.3 (79.0-92.2) fL MCH 25.7 (25.7-32.2) pg MCHC 31.2 L (32.3-36.5) g/dL RDW 16.6 H (11.6-14.4) % Plt Count 210 (163-337) x10^3/uL MPV 10.3 (9.4-12.4) fL Gran % 66.5 (34.0-67.9) % Immature Gran % (Auto) 0.4 (0.001-0.429) % Nucleat RBC Rel Count 0.0 (0.00-0.2) % Eos # (Auto) 0.23 (0.04-0.54) x10^3/uL Immature Gran # (Auto) 0.03 (0.001-0.031) x10^3u/L Absolute Lymphs (auto) 1.66 (1.32-3.57) x10^3/uL Absolute Monos (auto) 0.75 (0.30-0.82) x10^3/uL Absolute Nucleated RBC 0.00 (0.00-0.012) x10^3u/L Lymphocytes % 20.5 L (21.8-53.1) % Monocytes % 9.3 (5.3-12.2) % Eosinophils % 2.8 (0.8-7.0) % Basophils % 0.5 (0.2-1.2) % Absolute Granulocytes 5.37 (1.78-5.38) x10^3/uL Basophils # 0.04 (0.01-0.08) x10^3/uL PT (9.4-12.5) SECONDS INR (0.8-3.0) Sodium 135 (135-145) mmol/L Potassium 3.9 (3.5-5.1) mmol/L Chloride 95 L (98-107) mmol/L Carbon Dioxide 30 (22-30) mmol/L Anion Gap 14.1 (5-15) MEQ/L BUN 15 (9-20) mg/dL Creatinine 1.03 (0.66-1.25) mg/dL Estimated GFR 77.7 ML/MIN Glucose 156 H (74-106) mg/dL POC Glucometer (74 to 106) mg/dL Calcium 10.0 (8.4-10.2) mg/dL Magnesium (1.6-2.3) mg/dL Total Bilirubin 1.10 (0.2-1.3) mg/dL AST 33 (17-59) U/L ALT 18 (0-50) U/L Alkaline Phosphatase 122 (38-126) U/L Ammonia < 9 L (9-30) umol/L Troponin I (0.000-0.033) ng/mL Serum Total Protein 7.3 (6.3-8.2) g/dL Albumin 4.1 (3.5-5.0) g/dL Urine Color (Yellow) Urine Appearance (Clear) Urine pH (4.6-8.0) Ur Specific [place] (1.005-1.030) Urine Protein (Negative) Urine Glucose (UA) (Negative) mg/dL Urine Ketones (Negative) Urine Blood (Negative) Urine Nitrite (Negative) Urine Bilirubin (Negative) Urine Urobilinogen (0.2) mg/dL Ur Leukocyte Esterase (Negative) U Hyaline Cast (Auto) (0-2) /LPF Urine Microscopic RBC (0-5) /HPF Urine Microscopic WBC (0-5) /HPF Ur Epithelial Cells (None Seen) /HPF Urine Bacteria (None Seen) /HPF Urine Culture Reflexed (NO) 07/04/25 Range/Units 14:52 WBC (4.23-9.07) x10^3/uL RBC (4.63-6.08) x10^6/uL Hgb (13.7-17.5) g/dL Hct (40.1-51.0) % MCV (79.0-92.2) fL MCH (25.7-32.2) pg MCHC (32.3-36.5) g/dL RDW (11.6-14.4) % Plt Count (163-337) x10^3/uL MPV (9.4-12.4) fL Gran % (34.0-67.9) % Immature Gran % (Auto) (0.001-0.429) % Nucleat RBC Rel Count (0.00-0.2) % Eos # (Auto) (0.04-0.54) x10^3/uL Immature Gran # (Auto) (0.001-0.031) x10^3u/L Absolute Lymphs (auto) (1.32-3.57) x10^3/uL Absolute Monos (auto) (0.30-0.82) x10^3/uL Absolute Nucleated RBC (0.00-0.012) x10^3u/L Lymphocytes % (21.8-53.1) % Monocytes % (5.3-12.2) % Eosinophils % (0.8-7.0) % Basophils % (0.2-1.2) % Absolute Granulocytes (1.78-5.38) x10^3/uL Basophils # (0.01-0.08) x10^3/uL PT (9.4-12.5) SECONDS INR (0.8-3.0) Sodium (135-145) mmol/L Potassium (3.5-5.1) mmol/L Chloride (98-107) mmol/L Carbon Dioxide (22-30) mmol/L Anion Gap (5-15) MEQ/L BUN (9-20) mg/dL Creatinine (0.66-1.25) mg/dL Estimated GFR ML/MIN Glucose (74-106) mg/dL POC Glucometer (74 to 106) mg/dL Calcium (8.4-10.2) mg/dL Magnesium (1.6-2.3) mg/dL Total Bilirubin (0.2-1.3) mg/dL AST (17-59) U/L ALT (0-50) U/L Alkaline Phosphatase (38-126) U/L Ammonia (9-30) umol/L Troponin I (0.000-0.033) ng/mL Serum Total Protein (6.3-8.2) g/dL Albumin (3.5-5.0) g/dL Urine Color Yellow (Yellow) Urine Appearance Clear (Clear) Urine pH 5.5 (4.6-8.0) Ur Specific [place] 1.020 (1.005-1.030) Urine Protein Trace A (Negative) Urine Glucose (UA) Negative (Negative) mg/dL Urine Ketones Negative (Negative) Urine Blood Small A (Negative) Urine Nitrite Negative (Negative) Urine Bilirubin Negative (Negative) Urine Urobilinogen 1.0 A (0.2) mg/dL Ur Leukocyte Esterase Small A (Negative) U Hyaline Cast (Auto) NONE SEEN (0-2) /LPF Urine Microscopic RBC 3-5 (0-5) /HPF Urine Microscopic WBC 3-5 (0-5) /HPF Ur Epithelial Cells None Seen (None Seen) /HPF Urine Bacteria None Seen (None Seen) /HPF Urine Culture Reflexed YES (NO) - Progress Progress: improved, re-examined Progress Note: 07/04/25 16:39 My medical decision making and the assignment of at least moderate complexity possibly high complexity of this patient's medical issue today. The workup in this patient includes placement of an intravenous line, infusion of low rate crystalloid, urinalysis, stat CT scan of the head without contrast, CBC, CMP, troponin level, magnesium level, twelve-lead EKG and teleneurology consultation. Differential diagnosis includes but is not limited to chronic weakness/fatigue, acute intracranial abnormality, electrolyte abnormalities, urinary tract infection, dehydration, arrhythmia 07/04/25 19:20 I interpreted the patient's laboratory data results. Based on laboratory data results, there are no acute, emergent medical issues. 07/04/25 19:[address] scan of the head without contrast was interpreted by the radiologist and I reviewed the impression. The impression states stable senile brain. I spoke with teleneurologist, Dr. Hall. I reviewed the patient history, physical findings on examination and laboratory workup. The teleneurologist stated no additional or new medications at this time. Patient may be placed in the hospital under observation and have a CT angiogram and brain MRI performed tomorrow, 07/05/2025. I spoke with Dr. Chaney. I reviewed the patient history, presenting complaints, physical findings on examination and workup results. In addition, I informed him of the discussion I had with the teleneurologist. He accepts the patient to be placed in observation Counseled pt/family regarding: lab results, diagnosis, rad results Medical Desision Making - Independent Historian Additional History obtained from: Family - Diagnostic Testing Diagnostic test were ordered, analyzed, and reviewed by me: Yes Radiological Interpretation: Reviewed by me, Teleradiologist Report - Risk of complications The pt has a high risk of morbidity or mortality based on: Decision regarding hospitilization or escalation of hosp level of care - Departure Departure Disposition: Observation Clinical Impression: Weakness, Fatigue, Slurred speech Condition: Fair Critical Care Time: No Referrals: PABLITO MUNGUIA MD [Primary Care Provider, [facility]] - Follow up/PCP as directed
[2025-07-04 15:18] LABS: BASOPHIL % 0.5 % (0.2-1.2); Basophil (Absolute #) 0.04 x10^3/uL (0.01-0.08); Eosinophil (Absolute #) 0.23 x10^3/uL (0.04-0.54); Hematocrit 44.5 % (40.1-51.0); Hemoglobin 13.9 g/dL (13.7-17.5); IMMATURE GRAN # 0.03 x10^3u/L (0.001-0.031); IMMATURE GRAN % 0.4 % (0.001-0.429); Lymphocyte (Absolute #) 1.66 x10^3/uL (1.32-3.57); Mean Corpuscular Hemoglobin 25.7 pg (25.7-32.2); Mean Corpuscular Hgb Concent. 31.2 g/dL (32.3-36.5); Monocyte (Absolute #) 0.75 x10^3/uL (0.30-0.82); NUCLEATED RBC # 0.00 x10^3u/L (0.00-0.012); NUCLEATED RBC % 0.0 % (0.00-0.2); Platelet Count 210 x10^3/uL (163-337); Red Blood Count 5.41 x10^6/uL (4.63-6.08); White Blood Count 8.1 x10^3/uL (4.23-9.07)
--- NOTE | 2025-07-04 15:26 | XRAY ---
Indication: Slurred speech. Stroke. Carotid carotid ultrasound January 10, 2025. Multiple contiguous axial images obtained through the head without contrast. Comparison: February 07, 2024 Again age-appropriate global atrophy with minimal periventricular degenerative microischemia. No acute intracranial hemorrhage, abnormal extra-axial fluid collection, or mass effect. 4th ventricle is midline without hydrocephalus. Bony calvarium intact. Visualized paranasal sinuses and mastoid air cells are clear. Impression: Stable nonacute senile brain.
[2025-07-04 15:32] LABS: Calcium 10.0 mg/dL (8.4-10.2); Carbon Dioxide 30.0 mmol/L (22-30); Creatinine 1 1.03 mg/dL (0.66-1.25); EST GLOMERULAR FILTRATION RATE 77.7 ML/MIN; Glucose 156.0 mg/dL (74-106); Potassium 3.9 mmol/L (3.5-5.1); SGOT/AST 33.0 U/L (17-59); SGPT/ALT 18.0 U/L (0-50); Total Protein 7.3 g/dL (6.3-8.2)
[2025-07-04 15:55] LABS: Glucose, Urine Negative (Negative); Protein,Urine Dip Trace (Negative)
[2025-07-04 17:01] LABS: TROPONIN < 0.012 ng/mL (0.000-0.033)
--- NOTE | 2025-07-04 18:43 | PCM.CONS ---
History of Present Illness - Reason for Consult Chief Complaint: Weakness Date of Consultation Date: 07/04/25 Reason for Consult: Stroke Requesting Provider: Dr. Urena Consulting Provider: QUINTON MALAVE MD History of Present Illness: [facility] Consultation Reason for Consultation: Slurred speech and weakness Chief complaint: Not feeling good LKW: Unknown, few days ago HPI: This is a 70-year-old male with past medical history of atrial fibrillation on Coumadin, congestive heart failure, coronary artery disease, hyperlipidemia, hypertension, cardiac valve replacement, diabetes, COPD who went to the pulmonology clinic for routine checkup. Environmental Project Manager noted that he was slurring his words and did not feel well. He recommended him to go to the ER. When I asked about the slurring of the speech, patient was not very sure about it. He did mention that he is feeling weak all over. He does have chronic shortness of breath. He denied any focal weakness as such. However on examination, he had decreased sensation in the left lower extremity. He does have a history of peripheral neuropathy as well. I do see that he has a bilateral edema in lower extremities. He got a CAT scan which is negative for acute process. I personally reviewed the images. Med Hx, Surgical Hx, Family Hx, Social hx reviewed Labs, Vitals, imaging personally reviewed. Review of Systems: 12-point review of systems is negative unless mentioned in HPI Physical Exam: (done with the help of RN) Constitutional: Gen: NAD, pleasant, well nourished HEENT: NC/AT BERNA, Neurologic Exam: Higher Functions: AA&Ox3; Tracks; Regards Follows simple and complex commands Communicates fluently and appropriately Language : Comprehension is intact; no aphasia; mild dysarthria; repetition is intact; naming is normal; CN II : Visual howell are full; CN III, IV, : EOMI; pursuit is smooth; no nystagmus CN V : Facial sensation is full and symmetric CN VII : Facial movement is full and symmetric CN VIII : hearing intact BL CN IX, X : unable to assess CN XI : SCM 5/5 BL CN XII : Tongue protrudes midline Sensory : Decreased left lower extremity Motor : Strength 3/5 UE and LE BL Deep tendon reflexes : unable to assess Plantar response : unable to assess [id number] : normal BL, no dysmetria Abnormal Movements : none seen Gait and Station : Deferred due to medical condition NIH Stroke Scale 2 (0) 1a. Level of consciousness (LOC): 0=alert;1=arousable by minor stimulation;2=obtunded or needs strong stimulation to attend;3=unresponsive or reflex responses only (0) 1b. LOC Questions: 0=answers both;1=answers one;2=answers neither (0) 1c. LOC Commands: 0=performs both tasks;1=performs one task;2=performs neither task (0) 2. Best Gaze: 0=normal;1=partial gaze palsy;2=forced deviation or total gaze paresis (0) 3. Visual: 0=normal;1=partial hemianopia;2=complete hemianopia;3=blind (0) 4. Facial palsy: 0=normal;1=minor paresis;2=partial paralysis;3=complete paralysis FOR 5 AND 6 BELOW: 0=normal;1=drifts but maintains in air;2=unable to maintain in air;3=moves but unable to lift against gravity;4=no movement (0)0 (_)1 (_)2 (_)3 (_)4 (_)NA 5a. Motor arm-left (0)0 (_)1 (_)2 (_)3 (_)4 (_)NA 5b. Motor arm-right (0)0 (_)1 (_)2 (_)3 (_)4 (_)NA 6a. Motor leg-left (0)0 (_)1 (_)2 (_)3 (_)4 (_)NA 6ba. Motor leg-right (0) 7. Limb ataxia:0=absent;1=unilateral;2=bilateral; NA=unable to test (1) 8. Sensory: 0=normal;1=mild-moderate loss;2-severe or total loss (0) 9. Best language: 0=normal;1=mild-moderate aphasia, some deficits apparent but able to communicate;2=severe aphasia, fragmentary expression only, unable to communicate well;3=global aphasia, mute and no comprehension (1) 10. Dysarthria: 0=normal;1=mild-moderate, slurs some words;2=severe, speech mostly unintelligible; NA=unable to test (e.g.,intubation) (0) 11. Extinction/Inattention: 0=normal;1=visual,tactile,auditory or other extinction to bilateral simultaneous stimulation, but no severe neglect;2=answers neither Assessment: 70-year-old white male came to the ER on the recommendation of stamper blocker who saw him in the clinic today. 1. Weakness: According patient, he is feeling weak all over for quite some time. While in the clinic today for routine checkup, stamper blocker was concerned about slurred speech and him not feeling well. He does have multiple chronic comorbidities. Labs reviewed as well. No major lab abnormalities. Urinalysis is negative. CAT scan negative for acute process. When I asked about the slurred speech, patient was not very much sure about it but did say that he is feeling weak all over and does not feel good. Other comorbidities Atrial fibrillation on Coumadin Congestive heart failure, cardiac valve placement Diabetes, hypertension, hyperlipidemia COPD Peripheral neuropathy Clinical picture does not seem very impressive for stroke but cannot rule out entirely. Plan: Recommend getting CT angiogram and brain MRI. Further recommendation based on the imaging studies. No changes in the home medication for now Communicated plan with Dr. Urena Thank you for allowing us to participate in this patients care. Please call [facility] with questions, concerns, or change in patients neurological status. This consult was performed via secure telemedicine 2 way audio/visual platform, patient consent obtained. This note was partially generated using a Dictation system, and there may be some incorrect words, spellings, and punctuation that were not noted in checking the note before saving. For clarifications, please call [facility]. Medications & Allergies Home Medications: Home Medication List Aspirin [Aspirin EC] 81 mg PO DAILY 09/03/13 [History Confirmed 09/03/23] Nitroglycerin 0.4 mg Tablet [Nitrostat 0.4 MG Tablet] 0.4 mg SL UD PRN 09/03/13 [History Confirmed 09/03/23] Atorvastatin Calcium [Lipitor] 80 mg PO HS 11/29/17 [History Confirmed 09/03/23] Metformin HCl 500 mg [Glucophage 500 MG] 1,000 mg PO BIDWM 11/29/17 [History Confirmed 09/03/23] Albuterol Sulfate 2 puffs IH Q6HPRN PRN 09/06/20 [History Confirmed 09/03/23] Insulin NPH/Reg 70/30 [Novolin 7030] 60 unit SQ PMINSULIN 09/06/20 [History Confirmed 09/03/23] Insulin NPH/Reg 70/30 [Novolin 7030] 75 unit SQ AMINSULIN 09/06/20 [History Confirmed 09/03/23] Amiodarone HCl 200 mg [Cordarone 200 MG] 200 mg PO DAILY 03/13/22 [History Confirmed 09/03/23] Isosorbide Mononitrate 30 mg [Imdur 30 MG] 60 mg PO DAILY 03/13/22 [History Confirmed 09/03/23] Clopidogrel Bisulfate [Plavix] 75 mg PO DAILY #0 05/18/22 [Rx Confirmed 09/03/23] Ferrous Sulfate [Iron] 325 mg PO BID 12/03/22 [History Confirmed 09/03/23] Tamsulosin HCl 0.4 mg [Flomax 0.4 MG] 0.4 mg PO HS 02/03/23 [History Confirmed 09/03/23] Torsemide 20 mg [Demadex 20 mg] 20 mg PO DAILY 02/03/23 [History Confirmed 09/03/23] Carvedilol 3.125 mg [Coreg 3.125 MG] 3.125 mg PO BID 03/12/23 [History Confirmed 09/03/23] Empagliflozin [Jardiance] 10 mg PO DAILY 03/12/23 [History Confirmed 09/03/23] Lisinopril 10 mg [Zestril 10 MG] 10 mg PO DAILY 03/12/23 [History Confirmed 09/03/23] Metolazone 2.5 mg [Zaroxolyn 2.5 MG] 2.5 mg PO UD 04/17/23 [History Confirmed 09/03/23] Midodrine HCl [Proamatine] 5 mg PO TID 30 Days #90 tablet 04/21/23 [Rx Confirmed 09/03/23] PANTOPRAZOLE 40 mg Tablet [Protonix 40MG Tablet] 40 mg PO BID 30 Days #60 tab 04/21/23 [Rx Confirmed 09/03/23] Potassium Chloride 20 meq PO BID 5 Days #10 tablet 04/21/23 [Rx Confirmed 09/03/23] Warfarin Sodium 6 mg PO DAILY 90 Days #270 tablet 07/22/23 [Rx Confirmed 09/03/23] Spironolactone 25 mg [Aldactone 25 MG] 25 mg PO DAILY 10/18/23 [History Confirmed 10/18/23] Metolazone 2.5 mg [Zaroxolyn 2.5 MG] 2.5 mg PO MOWEFR 12/17/23 [History Co nfirmed 12/17/23] Warfarin Sodium 8 mg PO DAILY 90 Days #360 tablet 01/17/24 [Rx] Oxycodone HCl/Acetaminophen [Percocet 5-325 mg Tablet] 1 each PO Q8H PRN PRN #6 tablet MDD 3 02/26/24 [Rx] Prednisone 10 mg [Deltasone 10 mg] 10 mg PO TID #12 tablet 02/26/24 [Rx] Allergies/Adverse Reactions: Allergies Allergy/AdvReac Type Severity Reaction Status Date / Time apixaban [From Eliquis] Allergy Severe cant walk Verified 02/26/24 02:39 morphine Allergy Severe hallucinati Verified 02/26/24 02:39 ons dabigatran etexilate mesylate Allergy Mild Nausea and Verified 02/26/24 02:39 [From Pradaxa] Vomiting metoclopramide HCl Allergy Mild Itching Verified 02/26/24 02:39 [From Reglan] - Past Medical History Past Medical History: Yes Neurological History: Migraines, Peripheral Neuropathy ENT History: Cataracts Cardiac History: Arrhythmia, Congestive Heart Failure, Coronary Artery Disease, High Cholesterol, Hypertension, Myocardial Infarction ([place]) Respiratory History: CHF, COPD, Emphysema, Pneumonia, Sleep Apnea Endocrine Medical History: Diabetes Type II, Other Musculoskelatal History: No Pertinent History GI Medical History: Diverticulitis, Polyps History: No Pertinent History Pyscho-Social History: No Pertinent History Male Reproductive Disorders: No Pertinent History Comment: SLEEP APNEA, RLS, FATIGUE, SINUSITIS, ISCHEMIC CARDIOMYOPATHY, A-FIB - Past Surgical History Past Surgical History: Yes Neuro Surgical History: No Pertinent History Cardiac History: CABG, Cardiac Catheterization, Cardiac Stent, Internal Defibrillator, Pacemaker Respiratory Surgery: No Pertinent History GI Surgical History: Other Genitourinary Surgical Hx: No Pertinent History Musculskeletal Surgical Hx: No Pertinent History Male Surgical History: No Pertinent History Other Surgical History: POLYPS REMOVED FROM COLON bilateral eye implants, bypass x3, pacemaker x3 - Social History Smoking Status: Former smoker How long have you smoked: 21 yrs Exposure to second hand smoke: No Alcohol: None Drug Use: none - Social Determinants of Health Will the patient participate in the screening: Declined to provide Do you worry about a steady place to live?: No In the past 12 months,have you had to go without utilities?: No Have you or anyone in your house had to go without enough: No Transportation Issues: No Has anyone in your support network made you feel unsafe?: No - Physical Exam Vital Signs: Vital Signs - 24 hr Temp Pulse Resp BP BP Pulse Ox 07/04/25 17:00 80 18 129/87 97 07/04/25 16:41 98 07/04/25 16:30 130/85 07/04/25 16:00 80 17 129/75 98 07/04/25 15:00 81 12 133/69 99 07/04/25 14:52 99 07/04/25 14:35 97.6 F 81 19 121/70 98 Results - Labs Lab/Micro Results: Lab Results-Last 24 Hours 07/04/25 07/04/25 07/04/25 Range/Units 14:52 15:00 15:00 WBC 8.1 (4.23-9.07) x10^3/uL RBC 5.41 (4.63-6.08) x10^6/uL Hgb 13.9 (13.7-17.5) g/dL Hct 44.5 (40.1-51.0) % MCV 82.3 (79.0-92.2) fL MCH 25.7 (25.7-32.2) pg MCHC 31.2 L (32.3-36.5) g/dL RDW 16.6 H (11.6-14.4) % Plt Count 210 (163-337) x10^3/uL MPV 10.3 (9.4-12.4) fL Gran % 66.5 (34.0-67.9) % Immature Gran % (Auto) 0.4 (0.001-0.429) % Nucleat RBC Rel Count 0.0 (0.00-0.2) % Eos # (Auto) 0.23 (0.04-0.54) x10^3/uL Immature Gran # (Auto) 0.03 (0.001-0.031) x10^3u/L Absolute Lymphs (auto) 1.66 (1.32-3.57) x10^3/uL Absolute Monos (auto) 0.75 (0.30-0.82) x10^3/uL Absolute Nucleated RBC 0.00 (0.00-0.012) x10^3u/L Lymphocytes % 20.5 L (21.8-53.1) % Monocytes % 9.3 (5.3-12.2) % Eosinophils % 2.8 (0.8-7.0) % Basophils % 0.5 (0.2-1.2) % Absolute Granulocytes 5.37 (1.78-5.38) x10^3/uL Basophils # 0.04 (0.01-0.08) x10^3/uL Sodium 135 (135-145) mmol/L Potassium 3.9 (3.5-5.1) mmol/L Chloride 95 L (98-107) mmol/L Carbon Dioxide 30 (22-30) mmol/L Anion Gap 14.1 (5-15) MEQ/L BUN 15 (9-20) mg/dL Creatinine 1.03 (0.66-1.25) mg/dL Estimated GFR 77.7 ML/MIN Glucose 156 H (74-106) mg/dL Calcium 10.0 (8.4-10.2) mg/dL Magnesium (1.6-2.3) mg/dL Total Bilirubin 1.10 (0.2-1.3) mg/dL AST 33 (17-59) U/L ALT 18 (0-50) U/L Alkaline Phosphatase 122 (38-126) U/L Ammonia (9-30) umol/L Troponin I (0.000-0.033) ng/mL Serum Total Protein 7.3 (6.3-8.2) g/dL Albumin 4.1 (3.5-5.0) g/dL Urine Color Yellow (Yellow) Urine Appearance Clear (Clear) Urine pH 5.5 (4.6-8.0) Ur Specific [place] 1.020 (1.005-1.030) Urine Protein Trace A (Negative) Urine Glucose (UA) Negative (Negative) mg/dL Urine Ketones Negative (Negative) Urine Blood Small A (Negative) Urine Nitrite Negative (Negative) Urine Bilirubin Negative (Negative) Urine Urobilinogen 1.0 A (0.2) mg/dL Ur Leukocyte Esterase Small A (Negative) U Hyaline Cast (Auto) NONE SEEN (0-2) /LPF Urine Microscopic RBC 3-5 (0-5) /HPF Urine Microscopic WBC 3-5 (0-5) /HPF Ur Epithelial Cells None Seen (None Seen) /HPF Urine Bacteria None Seen (None Seen) /HPF Urine Culture Reflexed YES (NO) 07/04/25 07/04/25 Range/Units 15:00 16:00 WBC (4.23-9.07) x10^3/uL RBC (4.63-6.08) x10^6/uL Hgb (13.7-17.5) g/dL Hct (40.1-51.0) % MCV (79.0-92.2) fL MCH (25.7-32.2) pg MCHC (32.3-36.5) g/dL RDW (11.6-14.4) % Plt Count (163-337) x10^3/uL MPV (9.4-12.4) fL Gran % (34.0-67.9) % Immature Gran % (Auto) (0.001-0.429) % Nucleat RBC Rel Count (0.00-0.2) % Eos # (Auto) (0.04-0.54) x10^3/uL Immature Gran # (Auto) (0.001-0.031) x10^3u/L Absolute Lymphs (auto) (1.32-3.57) x10^3/uL Absolute Monos (auto) (0.30-0.82) x10^3/uL Absolute Nucleated RBC (0.00-0.012) x10^3u/L Lymphocytes % (21.8-53.1) % Monocytes % (5.3-12.2) % Eosinophils % (0.8-7.0) % Basophils % (0.2-1.2) % Absolute Granulocytes (1.78-5.38) x10^3/uL Basophils # (0.01-0.08) x10^3/uL Sodium (135-145) mmol/L Potassium (3.5-5.1) mmol/L Chloride (98-107) mmol/L Carbon Dioxide (22-30) mmol/L Anion Gap (5-15) MEQ/L BUN (9-20) mg/dL Creatinine (0.66-1.25) mg/dL Estimated GFR ML/MIN Glucose (74-106) mg/dL Calcium (8.4-10.2) mg/dL Magnesium 2.0 (1.6-2.3) mg/dL Total Bilirubin (0.2-1.3) mg/dL AST (17-59) U/L ALT (0-50) U/L Alkaline Phosphatase (38-126) U/L Ammonia < 9 L (9-30) umol/L Troponin I < 0.012 (0.000-0.033) ng/mL Serum Total Protein (6.3-8.2) g/dL Albumin (3.5-5.0) g/dL Urine Color (Yellow) Urine Appearance (Clear) Urine pH (4.6-8.0) Ur Specific [place] (1.005-1.030) Urine Protein (Negative) Urine Glucose (UA) (Negative) mg/dL Urine Ketones (Negative) Urine Blood (Negative) Urine Nitrite (Negative) Urine Bilirubin (Negative) Urine Urobilinogen (0.2) mg/dL Ur Leukocyte Esterase (Negative) U Hyaline Cast (Auto) (0-2) /LPF Urine Microscopic RBC (0-5) /HPF Urine Microscopic WBC (0-5) /HPF Ur Epithelial Cells (None Seen) /HPF Urine Bacteria (None Seen) /HPF Urine Culture Reflexed (NO) Accuchecks Date 07/04/25 Time 15:04 - Radiology Impressions Radiology Exams & Impressions: Radiology Procedures Category Date Time Status HEAD WITHOUT CONTRAST [CT] Stat Exams 07/04/25 14:46 Completed
[2025-07-04 18:46] LABS: INR 1.33 (0.8-3.0); PROTIME 14.7 SECONDS (9.4-12.5)
[2025-07-04] MEDS ORDERED: HUMULIN R SQ PRN (19:54)
[2025-07-04] MEDS ORDERED: TYLENOL 325 MG PO PRN ×2 (19:54→22:43)
[2025-07-04] MEDS ORDERED: VENTOLIN COMMON CANISTER IH PRN (21:36)
[2025-07-04] MEDS ORDERED: Nitrostat 0.4 MG Tablet SL PRN (22:43)
[2025-07-04] MEDS ORDERED: ALBUTEROL SULFATE 2 MG IH PRN (22:43)
--- NOTE | 2025-07-04 23:36 | PCM.HP ---
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 Moseley. He was concerned that the patient may be having slurred speech. The patient does not feel he has had slurred speech and states he gets that all the time from doctors and family and friends. He says that he speaks softly and slowly. He does state over the last several months he has increasing fatigue but no chest pain or shortness of breath. The patient was evaluated by neurology with recommendations for monitoring and a MRI brain (which is contraindicated due to his PPM; discussed in assessment/plan). He states that his leg edema is chronic and unchanged. - Review of Systems Constitutional: Fatigue, No Fever, No Chills, No Lethargy, No Malaise, No Night Sweats, No Weakness, No Weight Loss Eyes: No Symptoms Ears, Nose, & Throat: No Symptoms Respiratory: No Symptoms Cardiac: Edema, No Chest Pain, No Palpitations, No Syncope, No Orthopnea Abdominal/Gastrointestinal: No Symptoms Genitourinary Symptoms: No Symptoms Musculoskeletal: No Symptoms Skin: No Symptoms Neurological: No Symptoms Psychological: No Symptoms Endocrine: No Symptoms Hematologic/Lymphatic: No Symptoms Immunological/Allergic: No Symptoms All Other Systems: Reviewed and Negative Medications & Allergies Home Medications: Home Medication List Aspirin [Aspirin EC] 81 mg PO DAILY 09/03/13 [History Confirmed 07/04/25] Nitroglycerin 0.4 mg Tablet [Nitrostat 0.4 MG Tablet] 0.4 mg SL UD PRN 09/03/13 [History Confirmed 07/04/25] Atorvastatin Calcium [Lipitor] 40 mg PO HS 11/29/17 [History Confirmed 07/04/25] Metformin HCl 500 mg [Glucophage 500 MG] 1,000 mg PO BIDWM 11/29/17 [History Confirmed 07/04/25] Insulin NPH/Reg 70/30 [Novolin 70/30] 60 unit SQ PMINSULIN 09/06/20 [History Confirmed 07/04/25] Insulin NPH/Reg 7030 [Novolin 7030] 80 unit SQ AMINSULIN 09/06/20 [History Confirmed 07/04/25] Carvedilol 3.125 mg [Coreg 3.125 MG] 3.125 mg PO BID 03/12/23 [History Confirmed 07/04/25] Spironolactone 25 mg [Aldactone 25 MG] 12.5 mg PO DAILY 10/18/23 [History Confirmed 07/04/25] Acetaminophen 325 mg [Tylenol 325 mg] 650 mg PO TIDPRN PRN 07/04/25 [Hist ory Confirmed 07/04/25] Albuterol Sulfate 2 puff IH QIDPRN PRN 07/04/25 [History Confirmed 07/04/25] Furosemide 40 mg [Lasix 40 MG] 40 mg PO BID 07/04/25 [History Confirmed 07/04/25] Potassium Chloride 20 meq PO BID 07/04/25 [History Confirmed 07/04/25] Rivaroxaban [Xarelto] 20 mg PO DAILY 07/04/25 [History Confirmed 07/04/25] Sacubitril/Valsartan [Entresto 24 mg-26 mg Tablet] 0.5 tab PO DAILY 07/04/25 [History Confirmed 07/04/25] Tramadol HCl 50 mg [Ultram 50 mg] 100 mg PO TIDPRN PRN 07/04/25 [History Confirmed 07/04/25] Allergies/Adverse Reactions: Allergies Allergy/AdvReac Type Severity Reaction Status Date / Time apixaban [From Eliquis] Allergy Severe cant walk Verified 02/26/24 02:39 morphine Allergy Severe hallucinati Verified 02/26/24 02:39 ons dabigatran etexilate mesylate Allergy Mild Nausea and Verified 02/26/24 02:39 [From Pradaxa] Vomiting metoclopramide HCl Allergy Mild Itching Verified 02/26/24 02:39 [From Reglan] - Past Medical History Past Medical History: Yes Neurological History: Migraines, Peripheral Neuropathy ENT History: Cataracts Cardiac History: Arrhythmia, Congestive Heart Failure, Coronary Artery Disease, High Cholesterol, Hypertension, Myocardial Infarction ([place]) Respiratory History: CHF, COPD, Emphysema, Pneumonia, Sleep Apnea Endocrine Medical History: Diabetes Type II, Other Musculoskelatal History: Arthritis, Fractures GI Medical History: Diverticulitis, Polyps History: Renal Disease Pyscho-Social History: Anxiety Male Reproductive Disorders: No Pertinent History Comment: SLEEP APNEA, RLS, FATIGUE, SINUSITIS, ISCHEMIC CARDIOMYOPATHY, A-FIB, broken knee cap - Past Surgical History Past Surgical History: Yes Neuro Surgical History: No Pertinent History Cardiac History: CABG, Cardiac Catheterization, Cardiac Stent, Internal Defibrillator, Pacemaker Respiratory Surgery: No Pertinent History GI Surgical History: Other Genitourinary Surgical Hx: No Pertinent History Musculskeletal Surgical Hx: No Pertinent History Male Surgical History: No Pertinent History Other Surgical History: POLYPS REMOVED FROM COLON bilateral eye implants, bypass x3, pacemaker x3 Significant Family History: no pertinent family hx - Social History Smoking Status: Former smoker How long have you smoked: 21 yrs Exposure to second hand smoke: No Alcohol: None Drug Use: none - Social Determinants of Health Will the patient participate in the screening: Yes Do you worry about a steady place to live?: No Do you have any problems with any of the following?: No known problems In the past 12 months,have you had to go without utilities?: No Have you or anyone in your house had to go without enough: No Transportation Issues: No Has anyone in your support network made you feel unsafe?: No Does the patient want assistance with any of the above?: No - Physical Exam Vital Signs: Vital Signs - 24 hr Temp Pulse Resp BP BP Pulse Ox 07/04/25 21:38 87 18 91 L 07/04/25 21:36 91 L 07/04/25 19:54 96.8 F 83 18 122/65 97 07/04/25 19:34 98 07/04/25 19:03 86 18 102/62 97 07/04/25 19:01 85 18 83/64 07/04/25 18:31 76 162/80 98 07/04/25 18:00 117/77 07/04/25 17:30 123/72 96 07/04/25 17:00 80 18 129/87 97 07/04/25 16:30 130/85 07/04/25 16:00 80 17 129/75 98 11/19/25 15:00 81 12 133/69 99 07/04/25 14:52 99 07/04/25 14:35 97.6 F 81 19 121/70 98 General Appearance: no apparent distress, alert, obese Neurologic Exam: alert, oriented x 3, cooperative, 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, normal mood/affect, nml cerebellar function, sensation nml, No motor deficits, No sensory deficit, No disoriented, No confusion, No agitation Eye Exam: PERRL/EOMI, eyes nml inspection, No scleral icterus, No pale conjunctivae, No photophobia Ears, Nose, Throat Exam: normal ENT inspection Neck Exam: normal inspection, non-tender, supple, full range of motion, No meningismus Respiratory Exam: normal breath sounds, lungs clear, airway intact, No chest tenderness, No respiratory distress Cardiovascular Exam: regular rate/rhythm, normal heart sounds, edema, No murmur, No friction rub, No gallop Gastrointestinal/Abdomen Exam: soft, normal bowel sounds, No tenderness, No distention, No guarding Rectal Exam: normal exam Back Exam: normal range of motion Extremity Exam: normal range of motion, pedal edema, swelling Skin Exam: normal color, No rash (leg color changes are chronic), No petechiae, No jaundice, No abrasion Results - Labs Lab/Micro Results: Lab Results-Last 24 Hours 07/04/25 07/04/25 07/04/25 Range/Units 14:52 15:00 15:00 WBC 8.1 (4.23-9.07) x10^3/uL RBC 5.41 (4.63-6.08) x10^6/uL Hgb 13.9 (13.7-17.5) g/dL Hct 44.5 (40.1-51.0) % MCV 82.3 (79.0-92.2) fL MCH 25.7 (25.7-32.2) pg MCHC 31.2 L (32.3-36.5) g/dL RDW 16.6 H (11.6-14.4) % Plt Count 210 (163-337) x10^3/uL MPV 10.3 (9.4-12.4) fL Gran % 66.5 (34.0-67.9) % Immature Gran % (Auto) 0.4 (0.001-0.429) % Nucleat RBC Rel Count 0.0 (0.00-0.2) % Eos # (Auto) 0.23 (0.04-0.54) x10^3/uL Immature Gran # (Auto) 0.03 (0.001-0.031) x10^3u/L Absolute Lymphs (auto) 1.66 (1.32-3.57) x10^3/uL Absolute Monos (auto) 0.75 (0.30-0.82) x10^3/uL Absolute Nucleated RBC 0.00 (0.00-0.012) x10^3u/L Lymphocytes % 20.5 L (21.8-53.1) % Monocytes % 9.3 (5.3-12.2) % Eosinophils % 2.8 (0.8-7.0) % Basophils % 0.5 (0.2-1.2) % Absolute Granulocytes 5.37 (1.78-5.38) x10^3/uL Basophils # 0.04 (0.01-0.08) x10^3/uL PT (9.4-12.5) SECONDS INR (0.8-3.0) Sodium 135 (135-145) mmol/L Potassium 3.9 (3.5-5.1) mmol/L Chloride 95 L (98-107) mmol/L Carbon Dioxide 30 (22-30) mmol/L Anion Gap 14.1 (5-15) MEQ/L BUN 15 (9-20) mg/dL Creatinine 1.03 (0.66-1.25) mg/dL Estimated GFR 77.7 ML/MIN Glucose 156 H (74-106) mg/dL POC Glucometer (74 to 106) mg/dL Calcium 10.0 (8.4-10.2) mg/dL Magnesium (1.6-2.3) mg/dL Total Bilirubin 1.10 (0.2-1.3) mg/dL AST 33 (17-59) U/L ALT 18 (0-50) U/L Alkaline Phosphatase 122 (38-126) U/L Ammonia (9-30) umol/L Troponin I (0.000-0.033) ng/mL Serum Total Protein 7.3 (6.3-8.2) g/dL Albumin 4.1 (3.5-5.0) g/dL Urine Color Yellow (Yellow) Urine Appearance Clear (Clear) Urine pH 5.5 (4.6-8.0) Ur Specific [place] 1.020 (1.005-1.030) Urine Protein Trace A (Negative) Urine Glucose (UA) Negative (Negative) mg/dL Urine Ketones Negative (Negative) Urine Blood Small A (Negative) Urine Nitrite Negative (Negative) Urine Bilirubin Negative (Negative) Urine Urobilinogen 1.0 A (0.2) mg/dL Ur Leukocyte Esterase Small A (Negative) U Hyaline Cast (Auto) NONE SEEN (0-2) /LPF Urine Microscopic RBC 3-5 (0-5) /HPF Urine Microscopic WBC 3-5 (0-5) /HPF Ur Epithelial Cells None Seen (None Seen) /HPF Urine Bacteria None Seen (None Seen) /HPF Urine Culture Reflexed YES (NO) 07/04/25 07/04/25 07/04/25 Range/Units 15:00 15:00 16:00 WBC (4.23-9.07) x10^3/uL RBC (4.63-6.08) x10^6/uL Hgb (13.7-17.5) g/dL Hct (40.1-51.0) % MCV (79.0-92.2) fL MCH (25.7-32.2) pg MCHC (32.3-36.5) g/dL RDW (11.6-14.4) % Plt Count (163-337) x10^3/uL MPV (9.4-12.4) fL Gran % (34.0-67.9) % Immature Gran % (Auto) (0.001-0.429) % Nucleat RBC Rel Count (0.00-0.2) % Eos # (Auto) (0.04-0.54) x10^3/uL Immature Gran # (Auto) (0.001-0.031) x10^3u/L Absolute Lymphs (auto) (1.32-3.57) x10^3/uL Absolute Monos (auto) (0.30-0.82) x10^3/uL Absolute Nucleated RBC (0.00-0.012) x10^3u/L Lymphocytes % (21.8-53.1) % Monocytes % (5.3-12.2) % Eosinophils % (0.8-7.0) % Basophils % (0.2-1.2) % Absolute Granulocytes (1.78-5.38) x10^3/uL Basophils # (0.01-0.08) x10^3/uL PT 14.7 H (9.4-12.5) SECONDS INR 1.33 (0.8-3.0) Sodium (135-145) mmol/L Potassium (3.5-5.1) mmol/L Chloride (98-107) mmol/L Carbon Dioxide (22-30) mmol/L Anion Gap (5-15) MEQ/L BUN (9-20) mg/dL Creatinine (0.66-1.25) mg/dL Estimated GFR ML/MIN Glucose (74-106) mg/dL POC Glucometer (74 to 106) mg/dL Calcium (8.4-10.2) mg/dL Magnesium 2.0 (1.6-2.3) mg/dL Total Bilirubin (0.2-1.3) mg/dL AST (17-59) U/L ALT (0-50) U/L Alkaline Phosphatase (38-126) U/L Ammonia < 9 L (9-30) umol/L Troponin I < 0.012 (0.000-0.033) ng/mL Serum Total Protein (6.3-8.2) g/dL Albumin (3.5-5.0) g/dL Urine Color (Yellow) Urine Appearance (Clear) Urine pH (4.6-8.0) Ur Specific [place] (1.005-1.030) Urine Protein (Negative) Urine Glucose (UA) (Negative) mg/dL Urine Ketones (Negative) Urine Blood (Negative) Urine Nitrite (Negative) Urine Bilirubin (Negative) Urine Urobilinogen (0.2) mg/dL Ur Leukocyte Esterase (Negative) U Hyaline Cast (Auto) (0-2) /LPF Urine Microscopic RBC (0-5) /HPF Urine Microscopic WBC (0-5) /HPF Ur Epithelial Cells (None Seen) /HPF Urine Bacteria (None Seen) /HPF Urine Culture Reflexed (NO) 07/04/25 07/04/25 07/04/25 Range/Units 18:47 19:45 22:09 WBC (4.23-9.07) x10^3/uL RBC (4.63-6.08) x10^6/uL Hgb (13.7-17.5) g/dL Hct (40.1-51.0) % MCV (79.0-92.2) fL MCH (25.7-32.2) pg MCHC (32.3-36.5) g/dL RDW (11.6-14.4) % Plt Count (163-337) x10^3/uL MPV (9.4-12.4) fL Gran % (34.0-67.9) % Immature Gran % (Auto) (0.001-0.429) % Nucleat RBC Rel Count (0.00-0.2) % Eos # (Auto) (0.04-0.54) x10^3/uL Immature Gran # (Auto) (0.001-0.031) x10^3u/L Absolute Lymphs (auto) (1.32-3.57) x10^3/uL Absolute Monos (auto) (0.30-0.82) x10^3/uL Absolute Nucleated RBC (0.00-0.012) x10^3u/L Lymphocytes % (21.8-53.1) % Monocytes % (5.3-12.2) % Eosinophils % (0.8-7.0) % Basophils % (0.2-1.2) % Absolute Granulocytes (1.78-5.38) x10^3/uL Basophils # (0.01-0.08) x10^3/uL PT (9.4-12.5) SECONDS INR (0.8-3.0) Sodium (135-145) mmol/L Potassium (3.5-5.1) mmol/L Chloride (98-107) mmol/L Carbon Dioxide (22-30) mmol/L Anion Gap (5-15) MEQ/L BUN (9-20) mg/dL Creatinine (0.66-1.25) mg/dL Estimated GFR ML/MIN Glucose (74-106) mg/dL POC Glucometer 141 H 151 H (74 to 106) mg/dL Calcium (8.4-10.2) mg/dL Magnesium (1.6-2.3) mg/dL Total Bilirubin (0.2-1.3) mg/dL AST (17-59) U/L ALT (0-50) U/L Alkaline Phosphatase (38-126) U/L Ammonia (9-30) umol/L Troponin I < 0.012 (0.000-0.033) ng/mL Serum Total Protein (6.3-8.2) g/dL Albumin (3.5-5.0) g/dL Urine Color (Yellow) Urine Appearance (Clear) Urine pH (4.6-8.0) Ur Specific [place] (1.005-1.030) Urine Protein (Negative) Urine Glucose (UA) (Negative) mg/dL Urine Ketones (Negative) Urine Blood (Negative) Urine Nitrite (Negative) Urine Bilirubin (Negative) Urine Urobilinogen (0.2) mg/dL Ur Leukocyte Esterase (Negative) U Hyaline Cast (Auto) (0-2) /LPF Urine Microscopic RBC (0-5) /HPF Urine Microscopic WBC (0-5) /HPF Ur Epithelial Cells (None Seen) /HPF Urine Bacteria (None Seen) /HPF Urine Culture Reflexed (NO) Accuchecks Date 07/04/25 Date 07/04/25 Time 18:56 Time 15:04 - Radiology Impressions Radiology Exams & Impressions: Radiology Procedures Category Date Time Status CT ANGIOGRAPHY NECK [CT] Stat Exams 07/05/25 08:00 Ordered ECHO W/2D AND DOPPLER [US] Routine Exams 07/04/25 22:49 Ordered HEAD WITHOUT CONTRAST [CT] Stat Exams 07/04/25 14:46 Completed MRI BRAIN W/O CONTRAST [MRI] Stat Exams 07/05/25 08:00 Ordered - Other Procedures and Tests Respiratory Therapy 07/04/25 19:54 EKG REPEAT IN AM 07/04/25 21:35 Respiratory Therapy Assessment DAILY 07/04/25 21:36 Oxygen Nasal Cannula 2 lpm Assessment/Plan (1) TIA (transient ischemic attack) Current Visit: Yes Status: Acute Assessment & Plan: Neuro checks, ECHO, telemetry. Check lipids, A1C, TSH. Monitor BP. MRI contraindicated due to PPM; need to contact neurology service tomorrow to determine if the patient should obtain a repeat interval CT head (and whether to use contrast) as an alternative. PT/OT eval. Code(s): G45.9 - TRANSIENT CEREBRAL ISCHEMIC ATTACK, UNSPECIFIED (2) Slurred speech Current Visit: Yes Status: Acute Assessment & Plan: Not appreciated on exam. Workup as above. ST eval. Code(s): R47.81 - SLURRED SPEECH (3) Diabetes type 2, controlled Current Visit: No Status: Acute Assessment & Plan: Monitor sugars on ISS. Code(s): E11.9 - TYPE 2 DIABETES MELLITUS WITHOUT COMPLICATIONS (4) Paroxysmal atrial fibrillation Current Visit: No Status: Acute Assessment & Plan: Continue home regimen. Monitor on telemetry. ECHO. EKG in AM. Code(s): I48.0 - PAROXYSMAL ATRIAL FIBRILLATION Telemedicine Encounter - Telemedicine Encounter Telemedicine Encounter: "The entirety of this encounter was performed via Telemedicine" This visit was performed using real-time audio and video connection between my location and thepatients locationwith the assistance of a surrogateat the patients location. Written or verbal consent was obtained from the patient/guardian to perform this visit [facility] technology. Any patient questions regarding the telemedicine interaction were answered. Please note that this admission required 48 minutes to complete.
[2025-07-05 01:12] LABS: BASOPHIL % 0.2 % (0.2-1.2); Basophil (Absolute #) 0.02 x10^3/uL (0.01-0.08); Eosinophil (Absolute #) 0.32 x10^3/uL (0.04-0.54); Hematocrit 40.1 % (40.1-51.0); Hemoglobin 12.4 g/dL (13.7-17.5); IMMATURE GRAN # 0.02 x10^3u/L (0.001-0.031); IMMATURE GRAN % 0.2 % (0.001-0.429); Lymphocyte (Absolute #) 1.81 x10^3/uL (1.32-3.57); Mean Corpuscular Hemoglobin 25.6 pg (25.7-32.2); Mean Corpuscular Hgb Concent. 30.9 g/dL (32.3-36.5); Monocyte (Absolute #) 0.83 x10^3/uL (0.30-0.82); NUCLEATED RBC # 0.00 x10^3u/L (0.00-0.012); NUCLEATED RBC % 0.0 % (0.00-0.2); Platelet Count 166 x10^3/uL (163-337); Red Blood Count 4.85 x10^6/uL (4.63-6.08); White Blood Count 8.4 x10^3/uL (4.23-9.07)
[2025-07-05 01:26] LABS: Calcium 9.3 mg/dL (8.4-10.2); Carbon Dioxide 26.0 mmol/L (22-30); Creatinine 1 0.9 mg/dL (0.66-1.25); EST GLOMERULAR FILTRATION RATE 91.3 ML/MIN; Glucose 180.0 mg/dL (74-106); Potassium 3.6 mmol/L (3.5-5.1); SGOT/AST 29.0 U/L (17-59); SGPT/ALT 16.0 U/L (0-50); Total Protein 6.3 g/dL (6.3-8.2)
[2025-07-05] MEDS: Zofran 4 MG/2 ML VIAL IV PRN (01:33)
[2025-07-05 01:57] LABS: Cholesterol 126.0 mg/dL (50-200); LDL, DIRECT 68.0 mg/dL (30-100); TRIGLYCERIDE 122.0 mg/dL (30-150)
--- NOTE | 2025-07-05 06:13 | XRAY ---
CLINICAL HISTORY: Slurred speech COMPARISON: 02/07/2024 06:23:41 [employer]. TECHNIQUE: Contrast enhanced thin slice CT angiography scan of the carotid vessels was performed with intravenous contrast. Angiographic images were processed, 3D MIP images were acquired for interpretation.Contiguous axial images were obtained. Reformatted coronal and sagittal images were also reviewed. If IV contrast material had not been administered, the likelihood of detecting abnormalities relevant to the patient's condition would have been substantially decreased. CT scan was performed according to ALARA (as low as reasonably achievable). FINDINGS: Atherosclerotic calcifications are noted involving bilateral carotid bulb without significant stenosis. Included great vessels of the aortic arch are grossly unremarkable. Common carotid artery, carotid Bulb, internal carotid artery , and origin of the external carotid artery are well opacified. Vertebral arteries are well opacified. Jugular veins are well opacified. Included lung apices are grossly unremarkable. Thyroid gland appears unremarkable. IMPRESSION: No evidence of stenosis or aneurysm. No evidence of dissection. Atherosclerotic calcifications are noted involving bilateral carotid bulb without significant stenosis.-stable. No other new interval abnormality since prior study. Electronically Signed by: Mike Jacinto MD. (07/05/2025 06:11:49 EST)
--- NOTE | 2025-07-05 06:27 | XRAY ---
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 TECHNIQUE: Contrast enhanced thin slice CT angiography scan of the cerebral vessels was performed with intravenous contrast. Angiographic images were processed, 3D MIP images were acquired for interpretation. Contiguous axial images were obtained. Reformatted coronal and sagittal images were also reviewed. If IV contrast material had not been administered, the likelihood of detecting abnormalities relevant to the patient's condition would have been substantially decreased. CT scan was performed according to ALARA (as low as reasonably achievable). FINDINGS: Atherosclerotic calcifications are noted involving cavernous, clinoid and supraclinoid segment of bilateral internal carotid arteries without significant stenosis. Bilateral internal carotid arteries show normal course, calibre and opacification in the canalicular and cavernous part. Their division into the anterior cerebral artery and middle cerebral artery is defined. A1, A2 and M1, M2 segments are normal on both the sides. Bilateral vertebral arteries are seen to unite the form the basilar artery in a normal fashion. Basilar artery shows normal course, caliber and opacification. Its division into the posterior cerebral arteries is defined. Bilateral P1 and P2 segments are normal. Visualized venous structures show normal opacification. No evidence of intracranial aneurysm or AV malformation is seen. IMPRESSION: 1.No evidence of stenosis or aneurysm. No evidence of dissection. Atherosclerotic calcifications are noted involving cavernous, clinoid and supraclinoid segment of bilateral internal carotid arteries without significant stenosis.-stable. No other new interval abnormality since prior study. Electronically Signed by: Mike Jacinto MD. (07/05/2025 06:25:17 EST)
[2025-07-05] MEDS: VENTOLIN COMMON CANISTER IH SCH (07:12)
--- NOTE | 2025-07-05 08:35 | XRAY ---
Indication: Short of breath. Comparison: September 06, 2023 Portable chest demonstrates new minimal left base infiltrate versus atelectasis and mild right hemidiaphragm elevation. Heart not enlarged again with CABG, left AICD, and a few left hilar calcified nodes. Bony thorax intact again with osteopenia and mild degenerative changes.
[2025-07-05] MEDS: ENTRESTO 49 MG-51 MG TABLET PO SCH (09:19)
[2025-07-05] MEDS: Novolin 70/30 SQ SCH ×2 (09:19→17:23)
[2025-07-05] MEDS: Lasix 40 MG PO SCH (09:19)
[2025-07-05] MEDS: Klor Con PO SCH (09:20)
[2025-07-05] MEDS: Coreg 3.125 MG PO SCH (09:20)
[2025-07-05] MEDS: Aldactone 25 MG PO SCH (09:20)
[2025-07-05] MEDS: ECOTRIN 81 MG PO SCH (09:21)
[2025-07-05] MEDS ORDERED: NON-FORMULARY ITEM (Potassium Chloride [Potassium Chloride] 20 MEQ Tab.Er.Prt) PO SCH (10:00)
[2025-07-05] MEDS ORDERED: NON-FORMULARY ITEM (Sacubitril/Valsartan [Entresto 24 Mg-26 Mg Tablet] 1 EACH Tablet) PO SCH (10:00)
[2025-07-05] MEDS ORDERED: NON-FORMULARY ITEM (Rivaroxaban [Xarelto] 20 MG Tablet) PO SCH (10:00)
[2025-07-05] MEDS ORDERED: XARELTO 10 MG TABLET PO SCH (10:00)
[2025-07-05] MEDS: HOLD METFORMIN PRODUCTS FOR 48 HOURS MC SCH (10:14)
[2025-07-05] MEDS: ULTRAM 50 MG PO PRN (10:38)
[2025-07-05] MEDS: Tums EX 750 MG PO PRN (10:43)
--- NOTE | 2025-07-05 14:28 | PCM.NOTE ---
Date and Time: 07/05/25 1423 Subjective Assessment: is a 70-year-old male with a history of hyperlipidemia, migraine headaches, peripheral neuropathy, atrial fibrillation on anticoagulation therapy, congestive heart failure, coronary artery disease with ischemic cardiomyopathy, prior cardiac valve replacement, multiple cardiac stents, pacemaker/defibrillator, hypertension, COPD, morbid obesity, diabetes, sleep apnea, and restless leg syndrome. 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 Moseley, due to concern for possible slurred speech. The patient himself denied new slurred speech, stating that he has always spoken softly and slowly, though he does report increasing fatigue over the past several months without chest pain or shortness of breath. Neurology evaluated him and recommended monitoring, but MRI brain was contraindicated due to his pacemaker. He also noted chronic, unchanged leg edema. On 07/05/25, the patient was resting in bed with bilateral lower extremity edema, and a venous duplex was ordered for further evaluation. He reported shortness of breath, prompting a chest X-ray. D-dimer was elevated at 0.66, and CTA of the chest was ordered. He remained on 2 L oxygen with saturation of 93%, consistent with his baseline home use. CTA of the head, CT of the head, and CT angiogram were all negative for acute findings. IV fluids were discontinued. PT, OT, and speech therapy evaluations were completed, with speech therapy noting no concerning symptoms. Laboratory studies revealed a low TSH of 0.439, which will require outpatient follow-up with his primary care provider. Neurology has been contacted for further evaluation regarding admission. At present, the patient denies any additional concerns. - Review of Systems Constitutional: No Fever, No Chills Eyes: No Symptoms Ears, Nose, & Throat: No Symptoms Respiratory: Short Of Breath, No Cough Cardiac: Edema (BLLE), No Chest Pain, No Syncope Abdominal/Gastrointestinal: No Abdominal Pain, No Nausea, No Vomiting, No Diarrhea Genitourinary Symptoms: No Dysuria Musculoskeletal: No Back Pain, No Neck Pain Skin: No Rash Neurological: No Dizziness, No Focal Weakness, No Sensory Changes Psychological: No Symptoms Endocrine: No Symptoms Hematologic/Lymphatic: No Symptoms Immunological/Allergic: No Symptoms Objective Exam General Appearance: no apparent distress, alert Neurologic Exam: alert, oriented x 3, cooperative, normal mood/affect, nml cerebellar function, sensation nml, No motor deficits Skin Exam: normal color, warm, dry Eye Exam: PERRL, EOMI, eyes nml inspection Ears, Nose, Throat Exam: normal ENT inspection, pharynx normal, moist mucous membranes Neck Exam: normal inspection, non-tender, supple, full range of motion Respiratory Exam: normal breath sounds, lungs clear, No respiratory distress Cardiovascular Exam: regular rate/rhythm, normal heart sounds, edema Gastrointestinal/Abdomen Exam: soft, No tenderness, No mass Extremity Exam: normal inspection, normal range of motion, swelling (BLLE) Back Exam: normal inspection, normal range of motion, No CVA tenderness, No vertebral tenderness Male Genitalia Exam: deferred Rectal Exam: deferred Objective Data Vital Signs: Vital Signs - 24 hr Temp Pulse Resp BP BP Pulse Ox 07/05/25 12:00 97.9 F 84 21 104/51 96 07/05/25 11:36 91 H 18 95 07/05/25 07:46 93 L 07/05/25 07:16 82 16 95 07/05/25 07:10 97.8 F 84 18 127/63 99 07/05/25 04:00 97.9 F 82 10 L 112/57 97 07/05/25 00:00 98.1 F 80 12 102/57 94 L 07/04/25 21:38 87 18 91 L 07/04/25 21:36 91 L 07/04/25 19:54 96.8 F 83 18 122/65 97 07/04/25 19:34 98 07/04/25 19:03 86 18 102/62 97 07/04/25 19:01 85 18 83/64 07/04/25 18:31 76 162/80 98 07/04/25 18:00 117/77 07/04/25 17:30 123/72 96 07/04/25 17:00 80 18 129/87 97 07/04/25 16:30 130/85 07/04/25 16:00 80 17 129/75 98 07/04/25 15:00 81 12 133/69 99 07/04/25 14:52 99 07/04/25 14:35 97.6 F 81 19 121/70 98 Pain Assessment - Last Documented Pain Intensity 6 Intake and Output: Intake & Output 11/1807/04/25 07/05/25 07/06/25 11:59 11:59 11:59 11:59 Intake Total 1056 240 Balance 1056 240 Weight 136.9 kg Lab Results: Lab Results-Last 24 Hours 07/04/25 07/04/25 07/04/25 Range/Units 14:52 15:00 15:00 WBC 8.1 (4.23-9.07) x10^3/uL RBC 5.41 (4.63-6.08) x10^6/uL Hgb 13.9 (13.7-17.5) g/dL Hct 44.5 (40.1-51.0) % MCV 82.3 (79.0-92.2) fL MCH 25.7 (25.7-32.2) pg MCHC 31.2 L (32.3-36.5) g/dL RDW 16.6 H (11.6-14.4) % Plt Count 210 (163-337) x10^3/uL MPV 10.3 (9.4-12.4) fL Gran % 66.5 (34.0-67.9) % Immature Gran % (Auto) 0.4 (0.001-0.429) % Nucleat RBC Rel Count 0.0 (0.00-0.2) % Eos # (Auto) 0.23 (0.04-0.54) x10^3/uL Immature Gran # (Auto) 0.03 (0.001-0.031) x10^3u/L Absolute Lymphs (auto) 1.66 (1.32-3.57) x10^3/uL Absolute Monos (auto) 0.75 (0.30-0.82) x10^3/uL Absolute Nucleated RBC 0.00 (0.00-0.012) x10^3u/L Lymphocytes % 20.5 L (21.8-53.1) % Monocytes % 9.3 (5.3-12.2) % Eosinophils % 2.8 (0.8-7.0) % Basophils % 0.5 (0.2-1.2) % Absolute Granulocytes 5.37 (1.78-5.38) x10^3/uL Basophils # 0.04 (0.01-0.08) x10^3/uL PT (9.4-12.5) SECONDS INR (0.8-3.0) D-Dimer (0.0-0.50) mg/L Sodium 135 (135-145) mmol/L Potassium 3.9 (3.5-5.1) mmol/L Chloride 95 L (98-107) mmol/L Carbon Dioxide 30 (22-30) mmol/L Anion Gap 14.1 (5-15) MEQ/L BUN 15 (9-20) mg/dL Creatinine 1.03 (0.66-1.25) mg/dL Estimated GFR 77.7 ML/MIN Glucose 156 H (74-106) mg/dL POC Glucometer (74 to 106) mg/dL Hemoglobin A1c (4.5-6.0) % Calcium 10.0 (8.4-10.2) mg/dL Magnesium (1.6-2.3) mg/dL Total Bilirubin 1.10 (0.2-1.3) mg/dL AST 33 (17-59) U/L ALT 18 (0-50) U/L Alkaline Phosphatase 122 (38-126) U/L Ammonia (9-30) umol/L Troponin I (0.000-0.033) ng/mL NT-Pro-B Natriuret Pep (<300) pg/mL Serum Total Protein 7.3 (6.3-8.2) g/dL Albumin 4.1 (3.5-5.0) g/dL Prealbumin (17.6-36.0) mg/dL Triglycerides (30-150) mg/dL Cholesterol (50-200) mg/dL LDL Cholesterol (30-100) mg/dL HDL Cholesterol (40-60) mg/dL Heart Disease Risk Ratio TSH 3rd Generation (0.470-4.680) mIU/L Urine Color Yellow (Yellow) Urine Appearance Clear (Clear) Urine pH 5.5 (4.6-8.0) Ur Specific [place] 1.020 (1.005-1.030) Urine Protein Trace A (Negative) Urine Glucose (UA) Negative (Negative) mg/dL Urine Ketones Negative (Negative) Urine Blood Small A (Negative) Urine Nitrite Negative (Negative) Urine Bilirubin Negative (Negative) Urine Urobilinogen 1.0 A (0.2) mg/dL Ur Leukocyte Esterase Small A (Negative) U Hyaline Cast (Auto) NONE SEEN (0-2) /LPF Urine Microscopic RBC 3-5 (0-5) /HPF Urine Microscopic WBC 3-5 (0-5) /HPF Ur Epithelial Cells None Seen (None Seen) /HPF Urine Bacteria None Seen (None Seen) /HPF Urine Culture Reflexed YES (NO) 07/04/25 07/04/25 07/04/25 Range/Units 15:00 15:00 16:00 WBC (4.23-9.07) x10^3/uL RBC (4.63-6.08) x10^6/uL Hgb (13.7-17.5) g/dL Hct (40.1-51.0) % MCV (79.0-92.2) fL MCH (25.7-32.2) pg MCHC (32.3-36.5) g/dL RDW (11.6-14.4) % Plt Count (163-337) x10^3/uL MPV (9.4-12.4) fL Gran % (34.0-67.9) % Immature Gran % (Auto) (0.001-0.429) % Nucleat RBC Rel Count (0.00-0.2) % Eos # (Auto) (0.04-0.54) x10^3/uL Immature Gran # (Auto) (0.001-0.031) x10^3u/L Absolute Lymphs (auto) (1.32-3.57) x10^3/uL Absolute Monos (auto) (0.30-0.82) x10^3/uL Absolute Nucleated RBC (0.00-0.012) x10^3u/L Lymphocytes % (21.8-53.1) % Monocytes % (5.3-12.2) % Eosinophils % (0.8-7.0) % Basophils % (0.2-1.2) % Absolute Granulocytes (1.78-5.38) x10^3/uL Basophils # (0.01-0.08) x10^3/uL PT 14.7 H (9.4-12.5) SECONDS INR 1.33 (0.8-3.0) D-Dimer (0.0-0.50) mg/L Sodium (135-145) mmol/L Potassium (3.5-5.1) mmol/L Chloride (98-107) mmol/L Carbon Dioxide (22-30) mmol/L Anion Gap (5-15) MEQ/L BUN (9-20) mg/dL Creatinine (0.66-1.25) mg/dL Estimated GFR ML/MIN Glucose (74-106) mg/dL POC Glucometer (74 to 106) mg/dL Hemoglobin A1c (4.5-6.0) % Calcium (8.4-10.2) mg/dL Magnesium 2.0 (1.6-2.3) mg/dL Total Bilirubin (0.2-1.3) mg/dL AST (17-59) U/L ALT (0-50) U/L Alkaline Phosphatase (38-126) U/L Ammonia < 9 L (9-30) umol/L Troponin I < 0.012 (0.000-0.033) ng/mL NT-Pro-B Natriuret Pep (<300) pg/mL Serum Total Protein (6.3-8.2) g/dL Albumin (3.5-5.0) g/dL Prealbumin (17.6-36.0) mg/dL Triglycerides (30-150) mg/dL Cholesterol (50-200) mg/dL LDL Cholesterol (30-100) mg/dL HDL Cholesterol (40-60) mg/dL Heart Disease Risk Ratio TSH 3rd Generation (0.470-4.680) mIU/L Urine Color (Yellow) Urine Appearance (Clear) Urine pH (4.6-8.0) Ur Specific [place] (1.005-1.030) Urine Protein (Negative) Urine Glucose (UA) (Negative) mg/dL Urine Ketones (Negative) Urine Blood (Negative) Urine Nitrite (Negative) Urine Bilirubin (Negative) Urine Urobilinogen (0.2) mg/dL Ur Leukocyte Esterase (Negative) U Hyaline Cast (Auto) (0-2) /LPF Urine Microscopic RBC (0-5) /HPF Urine Microscopic WBC (0-5) /HPF Ur Epithelial Cells (None Seen) /HPF Urine Bacteria (None Seen) /HPF Urine Culture Reflexed (NO) 07/04/25 07/04/25 07/04/25 Range/Units 18:47 19:45 22:09 WBC (4.23-9.07) x10^3/uL RBC (4.63-6.08) x10^6/uL Hgb (13.7-17.5) g/dL Hct (40.1-51.0) % MCV (79.0-92.2) fL MCH (25.7-32.2) pg MCHC (32.3-36.5) g/dL RDW (11.6-14.4) % Plt Count (163-337) x10^3/uL MPV (9.4-12.4) fL Gran % (34.0-67.9) % Immature Gran % (Auto) (0.001-0.429) % Nucleat RBC Rel Count (0.00-0.2) % Eos # (Auto) (0.04-0.54) x10^3/uL Immature Gran # (Auto) (0.001-0.031) x10^3u/L Absolute Lymphs (auto) (1.32-3.57) x10^3/uL Absolute Monos (auto) (0.30-0.82) x10^3/uL Absolute Nucleated RBC (0.00-0.012) x10^3u/L Lymphocytes % (21.8-53.1) % Monocytes % (5.3-12.2) % Eosinophils % (0.8-7.0) % Basophils % (0.2-1.2) % Absolute Granulocytes (1.78-5.38) x10^3/uL Basophils # (0.01-0.08) x10^3/uL PT (9.4-12.5) SECONDS INR (0.8-3.0) D-Dimer (0.0-0.50) mg/L Sodium (135-145) mmol/L Potassium (3.5-5.1) mmol/L Chloride (98-107) mmol/L Carbon Dioxide (22-30) mmol/L Anion Gap (5-15) MEQ/L BUN (9-20) mg/dL Creatinine (0.66-1.25) mg/dL Estimated GFR ML/MIN Glucose (74-106) mg/dL POC Glucometer 141 H 151 H (74 to 106) mg/dL Hemoglobin A1c (4.5-6.0) % Calcium (8.4-10.2) mg/dL Magnesium (1.6-2.3) mg/dL Total Bilirubin (0.2-1.3) mg/dL AST (17-59) U/L ALT (0-50) U/L Alkaline Phosphatase (38-126) U/L Ammonia (9-30) umol/L Troponin I < 0.012 (0.000-0.033) ng/mL NT-Pro-B Natriuret Pep (<300) pg/mL Serum Total Protein (6.3-8.2) g/dL Albumin (3.5-5.0) g/dL Prealbumin (17.6-36.0) mg/dL Triglycerides (30-150) mg/dL Cholesterol (50-200) mg/dL LDL Cholesterol (30-100) mg/dL HDL Cholesterol (40-60) mg/dL Heart Disease Risk Ratio TSH 3rd Generation (0.470-4.680) mIU/L Urine Color (Yellow) Urine Appearance (Clear) Urine pH (4.6-8.0) Ur Specific [place] (1.005-1.030) Urine Protein (Negative) Urine Glucose (UA) (Negative) mg/dL Urine Ketones (Negative) Urine Blood (Negative) Urine Nitrite (Negative) Urine Bilirubin (Negative) Urine Urobilinogen (0.2) mg/dL Ur Leukocyte Esterase (Negative) U Hyaline Cast (Auto) (0-2) /LPF Urine Microscopic RBC (0-5) /HPF Urine Microscopic WBC (0-5) /HPF Ur Epithelial Cells (None Seen) /HPF Urine Bacteria (None Seen) /HPF Urine Culture Reflexed (NO) 07/05/25 07/05/25 07/05/25 Range/Units 01:00 01:00 01:00 WBC 8.4 (4.23-9.07) x10^3/uL RBC 4.85 (4.63-6.08) x10^6/uL Hgb 12.4 L (13.7-17.5) g/dL Hct 40.1 (40.1-51.0) % MCV 82.7 (79.0-92.2) fL MCH 25.6 L (25.7-32.2) pg MCHC 30.9 L (32.3-36.5) g/dL RDW 16.8 H (11.6-14.4) % Plt Count 166 (163-337) x10^3/uL MPV 9.8 (9.4-12.4) fL Gran % 64.4 (34.0-67.9) % Immature Gran % (Auto) 0.2 (0.001-0.429) % Nucleat RBC Rel Count 0.0 (0.00-0.2) % Eos # (Auto) 0.32 (0.04-0.54) x10^3/uL Immature Gran # (Auto) 0.02 (0.001-0.031) x10^3u/L Absolute Lymphs (auto) 1.81 (1.32-3.57) x10^3/uL Absolute Monos (auto) 0.83 H (0.30-0.82) x10^3/uL Absolute Nucleated RBC 0.00 (0.00-0.012) x10^3u/L Lymphocytes % 21.5 L (21.8-53.1) % Monocytes % 9.9 (5.3-12.2) % Eosinophils % 3.8 (0.8-7.0) % Basophils % 0.2 (0.2-1.2) % Absolute Granulocytes 5.40 H (1.78-5.38) x10^3/uL Basophils # 0.02 (0.01-0.08) x10^3/uL PT (9.4-12.5) SECONDS INR (0.8-3.0) D-Dimer (0.0-0.50) mg/L Sodium 134 L (135-145) mmol/L Potassium 3.6 (3.5-5.1) mmol/L Chloride 100 (98-107) mmol/L Carbon Dioxide 26 (22-30) mmol/L Anion Gap 11.8 (5-15) MEQ/L BUN 17 (9-20) mg/dL Creatinine 0.90 (0.66-1.25) mg/dL Estimated GFR 91.3 ML/MIN Glucose 180 H (74-106) mg/dL POC Glucometer (74 to 106) mg/dL Hemoglobin A1c (4.5-6.0) % Calcium 9.3 (8.4-10.2) mg/dL Magnesium (1.6-2.3) mg/dL Total Bilirubin 1.00 (0.2-1.3) mg/dL AST 29 (17-59) U/L ALT 16 (0-50) U/L Alkaline Phosphatase 116 (38-126) U/L Ammonia (9-30) umol/L Troponin I < 0.012 (0.000-0.033) ng/mL NT-Pro-B Natriuret Pep (<300) pg/mL Serum Total Protein 6.3 (6.3-8.2) g/dL Albumin 3.4 L (3.5-5.0) g/dL Prealbumin (17.6-36.0) mg/dL Triglycerides (30-150) mg/dL Cholesterol (50-200) mg/dL LDL Cholesterol (30-100) mg/dL HDL Cholesterol (40-60) mg/dL Heart Disease Risk Ratio TSH 3rd Generation (0.470-4.680) mIU/L Urine Color (Yellow) Urine Appearance (Clear) Urine pH (4.6-8.0) Ur Specific [place] (1.005-1.030) Urine Protein (Negative) Urine Glucose (UA) (Negative) mg/dL Urine Ketones (Negative) Urine Blood (Negative) Urine Nitrite (Negative) Urine Bilirubin (Negative) Urine Urobilinogen (0.2) mg/dL Ur Leukocyte Esterase (Negative) U Hyaline Cast (Auto) (0-2) /LPF Urine Microscopic RBC (0-5) /HPF Urine Microscopic WBC (0-5) /HPF Ur Epithelial Cells (None Seen) /HPF Urine Bacteria (None Seen) /HPF Urine Culture Reflexed (NO) 07/05/25 07/05/25 07/05/25 Range/Units 01:00 01:00 01:00 WBC (4.23-9.07) x10^3/uL RBC (4.63-6.08) x10^6/uL Hgb (13.7-17.5) g/dL Hct (40.1-51.0) % MCV (79.0-92.2) fL MCH (25.7-32.2) pg MCHC (32.3-36.5) g/dL RDW (11.6-14.4) % Plt Count (163-337) x10^3/uL MPV (9.4-12.4) fL Gran % (34.0-67.9) % Immature Gran % (Auto) (0.001-0.429) % Nucleat RBC Rel Count (0.00-0.2) % Eos # (Auto) (0.04-0.54) x10^3/uL Immature Gran # (Auto) (0.001-0.031) x10^3u/L Absolute Lymphs (auto) (1.32-3.57) x10^3/uL Absolute Monos (auto) (0.30-0.82) x10^3/uL Absolute Nucleated RBC (0.00-0.012) x10^3u/L Lymphocytes % (21.8-53.1) % Monocytes % (5.3-12.2) % Eosinophils % (0.8-7.0) % Basophils % (0.2-1.2) % Absolute Granulocytes (1.78-5.38) x10^3/uL Basophils # (0.01-0.08) x10^3/uL PT (9.4-12.5) SECONDS INR (0.8-3.0) D-Dimer (0.0-0.50) mg/L Sodium (135-145) mmol/L Potassium (3.5-5.1) mmol/L Chloride (98-107) mmol/L Carbon Dioxide (22-30) mmol/L Anion Gap (5-15) MEQ/L BUN (9-20) mg/dL Creatinine (0.66-1.25) mg/dL Estimated GFR ML/MIN Glucose (74-106) mg/dL POC Glucometer (74 to 106) mg/dL Hemoglobin A1c 6.45 H (4.5-6.0) % Calcium (8.4-10.2) mg/dL Magnesium (1.6-2.3) mg/dL Total Bilirubin (0.2-1.3) mg/dL AST (17-59) U/L ALT (0-50) U/L Alkaline Phosphatase (38-126) U/L Ammonia (9-30) umol/L Troponin I (0.000-0.033) ng/mL NT-Pro-B Natriuret Pep (<300) pg/mL Serum Total Protein (6.3-8.2) g/dL Albumin (3.5-5.0) g/dL Prealbumin 17.01 L (17.6-36.0) mg/dL Triglycerides 122 (30-150) mg/dL Cholesterol 126 (50-200) mg/dL LDL Cholesterol 68 (30-100) mg/dL HDL Cholesterol 36 L (40-60) mg/dL Heart Disease Risk Ratio 4.0 TSH 3rd Generation 0.439 L (0.470-4.680) mIU/L Urine Color (Yellow) Urine Appearance (Clear) Urine pH (4.6-8.0) Ur Specific [place] (1.005-1.030) Urine Protein (Negative) Urine Glucose (UA) (Negative) mg/dL Urine Ketones (Negative) Urine Blood (Negative) Urine Nitrite (Negative) Urine Bilirubin (Negative) Urine Urobilinogen (0.2) mg/dL Ur Leukocyte Esterase (Negative) U Hyaline Cast (Auto) (0-2) /LPF Urine Microscopic RBC (0-5) /HPF Urine Microscopic WBC (0-5) /HPF Ur Epithelial Cells (None Seen) /HPF Urine Bacteria (None Seen) /HPF Urine Culture Reflexed (NO) 07/05/25 07/05/25 07/05/25 Range/Units 01:00 01:00 07:02 WBC (4.23-9.07) x10^3/uL RBC (4.63-6.08) x10^6/uL Hgb (13.7-17.5) g/dL Hct (40.1-51.0) % MCV (79.0-92.2) fL MCH (25.7-32.2) pg MCHC (32.3-36.5) g/dL RDW (11.6-14.4) % Plt Count (163-337) x10^3/uL MPV (9.4-12.4) fL Gran % (34.0-67.9) % Immature Gran % (Auto) (0.001-0.429) % Nucleat RBC Rel Count (0.00-0.2) % Eos # (Auto) (0.04-0.54) x10^3/uL Immature Gran # (Auto) (0.001-0.031) x10^3u/L Absolute Lymphs (auto) (1.32-3.57) x10^3/uL Absolute Monos (auto) (0.30-0.82) x10^3/uL Absolute Nucleated RBC (0.00-0.012) x10^3u/L Lymphocytes % (21.8-53.1) % Monocytes % (5.3-12.2) % Eosinophils % (0.8-7.0) % Basophils % (0.2-1.2) % Absolute Granulocytes (1.78-5.38) x10^3/uL Basophils # (0.01-0.08) x10^3/uL PT (9.4-12.5) SECONDS INR (0.8-3.0) D-Dimer 0.66 H* (0.0-0.50) mg/L Sodium (135-145) mmol/L Potassium (3.5-5.1) mmol/L Chloride (98-107) mmol/L Carbon Dioxide (22-30) mmol/L Anion Gap (5-15) MEQ/L BUN (9-20) mg/dL Creatinine (0.66-1.25) mg/dL Estimated GFR ML/MIN Glucose (74-106) mg/dL POC Glucometer 176 H (74 to 106) mg/dL Hemoglobin A1c (4.5-6.0) % Calcium (8.4-10.2) mg/dL Magnesium (1.6-2.3) mg/dL Total Bilirubin (0.2-1.3) mg/dL AST (17-59) U/L ALT (0-50) U/L Alkaline Phosphatase (38-126) U/L Ammonia (9-30) umol/L Troponin I (0.000-0.033) ng/mL NT-Pro-B Natriuret Pep 731 (<300) pg/mL Serum Total Protein (6.3-8.2) g/dL Albumin (3.5-5.0) g/dL Prealbumin (17.6-36.0) mg/dL Triglycerides (30-150) mg/dL Cholesterol (50-200) mg/dL LDL Cholesterol (30-100) mg/dL HDL Cholesterol (40-60) mg/dL Heart Disease Risk Ratio TSH 3rd Generation (0.470-4.680) mIU/L Urine Color (Yellow) Urine Appearance (Clear) Urine pH (4.6-8.0) Ur Specific [place] (1.005-1.030) Urine Protein (Negative) Urine Glucose (UA) (Negative) mg/dL Urine Ketones (Negative) Urine Blood (Negative) Urine Nitrite (Negative) Urine Bilirubin (Negative) Urine Urobilinogen (0.2) mg/dL Ur Leukocyte Esterase (Negative) U Hyaline Cast (Auto) (0-2) /LPF Urine Microscopic RBC (0-5) /HPF Urine Microscopic WBC (0-5) /HPF Ur Epithelial Cells (None Seen) /HPF Urine Bacteria (None Seen) /HPF Urine Culture Reflexed (NO) 07/05/25 Range/Units 12:10 WBC (4.23-9.07) x10^3/uL RBC (4.63-6.08) x10^6/uL Hgb (13.7-17.5) g/dL Hct (40.1-51.0) % MCV (79.0-92.2) fL MCH (25.7-32.2) pg MCHC (32.3-36.5) g/dL RDW (11.6-14.4) % Plt Count (163-337) x10^3/uL MPV (9.4-12.4) fL Gran % (34.0-67.9) % Immature Gran % (Auto) (0.001-0.429) % Nucleat RBC Rel Count (0.00-0.2) % Eos # (Auto) (0.04-0.54) x10^3/uL Immature Gran # (Auto) (0.001-0.031) x10^3u/L Absolute Lymphs (auto) (1.32-3.57) x10^3/uL Absolute Monos (auto) (0.30-0.82) x10^3/uL Absolute Nucleated RBC (0.00-0.012) x10^3u/L Lymphocytes % (21.8-53.1) % Monocytes % (5.3-12.2) % Eosinophils % (0.8-7.0) % Basophils % (0.2-1.2) % Absolute Granulocytes (1.78-5.38) x10^3/uL Basophils # (0.01-0.08) x10^3/uL PT (9.4-12.5) SECONDS INR (0.8-3.0) D-Dimer (0.0-0.50) mg/L Sodium (135-145) mmol/L Potassium (3.5-5.1) mmol/L Chloride (98-107) mmol/L Carbon Dioxide (22-30) mmol/L Anion Gap (5-15) MEQ/L BUN (9-20) mg/dL Creatinine (0.66-1.25) mg/dL Estimated GFR ML/MIN Glucose (74-106) mg/dL POC Glucometer 165 H (74 to 106) mg/dL Hemoglobin A1c (4.5-6.0) % Calcium (8.4-10.2) mg/dL Magnesium (1.6-2.3) mg/dL Total Bilirubin (0.2-1.3) mg/dL AST (17-59) U/L ALT (0-50) U/L Alkaline Phosphatase (38-126) U/L Ammonia (9-30) umol/L Troponin I (0.000-0.033) ng/mL NT-Pro-B Natriuret Pep (<300) pg/mL Serum Total Protein (6.3-8.2) g/dL Albumin (3.5-5.0) g/dL Prealbumin (17.6-36.0) mg/dL Triglycerides (30-150) mg/dL Cholesterol (50-200) mg/dL LDL Cholesterol (30-100) mg/dL HDL Cholesterol (40-60) mg/dL Heart Disease Risk Ratio TSH 3rd Generation (0.470-4.680) mIU/L Urine Color (Yellow) Urine Appearance (Clear) Urine pH (4.6-8.0) Ur Specific [place] (1.005-1.030) Urine Protein (Negative) Urine Glucose (UA) (Negative) mg/dL Urine Ketones (Negative) Urine Blood (Negative) Urine Nitrite (Negative) Urine Bilirubin (Negative) Urine Urobilinogen (0.2) mg/dL Ur Leukocyte Esterase (Negative) U Hyaline Cast (Auto) (0-2) /LPF Urine Microscopic RBC (0-5) /HPF Urine Microscopic WBC (0-5) /HPF Ur Epithelial Cells (None Seen) /HPF Urine Bacteria (None Seen) /HPF Urine Culture Reflexed (NO) Radiology Exams: Radiology Procedures Category Date Time Status CHEST 1 VIEW (PORTABLE) Routine Exams 07/05/25 07:[address] ANGIOGRAPHY NECK [CT] Stat Exams 07/05/25 08:00 Completed CTA CHEST W AND/OR WO [CT] Routine Exams 07/06/25 11:31 Ordered CTA HEAD W AND/OR WO CONTRAST [CT] Urgent Exams 07/05/25 03:11 Completed ECHO W/2D AND DOPPLER [US] Routine Exams 07/05/25 08:00 Ordered HEAD WITHOUT CONTRAST [CT] Stat Exams 07/04/25 14:46 Completed VENOUS BILATERAL EXTREMITY [US] Routine Exams 07/05/25 12:28 Ordered Medications: Medications Generic Name Dose Route Start Last Admin Trade Name Freq PRN Reason Stop Dose Admin Acetaminophen 650 mg 07/04/25 19:54 Acetaminophen 325 Mg Tablet PO 08/03/25 19:53 Q4H PRN PRN PAIN, FEVER, HEADACHE Albuterol Sulfate 2 puff 07/05/25 07:00 07/05/25 11:20 Albuterol Common Canister Inhaler 08/04/25 06:59 2 puff QIDRT KIKI Administration Albuterol Sulfate 4 puff 07/04/25 21:36 Albuterol Common Canister Inhaler 08/03/25 21:35 Q4H PRN PRN SHORTNESS OF BREATH/WHEEZING Aspirin 81 mg 07/05/25 10:00 07/05/25 09:21 Aspirin 81 Mg Tablet.Ec PO 08/04/25 09:59 81 mg DAILY KIKI Administration Atorvastatin Calcium 40 mg 07/05/25 22:00 Atorvastatin Calcium 40 Mg Tablet PO 08/04/25 21:59 HS [facility] Calcium Carbonate/Glycine 750 mg 07/05/25 10:37 07/05/25 10:43 Calcium Carbonate 750 Mg 750 Mg Tab.Chew PO 08/04/25 10:44 750 mg QID PRN PRN Administration INDIGESTION Carvedilol 3.125 mg 07/05/25 10:00 07/05/25 09:20 Carvedilol 3.125 Mg Tablet PO 08/04/25 09:59 3.125 mg BID KIKI Administration Furosemide 40 mg 07/05/25 10:00 07/05/25 09:19 Furosemide 40 Mg Tablet PO 08/04/25 09:59 40 mg BID DIURETIC KIKI Administration Insulin Human Isoph/Insulin Regular 60 unit 07/05/25 18:00 Insulin Nph/Reg 70/30 SQ 08/04/25 17:59 PMINSULIN KIKI Insulin Human Isoph/Insulin Regular 80 unit 07/05/25 08:00 07/05/25 09:19 Insulin Nph/Reg 70/30 SQ 08/04/25 07:59 80 unit AMINSULIN KIKI Administration Insulin Human Lispro 0 unit 07/04/25 22:47 Insulin Lispro 1 Unit SQ 08/03/25 22:46 UD PRN HYPERGLYCEMIA Nitroglycerin 0.4 mg 07/04/25 22:43 Nitroglycerin 0.4 Mg Tablet Bottle SL 08/03/25 22:42 Q5MIN PRN MR X 3 PRN CHEST PAIN Non-Formulary Medication 1 each 07/05/25 05:00 07/05/25 10:14 Hold Metformin Products For 48hrs 07/07/25 05:00 Not Given Q48H [facility] Ondansetron HCl 4 mg 07/04/25 22:47 07/05/25 01:33 Ondansetron Hcl 4 Mg/2 Ml Vial IV 08/03/25 22:46 4 mg Q6H PRN PRN Administration NAUSEA/VOMITING Potassium Chloride 20 meq 07/05/25 10:00 07/05/25 09:20 Potassium Chloride Tab 10 Meq Tab PO 08/04/25 09:59 20 meq BID KIKI Administration Rivaroxaban 20 mg 07/05/25 10:00 Rivaroxaban 10 Mg Tablet PO 08/04/25 09:59 DAILY KIKI Sacubitril/Valsartan 0.25 tablet 07/05/25 10:00 07/05/25 09:19 Sacubitril/Valsartan 1 Tablet Tablet PO 08/04/25 09:59 0.25 tablet DAILY KIKI Administration Spironolactone 12.5 mg 07/05/25 10:00 07/05/25 09:20 Spironolactone 25 Mg Tablet PO 08/04/25 09:59 12.5 mg DAILY KIKI Administration Tramadol HCl 100 mg 07/04/25 22:43 07/05/25 10:38 Tramadol Hcl 50 Mg Tablet PO 08/03/25 22:42 100 mg TIDPRN PRN Administration PAIN Discontinued Medications Generic Name Dose Route Start Last Admin Trade Name Shivani PRN Reason Stop Dose Admin Acetaminophen 650 mg 07/04/25 22:43 Acetaminophen 325 Mg Tablet PO 08/03/25 22:42 TIDPRN PRN PAIN Sodium Chloride 1,000 mls @ 100 mls/hr 07/04/25 15:00 07/04/25 15:10 Sodium Chloride 0.9% 1000 Ml IV 08/03/25 14:59 100 mls/hr .Q10H KIKI Administration Sodium Chloride Confirm 07/04/25 15:08 Sodium Chloride 0.9% 1000 Ml Administered 07/04/25 15:09 Dose 1,000 mls @ ud .ROUTE .STK-MED ONE Sodium Chloride 1,000 mls @ 50 mls/hr 07/04/25 19:54 07/05/25 05:54 Sodium Chloride 0.9% 1000 Ml IV 08/03/25 19:53 50 mls/hr .Q20H KIKI Administration Insulin Human Regular 0 unit 07/04/25 19:54 Insulin Regular, Human 1 Unit SQ 08/03/25 19:53 UD PRN HYPERGLYCEMIA Non-Formulary Medication 2 puff 07/04/25 22:43 Albuterol Sulfate [Albuterol Sulfate] IH QIDPRN PRN SHORTNESS OF BREATH Multi-Disciplinary Progress Notes: Multi-Disciplinary Progress Notes 07/05/25 12:03 Case Management Note by Aliza Dangelo/Harsh SUTTON IN [facility]- SHE IS INVOLVED WITH PATIENT. SHE WAS NOTIFIED HE IS CURRENTLY REFUSING ANY REHAB STAY OR C AT THIS TIME. SHE REPORTS THEY WILL CONTINUE TO FOLLOW. [facility]ALKER RECOMMENDED BY PHYSICAL THERAPY ORDERED FOR DELIVERY TO [facility]. PATIENT REPORTS HE IS ONLY AGREEABLE IF IT DOES NOT COST HIM ANYTHING. PATIENT HAS MEDICARE AND MEDICAID- HOPEFUL IT IS PAID FOR AT 100%. WILL CHECK WITH SPIKE. HERMAN WITH [facility] STATED IF PATIENT HAS COPAY- THEY CAN PROBABLY ASSIST WITH THAT. Initialized on 07/05/25 12:03 - END OF NOTE Assessment/Plan (1) TIA (transient ischemic attack) Current Visit: Yes Status: Acute Assessment & Plan: - PT/ST/ OT eval - Rollator needed and CM ordered - MRI brain cancelled as pt has pacemaker - CTA head, CT angio and head CT all negative for acute concern - Neurology consulted- note reviewed and agree with plan of care - Neuro reconsulted as pt is unable to have MRI and need to know if they recommended for imaging. - Xarelto held - A1C 6.45 - Lipid panel reviewed - HDL 36 - Atorvastatin 40mg daily - ASA 81 mg daily - Echo Code(s): G45.9 - TRANSIENT CEREBRAL ISCHEMIC ATTACK, UNSPECIFIED (2) Abnormal TSH Current Visit: Yes Status: Acute Assessment & Plan: - TSH 0.439 - Will need repeat labs OP with PCP Code(s): R79.89 - OTHER SPECIFIED ABNORMAL FINDINGS OF BLOOD CHEMISTRY (3) D-dimer, elevated Current Visit: Yes Status: Acute Assessment & Plan: - D-Dimer 0.66 - CTA chest ordered - tele Code(s): R79.89 - OTHER SPECIFIED ABNORMAL FINDINGS OF BLOOD CHEMISTRY (4) Dyspnea Current Visit: Yes Status: Acute Assessment & Plan: - CXR: Portable chest demonstrates new minimal left base infiltrate versus atelectasis and mild right hemidiaphragm elevation. Heart not enlarged again with CABG, left AICD, and a few left hilar calcified nodes. Bony thorax intact again with osteopenia and mild degenerative changes. - Old CT chest reviewed and findings appear to be chronic - CTA pending - On baseline O2 of 2LNC at 93% - Trop x3 negative - BNP 731 Code(s): R06.00 - DYSPNEA, UNSPECIFIED (5) Diabetes type 2, controlled Current Visit: No Status: Chronic Assessment & Plan: - Accuchecks AC/HS - Continue home insulin dosing - A1C 6.45 - controlled - Metformin held Code(s): E11.9 - TYPE 2 DIABETES MELLITUS WITHOUT COMPLICATIONS (6) Essential (primary) hypertension Current Visit: No Status: Chronic Assessment & Plan: - BP stable Code(s): I10 - ESSENTIAL (PRIMARY) HYPERTENSION (7) Slurred speech Current Visit: Yes Status: Resolved Assessment & Plan: - Resolved since admission - Pt states this is his norm Code(s): R47.81 - SLURRED SPEECH (8) Edema of both lower legs Current Visit: Yes Status: Acute Assessment & Plan: - VD BLLE pending VTE: VD pending, xarelto held for now Next of KIN: sibling- Abdullahi Irving [phone] D/C plan: 1-2 days Code status: Full Plan of care time: > 45 minutes Code(s): R60.0 - LOCALIZED EDEMA
--- NOTE | 2025-07-05 16:48 | XRAY ---
Indication: Edema. Elevated D-dimer. Two-dimensional sonogram and color Doppler imaging major venous vessels left and right leg performed. Comparison: March 15, 2023 No thrombus seen in the examined deep venous vessels left and right leg including greater saphenous vein. Veins demonstrate normal compressibility. Venous waveforms are normal with and without augmentation. Impression: Left and right leg continues to be negative for DVT.
[2025-07-05] MEDS: HUMALOG SQ PRN (17:24)
[2025-07-05] MEDS: LIPITOR 40MG PO SCH (21:30)
[2025-07-05] MEDS ORDERED: NON-FORMULARY ITEM (Atorvastatin Calcium [Lipitor] 80 MG Tablet) PO SCH (22:00)
[2025-07-06 05:18] LABS: Hematocrit 39.4 % (40.1-51.0); Hemoglobin 11.9 g/dL (13.7-17.5); Mean Corpuscular Hemoglobin 25.4 pg (25.7-32.2); Mean Corpuscular Hgb Concent. 30.2 g/dL (32.3-36.5); Platelet Count 175 x10^3/uL (163-337); Red Blood Count 4.68 x10^6/uL (4.63-6.08); White Blood Count 7.8 x10^3/uL (4.23-9.07)
[2025-07-06 06:16] LABS: Calcium 9.4 mg/dL (8.4-10.2); Carbon Dioxide 28.0 mmol/L (22-30); Creatinine 1 1.13 mg/dL (0.66-1.25); EST GLOMERULAR FILTRATION RATE 69.5 ML/MIN; Potassium 3.6 mmol/L (3.5-5.1); SGOT/AST 30.0 U/L (17-59); SGPT/ALT 15.0 U/L (0-50); Total Protein 6.7 g/dL (6.3-8.2)
[2025-07-06 06:25] LABS: Glucose 46.0 mg/dL (74-106)
[2025-07-06] MEDS ORDERED: Glutose 15 GM/30 ml ORAL GEL PO PRN (07:32)
[2025-07-06] MEDS ORDERED: D50W 50 ml Abboject IV PRN (07:32)
[2025-07-06 07:36] VITALS: O2SAT 99
--- NOTE | 2025-07-06 09:57 | PCM.DS ---
Discharge Summary Date of Admission: 07/04/25 19:50 Date of Discharge: 07/06/25 Admitting Physician: NATHALY LOFTON MD Consults: Consults on Case 07/06/25 07:32 Notify Physician ROUTINE Primary Care Provider: PABLITO MUNGUIA Allergies Allergies apixaban [From Eliquis] Allergy (Severe, Verified 02/26/24 02:39) cant walk leg pain morphine Allergy (Severe, Verified 02/26/24 02:39) hallucinations HALLUCINATIONS dabigatran etexilate mesylate [From Pradaxa] Allergy (Mild, Verified 02/26/24 02:39) Nausea and Vomiting upset stomach metoclopramide HCl [From Reglan] Allergy (Mild, Verified 02/26/24 02:39) Itching [facility] Summary - Hospital Course Hospital Course: Ms. Mckee is a 73-year-old female with a history of hyperlipidemia, gastroesophageal reflux disease, chronic kidney disease, diabetes mellitus, and anticoagulation with Eliquis who presented to the ED on 07/04/25 with hypoglycemia in the 50s at home, associated with slurred speech and right-sided numbness. She received an amp of D50 in the ED and was immediately awake, alert, and oriented with a nonfocal neurologic exam. She denied chest pain or shortness of breath and reported being aware of her symptoms, though surprised by her low blood sugar. She noted recent adjustments to her diabetic medications due to weight loss. CT imaging revealed a new stroke compared to prior studies from 2017, though indeterminate for acuity. Neurology was consulted and recommended MRI imaging, holding Eliquis, and starting aspirin. On 07/05/25, the patient was sitting up in a chair with resolution of aphasia and right-sided deficits. PT, OT, and speech therapy evaluations were ordered. An echocardiogram was completed and results are pending. MRI of the brain could not be performed due to her pacemaker, and neurology was reconsulted for further recommendations. CT of the head demonstrated a new lacunar infarct. Aspirin 81 mg daily and Lipitor 40 mg daily was initiated per neurology. Her creatinine was stable at 1.21. Lovenox was held, and Eliquis remains on hold due to the stroke. Platelets were 75, consistent with chronically low counts on prior labs, though the patient was unaware of this history and has never seen hematology. She denied melena or hematochezia. She reported a 70-pound weight loss over the past 34 months, [address] CT of the chest, abdomen, and pelvis was ordered for further evaluation. She previously used Mounjaro, discontinued two months ago, and has not felt well since. Januvia and glipizide are currently held due to hypoglycemia at presentation. Blood glucose is monitored every four hours with hypoglycemia protocol in place. She was also found to have a UTI and started on renally dosed Levaquin. For constipation, MiraLAX was initiated per her preference. The patient denies depression but reports recent significant losses of a son and [id number]. At present, she denies further concerns. 07/06/25 Patient resting bed in bed and states he feels fine. He is refusing rehab and home health care. Repeat CTA of the head shows no new concerning findings. Discussed case patient case with neurology and they feel that if there is nothing concerning on the CAT scan he can continue his Xarelto and DC today. Echo shows that EF is 35% and patient does have a pacemaker patient needs to follow-up outpatient with cardiology. CTA of chest shows no PE but left lower and right middle lobe hazy alveolar opacities. Rule out pneumonia/pneumonitis. Will d/c with antibiotocs. Pt is on baseline oxygen at 2lNC. KIM hose in place for bilateral lower extremity edema that is chronic. Patient to follow-up outpatient with PCP. He denies any further concerns at this time. - Vitals & Intake/Output Vital Signs: Vital Signs Temperature 98.1 F 07/06/25 07:35 Pulse Rate 83 07/06/25 07:35 Respiratory Rate 21 07/06/25 07:35 Blood Pressure 120/59 07/06/25 07:35 O2 Sat by Pulse Oximetry 99 07/06/25 07:35 Intake & Output: Intake & Output 07/03/25 07/04/25 07/05/25 07/06/25 11:59 11:59 11:59 11:59 Intake Total 1056 1500 Balance 1056 1500 Weight 136.9 kg 136.4 kg - Lab Result Diagrams: 07/06/25 04:46 07/06/25 04:46 Lab Results-Last 24 Hrs: Lab Results-Last 24 Hours 07/05/25 07/05/25 07/05/25 Range/Units 12:10 16:25 21:22 WBC (4.23-9.07) x10^3/uL RBC (4.63-6.08) x10^6/uL Hgb (13.7-17.5) g/dL Hct (40.1-51.0) % MCV (79.0-92.2) fL MCH (25.7-32.2) pg MCHC (32.3-36.5) g/dL RDW (11.6-14.4) % Plt Count (163-337) x10^3/uL MPV (9.4-12.4) fL Sodium (135-145) mmol/L Potassium (3.5-5.1) mmol/L Chloride (98-107) mmol/L Carbon Dioxide (22-30) mmol/L Anion Gap (5-15) MEQ/L BUN (9-20) mg/dL Creatinine (0.66-1.25) mg/dL Estimated GFR ML/MIN Glucose (74-106) mg/dL POC Glucometer 165 H 258 H 151 H (74 to 106) mg/dL Calcium (8.4-10.2) mg/dL Total Bilirubin (0.2-1.3) mg/dL AST (17-59) U/L ALT (0-50) U/L Alkaline Phosphatase (38-126) U/L Serum Total Protein (6.3-8.2) g/dL Albumin (3.5-5.0) g/dL Procalcitonin (0.030-0.080) ng/mL 07/06/25 07/06/25 07/06/25 Range/Units 04:46 04:46 04:46 WBC 7.8 (4.23-9.07) x10^3/uL RBC 4.68 (4.63-6.08) x10^6/uL Hgb 11.9 L (13.7-17.5) g/dL Hct 39.4 L (40.1-51.0) % MCV 84.2 (79.0-92.2) fL MCH 25.4 L (25.7-32.2) pg MCHC 30.2 L (32.3-36.5) g/dL RDW 17.2 H (11.6-14.4) % Plt Count 175 (163-337) x10^3/uL MPV 9.9 (9.4-12.4) fL Sodium 139 (135-145) mmol/L Potassium 3.6 (3.5-5.1) mmol/L Chloride 104 (98-107) mmol/L Carbon Dioxide 28 (22-30) mmol/L Anion Gap 11.0 (5-15) MEQ/L BUN 18 (9-20) mg/dL Creatinine 1.13 (0.66-1.25) mg/dL Estimated GFR 69.5 ML/MIN Glucose 46 L* (74-106) mg/dL POC Glucometer (74 to 106) mg/dL Calcium 9.4 (8.4-10.2) mg/dL Total Bilirubin 0.60 (0.2-1.3) mg/dL AST 30 (17-59) U/L ALT 15 (0-50) U/L Alkaline Phosphatase 96 (38-126) U/L Serum Total Protein 6.7 (6.3-8.2) g/dL Albumin 3.6 (3.5-5.0) g/dL Procalcitonin 0.059 (0.030-0.080) ng/mL 07/06/25 07/06/25 07/06/25 Range/Units 06:30 07:00 07:32 WBC (4.23-9.07) x10^3/uL RBC (4.63-6.08) x10^6/uL Hgb (13.7-17.5) g/dL Hct (40.1-51.0) % MCV (79.0-92.2) fL MCH (25.7-32.2) pg MCHC (32.3-36.5) g/dL RDW (11.6-14.4) % Plt Count (163-337) x10^3/uL MPV (9.4-12.4) fL Sodium (135-145) mmol/L Potassium (3.5-5.1) mmol/L Chloride (98-107) mmol/L Carbon Dioxide (22-30) mmol/L Anion Gap (5-15) MEQ/L BUN (9-20) mg/dL Creatinine (0.66-1.25) mg/dL Estimated GFR ML/MIN Glucose (74-106) mg/dL POC Glucometer 60 L 65 L 78 (74 to 106) mg/dL Calcium (8.4-10.2) mg/dL Total Bilirubin (0.2-1.3) mg/dL AST (17-59) U/L ALT (0-50) U/L Alkaline Phosphatase (38-126) U/L Serum Total Protein (6.3-8.2) g/dL Albumin (3.5-5.0) g/dL Procalcitonin (0.030-0.080) ng/mL 07/06/25 Range/Units 09:03 WBC (4.23-9.07) x10^3/uL RBC (4.63-6.08) x10^6/uL Hgb (13.7-17.5) g/dL Hct (40.1-51.0) % MCV (79.0-92.2) fL MCH (25.7-32.2) pg MCHC (32.3-36.5) g/dL RDW (11.6-14.4) % Plt Count (163-337) x10^3/uL MPV (9.4-12.4) fL Sodium (135-145) mmol/L Potassium (3.5-5.1) mmol/L Chloride (98-107) mmol/L Carbon Dioxide (22-30) mmol/L Anion Gap (5-15) MEQ/L BUN (9-20) mg/dL Creatinine (0.66-1.25) mg/dL Estimated GFR ML/MIN Glucose (74-106) mg/dL POC Glucometer 98 (74 to 106) mg/dL Calcium (8.4-10.2) mg/dL Total Bilirubin (0.2-1.3) mg/dL AST (17-59) U/L ALT (0-50) U/L Alkaline Phosphatase (38-126) U/L Serum Total Protein (6.3-8.2) g/dL Albumin (3.5-5.0) g/dL Procalcitonin (0.030-0.080) ng/mL Micro Results-Entire Visit: Microbiology 07/04/25 14:52 Urine Culture - Final Urine, Void MIXED ALEXANDR; 3 OR MORE TYPES. NO PREDOMINANT ORGANISM. NO FURTHER WORKUP. PLEASE RESUBMIT IF CLINICALLY INDICATED. Accuchecks Date 07/06/25 Date 07/05/25 Date 07/05/25 Date 07/05/25 Time 21:22 Time 16:32 Time 12:13 - Radiology Exams Ordered Rad Exams-Entire Visit: Radiology Procedures Category Date Time Status CHEST 1 VIEW (PORTABLE) Routine Exams 07/05/25 07:51 Completed CHEST WITH CONTRAST [CT] Routine Exams 07/06/25 11:[address] ANGIOGRAPHY NECK [CT] Stat Exams 07/05/25 08:00 Completed CTA HEAD W AND/OR WO CONTRAST [CT] Urgent Exams 07/05/25 03:11 Completed ECHO W/2D AND DOPPLER [US] Routine Exams 07/05/25 08:00 Taken HEAD WITHOUT CONTRAST [CT] Routine Exams 07/06/25 09:33 Ordered HEAD WITHOUT CONTRAST [CT] Stat Exams 07/04/25 14:46 Completed VENOUS BILATERAL EXTREMITY [US] Routine Exams 07/05/25 12:28 Completed - Procedures and Test Procedures and Tests throughout Hospitalization: Therapy Orders & Screens 07/04/25 19:54 EKG REPEAT IN AM Comment: Diagnosis: Weakness 07/04/25 21:14 RT Screen per Nursing Assess ONCE Comment: Protocol Order Physician Instructions: Greater than 3 points order RT Admission Screen Reason For Exam: Triggered on Admission Diagnosis: Weakness Diagnosis: Weakness Pneumonia: No Home O2: Yes Asthma: No CHF: Yes Home CPAP/BIPAP: Yes Home Nebs/MDI: Yes Total Points: 18 07/04/25 21:35 Respiratory Therapy Assessment DAILY Comment: Diagnosis: Weakness 07/04/25 21:36 Oxygen Nasal Cannula 2 lpm Comment: Diagnosis: Weakness 07/04/25 22:47 PT Eval & Treat (MD Order) ONCE Reason for Eval:: possible stroke Diagnosis: Weakness Respiratory Therapy Consult ONCE Comment: Reason For Exam: Diagnosis: Weakness OT Eval and Treat (MD Order) ONCE Comment: Physician Instructions: Reason For Exam: Diagnosis: Weakness 07/04/25 22:48 ST Eval & Treat (MD Order) ROUTINE Comment: Physician Instructions: Reason For Exam: Evaluate: Yes Treat: Yes Reason for Eval: possible stroke Diagnosis: Weakness 07/05/25 07:30 OT Screen per Nursing Assess ONCE Comment: Protocol Order Physician Instructions: Greater than 3 points order OT Admission Screening Reason For Exam: Triggered on Admission Diagnosis: Weakness Open Wound/Cellutlitis/Pressure Ulcers: Yes Acute Fx/ORIF/Change in wt bearing status: No Severe MUSCULOSKELETAL pain: No ADL Dysfunction: No Acute CVA w/Hemiparesis/Hemiplegia: No Decreased Functional Mobility/Strength: No Sprain/Strain: No Acute Post-op Mobility Dysfunction: No Total Points: 5 PT Screen per Nursing Assess ONCE Comment: Protocol Order Physician Instructions: Greater than 3 points order PT Admission Screenin Reason For Exam: Triggered on Admission Diagnosis: Weakness Open Wound/Cellutlitis/Pressure Ulcers: Yes Acute Fx/ORIF/Change in wt bearing status: No Severe MUSCULOSKELETAL pain: No ADL Dysfunction: No Acute CVA w/Hemiparesis/Hemiplegia: No Decreased Functional Mobility/Strength: No Sprain/Strain: No Acute Post-op Mobility Dysfunction: No Total Points: 5 Discharge Exam General Appearance: no apparent distress, alert, obese Neurologic Exam: alert, oriented x 3, cooperative, normal mood/affect, nml cerebellar function, sensation nml, No motor deficits Eye Exam: PERRL, EOMI, eyes nml inspection Ears, Nose, Throat Exam: normal ENT inspection, pharynx normal, moist mucous membranes Neck Exam: normal inspection, non-tender, supple, full range of motion Respiratory Exam: normal breath sounds, lungs clear, No respiratory distress Cardiovascular Exam: regular rate/rhythm, normal heart sounds Gastrointestinal/Abdomen Exam: soft, No tenderness, No mass Male Genitalia Exam: deferred Rectal Exam: deferred Back Exam: normal inspection, normal range of motion, No CVA tenderness, No vertebral tenderness Extremity Exam: normal inspection, normal range of motion Skin Exam: normal color, warm, dry Final Diagnosis/Problem List - Final Discharge Diagnosis/Problem (1) TIA (transient ischemic attack) Current Visit: Yes Status: Acute Code(s): G45.9 - TRANSIENT CEREBRAL ISCHEMIC ATTACK, UNSPECIFIED (2) Abnormal TSH Current Visit: Yes Status: Acute Code(s): R79.89 - OTHER SPECIFIED ABNORMAL FINDINGS OF BLOOD CHEMISTRY (3) D-dimer, elevated Current Visit: Yes Status: Acute Code(s): R79.89 - OTHER SPECIFIED ABNORMAL FINDINGS OF BLOOD CHEMISTRY (4) Dyspnea Current Visit: Yes Status: Acute Code(s): R06.00 - DYSPNEA, UNSPECIFIED (5) Diabetes type 2, controlled Current Visit: No Status: Chronic Code(s): E11.9 - TYPE 2 DIABETES MELLITUS WITHOUT COMPLICATIONS (6) Essential (primary) hypertension Current Visit: No Status: Chronic Code(s): I10 - ESSENTIAL (PRIMARY) HYPERTENSION (7) Slurred speech Current Visit: Yes Status: Resolved Code(s): R47.81 - SLURRED SPEECH (8) Edema of both lower legs Current Visit: Yes Status: Acute Assessment & Plan: (1) TIA (transient ischemic attack) Current Visit: Yes Status: Acute Assessment & Plan: - PT/ST/ OT eval - Rollator needed and CM ordered - MRI brain cancelled as pt has pacemaker - CTA head, CT angio and head CT all negative for acute concern - Neurology consulted- note reviewed and agree with plan of care - Neuro reconsulted as pt is unable to have MRI and need to know if they recommended for imaging. - Xarelto held - A1C 6.45 - Lipid panel reviewed - HDL 36 - Atorvastatin 40mg daily - ASA 81 mg daily - Echo 07/06 - Discussed patient case with neurology today and he states that if CT is normal then patient can D/C home on continued anticoagulation - CT head negative for acute concern - Refuses HHC or rehab - Echo EF 35%- pt states he is aware and will f/u OP with cardiology Code(s): G45.9 - TRANSIENT CEREBRAL ISCHEMIC ATTACK, UNSPECIFIED (2) Abnormal TSH Current Visit: Yes Status: Acute Assessment & Plan: - TSH 0.439 - Will need repeat labs OP with PCP Code(s): R79.89 - OTHER SPECIFIED ABNORMAL FINDINGS OF BLOOD CHEMISTRY (3) D-dimer, elevated Current Visit: Yes Status: Acute Assessment & Plan: - D-Dimer 0.66 - CTA negative for PE - tele Code(s): R79.89 - OTHER SPECIFIED ABNORMAL FINDINGS OF BLOOD CHEMISTRY (4) Dyspnea Current Visit: Yes Status: Acute Assessment & Plan: - CXR: Portable chest demonstrates new minimal left base infiltrate versus atelectasis and mild right hemidiaphragm elevation. Heart not enlarged again with CABG, left AICD, and a few left hilar calcified nodes. Bony thorax intact again with osteopenia and mild degenerative changes. - Old CT chest reviewed and findings appear to be chronic - CTA pending - On baseline O2 of 2LNC at 93% - Trop x3 negative - BNP 731 07/06 - CT chest reviewed + pneumonia- see plan below - RA 99%- 2lNC PRN Code(s): R06.00 - DYSPNEA, UNSPECIFIED (5) Diabetes type 2, controlled Current Visit: No Status: Chronic Assessment & Plan: - Accuchecks AC/HS - Continue home insulin dosing - A1C 6.45 - controlled - Metformin held Code(s): E11.9 - TYPE 2 DIABETES MELLITUS WITHOUT COMPLICATIONS (6) Essential (primary) hypertension Current Visit: No Status: Chronic Assessment & Plan: - BP stable Code(s): I10 - ESSENTIAL (PRIMARY) HYPERTENSION (7) Slurred speech Current Visit: Yes Status: Resolved Assessment & Plan: - Resolved since admission - Pt states this is his norm - ST eval - no concerns Code(s): R47.81 - SLURRED SPEECH (8) Edema of both lower legs Current Visit: Yes Status: Acute Assessment & Plan: - VD BLLE negative Code(s): R60.0 - LOCALIZED EDEMA (9) Pneumonia Current Visit: No Status: Acute Onset Date: ~11/29/17 Assessment & Plan: - Chest CT: 1. Respiration artifact limits pulmonary embolus evaluation. No obvious pulmonary embolus. 2. Again patchy left lower and right middle lobe hazy alveolar opacities. Rule out pneumonia/pneumonitis. 3. Chronic findings including osteopenia, degenerative spondylosis, CABG, left pacemaker, fatty liver, and old granulomatous disease. - On baseline O2 at 2lNC - Lung sounds are clear and denies SOB - Start Doxycycline OP 100 mg BID x5 days - CBC, CMP reviewed - Procal negative D/C plan of care time > 35 minutes Code(s): J18.9 - PNEUMONIA, UNSPECIFIED ORGANISM (10) Hypoglycemia Current Visit: No Status: Acute Code(s): E16.2 - HYPOGLYCEMIA, UNSPECIFIED (11) Hypoglycemia associated with type 2 diabetes mellitus Current Visit: No Status: Acute Assessment & Plan: - Glucose dropped last night to 46 - Hypoglycemia protocol in place - Q1 hour glucose readings- stable since - Encouraged bedtime snack at home. Code(s): E11.649 - TYPE 2 DIABETES MELLITUS WITH HYPOGLYCEMIA WITHOUT COMA - Discharge Discharge Date: 07/06/25 Disposition: Home, Self-Care Condition: Fair Prescriptions: New Doxycycline Hyclate 100 mg [Vibramycin 100 MG] 100 mg PO BID 5 Days #10 tab Continue Aspirin [Aspirin EC] 81 mg PO DAILY Nitroglycerin 0.4 mg Tablet [Nitrostat 0.4 MG Tablet] 0.4 mg SL UD PRN PRN Reason: Chest Pain Atorvastatin Calcium [Lipitor] 40 mg PO HS Metformin HCl 500 mg [Glucophage 500 MG] 1,000 mg PO BIDWM Insulin NPH/Reg 70/30 [Novolin 70/30] 60 unit SQ PMINSULIN Insulin NPH/Reg 70/30 [Novolin 70/30] 80 unit SQ AMINSULIN Carvedilol 3.125 mg [Coreg 3.125 MG] 3.125 mg PO BID Spironolactone 25 mg [Aldactone 25 MG] 12.5 mg PO DAILY Furosemide 40 mg [Lasix 40 MG] 80 mg PO BID Potassium Chloride 20 meq PO BID Sacubitril/Valsartan [Entresto 24 mg-26 mg Tablet] 0.5 tab PO DAILY Albuterol Sulfate 2 puff IH QIDPRN PRN PRN Reason: Shortness Of Breath Acetaminophen 325 mg [Tylenol 325 mg] 650 mg PO TIDPRN PRN PRN Reason: Pain Tramadol HCl 50 mg [Ultram 50 mg] 100 mg PO TIDPRN PRN PRN Reason: Pain Rivaroxaban [Xarelto] 20 mg PO DAILY Instructions: Preventing falls in adults, Low blood sugar in people with diabetes, Pneumonia in adults Follow up with: PABLITO MUNGUIA MD [Primary Care Provider, [facility]ILY [facility]ACTICE] - 07/17/25 3:00 pm NEIDA GAO [CONSULTING PHYSICIAN, CARDIOLOGY] - 07/16/25 9:30 am
[2025-07-06 11:49] VITALS: BP 102/58; PULSE 80; RESP 20; TEMP 98
[2025-07-06] MEDS ORDERED: HOLD METFORMIN PRODUCTS FOR 48 HOURS MC SCH (12:30)
--- NOTE | 2025-07-06 12:43 | XRAY ---
Indication: Stroke symptoms. Negative CT head July 04, 2025 Stable age-appropriate global atrophy with minimal periventricular degenerative microischemia. No acute intracranial hemorrhage, abnormal extra-axial fluid collection, or mass effect. 4th ventricle is midline without hydrocephalus. Bony calvarium intact. Visualized paranasal sinuses and mastoid air cells are clear. Impression: Stable nonacute senile brain.
--- NOTE | 2025-07-06 12:49 | XRAY ---
Indication: Elevated D-dimer. Status post CTA neck and CTA head exam 1 day earlier using 100 cc Isovue 370 contrast. Multiple contiguous axial images obtained through the chest using 80 cc Isovue 370 contrast and PE protocol. Comparison: CT chest without contrast April 19, 2023. Good opacification pulmonary arteries to include lobar and segmental branches. Mild respiration artifact limits evaluation of the more distal segmental segments. No central pulmonary embolus. Heart not enlarged again with CABG and left dual lead pacemaker. Aorta is normal in course and caliber. Stable small mediastinal and left hilar calcified nodes. No pathologic mediastinal/hilar lymphadenopathy. Lungs again demonstrates patchy peripheral left lower and right middle lobe hazy alveolar opacities, possible pneumonia/pneumonitis. Minimal bilateral dependent atelectasis. Stable small left upper lobe calcified granuloma. No consolidation, effusion, or pneumothorax. Bony thorax intact again with osteopenia, mild/moderate degenerative changes throughout spine, and sternotomy wires. Limited upper abdomen again demonstrates fatty liver and tiny hepatic/splenic calcified granulomas. Impression: 1. Respiration artifact limits pulmonary embolus evaluation. No obvious pulmonary embolus. 2. Again patchy left lower and right middle lobe hazy alveolar opacities. Rule out pneumonia/pneumonitis. 3. Chronic findings including osteopenia, degenerative spondylosis, CABG, left pacemaker, fatty liver, and old granulomatous disease.
[2025-07-06] MEDS ORDERED: Glucophage 500 MG PO SCH (17:00)
== END 2025-07-06 14:29 | disposition home or self-care (01) ==
LOC: ED 14:34 → MED SURG 19:50
PROVIDERS: ADMIT Internal Medicine; ATTEND Internal Medicine
DX: G45.9 Transient cerebral ischemic attack, unspecified (principal); R79.89 Other specified abnormal findings of blood chemistry; R06.00 Dyspnea, unspecified; R47.81 Slurred speech; R60.0 Localized edema; J18.9 Pneumonia, unspecified organism; E11.649 Type 2 diabetes mellitus with hypoglycemia without coma; Z79.01 Long term (current) use of anticoagulants; Z79.899 Other long term (current) drug therapy; E78.5 Hyperlipidemia, unspecified; I48.91 Unspecified atrial fibrillation; I11.0 Hypertensive heart disease with heart failure; I50.9 Heart failure, unspecified; I25.10 Atherosclerotic heart disease of native coronary artery without angina pectoris; Z95.0 Presence of cardiac pacemaker
CPT/HCPCS: 36415; 70450; 70496; 70498; 71045; 71260; 80053; 80061; 81001; 82140; 82947; 83036; 83721; 83735; 83880; 84134; 84145; 84443; 84484; 85025; 85027; 85379; 85610; 87086; 93005; 93041; 93268; 93306; 93970; 94640; 94760; 96105; 97161; 97165; 97530; 99285; G0378; Q3014